=== PATIENT | male | born 1965 | race Caucasian/White ===

== ENCOUNTER 2023-02-22 06:34 | Outpatient (OUT) | payer OTHER, SELFPAY ==
[2023-02-22 07:00] LABS: Basophils Percent Auto 0.7 % (0.2-2.0); Eosinophils Absolute Auto 0.1 10^3/uL (0.0-0.7); Eosinophils Percent Auto 2.2 % (0.9-7.0); Hematocrit 40.5 % (42.0-54.0); Hemoglobin 13.9 g/dL (14.0-18.0); Immature Granulocytes Abs Auto 0.01 10^3/uL (0.00-0.03); Immature Granulocytes Pct Auto 0.2 % (0.0-0.5); Lymphocytes Absolute Auto 2.1 10^3/uL (1.2-3.8); Lymphocytes Percent Auto 49.2 % (20.5-60.0); Mean Corpuscular HGB Conc 34.3 g/dL (29.9-35.2); Mean Corpuscular Hemoglobin 31.4 pg (25.9-34.0); Mean Corpuscular Volume 91.6 fL (80.0-94.0); Mean Platelet Volume 9.4 fL (9.5-13.5); Monocytes Absolute Auto 0.3 10^3/uL (0.3-0.8); Monocytes Percent Auto 8.2 % (1.7-12.0); Neutrophils Absolute Auto 1.7 10^3/uL (1.4-6.5); Neutrophils Percent Auto 39.5 % (43.0-75.0); Platelet Count 191 10^3/uL (150-450); Red Blood Count 4.42 10^6/uL (4.70-6.10); Red Cell Distribution Width 12.2 % (11.0-15.0); White Blood Count 4.2 10^3/uL (4.0-11.0)
[2023-02-22 08:33] LABS: Alanine Aminotransferase 22 U/L (16-63); Albumin Globulin Ratio 1.1; Albumin Level 3.9 g/dL (3.4-5.0); Alkaline Phosphatase 43 U/L (46-116); Anion Gap 11.7; Aspartate Amino Transferase 21 U/L (15-37); BUN Creatinine Ratio 17.1; Bilirubin Total 0.6 mg/dL (0.2-1.0); Calcium 8.6 mg/dL (8.5-10.1); Carbon Dioxide 30.2 mmol/L (21.0-32.0); Chloride 105 mmol/L (98-107); Chol HDL Ratio 1.4; Cholesterol 101 mg/dL (<=200); Estimated GFR (African America >60 (>=60); Estimated GFR (Non-African Ame >60 (>=60); Free T3 3.29 pg/mL (2.18-3.98); Globulin 3.4 g/dL; Glucose 88 mg/dL (74-106); HDL Cholesterol 72 mg/dL (40-60); Potassium 3.9 mmol/L (3.5-5.1); Sodium 143 mmol/L (136-145); Thyroid Stimulating Hormone 1.642 uIU/mL (0.358-3.740); Total Protein 7.3 g/dL (6.4-8.2); Triglycerides <15 mg/dL (<=150)
[2023-02-22 08:36] LABS: Prostate Specific Antigen Scrn 0.39 ng/mL (<=4.00)
[2023-02-22 08:45] LABS: Estimated Average Glucose 97 mg/dL
[2023-02-23 11:09] LABS: Insulin 6.2 uIU/mL (2.6-24.9)
== END 2023-02-22 06:35 | disposition home or self-care (01) ==
LOC: LAB 06:34
PROVIDERS: PCP Family Medicine; Visit Provider Family Medicine
DX: Z00.00 Encounter for general adult medical examination without abnormal findings (principal)
CPT/HCPCS: 36415; 80053; 80061; 83036; 83525; 84436; 84443; 84481; 85025; G0103

== ENCOUNTER 2023-07-26 15:01 | Outpatient (OUT) | payer OTHER, SELFPAY | END 2023-07-26 15:02 | disposition home or self-care (01) | LOC: SLEEP 15:01 | PROVIDERS: PCP Family Medicine; Visit Provider Family Medicine | DX: G47.33 Obstructive sleep apnea (adult) (pediatric) (principal) | CPT/HCPCS: 95806 ==

== ENCOUNTER 2023-11-24 06:19 | Outpatient (OUT) | payer OTHER, SELFPAY ==
--- OUTSIDE RECORDS SUMMARY | 2023-11-24 06:21 | XMS_ITS | CCD ---
Author Organization [facility] Care Team Providers Care Perfume And Toilet Water Maker Name Role Phone Keshia Holt Primary Care Provider [phone] KESHIA HOLT Referring Unavailable KESHIA HOLT Primary Care Unavailable KESHIA HOLT Referring Unavailable KESHIA HOLT Primary Care Unavailable KESHIA HOLT Primary Care Unavailable KESHIA HOLT Referring Unavailable NILL, DR YOUNGBLOOD Admitting Unavailable NILL, DR YOUNGBLOOD Attending Unavailable BROOKEY, DR SCHMITT Primary Care Unavailable NILL, DR YOUNGBLOOD Consulting Unavailable SUSAN, BOB Consulting Unavailable YANET, DR SCHMITT Admitting Unavailable HOY, DR SCHMITT Attending Unavailable HOY, DR SCHMITT Primary Care Unavailable HOY, DR SCHMITT Consulting Unavailable CLEANING, DR RIBEIRO Admitting Unavailable LIANET, DR RIBEIRO Attending Unavailable YANET, DR SCHMITT Primary Care Unavailable LIANET, DR RIBEIRO Consulting Unavailable Keshia Holt Primary Care Physician Neri CLEANING R Attending Unavailable Medications Current Medications Medication Drug Class(es) Dates Sig (Normalized) Sig (Original) hydrocortisone acetate 10 mg/ml / pramoxine hydrochloride 10 mg/ml rectal cream (1 source) Corticosteroid Start: 11-15-2020 apply 1 dose rectal route three times daily Analpram-HC 1%-1% rectal cream quincy, Rectal, TID, Refill(s) 0 Start Date: 11/15/20 Status: Ordered lansoprazole 30 mg delayed release oral capsule (1 source) Proton Pump Inhibitor Start: 11-15-2020 take 1 capsule by mouth once daily Prevacid 30 mg Cap-DR 30 mg = 1 cap(s), Oral, Daily, Refills(s) 0 Start Date: 11/15/20 Status: Ordered 24 hr oxybutynin chloride 15 mg extended release oral tablet (1 source) Cholinergic Muscarinic Antagonist Start: 07-20-2022 End: 07-15-2023 take 1 tablet by mouth once daily oxybutynin 15 mg ER Tab 15 mg = 1 tab(s), Oral, Daily, X 90 day(s), # 90 tab(s), Refills(s) 3, Pharmacy: [facility] [id number], 170, cm, 07/20/22 15:45:00 EST, Height/Length Dosing, 84, kg, 07/20/22 15:45:00 EST, Weight Dosing Start Date: 07/20/22 Stop Date: 07/15/23 Status: Ordered Saw palmetto extract (1 source) Start: 07-01-2020 take 1 mg by mouth once daily saw palmetto mg, Oral, Daily, Refill(s) 0 Start Date: 07/01/20 Status: Ordered tadalafil 20 mg oral tablet (1 source) Phosphodiesterase 5 Inhibitor Start: 07-20-2022 Cialis 20 mg Tab See Instructions, Take half tab by mouth 1-2 hours prior to sexual activity., # 30 tab(s), Refills(s) 3, Pharmacy: [facility] [id number], 170, cm, 07/20/22 15:45:00 EST, Height/Length Dosing, 84, kg, 07/20/22 15:45:00 EST, Weight Dosing Start Date: 07/20/22 Status: Ordered Problems Active Problems Problem Classification Problem Date Documented Da te Episodic/Chronic Esophageal disorders (1 source) Gastro-esophageal reflux disease without esophagitis; Translations: [GERD WITHOUT ESOPHAGITIS] Onset: 01-06-2021 Chronic Genitourinary symptoms and ill-defined conditions (3 sources) Increased frequency of urination; Translations: [Nocturia] 07-14-2021 Episodic Hyperplasia of prostate (6 sources) Benign prostatic hyperplasia with lower urinary tract symptoms; Translations: [Benign prostatic hyperplasia without lower urinary tract symptoms] Onset: 01-06-2021 Chronic Other diseases of kidney and ureters (1 source) Urinary tract obstruction; Translations: [Other obstructive and reflux uropathy] Onset: 07-20-2022 Episodic Other gastrointestinal disorders (1 source) Heartburn 11-15-2020 Episodic Other male genital disorders (1 source) Impotence 07-01-2020 Chronic Other nutritional; endocrine; and metabolic disorders (1 source) Body mass index 25-29 - overweight 11-27-2020 Episodic Other screening for suspected conditions (not mental disorders or infectious disease) (5 sources) Encounter for screening for malignant neoplasm of prostate; Translations: [Encounter for screening for malignant neoplasm of colon] Onset: 01-01-2021 Episodic Unclassified (2 sources) Patient encounter status 07-01-2020 Past or Other Problems Problem Classification Problem Date Documented Da te Episodic/Chronic Other aftercare (1 source) 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 You have an appointment with Dr. Neri Cleaning on 10/04/23 which will need to be rescheduled since he will be out of the office that day. Please contact the office at the number listed below to get this appointment rescheduled at your earliest convenience. Thank you for your prompt attention to this matter. Sincerely, [facility] [address], [place] [address] [facility] Provider Letteron 07-05-2023 Provider Letter July 02, 2023 LEEROY ROMO [address] [id number] : 1965 Dear Mr. Llamasut, We have been trying to reach you with no success-your voicemail was full when we called on 07/02/23. You have an appointment with Dr. Neri Cleaning on July 26, 2023 at 3:15pm which will need to be rescheduled since he will be out of the office that day. Please contact the office at the number listed below to get this appointment rescheduled at your earliest convenience. Thank you for your prompt attention to this matter. Please call to reschedule at [phone] option 3. Sincerely, [facility] Appt rescheduled for 10/04/23 Normal [facility] INSULINon 12-31-2021 Insulin 5.4 uIU/mL Normal 2.6-24.9 [facility] Comment on above: Performed By: #### I NSULIN #### [facility] [address] [place] [address] Dr. Teodoro Owens CBC AUTO DIFFon 12-30-2021 BASO # 0.0 103/ul Normal 0.0-0.1 [facility] Comment on above: Performed By: #### C BC #### [facility] [address] [place] [address] Dr. Teodoro Owens Basophils/100 WBC (Bld) 0.5 % Normal 0.2-2.0 [facility] Comment on above: Performed By: #### C BC #### [facility] [address] [place] [address] Dr. Teodoro Owens EO # 0.1 103/ul Normal 0.0-0.7 [facility] Comment on above: Performed By: #### C BC #### [facility] [address] [place] [address] Dr. Teodoro Owens Eosinophils/100 WBC (Bld) 1.5 % Normal 0.9-7.0 [facility] Comment on above: Performed By: #### C BC #### [facility] [address] [place] [address] Dr. Teodoro Owens Erythrocyte distribution width (RBC) [Ratio] 12.7 % Normal 11.0-15.0 [facility] Comment on above: Performed By: #### C BC #### [facility] [address] [place] [address] Dr. Teodoro Owens Hematocrit (Bld) [Volume fraction] 40.7 % Critically low 42.0-54.0 [facility] Comment on above: Performed By: #### C BC #### [facility] [address] [place] [address] Dr. Teodoro Owens Hemoglobin (Bld) [Mass/Vol] 13.8 g/dL Critically low 14.0-18.0 [facility] Comment on above: Performed By: #### C BC #### [facility] [address] [place] [address] Dr. Teodoro Owens IG # 0.01 10e3/ul Normal 0.00-0.03 [facility] Comment on above: Performed By: #### C BC #### [facility] [address] [place] [address] Dr. Teodoro Owens IG % 0.3 % Normal 0.0-0.5 [facility] Comment on above: Performed By: #### C BC #### [facility] [address] [place] [address] Dr. Teodoro Owens LYMPH # 1.9 103/ul Normal 1.2-3.8 [facility] Comment on above: Performed By: #### C BC #### [facility] [address] [place] [address] Dr. Teodoro Owens Lymphocytes/100 WBC (Bld) 48.3 % Normal 20.5-60.0 [facility] Comment on above: Performed By: #### C BC #### [facility] [address] [place] [address] Dr. Teodoro Owens MANUAL DIFF REQ NO Normal [facility] Comment on above: Performed By: #### C BC #### [facility] [address] [place] [address] Dr. Teodoro Owens MCH (RBC) [Entitic mass] 31.0 pg Normal 25.9-34.0 [facility] Comment on above: Performed By: #### C BC #### [facility] [address] [place] [address] Dr. Teodoro Owens MCHC (RBC) [Mass/Vol] 33.9 g/dL Normal 29.9-35.2 [facility] Comment on above: Performed By: #### C BC #### [facility] [address] [place] [address] Dr. Teodoro Owens MCV (RBC) [Entitic vol] 91.5 fL Normal 80.0-94.0 [facility] Comment on above: Performed By: #### C BC #### [facility] [address] [address] [address] Teodoro Owens MONO # 0.4 103/ul Normal 0.3-0.8 [facility] Comment on above: Performed By: #### C BC #### [facility] [address] [address] [address] Teodoro Owens Monocytes/100 WBC (Bld) 9.0 % Normal 1.7-12.0 [facility] Comment on above: Performed By: #### C BC #### [facility] [address] [address] [address] Teodoro Owens NEUT # 1.6 103/ul Normal 1.4-6.5 [facility] Comment on above: Performed By: #### C BC #### [facility] [address] [place] [address] Dr. Teodoro Owens Neutrophils/100 WBC (Bld) 40.4 % Critically low 43.0-75.0 [facility] Comment on above: Performed By: #### C BC #### [facility] [address] [address] [address] Teodoro Owens Platelet mean volume (Bld) [Entitic vol] 9.1 fL Critically low 9.5-13.5 [facility] Comment on above: Performed By: #### C BC #### [facility] [address] [place] [address] Dr. Teodoro Owens PLT 176 103/ul Normal 150-450 [facility] Comment on above: Performed By: #### C BC #### [facility] [address] [place] [address] Dr. Teodoro Owens RBC 4.45 106/ul Critically low 4.70-6.10 [facility] Comment on above: Performed By: #### C BC #### [facility] [address] [address] [address] Teodoro Owens WBC 4.0 103/ul Normal 4.0-11.0 [facility] Comment on above: Performed By: #### C BC #### [facility] [address] [address] [address] Teodoro Owens GLYCOHEMOGLOBIN A1Con 2021 ADA RECOMMENDATION SEE BELOW Normal [facility] Comment on above: Result Comment: ADA RECOMMENDED LIMIT 4.0 - 6.0 ADA THERAPEUTIC TARGET < 7.0 ACTION SUGGESTED > 7.0 Performed By: #### A 1C #### [facility] [address] [address] [address] Teodoro Owens Glucose [Mass/Vol] 91 mg/dL Normal [facility] Comment on above: Performed By: #### A 1C #### [facility] [address] [address] [address] Teodoro Owens HbA1c (Bld) [Mass fraction] 4.8 % Normal 4.5-6.2 [facility] Comment on above: Performed By: #### A 1C #### [facility] [address] [place] [address] Dr. Teodoro Owens LIPID PROFILEon 12-30-2021 CHOL-HDL RATIO NORM SEE BELOW Normal [facility] Comment on above: Result Comment: 3.3 - 4.4 LOW RISK 4.4 - 7.1 AVERAGE RISK 7.1 - 11.0 MODERATE RISK >11.0 HIGH RISK Performed By: #### U ZACH, CMP, LIPID #### [facility] [address] [place] [address] Dr. Teodoro Owens Cholesterol [Mass/Vol] 103 mg/dL Normal <=200 Th [facility] Comment on above: Performed By: #### U ZACH, CMP, LIPID #### [facility] [address] [address] [address] Teodoro Owens Cholesterol in HDL [Mass/Vol] 74 mg/dL Critically high 40-60 [facility] Comment on above: Performed By: #### U ZACH, CMP, LIPID #### [facility] [address] [address] [address] Teodoro Owens Cholesterol in LDL [Mass/Vol] 26.0 mg/dL Normal [facility] Comment on above: Performed By: #### U ZACH, CMP, LIPID #### [facility] [address] [address] [address] Teodoro Owens Cholesterol.total/Choles terol in HDL [Mass ratio] 1.4 {ratio} Normal [facility] Comment on above: Performed By: #### U ZACH, CMP, LIPID #### [facility] [address] [address] [address] Teodoro Owens HDL NORMAL > or = 60 mg/dl - LOW CARDIOVASCULAR RISK <40 mg/dl - HIGH CARDIOVASCULAR RISK Normal [facility] Comment on above: Performed By: #### U ZACH, CMP, LIPID #### [facility] [address] [address] [address] Teodoro Owens LDL CALC NORMAL SEE BELOW Normal [facility] Comment on above: Result Comment: <100 mg/dl OPTIMAL 100 - 129 mg/dl NEAR OR ABOVE OPTIMAL 130 - 159 mg/dl BORDERLINE HIGH 160 - 189 mg/dl HIGH >190 mg/dl VERY HIGH Performed By: #### U ZACH, CMP, LIPID #### [facility] [address] [address] [address] Teodoro Owens Triglyceride [Mass/Vol] 15 mg/dL Normal <=150 T [facility] Comment on above: Performed By: #### U ZACH, CMP, LIPID #### [facility] [address] [address] [address] Teodoro Owens VLDL CALC 3.0 mg/dL Normal [facility] Comment on above: Performed By: #### U ZACH, CMP, LIPID #### [facility] [address] [address] [address] Teodoro Owens PROF 14(COMP METB)on 022 Albumin [Mass/Vol] 3.8 g/dL Normal 3.4-5.0 [facility] Comment on above: Performed By: #### U ZACH, CMP, LIPID #### [facility] [address] [address] [address] Teodroo Owens Albumin/Globulin [Mass ratio] 1.2 {ratio} Normal [facility] Comment on above: Performed By: #### U ZACH, CMP, LIPID #### [facility] [address] [address] [address] Teodoro Owens ALP [Catalytic activity/Vol] 42 U/L Critically low 46-116 [facility] Comment on above: Performed By: #### U ZACH, CMP, LIPID #### [facility] [address] [address] [address] Teodoro Owens ALT [Catalytic activity/Vol] 21 U/L Normal 16-63 [facility] Comment on above: Performed By: #### U ZACH, CMP, LIPID #### [facility] [address] [address] [address] Teodoro Owens Anion gap [Moles/Vol] 9.9 mmol/L Normal [facility] Comment on above: Performed By: #### U ZACH, CMP, LIPID #### [facility] [address] [place] [address] Dr. Teodoro Owens AST [Catalytic activity/Vol] 20 U/L Normal 15-37 [facility] Comment on above: Performed By: #### U ZACH, CMP, LIPID #### [facility] [address] [address] [address] Teodoro Owens Bilirubin [Mass/Vol] 0.8 mg/dL Normal 0.2-1.0 [facility] Comment on above: Performed By: #### U ZACH, CMP, LIPID #### [facility] [address] [address] [address] Teodoro Owens Calcium [Mass/Vol] 8.6 mg/dL Normal 8.5-10.1 [facility] Comment on above: Performed By: #### U ZACH, CMP, LIPID #### [facility] [address] [address] [address] Teodoro Owens Chloride [Moles/Vol] 106 mmol/L Normal 98-107 [facility] Comment on above: Performed By: #### U ZACH, CMP, LIPID #### [facility] [address] [address] [address] Teodoro Owens CO2 [Moles/Vol] 30.2 mmol/L Normal 21.0-32.0 [facility] Comment on above: Performed By: #### U ZACH, CMP, LIPID #### [facility] [address] [address] [address] Teodoro Owens Creatinine [Mass/Vol] 1.01 mg/dL Normal 0.70-1.30 [facility] Comment on above: Performed By: #### U ZACH, CMP, LIPID #### [facility] [address] [address] [address] Teodoro Owens EGFR-AF NORTH [place]OREAN >60 Normal >=60 [facility] Comment on above: Performed By: #### U ZACH, CMP, LIPID #### [facility] [address] [address] [address] Teodoro Owens EGFR-NON AF [place]ORE[place] >60 Normal >=60 [facility] Comment on above: Performed By: #### U ZACH, CMP, LIPID #### [facility] [address] [address] [address] Teodoro Owens Globulin (S) [Mass/Vol] 3.2 g/dL Normal [facility] Comment on above: Performed By: #### U ZACH, CMP, LIPID #### [facility] [address] [address] [address] Teodoro Owens Glucose [Mass/Vol] 88 mg/dL Normal 74-106 [facility] Comment on above: Performed By: #### U ZACH, CMP, LIPID #### [facility] [address] [address] [address] Teodoro Owens Potassium [Moles/Vol] 4.1 mmol/L Normal 3.5-5.1 [facility] Comment on above: Performed By: #### U ZACH, CMP, LIPID #### [facility] [address] [address] [address] Teodoro Owens Protein [Mass/Vol] 7.0 g/dL Normal 6.4-8.2 [facility] Comment on above: Performed By: #### U ZACH, CMP, LIPID #### [facility] [address] [address] [address] Teodoro Owens Sodium [Moles/Vol] 142 mmol/L Normal 136-145 [facility] Comment on above: Performed By: #### U ZACH, CMP, LIPID #### [facility] [address] [place], [place] [address] Dr. Teodoro Owens Urea nitrogen [Mass/Vol] 14.0 mg/dL Normal 7.0-18.0 [facility] Comment on above: Performed By: #### U ZACH, CMP, LIPID #### [facility] [address] [address] [address] Teodoro Owens Urea nitrogen/Creatinine [Mass ratio] 13.9 mg/mg Normal [facility] Comment on above: Performed By: #### U ZACH, CMP, LIPID #### [facility] [address] [address] [address] Teodoro Owens URIC ACID SERUMon 12-30-2021 Urate [Mass/Vol] 5.5 mg/dL Normal 3.5-7.2 [facility] Comment on above: Performed By: #### U ZACH, CMP, LIPID #### [facility] [address] [address] [address] Teodoro Owens Hemoglobin A1Con 11-03-2020 Glucose [Mass/Vol] 100 mg/dL Normal [facility] Comment on above: Result Comment: The ADA and AACC recommend providing the estimated average glucose result to permit better patient understanding of their HBA1c result. Performed By: #### G LYHGB, INSU, LIPR, PSAS #### [address] [phone] Mortgage Specialist: Max Villanueva MD #### CP, CDP #### [facility] [address] [place] [address] [place] [address] Mortgage Specialist: Preet Ayala MD HbA1c (Bld) [Mass fraction] 5.1 % Normal 4.0-6.0 [facility] Comment on above: Performed By: #### G LYHGB, INSU, LIPR, PSAS #### [address] [phone] Mortgage Specialist: Max Villanueva MD #### CP, CDP #### [facility] [address] [place] [address] Mortgage Specialist: Preet Ayala MD CBC Auto DifferentialOrdered By: Keshia Holt on 11-02-2020 Absolute Eos # 0.06 [facility] Work Phone: Absolute Immature Granulocyte <0.03 [facility] Work Phone: Absolute Lymph # 2.06 [employer] Work Phone: Absolute Trigg # 0.47 [facility] Work Phone: Basophils (Bld) [#/Vol] 10*3/uL M [email or web address] Work Phone: Basophils/100 WBC (Bld) 0 % 0 - 2 % M [email or web address] Work Phone: Differential Type NOT REPORTED [employer] Work Phone: Eosinophils/100 WBC (Bld) 1 % 1 - 4 % [facility] Work Phone: Hematocrit (Bld) [Volume fraction] 42.2 % 40.7 - 50.3 % [employer] Work Phone: Hemoglobin.gastrointesti nal spec 1 Ql (Stl) 14.5 g/dL 13.0 - 17.0 g/dL [employer] Phone: Immature granulocytes/100 WBC (Bld) 0 % 0 [employer] Work Phone: Lymphocytes/100 WBC (Bld) 40 % 24 - 43 % [employer] Phone: MCH (RBC) [Entitic mass] 31.0 pg 25. 2 - 33.5 pg [employer] Work Phone: MCHC (RBC) [Mass/Vol] 34.4 g/dL 28.4 - 34.8 g/dL [employer] Phone: MCV (RBC) [Entitic vol] 90.4 fL 82.6 - 102.9 fL [employer] Work Phone: Monocytes/100 WBC (Bld) 9 % 3 - 12 % [facility] Work Phone: NRBC Automated 0.0 0.0 per 100 WBC [employer] Phone: Platelet distribution width (Bld) [Ratio] 12.5 % 11.8 - 14.4 % [employer] Phone: Platelet Estimate NOT REPORTED [employer] Work Phone: Platelet mean volume (Bld) [Entitic vol] 9.1 fL 8.1 - 13.5 fL [employer] Phone: Platelets (Bld) [#/Vol] 173 10*3/uL [employer] Phone: RBC (Bld) [#/Vol] 4.67 10*6/uL 4.21 - 5.7 7 m/uL [employer] Work Phone: RBC (Bld) [#/Vol] NOT REPORTED [employer] Phone: Segmented neutrophils/100 WBC (Bld) 50 % 36 - 65 % [employer] Work Phone: Segs Absolute 2.54 [employer] Work Phone: WBC (Bld) [#/Vol] 5.2 10*3/uL [employer] Work Phone: WBC (Bld) [#/Vol] NOT REPORTED [employer] Work Phone: [employer] Work Phone: CBC with Diffon 11-02-2020 Abs. Basophil <0.03 Normal 0.00-0.20 [facility] Comment on above: Performed By: #### G LYHGB, INSU, LIPR, PSAS #### [address] [place] [address] Mortgage Specialist: Max Villanueva MD #### CP, CDP #### [address] [place] [place] [phone] Mortgage Specialist: Preet Ayala MD Abs.Imm.Granulocyte <0.03 Normal 0.00-0.30 [facility] Comment on above: Performed By: #### G LYHGB, INSU, LIPR, PSAS #### [address] [phone] Mortgage Specialist: Max Villanueva MD #### CP, CDP #### [address] [place] [phone] ( Mortgage Specialist: Preet Ayala MD Abs.Neutrophil (Seg) 2.54 k/uL Normal 1.50-8.10 [facility] Comment on above: Performed By: #### G LYHGB, INSU, LIPR, PSAS #### [place] [address] Mortgage Specialist: Max Villanueva MD #### CP, CDP #### [address] [place] [address] Mortgage Specialist: Preet Ayala MD Basophils/100 WBC (Bld) 0 % Normal 0-2 M [facility] [place] Comment on above: Performed By: #### G LYHGB, INSU, LIPR, PSAS #### [place] [address] Mortgage Specialist: Max Villanueva MD #### CP, CDP #### [address] [place] [place] [phone] Mortgage Specialist: Preet Ayala MD Eosinophils (Bld) [#/Vol] 0.06 10*3/uL Normal 0.00-0.44 [facility] Comment on above: Performed By: #### G LYHGB, INSU, LIPR, PSAS #### [address] [phone] Mortgage Specialist: Max Villanueva MD #### CP, CDP #### [address] [place] [phone] Mortgage Specialist: Preet Ayala MD Eosinophils/100 WBC (Bld) 1 % Normal 1-4 [facility] Comment on above: Performed By: #### G LYHGB, INSU, LIPR, PSAS #### [address] [phone] Mortgage Specialist: Max Villanueva MD #### CP, CDP #### [address] [address] [place] [phone] Mortgage Specialist: Preet Ayala MD Erythrocyte distribution width (RBC) [Ratio] 12.5 % Normal 11.8-14.4 [facility] Comment on above: Performed By: #### G LYHGB, INSU, LIPR, PSAS #### [address] [address] Mortgage Specialist: Max Villanueva MD #### CP, CDP #### [address] [place] [phone] Mortgage Specialist: Preet Ayala MD Hematocrit (Bld) [Volume fraction] 42.2 % Normal 40.7-50.3 [facility] Comment on above: Performed By: #### G LYHGB, INSU, LIPR, PSAS #### [address] [address] Mortgage Specialist: Max Villanueva MD #### CP, CDP #### [address] [place] [phone] Mortgage Specialist: Preet Ayala MD Hemoglobin (Bld) [Mass/Vol] 14.5 g/dL Normal 13.0-17.0 [facility] Comment on above: Performed By: #### G LYHGB, INSU, LIPR, PSAS #### [address] [address] Mortgage Specialist: Max Villanueva MD #### CP, CDP #### [address] [place], [place] [phone] Mortgage Specialist: Preet Ayala MD Immature granulocytes/100 WBC (Bld) 0 % Normal 0 [facility] Comment on above: Performed By: #### G LYHGB, INSU, LIPR, PSAS #### [address] [phone] Mortgage Specialist: Max Villanueva MD #### CP, CDP #### [address] [place] [phone] Mortgage Specialist: Preet Ayala MD Lymphocytes (Bld) [#/Vol] 2.06 10*3/uL Normal 1.10-3.70 [facility] Comment on above: Performed By: #### G LYHGB, INSU, LIPR, PSAS #### [address] [phone] Mortgage Specialist: Max Villanueva MD #### CP, CDP #### [address] [place] [phone] Mortgage Specialist: Preet Ayala MD Lymphocytes/100 WBC (Bld) 40 % Normal 24-43 [facility] Comment on above: Performed By: #### G LYHGB, INSU, LIPR, PSAS #### [address] [address] Mortgage Specialist: Max Villanueva MD #### CP, CDP #### [address] [place] [phone] Mortgage Specialist: Preet Ayala MD MCH (RBC) [Entitic mass] 31.0 pg Normal 25.2-33.5 [facility] Comment on above: Performed By: #### G LYHGB, INSU, LIPR, PSAS #### [address] [phone] Mortgage Specialist: Max Villanueva MD #### CP, CDP #### [address] [place], [place] [phone] Mortgage Specialist: Preet Ayala MD MCHC (RBC) [Mass/Vol] 34.4 g/dL Normal 28.4-34.8 [facility] Comment on above: Performed By: #### G LYHGB, INSU, LIPR, PSAS #### [address] [address] Mortgage Specialist: Max Villanueva MD #### CP, CDP #### [address] [place] [phone] ( Mortgage Specialist: Preet Ayala MD MCV (RBC) [Entitic vol] 90.4 fL Normal 82.6-102.9 M [facility] [place] Comment on above: Performed By: #### G LYHGB, INSU, LIPR, PSAS #### [address] [address] Mortgage Specialist: Max Villanueva MD #### CP, CDP #### [address] [place] [phone] Mortgage Specialist: Preet Ayala MD Monocytes (Bld) [#/Vol] 0.47 10*3/uL Normal 0.10-1.20 [facility] Comment on above: Performed By: #### G LYHGB, INSU, LIPR, PSAS #### [address] [phone] Mortgage Specialist: Max Villanueva MD #### CP, CDP #### [address] [place] [address] Mortgage Specialist: Preet Ayala MD Monocytes/100 WBC (Bld) 9 % Normal 3-12 M [facility] [place] Comment on above: Performed By: #### G LYHGB, INSU, LIPR, PSAS #### [address] [place], [place] [phone] Mortgage Specialist: Max Villanueva MD #### CP, CDP #### [facility] [address] [place] [address] [place] [address] Mortgage Specialist: Preet Ayala MD Neutrophil (Seg) 50 % Normal 36-65 [facility] Comment on above: Performed By: #### G LYHGB, INSU, LIPR, PSAS #### [address] [place], [place] [phone] Mortgage Specialist: Max Villanueva MD #### CP, CDP #### [facility] [address] [place] [address] [place] [phone] Mortgage Specialist: Preet Ayala MD NRBC Automated 0.0 per 100 WBC Normal 0.0 [facility] Comment on above: Performed By: #### G LYHGB, INSU, LIPR, PSAS #### [address] [phone] Mortgage Specialist: Max Villanueva MD #### CP, CDP #### [facility] [address] [place] [address] Dr. [place] [phone] Mortgage Specialist: Preet Ayala MD Platelet mean volume (Bld) [Entitic vol] 9.1 fL Normal 8.1-13.5 [facility] Comment on above: Performed By: #### G LYHGB, INSU, LIPR, PSAS #### [address] [phone] Mortgage Specialist: Max Villanueva MD #### CP, CDP #### [address] [place] [address] Mortgage Specialist: Preet Ayala MD Platelets (Bld) [#/Vol] 173 10*3/uL Normal 138-453 [facility] Comment on above: Performed By: #### G LYHGB, INSU, LIPR, PSAS #### [address] [address] Mortgage Specialist: Max Villanueva MD #### CP, CDP #### [address] [place] [phone] Mortgage Specialist: Preet Ayala MD RBC (Bld) [#/Vol] 4.67 10*6/uL Normal 4.21-5.77 [facility] Comment on above: Performed By: #### G LYHGB, INSU, LIPR, PSAS #### [address] [phone] Mortgage Specialist: Max Villanueva MD #### CP, CDP #### [address] [place] [phone] Mortgage Specialist: Preet Ayala MD WBC (Bld) [#/Vol] 5.2 10*3/uL Normal 3.5-11.3 [facility] Comment on above: Performed By: #### G LYHGB, INSU, LIPR, PSAS #### [address] [phone] Mortgage Specialist: Max Villanueva MD #### CP, CDP #### [address] [place] [address] Mortgage Specialist: Preet Ayala MD Auto Diff Performed NOT REPORTED Normal [facility] Comment on above: Performed By: #### G LYHGB, INSU, LIPR, PSAS #### [address] [phone] Mortgage Specialist: Max Villanueva MD #### CP, CDP #### [address] [place], [place] [phone] Mortgage Specialist: Preet Ayala MD Platelet Estimate NOT REPORTED Normal [facility] Comment on above: Performed By: #### G LYHGB, INSU, LIPR, PSAS #### [address] [phone] Mortgage Specialist: Max Villanueva MD #### CP, CDP #### [facility] [address] [place] [address] Dr. [place], [place] [phone] Mortgage Specialist: Preet Ayala MD RBC morphology finding Nom (Bld) NOT REPORTED Normal [facility] Comment on above: Performed By: #### G LYHGB, INSU, LIPR, PSAS #### [address] [phone] Mortgage Specialist: Max Villanueva MD #### CP, CDP #### [address] [place], [place] [phone] Mortgage Specialist: Preet Ayala MD WBC Morphology NOT REPORTED Normal [facility] Comment on above: Performed By: #### G LYHGB, INSU, LIPR, PSAS #### [address] [phone] Mortgage Specialist: Max Villanueva MD #### CP, CDP #### [address] [place], [place] [phone] Mortgage Specialist: Preet Ayala MD Comp Metabolic Profon 2020 (cont.) Normal [facility] Comment on above: Result Comment: Aver age GFR for 50-59 years old: 93 mL/min/1.73sq m Chronic Kidney Disease: <60 mL/min/1.73sq m Kidney failure: <15 mL/min/1.73sq m eGFR calculated using average adult body mass. Additional eGFR calculator available at: http://www.[employer].Oneflare/multiple_crcl_2011.htm Performed By: #### G LYHGB, INSU, LIPR, PSAS #### [id number] [place] [address] Mortgage Specialist: Max Villanueva MD #### CP, CDP #### [address] [place], [place] [phone] Mortgage Specialist: Preet Ayala MD Albumin [Mass/Vol] 4.0 g/dL Normal 3.5-5.2 [facility] Comment on above: Performed By: #### G LYHGB, INSU, LIPR, PSAS #### [address] [phone] Mortgage Specialist: Max Villanueva MD #### CP, CDP #### [address] [place] [phone] Mortgage Specialist: Preet Ayala MD Albumin/Glob Ratio 1.3 Normal 1.0-2.5 [facility] Comment on above: Performed By: #### G LYHGB, INSU, LIPR, PSAS #### [address] [phone] Mortgage Specialist: Max Villanueva MD #### CP, CDP #### [address] [place], [place] [phone] Mortgage Specialist: Preet Ayala MD Alkaline Phos 47 U/L Normal 40-129 [facility] Comment on above: Performed By: #### G LYHGB, INSU, LIPR, PSAS #### [address] [phone] Mortgage Specialist: Max Villanueva MD #### CP, CDP #### [address] [place], [place] [phone] Mortgage Specialist: Preet Ayala MD ALT [Catalytic activity/Vol] 18 U/L Normal 5-41 [facility] Comment on above: Performed By: #### G LYHGB, INSU, LIPR, PSAS #### [address] [place] [address] Mortgage Specialist: Max Villanueva MD #### CP, CDP #### [facility] [address] [place] [address] [place], [place] [phone] Mortgage Specialist: Preet Ayala MD Anion gap [Moles/Vol] 7 mmol/L Low 9-17 [facility] Comment on above: Performed By: #### G LYHGB, INSU, LIPR, PSAS #### [address] [phone] Mortgage Specialist: Max Villanueva MD #### CP, CDP #### [facility] [address] [place] [address] [place], [place] [phone] Mortgage Specialist: Preet Ayala MD AST [Catalytic activity/Vol] 21 U/L Normal <40 [facility] Comment on above: Performed By: #### G LYHGB, INSU, LIPR, PSAS #### [address] [phone] Mortgage Specialist: Max Villanueva MD #### CP, CDP #### [address] [place] [address] Mortgage Specialist: Preet Ayala MD Bilirubin [Mass/Vol] 0.80 mg/dL Normal 0.3-1.2 [facility] Comment on above: Performed By: #### G LYHGB, INSU, LIPR, PSAS #### [address] [phone] Mortgage Specialist: Max Villanueva MD #### CP, CDP #### [address] [place] [address] Mortgage Specialist: Preet Ayala MD BUN/CRE Ratio 16 Normal 9-20 [facility] Comment on above: Performed By: #### G LYHGB, INSU, LIPR, PSAS #### [address] [address] Mortgage Specialist: Max Villanueva MD #### CP, CDP #### [address] [place], [place] [phone] Mortgage Specialist: Preet Ayala MD Calcium [Mass/Vol] 9.1 mg/dL Normal 8.6-10.4 [facility] Comment on above: Performed By: #### G LYHGB, INSU, LIPR, PSAS #### [address] [phone] Mortgage Specialist: Max Villanueva MD #### CP, CDP #### [address] [place], [place] [phone] Mortgage Specialist: Preet Ayala MD Chloride [Moles/Vol] 106 mmol/L Normal 98-107 [facility] Comment on above: Performed By: #### G LYHGB, INSU, LIPR, PSAS #### [address] [phone] Mortgage Specialist: Max Villanueva MD #### CP, CDP #### [address] [place], [place] [phone] Mortgage Specialist: Preet Ayala MD CO2 [Moles/Vol] 25 mmol/L Normal 20-31 [facility] Comment on above: Performed By: #### G LYHGB, INSU, LIPR, PSAS #### [address] [phone] Mortgage Specialist: Max Villanueva MD #### CP, CDP #### [address] [place], [place] [phone] Mortgage Specialist: Preet Ayala MD Creatinine [Mass/Vol] 0.97 mg/dL Normal 0.70-1.20 [facility] Comment on above: Performed By: #### G LYHGB, INSU, LIPR, PSAS #### [address] [place] [address] Mortgage Specialist: Max Villanueva MD #### CP, CDP #### [facility] [address] [place], [place] [phone] Mortgage Specialist: Preet Ayala MD GFR, Amer >60 Normal >60 [facility] Comment on above: Performed By: #### G LYHGB, INSU, LIPR, PSAS #### [address] [phone] Mortgage Specialist: Max Villanueva MD #### CP, CDP #### [address] [place], [place] [phone] Mortgage Specialist: Preet Ayala MD GFR,non Amer >60 Normal >60 [facility] Comment on above: Performed By: #### G LYHGB, INSU, LIPR, PSAS #### [address] [address] Mortgage Specialist: Max Villanueva MD #### CP, CDP #### [address] [place], [place] [phone] Mortgage Specialist: Preet Ayala MD Glucose [Mass/Vol] 95 mg/dL Normal 70-99 [facility] Comment on above: Performed By: #### G LYHGB, INSU, LIPR, PSAS #### [address] [phone] Mortgage Specialist: Max Villanueva MD #### CP, CDP #### [address] [place], [place] [phone] Mortgage Specialist: Preet Ayala MD Potassium [Moles/Vol] 4.0 mmol/L Normal 3.7-5.3 [facility] Comment on above: Performed By: #### G LYHGB, INSU, LIPR, PSAS #### [address] [place] [address] Mortgage Specialist: Max Villanueva MD #### CP, CDP #### [address] [place], [place] [phone] Mortgage Specialist: Preet Ayala MD Protein [Mass/Vol] 7.1 g/dL Normal 6.4-8.3 [facility] Comment on above: Performed By: #### G LYHGB, INSU, LIPR, PSAS #### [address] [phone] Mortgage Specialist: Max Villanueva MD #### CP, CDP #### [address] [place], [place] [phone] Mortgage Specialist: Preet Ayaal MD Sodium [Moles/Vol] 138 mmol/L Normal 135-144 [facility] Comment on above: Performed By: #### G LYHGB, INSU, LIPR, PSAS #### [address] [phone] Mortgage Specialist: Max Villanueva MD #### CP, CDP #### [address] [place] [address] Mortgage Specialist: Preet Ayala MD Staging: Normal [facility] Comment on above: Result Comment: Stag e 1: Some kidney damage normal GFR Stage 2: Mild kidney damage GFR 60-89 Stage 3: Moderate kidney damage GFR 30-59 Stage 4: Severe kidney damage GFR 15-29 Stage 5: Severe kidney damage GFR <15 ESRD - chronic treatment by dialysis or transplant Performed By: #### G LYHGB, INSU, LIPR, PSAS #### [address] [phone] Mortgage Specialist: Max Villanueva MD #### CP, CDP #### [address] [place] [address] Mortgage Specialist: Preet Ayala MD Urea nitrogen [Mass/Vol] 16 mg/dL Normal 6-20 [facility] Comment on above: Performed By: #### G LYHGB, INSU, LIPR, PSAS #### [facility] [address] [place], [place] [phone] Mortgage Specialist: Max Villanueva MD #### CP, CDP #### [facility] [address] [place] [address] Mortgage Specialist: Preet Ayala MD Comprehensive Metabolic Pane lOrdered By: Keshia Holt on 11-02-2020 Albumin [Mass/Vol] 4 g/dL 3.5 - 5.2 g/dL [facility] Phone: Albumin/Globulin [Mass ratio] 1.3 {ratio} [facility] Phone: ALP (Bld) [Catalytic activity/Vol] 47 U/L 40 - 129 U/L [facility] Phone: ALT [Catalytic activity/Vol] 18 U/L 5 - 41 U/L [facility] Phone: Anion gap [Moles/Vol] 7 mmol/L Low 9 - 17 mmol/L [facility] Phone: AST [Catalytic activity/Vol] 21 U/L <40 [facility] Phone: Bilirubin [Mass/Vol] 0.80 mg/dL 0.3 - 1 .2 mg/dL [facility] Phone: Calcium [Mass/Vol] 9.1 mg/dL 8.6 - 10. 4 mg/dL [facility] Phone: Chloride [Moles/Vol] 106 mmol/L 98 - 10 7 mmol/L [facility] Phone: CO2 [Moles/Vol] 25 mmol/L 20 - 31 mmol/L [facility] Work Phone: Creatinine [Mass/Vol] 0.97 mg/dL 0.70 - 1.20 mg/dL [facility] [employer] Phone: Free PSA/Total PSA [Mass fraction] 7.1 g/dL 6.4 - 8.3 g/dL [facility] [employer] Work Phone: GFR >60 >60 mL/min [facility] [employer] Work Phone: GFR Non- >60 >60 mL/min [facility] [employer] Work Phone: Glucose [Mass/Vol] 95 mg/dL 70 - 99 mg/dL [facility] [employer] Work Phone: Interpretation and review of laboratory results Abnormal [facility] [employer] Phone: Potassium [Moles/Vol] 4.0 mmol/L 3.7 - 5.3 mmol/L [facility] [employer] Phone: Sodium [Moles/Vol] 138 mmol/L 135 - 144 mmol/L [facility] [employer] Phone: Urea nitrogen (BldV) [Mass/Vol] 16 mg/dL 6 - 20 mg/dL [facility] [employer] Phone: Urea nitrogen/Creatinine (Bld) [Mass ratio] 16 [facility] [employer] Phone: [facility] [employer] Phone: Insulinon 11-02-2020 Insulin 7.1 mU/L Normal [facility] Comment on above: Performed By: #### G LYHGB, INSU, LIPR, PSAS #### [facility] [address] [place] [address] Mortgage Specialist: Max Villanueva MD #### CP, CDP #### [facility] [address] [place] [address] Mortgage Specialist: Preet Ayala MD Reference Range Normal [facility] Comment on above: Result Comment: Fast in.6-24.9 30 min: 20-112 60 min: 29-88 90 min: 26-84 120 min: 22-79 Performed By: #### G LYHGB, INSU, LIPR, PSAS #### [facility] [employer] [address] [place], [place] [phone] Mortgage Specialist: Max Villanueva MD #### CP, CDP #### [facility] [address] [place] [address] [place] [address] Mortgage Specialist: Preet Ayala MD Collection Info. NOT REPORTED [facility] Comment on above: Performed By: #### G LYHGB, INSU, LIPR, PSAS #### [facility] [employer] [facility] [place], [place] [phone] Mortgage Specialist: Max Villanueva MD #### CP, CDP #### [address] [place] [address] Mortgage Specialist: Preet Ayala MD Insulin, totalOrdered By: Do jamison Holt on 11-02-2020 Insulin 7.1 mU/L [employer] Phone: Insulin Comment NOT REPORTED [facility] Work Phone: Insulin Reference Range: [employer] Phone: Comment on above: Fastin.6-24.9 30 min: 20-112 60 min: 29-88 90 min: 26-84 120 min: 22-79 [employer] Phone: Laboratory - Chemistry and C hemistry - challengeOrdered By: Keshia Holt on 11-02-2020 GFR/1.73 sq M.predicted MDRD (S/P/Bld) [Vol rate/Area] [employer] Phone: Comment on above: Average GFR for 50-5 9 years old: 93 mL/min/1.73sq m Chronic Kidney Disease: <60 mL/min/1.73sq m Kidney failure: <15 mL/min/1.73sq m eGFR calculated using average adult body mass. Additional eGFR calculator available at: http://www.[employer]/multiple_crcl_2012.htm Stage 1: Some kidney damage normal GFR Stage 2: Mild kidney damage GFR 60-89 Stage 3: Moderate kidney damage GFR 30-59 Stage 4: Severe kidney damage GFR 15-29 Stage 5: Severe kidney damage GFR <15 ESRD - chronic treatment by dialysis or transplant Lipid PanelOrdered By: Chan Holt on 11-02-2020 Cholesterol [Mass/Vol] 93 mg/dL <200 [employer] Phone: Comment on above: Cholesterol Guidelines: <200 Desirable 200-240 Borderline >240 Undesirable Cholesterol in HDL [Mass/Vol] 69 mg/dL >40 [employer] Phone: Comment on above: HDL Guidelines: <40 Undesirable 40-59 Borderline >59 Desirable Cholesterol in LDL [Mass/Vol] 20 mg/dL 0 - 130 mg/dL [employer] Phone: Comment on above: LDL Guidelines: <100 Desirable 100-129 Near to/above Desirable 130-159 Borderline >159 Undesirable Direct (measured) LDL and calculated LDL are not interchangeable tests. Cholesterol in VLDL [Mass/Vol] NOT REPORTED 1 - 30 mg/dL [employer] Phone: Cholesterol.total/Choles terol in HDL [Mass ratio] 1.3 {ratio} <5 [facility] Phone: Triglyceride [Mass/Vol] 21 mg/dL <150 [facility] south[facility] Corporation Phone: Comment on above: Triglyceride Guidelines: <150 Desirable 150-199 Borderline 200-499 High >499 Very high Based on AHA Guidelines for fasting triglyceride, February 2012. [employer] Phone: Lipid Profileon 11-02-2020 Cholesterol [Mass/Vol] 93 mg/dL Normal <200 [facility] Comment on above: Result Comment: Cholesterol Guidelines: <200 Desirable 200-240 Borderline >240 Undesirable Performed By: #### G LYHGB, INSU, LIPR, PSAS #### [address] [phone] Mortgage Specialist: Max Villanueva MD #### CP, CDP #### [facility] [address] [place] [address] [place] [address] Mortgage Specialist: Preet Ayala MD Cholesterol in HDL [Mass/Vol] 69 mg/dL Normal >40 [facility] Comment on above: Result Comment: HDL Guidelines: <40 Undesirable 40-59 Borderline >59 Desirable Performed By: #### G LYHGB, INSU, LIPR, PSAS #### [address] [address] Mortgage Specialist: Max Villanueva MD #### CP, CDP #### [facility] [address] [place] [address] Dr. [place], [place] [phone] Mortgage Specialist: Preet Ayala MD Cholesterol in LDL [Mass/Vol] 20 mg/dL Normal 0-130 [facility] Comment on above: Result Comment: LDL Guidelines: <100 Desirable 100-129 Near to/above Desirable 130-159 Borderline >159 Undesirable Direct (measured) LDL and calculated LDL are not interchangeable tests. Performed By: #### G LYHGB, INSU, LIPR, PSAS #### [address] [phone] Mortgage Specialist: Max Villanueva MD #### CP, CDP #### [facility] [address] [place] [address] [place] [address] Mortgage Specialist: Preet Ayala MD Cholesterol.total/Choles terol in HDL [Mass ratio] 1.3 {ratio} Normal <5 [facility] Comment on above: Performed By: #### G LYHGB, INSU, LIPR, PSAS #### [address] [address] Mortgage Specialist: Max Villanueva MD #### CP, CDP #### [facility] [address] [place] [address] [place] [address] Mortgage Specialist: Preet Ayala MD Triglyceride [Mass/Vol] 21 mg/dL Normal <150 [facility] [place] Comment on above: Result Comment: Triglyceride Guidelines: <150 Desirable 150-199 Borderline 200-499 High >499 Very high Based on AHA Guidelines for fasting triglyceride, February 2012. Performed By: #### G LYHGB, INSU, LIPR, PSAS #### [facility] [address] [place], [place] [phone] Mortgage Specialist: Max Villanueva MD #### CP, CDP #### [facility] [address] [place] [address] Mortgage Specialist: Preet Ayala MD Cholesterol,VLDL NOT REPORTED Normal 06-22 [facility] Comment on above: Performed By: #### G LYHGB, INSU, LIPR, PSAS #### [facility] [address] [place], [place] [phone] Mortgage Specialist: Max Villanueva MD #### CP, CDP #### [facility] [address] [place] [address] [place] [address] Mortgage Specialist: Preet Ayala MD PSA screeningOrdered By: John Holt on 11-02-2020 [facility] Work Phone: PSA, Screeningon 11-02-2020 Prostatic Spec. Ag 0.33 ug/L Normal <4.1 [facility] Comment on above: Result Comment: The [employer] ECL[employer] assay is used. Results obtained with different assay methods cannot be used interchangeably. Performed By: #### G LYHGB, INSU, LIPR, PSAS #### [facility] [address] [place], [place] [phone] Mortgage Specialist: Max Villanueva MD #### CP, CDP #### [facility] [address] [place] [address] Mortgage Specialist: Preet Ayala MD CBC Auto Differentialon - Basophils (Bld) [#/Vol] 0.03 10*3/uL [place] Basophils/100 WBC (Bld) 1 % 0 - 2 % M [place], [place] Differential Type NOT REPORTED [place] Eosinophils (Bld) [#/Vol] 0.09 10*3/uL [place] Eosinophils/100 WBC (Bld) 2 % 1 - 4 % [place] Erythrocyte distribution width (RBC) [Ratio] 12.4 % 11.8 - 14.4 % [place], [place] Hematocrit (Bld) [Volume fraction] 41.8 % 40.7 - 50.3 % [place] Hemoglobin (Bld) [Mass/Vol] 14.0 g/dL 13 - 17 g/dL [place] Immature granulocytes (Bld) [#/Vol] 10*3/uL [place] Immature granulocytes (Bld) [#/Vol] 0 % 0 [place] Interpretation and review of laboratory results Abnormal [place] Lymphocytes (Bld) [#/Vol] 1.93 10*3/uL [place] Lymphocytes/100 WBC (Bld) 45 % High 24 - 43 % [place] MCH (RBC) [Entitic mass] 31.0 pg 25. 2 - 33.5 pg [place] MCHC (RBC) [Mass/Vol] 33.5 g/dL 28.4 - 34.8 g/dL [place], [place] MCV (RBC) [Entitic vol] 92.5 fL 82.6 - 102.9 fL [place], [place] Monocytes (Bld) [#/Vol] 0.42 10*3/uL [place] Monocytes/100 WBC (Bld) 10 % 3 - 12 % M [place], [place] Platelet mean volume (Bld) [Entitic vol] 9.6 fL 8.1 - 13.5 fL [place], [place] Platelets (Bld) [#/Vol] 176 10*3/uL [place] Platelets (Bld) [#/Vol] NOT REPORTED [place] RBC (Bld) [#/Vol] 4.52 10*6/uL 4.21 - 5.7 7 m/uL [place] RBC morphology finding Nom (Bld) NOT REPORTED [place] Segmented neutrophils/100 WBC (Bld) 42 % 36 - 65 % [place] Segs Absolute 1.79 [place], [place] WBC (Bld) [#/Vol] 0.0 10*3/uL 0.0 per 10 0 WBC [place] WBC (Bld) [#/Vol] 4.3 10*3/uL [place] WBC Morphology NOT REPORTED [place], [place] CBC with Diffon 11-13-2019 Abs. Basophil 0.03 k/uL Normal 0.00-0.20 [facility] Comment on above: Performed By: #### L IPR, CP, GLYHGB, CDP #### [address] [place] [phone] Mortgage Specialist: Lalit Ro MD #### PSAS #### [address] [phone] Mortgage Specialist: Max Villanueva MD Abs.Imm.Granulocyte <0.03 Normal 0.00-0.30 [facility] Comment on above: Performed By: #### L IPR, CP, GLYHGB, CDP #### [address] [place] [phone] Mortgage Specialist: Lalit Ro MD #### PSAS #### [address] [phone] Mortgage Specialist: Max Villanueva MD Abs.Neutrophil (Seg) 1.79 k/uL Normal 1.50-8.10 [facility] Comment on above: Performed By: #### L IPR, CP, GLYHGB, CDP #### [facility] [address] [place] [address] [place] [phone] Mortgage Specialist: Lalit Ro MD #### PSAS #### [address] [phone] Mortgage Specialist: Max Villanueva MD Basophils/100 WBC (Bld) 1 % Normal 0-2 M [facility] [place] Comment on above: Performed By: #### L IPR, CP, GLYHGB, CDP #### [address] [place] [phone] Mortgage Specialist: Lalit Ro MD #### PSAS #### [address] [phone] Mortgage Specialist: Max Villanueva MD Eosinophils (Bld) [#/Vol] 0.09 10*3/uL Normal 0.00-0.44 [facility] Comment on above: Performed By: #### L IPR, CP, GLYHGB, CDP #### [address] [place] [address] Mortgage Specialist: Lalit Ro MD #### PSAS #### [place] [phone] Mortgage Specialist: Max Villanueva MD Eosinophils/100 WBC (Bld) 2 % Normal 1-4 [facility] Comment on above: Performed By: #### L IPR, CP, GLYHGB, CDP #### [address] [place] [phone] Mortgage Specialist: Lalit Ro MD #### PSAS #### [address] [phone] Mortgage Specialist: Max Villanueva MD Erythrocyte distribution width (RBC) [Ratio] 12.4 % Normal 11.8-14.4 [facility] Comment on above: Performed By: #### L IPR, CP, GLYHGB, CDP #### [address] [place] [phone] Mortgage Specialist: Lalit Ro MD #### PSAS #### [address] [phone] Mortgage Specialist: Max Villanueva MD Hematocrit (Bld) [Volume fraction] 41.8 % Normal 40.7-50.3 [facility] Comment on above: Performed By: #### L IPR, CP, GLYHGB, CDP #### [address] [place] [phone] Mortgage Specialist: Lalit Ro MD #### PSAS #### [address] [phone] Mortgage Specialist: Max Villanueva MD Hemoglobin (Bld) [Mass/Vol] 14.0 g/dL Normal 13.0-17.0 [facility] Comment on above: Performed By: #### L IPR, CP, GLYHGB, CDP #### [address] [place] [phone] ( Mortgage Specialist: Lalit Ro MD #### PSAS #### [place] [address] Mortgage Specialist: Max Villanueva MD Immature granulocytes/100 WBC (Bld) 0 % Normal 0 [facility] Comment on above: Performed By: #### L IPR, CP, GLYHGB, CDP #### [address] [place] [phone] Mortgage Specialist: Lalit Ro MD #### PSAS #### [address] [phone] Mortgage Specialist: Max Villanueva MD Lymphocytes (Bld) [#/Vol] 1.93 10*3/uL Normal 1.10-3.70 [facility] Comment on above: Performed By: #### L IPR, CP, GLYHGB, CDP #### [address] [place] [address] Mortgage Specialist: Lalit Ro MD #### PSAS #### [address] [phone] Mortgage Specialist: Max Villanueva MD Lymphocytes/100 WBC (Bld) 45 % High 24-43 [facility] Comment on above: Performed By: #### L IPR, CP, GLYHGB, CDP #### [address] [place] [phone] ( Mortgage Specialist: Lalit Ro MD #### PSAS #### [address] [phone] Mortgage Specialist: Max Villanueva MD MCH (RBC) [Entitic mass] 31.0 pg Normal 25.2-33.5 [facility] Comment on above: Performed By: #### L IPR, CP, GLYHGB, CDP #### [address] [place] [address] Mortgage Specialist: Lalit Ro MD #### PSAS #### [place] [address] Mortgage Specialist: Max Villanueva MD MCHC (RBC) [Mass/Vol] 33.5 g/dL Normal 28.4-34.8 [facility] Comment on above: Performed By: #### L IPR, CP, GLYHGB, CDP #### [address] [place] [phone] ( Mortgage Specialist: Lalit Ro MD #### PSAS #### [address] [phone] Mortgage Specialist: Max Villanueva MD MCV (RBC) [Entitic vol] 92.5 fL Normal 82.6-102.9 M [facility] [place] Comment on above: Performed By: #### L IPR, CP, GLYHGB, CDP #### [address] [place] [phone] Mortgage Specialist: Lalit Ro MD #### PSAS #### [address] [phone] Mortgage Specialist: Max Villanueva MD Monocytes (Bld) [#/Vol] 0.42 10*3/uL Normal 0.10-1.20 [facility] Comment on above: Performed By: #### L IPR, CP, GLYHGB, CDP #### [address] [place] [phone] Mortgage Specialist: Lalit Ro MD #### PSAS #### [address] [phone] Mortgage Specialist: Max Villanueva MD Monocytes/100 WBC (Bld) 10 % Normal 3-12 M [facility] [place] Comment on above: Performed By: #### L IPR, CP, GLYHGB, CDP #### [address] [place] [address] Mortgage Specialist: Lalit Ro MD #### PSAS #### [address] [phone] Mortgage Specialist: Max Villanueva MD Neutrophil (Seg) 42 % Normal 36-65 [facility] Comment on above: Performed By: #### L IPR, CP, GLYHGB, CDP #### [address] [place] [phone] Mortgage Specialist: Lalit Ro MD #### PSAS #### [address] [phone] Mortgage Specialist: Max Villanueva MD NRBC Automated 0.0 per 100 WBC Normal 0.0 [facility] Comment on above: Performed By: #### L IPR, CP, GLYHGB, CDP #### [address] [place], [place] [phone] Mortgage Specialist: Lalit Ro MD #### PSAS #### [place] [address] [place] [address] Mortgage Specialist: Max Villanueva MD Platelet mean volume (Bld) [Entitic vol] 9.6 fL Normal 8.1-13.5 [facility] Comment on above: Performed By: #### L IPR, CP, GLYHGB, CDP #### [address] [place], [place] [phone] Mortgage Specialist: Lalit Ro MD #### PSAS #### [address] [phone] Mortgage Specialist: Max Villanueva MD Platelets (Bld) [#/Vol] 176 10*3/uL Normal 138-453 [facility] Comment on above: Performed By: #### L IPR, CP, GLYHGB, CDP #### [address] [place] [address] Mortgage Specialist: Lalit Ro MD #### PSAS #### [address] [phone] Mortgage Specialist: Max Villanueva MD RBC (Bld) [#/Vol] 4.52 10*6/uL Normal 4.21-5.77 [facility] Comment on above: Performed By: #### L IPR, CP, GLYHGB, CDP #### [address] [place] [phone] Mortgage Specialist: Lalit Ro MD #### PSAS #### [address] [phone] Mortgage Specialist: Max Villanueva MD WBC (Bld) [#/Vol] 4.3 10*3/uL Normal 3.5-11.3 [facility] Comment on above: Performed By: #### L IPR, CP, GLYHGB, CDP #### [address] [place] [phone] Mortgage Specialist: Lalit Ro MD #### PSAS #### [address] [phone] Mortgage Specialist: Max Villanueva MD Auto Diff Performed NOT REPORTED Normal [facility] Comment on above: Performed By: #### L IPR, CP, GLYHGB, CDP #### [facility] [address] [place] [address] [place] [address] Mortgage Specialist: Lalit Ro MD #### PSAS #### [address] [phone] Mortgage Specialist: Max Villanueva MD Platelet Estimate NOT REPORTED Normal [facility] Comment on above: Performed By: #### L IPR, CP, GLYHGB, CDP #### [address] [place], [place] [phone] Mortgage Specialist: Lalit Ro MD #### PSAS #### [address] [phone] Mortgage Specialist: Max Villanueva MD RBC morphology finding Nom (Bld) NOT REPORTED Normal [facility] Comment on above: Performed By: #### L IPR, CP, GLYHGB, CDP #### [address] [place] [address] Mortgage Specialist: Lalit Ro MD #### PSAS #### [address] [phone] Mortgage Specialist: Max Villanueva MD WBC Morphology NOT REPORTED Normal [facility] Comment on above: Performed By: #### L IPR, CP, GLYHGB, CDP #### [facility] [address] [place] [address] [place] [phone] Mortgage Specialist: Lalit Ro MD #### PSAS #### [address] [phone] Mortgage Specialist: Max Villanueva MD Comp Metabolic Profon 2019 (cont.) Normal [facility] Comment on above: Result Comment: Aver age GFR for 50-59 years old: 93 mL/min/1.73sq m Chronic Kidney Disease: <60 mL/min/1.73sq m Kidney failure: <15 mL/min/1.73sq m eGFR calculated using average adult body mass. Additional eGFR calculator available at: http://www.[employer] [facility]/multiple_crcl_2012.htm Performed By: #### L IPR, CP, GLYHGB, CDP #### [facility] [address] [place], [place] [phone] Mortgage Specialist: Lalit Ro MD #### PSAS #### [address] [phone] Mortgage Specialist: Max Villanueva MD Albumin [Mass/Vol] 4.1 g/dL Normal 3.5-5.2 [facility] Comment on above: Performed By: #### L IPR, CP, GLYHGB, CDP #### [facility] [address] [place], [place] [phone] Mortgage Specialist: Lalit Ro MD #### PSAS #### [address] [phone] Mortgage Specialist: Max Villanueva MD Albumin/Glob Ratio 1.5 Normal 1.0-2.5 [facility] Comment on above: Performed By: #### L IPR, CP, GLYHGB, CDP #### [facility] [address] [place], [place] [phone] Mortgage Specialist: Lalit Ro MD #### PSAS #### [address] [phone] Mortgage Specialist: Max Villanueva MD Alkaline Phos 44 U/L Normal 40-129 [facility] Comment on above: Performed By: #### L IPR, CP, GLYHGB, CDP #### [facility] [address] [place], [place] [phone] Mortgage Specialist: Lalit Ro MD #### PSAS #### [address] [phone] Mortgage Specialist: Max Villanueva MD ALT [Catalytic activity/Vol] 20 U/L Normal 5-41 [facility] Comment on above: Performed By: #### L IPR, CP, GLYHGB, CDP #### [facility] [address] [place], [place] [phone] Mortgage Specialist: Lalit Ro MD #### PSAS #### [address] [phone] Mortgage Specialist: Max Villanueva MD Anion gap [Moles/Vol] 11 mmol/L Normal 9-17 [facility] Comment on above: Performed By: #### L IPR, CP, GLYHGB, CDP #### [facility] [address] [place], [place] [phone] Mortgage Specialist: Lalit Ro MD #### PSAS #### [address] [phone] Mortgage Specialist: Max Villanueva MD AST [Catalytic activity/Vol] 25 U/L Normal <40 [facility] Comment on above: Performed By: #### L IPR, CP, GLYHGB, CDP #### [facility] [address] [place], [place] [phone] Mortgage Specialist: Lalit Ro MD #### PSAS #### [address] [phone] Mortgage Specialist: Max Villanueva MD Bilirubin [Mass/Vol] 0.75 mg/dL Normal 0.3-1.2 [facility] Comment on above: Performed By: #### L IPR, CP, GLYHGB, CDP #### [address] [place], [place] [phone] Mortgage Specialist: Lalit Ro MD #### PSAS #### [address] [phone] Mortgage Specialist: Max Villanueva MD BUN/CRE Ratio 14 Normal 9-20 [facility] Comment on above: Performed By: #### L IPR, CP, GLYHGB, CDP #### [facility] [address] [place] [address] Dr. [place], [place] [phone] Mortgage Specialist: Lalit Ro MD #### PSAS #### [address] [phone] Mortgage Specialist: Max Villanueva MD Calcium [Mass/Vol] 8.8 mg/dL Normal 8.6-10.4 [facility] Comment on above: Performed By: #### L IPR, CP, GLYHGB, CDP #### [address] [place] [phone] Mortgage Specialist: Lalit Ro MD #### PSAS #### [address] [phone] Mortgage Specialist: Max Villanueva MD Chloride [Moles/Vol] 104 mmol/L Normal 98-107 [facility] Comment on above: Performed By: #### L IPR, CP, GLYHGB, CDP #### [address] [place], [place] [phone] Mortgage Specialist: Lalit Ro MD #### PSAS #### [address] [phone] Mortgage Specialist: Max Villanueva MD CO2 [Moles/Vol] 27 mmol/L Normal 20-31 [facility] Comment on above: Performed By: #### L IPR, CP, GLYHGB, CDP #### [address] [place], [place] [phone] Mortgage Specialist: Lalit Ro MD #### PSAS #### [place] [phone] [place], [place] [phone] Mortgage Specialist: Max Villanueva MD Creatinine [Mass/Vol] 0.98 mg/dL Normal 0.70-1.20 [facility] Comment on above: Performed By: #### L IPR, CP, GLYHGB, CDP #### [address] [place], [place] [phone] Mortgage Specialist: Lalit Ro MD #### PSAS #### [address] [phone] Mortgage Specialist: Max Villanueva MD GFR, Amer >60 Normal >60 [facility] Comment on above: Performed By: #### L IPR, CP, GLYHGB, CDP #### [address] [place], [place] [phone] Mortgage Specialist: Lalit Ro MD #### PSAS #### [address] [phone] Mortgage Specialist: Max Villanueva MD GFR,non Amer >60 Normal >60 [facility] Comment on above: Performed By: #### L IPR, CP, GLYHGB, CDP #### [address] [place], [place] [phone] Mortgage Specialist: Lalit Ro MD #### PSAS #### [address] [phone] Mortgage Specialist: Max Villanueva MD Glucose [Mass/Vol] 86 mg/dL Normal 70-99 [facility] Comment on above: Performed By: #### L IPR, CP, GLYHGB, CDP #### [address] [place], [place] [phone] Mortgage Specialist: Lalit Ro MD #### PSAS #### [place] [address] [place], [place] [phone] Mortgage Specialist: Max Villanueva MD Potassium [Moles/Vol] 3.8 mmol/L Normal 3.7-5.3 [facility] Comment on above: Performed By: #### L IPR, CP, GLYHGB, CDP #### [address] [place] [phone] Mortgage Specialist: Lalit Ro MD #### PSAS #### [address] [phone] Mortgage Specialist: Max Villanueva MD Protein [Mass/Vol] 6.8 g/dL Normal 6.4-8.3 [facility] Comment on above: Performed By: #### L IPR, CP, GLYHGB, CDP #### [address] [place] [phone] Mortgage Specialist: Lalit Ro MD #### PSAS #### [address] [phone] Mortgage Specialist: Max Villanueva MD Sodium [Moles/Vol] 142 mmol/L Normal 135-144 [facility] Comment on above: Performed By: #### L IPR, CP, GLYHGB, CDP #### [address] [place] [phone] Mortgage Specialist: Lalit Ro MD #### PSAS #### [address] [phone] Mortgage Specialist: Max Villanueva MD Staging: Normal [facility] Comment on above: Result Comment: Stag e 1: Some kidney damage normal GFR Stage 2: Mild kidney damage GFR 60-89 Stage 3: Moderate kidney damage GFR 30-59 Stage 4: Severe kidney damage GFR 15-29 Stage 5: Severe kidney damage GFR <15 ESRD - chronic treatment by dialysis or transplant Performed By: #### L IPR, CP, GLYHGB, CDP #### [facility] [address] [place] [address] Mortgage Specialist: Lalit Ro MD #### PSAS #### [facility] [address] [place] [address] Mortgage Specialist: Max Villanueva MD Urea nitrogen [Mass/Vol] 14 mg/dL Normal 6-20 [facility] Comment on above: Performed By: #### L IPR, CP, GLYHGB, CDP #### [facility] [address] [place] [address] Mortgage Specialist: Lalit Ro MD #### PSAS #### [facility] [address] [place] [address] Mortgage Specialist: Max Villanueva MD Comprehensive Metabolic Pane [facility] 11-13-2019 Albumin [Mass/Vol] 4.1 g/dL 3.5 - 5.2 g/dL [place] Albumin/Globulin [Mass ratio] 1.5 {ratio} [place] ALP [Catalytic activity/Vol] 44 U/L 40 - 129 U/L [place] ALT [Catalytic activity/Vol] 20 U/L 5 - 41 U/L [place] Anion gap [Moles/Vol] 11 mmol/L 9 - 17 mmol/L [place] AST [Catalytic activity/Vol] 25 U/L <40 [place] Bilirubin Ql (U) 0.75 mg/dL 0.3 - 1.2 mg/dL [place] Bun/Cre Ratio 14 [place] Calcium [Mass/Vol] 8.8 mg/dL 8.6 - 10. 4 mg/dL [place] Chloride [Moles/Vol] 104 mmol/L 98 - 10 7 mmol/L [place] CO2 [Moles/Vol] 27 mmol/L 20 - 31 mmol/L [place] Creatinine [Mass/Vol] 0.98 mg/dL 0.7 - 1.2 mg/dL [place] GFR >60 >60 mL/min [place], [place] GFR Non- >60 >60 mL/min [place] Glucose [Mass/Vol] 86 mg/dL 70 - 99 mg/dL [place] Potassium [Moles/Vol] 3.8 mmol/L 3.7 - 5.3 mmol/L [place] Protein [Mass/Vol] 6.8 g/dL 6.4 - 8.3 g/dL [place] Sodium [Moles/Vol] 142 mmol/L 135 - 144 mmol/L [place] Urea nitrogen [Mass/Vol] 14 mg/dL 6 - 20 mg/d L [place] Hemoglobin A1Con 11-13-2019 Glucose [Mass/Vol] 94 mg/dL Normal [place] Comment on above: The ADA and AACC rec ommend providing the estimated average glucose result to permit better patient understanding of their HBA1c result. Result Comment: The ADA and AACC recommend providing the estimated average glucose result to permit better patient understanding of their HBA1c result. Performed By: #### L IPR, CP, GLYHGB, CDP #### [facility] [address] [place] [address] Mortgage Specialist: Lalit Ro MD #### PSAS #### [address] [phone] Mortgage Specialist: Max Villanueva MD HbA1c (Bld) [Mass fraction] 4.9 % Normal 4.8-5.9 [place] Comment on above: Performed By: #### L IPR, CP, GLYHGB, CDP #### [facility] [address] [place] [address] Mortgage Specialist: Lalit Ro MD #### PSAS #### [facility] [place] [address] Mortgage Specialist: Max Villanueva MD Lipid Panelon 11-13-2019 Cholesterol [Mass/Vol] 96 mg/dL <200 [place] Comment on above: Cholesterol Guidelines: <200 Desirable 200-240 Borderline >240 Undesirable Cholesterol in HDL [Mass/Vol] 70 mg/dL >40 [place] Comment on above: HDL Guidelines: <40 Undesirable 40-59 Borderline >59 Desirable Cholesterol in LDL [Mass/Vol] 19 mg/dL 0 - 130 mg/dL [place] Comment on above: LDL Guidelines: <100 Desirable 100-129 Near to/above Desirable 130-159 Borderline >159 Undesirable Direct (measured) LDL and calculated LDL are not interchangeable tests. Cholesterol in VLDL [Mass/Vol] NOT REPORTED 1 - 30 mg/dL [place] Cholesterol.total/Choles terol in HDL [Mass ratio] 1.4 {ratio} <5 [place] Triglyceride [Mass/Vol] 34 mg/dL <150 [place] Comment on above: Triglyceride Guidelines: <150 Desirable 150-199 Borderline 200-499 High >499 Very high Based on AHA Guidelines for fasting triglyceride, February 2012. Lipid Profileon 11-13-2019 Cholesterol [Mass/Vol] 96 mg/dL Normal <200 [facility] Comment on above: Result Comment: Cholesterol Guidelines: <200 Desirable 200-240 Borderline >240 Undesirable Performed By: #### L IPR, CP, GLYHGB, CDP #### [facility] [address] [place] [address] Mortgage Specialist: Lalit Ro MD #### PSAS #### [address] [phone] Mortgage Specialist: Max Villanueva MD Cholesterol in HDL [Mass/Vol] 70 mg/dL Normal >40 [facility] Comment on above: Result Comment: HDL Guidelines: <40 Undesirable 40-59 Borderline >59 Desirable Performed By: #### L IPR, CP, GLYHGB, CDP #### [facility] [address] [place] [address] Mortgage Specialist: Lalit Ro MD #### PSAS #### [address] [phone] Mortgage Specialist: Max Villanueva MD Cholesterol in LDL [Mass/Vol] 19 mg/dL Normal 0-130 [facility] Comment on above: Result Comment: LDL Guidelines: <100 Desirable 100-129 Near to/above Desirable 130-159 Borderline >159 Undesirable Direct (measured) LDL and calculated LDL are not interchangeable tests. Performed By: #### L IPR, CP, GLYHGB, CDP #### [facility] [address] [place] [address] Mortgage Specialist: Lalit Ro MD #### PSAS #### [address] [phone] Mortgage Specialist: Max Villanueva MD Cholesterol.total/Choles terol in HDL [Mass ratio] 1.4 {ratio} Normal <5 [facility] Comment on above: Performed By: #### L IPR, CP, GLYHGB, CDP #### [address] [place] [phone] Mortgage Specialist: Lalit Ro MD #### PSAS #### [address] [phone] Mortgage Specialist: Max Villanueva MD Triglyceride [Mass/Vol] 34 mg/dL Normal <150 M [facility] [place] Comment on above: Result Comment: Triglyceride Guidelines: <150 Desirable 150-199 Borderline 200-499 High >499 Very high Based on AHA Guidelines for fasting triglyceride, February 2012. Performed By: #### L IPR, CP, GLYHGB, CDP #### [facility] [address] [place], [place] [phone] Mortgage Specialist: Lalit Ro MD #### PSAS #### [address] [phone] Mortgage Specialist: Max Villanueva MD Cholesterol,VLDL NOT REPORTED Normal 1-30 [facility] Comment on above: Performed By: #### L IPR, CP, GLYHGB, CDP #### [address] [place] [address] Mortgage Specialist: Lalit Ro MD #### PSAS #### [place] [phone] [place] [address] Mortgage Specialist: Max Villanueva MD Metabolic Panelon 11-13-2019 GFR/1.73 sq M predicted among non-blacks MDRD (S/P/Bld) [Vol rate/Area] [facility] [place] [place] Comment on above: Average GFR for 50-5 9 years old: 93 mL/min/1.73sq m Chronic Kidney Disease: <60 mL/min/1.73sq m Kidney failure: <15 mL/min/1.73sq m eGFR calculated using average adult body mass. Additional eGFR calculator available at: http://www.[employer] [facility]/multiple_crcl_2011.htm Stage 1: Some kidney damage normal GFR Stage 2: Mild kidney damage GFR 60-89 Stage 3: Moderate kidney damage GFR 30-59 Stage 4: Severe kidney damage GFR 15-29 Stage 5: Severe kidney damage GFR <15 ESRD - chronic treatment by dialysis or transplant PSA, Screeningon 11-13-2019 Prostatic Spec. Ag 0.48 ug/L Normal <4.1 [facility] Comment on above: Result Comment: The [employer] ECL[employer] assay is used. Results obtained with different assay methods cannot be used interchangeably. Performed By: #### G LYHGB, INSU, LIPR, PSAS #### [id number] [place] [address] Mortgage Specialist: Max Villanueva MD #### CP, CDP #### [facility] [address] [place] [address] [place] [address] Mortgage Specialist: Preet Ayala MD Provider Letteron 12-01-2018 Provider Letter Keshia Holt, [address] [facility] [place] [address] Re: Leeroy Llamasut Date of Visit: 12/01/2018 Dear Keshia Holt, Thank you for referring Leeroy to my office. Attached you will find my plan and impression from their visit. Result Name Current Result Urology Office/Clinic Note 12/01/2018 Please review and contact my office with any questions or concerns. Sincerely, Aramis Molina, NICHOLAS [address] [place] [phone] [id number] Ara Bullock Providers: The following document(s) were included in the letter: December 01, 2018 09:41:42 EDT - (12/01/2018) Urology Office Visit Note Normal [facility] Urology Office/Clinic Noteon 12-01-2018 Urology Office/Clinic Note Chief Complaint Nocturia, Urinary Frequincy, Urgency, BPH History of Present Illness New patient referral Referral from Keshia Holt Concerns for lower urinary tract symptoms Patient has a history of BPH, urinary urgency, urinary frequency, nocturia Patient previously seen urologist Dr. Cleaning in the [place] area, patient underwent laser surgery of the prostate 2011 Patient unsure if he has any previous prostate biopsies No family history of prostate cancer No family history of other urological cancers Patient thinks PSA was done several weeks ago at primary care's office, requesting records Patient states last rectal exam was about 7 years ago Over the past 1 year patient started to have lower urinary tract symptoms of nocturia, frequency, urgency No dysuria, no hematuria, no hesitancy, no incontinence, patient feels he empties his bladder well Occasional postvoid dribble Chronic fair urinary stream Patient was recently started on Flomax 0.4 mg about 2 weeks ago No reported side effects Patient feels this medication has improved his lower urinary tract symptoms Patient feels nocturia has improved down to once per night was 2-3 times a night Urinary frequency was about every 30 minutes in the morning now every 2 hours Improved urinary urgency At this time patient is happy with his voiding pattern on Flomax Urine dip today was negative for infection, negative for blood Postvoid residual today was 1 mL Reviewed prostate cancer screening recommendations Recommend rectal exam today Need to verify that patient did have PSA checked within the last 1 year Discussed prostate growth over time Discussed other possible causes for patient's symptoms such as overactive bladder syndrome Discussed diagnostic testing if patient does not have symptom relief with medications such as cystoscopy and CMG At this time patient is happy with his voiding pattern Discussed that patient's symptoms may continue to improve even more in the next coming months Patient given handout on bladder irritants Review of Systems Cardiovascular Chest pain: No High blood pressure: No Other Cardiovascular: No Varicose Veins: No Constitutional Chills: No Fever: No Headache: No Other Constitution: No Endocrine Heat intolerance: No Other Endocrine: No Tired/sluggish: No ENMT Eyes Gastrointestinal Abdominal Pain: No Constipation: No Diarrhea: No Digestion/heartburn : No Nausea/vomiting: No Other GI: No Genitourinary Bloody urine: No Burning to urinate: No Dribbling: Yes Other Genitourine: Yes Slowing stream: No Urinary Frequency_Specialty Intake & Hx: No Urinary frequent at night: No Urinary Hesitancy: No Urinary retention: Yes Hematology/Lymphati c Integumentary/Skin Boils: No Other Integumentary/Skin: No Persistent itching: No Skin rash: No Musculoskeletal Joint pain: No Neck pain: No Other Musculo: No Neurological Dizzy spells: No Numbness: No Tingling: No Tremors: No Psychiatric Respiratory Frequent cough: No Shortness of Breath: No Wheezing: No Physical Exam Vitals & Measurements BP: 130/68 HT: 170.18 cm WT: 79.55 kg DOSE WT: 79.55 kg BMI: 27.47 Additional Vitals Body Mass Index Measured: 27.47 kg/m2 BP Position/Location: Sitting, Left arm General: awake, alert, NAD Heart: no cyanosis, pink skin Lungs: no audible wheezes, non labored Neuro: no slurred speech, appropriate Extremities: no weakness, no edema Abdomen: nondistended, no guarding, no hernia, no organomegaly Bladder: no pain Flank: no pain Circumcised:yes Phimosis: no Paraphimosis: no Balanitis: no Meatus: normal position, no lesions, no discharge Penis: no lesions, no peyronie plaques, no warts Scrotum: non tender, no edema, no lesions, no warts, no varicocele Testes: non tender, no nodules, no swelling Epididymides: non tender, no spermatocele, no masses, no enlargement Vas deferans: non tender Prostate: Size: 40 grams Left lobe: Smaller than the right lobe, normal consistency, nontender, no nodules Right lobe: Right lobe more pronounced than the left, normal consistency, nontender, no nodules Perineum: no lesions, no sores, nontender Anus: no lesions, normal sphincter tone, no hemorrhoids, no masses Assessment/Plan 1. History of BPH 40 g prostate on exam today, requesting PSA records from Dr. Holt, requesting previous prostate surgery records from Dr. Cleaning, continue Flomax 0.4 mg daily, this was recently started about 2 weeks ago, patient's symptoms are improving, follow-up in about 3 months to monitor for efficacy and discuss any other lower urinary tract symptoms 2. Nocturia See #1 3. Urinary frequency See #1 4. Urinary urgency, Urgency of urination See #1 Problem List/Past Medical History Ongoing ED (erectile dysfunction) History of BPH Nocturia Smoker Urinary frequency Urinary urgency Historical No qualifying data Procedure/Surgical History Hernia Repair (12/23/1991) Wrist (right) repair (12/22/1997) Laser of the prostate (09/21/2010) Medications TADALAFIL 20 MG TABLET tamsulosin 0.4 mg oral capsule Allergies No Known Allergies Social History Alcohol Current, Beer, 1-2 times per month Tobacco Former smoker, quit more than 30 days ago Use:. Family History Family history is unknown See HPI Lab Results Requesting PSA records Electronically signed by Armais Molina CNP 12/01/18 09:44 EDT Records reviewed from Gemma Rios CNP from [facility] PSA August 2010 was 0.67 PSA December 2011 was 0.39 PSA November 2012 0.53 PSA February 2018 was 0.31 PSA October 2018 was 0.38 Correction patient did not have laser prostate surgery patient had cystoscopy with transurethral incision of the prostate by Dr. Neri Cleaning 10/02/2010 Electronically signed by Aramis Molina CNP 03/07/19 08:02 EDT Normal [facility] Encounters Encounter Date Encounter Type Care Provider Facility Start: 11-29-2023 ambulatory Neri CLEANING [facility] ty:YANET [place] Start: 07-02-2023 ambulatory Neri CLEANING Facility : [place] Start: 07-20-2022 End: 07-20-2022 Lab Drop off Neri CLEANING [facility] Start: 12-31-2021 Encounter for genera l adult medical examination without abnormal findings DR KESHIA HOLT [facility] Start: 12-30-2021 End: 12-31-[address] KESHIA HOTL Facility:[facility] Start: 12-30-2021 End: 12-31-2021 Encounter for general adult medical examination without abnormal findings DR KESHIA HOLT Facility:[facility] Start: 06-30-2021 End: 07-01-[address] NERI CLEANING Facility:[facility] Start: 01-01-2021 End: 01-01-[address] RYLIE ALCAZAR Facility:[facility] Start: 11-02-2020 End: 11-03-2020 ambulatory KESHIA Wang [facility] Start: 11-02-2020 End: 11-02-2020 Subsequent hospital visit by physician Keshia Holt MD Work Phone: [facility] Start: 10-24-2020 End: 10-25-2020 ambulatory KESHIA Piña YANET Lilli [facility] Start: 10-24-2020 End: 10-24-2020 Subsequent hospital visit by physician Keshia Holt MD Work Phone: [facility] Start: 11-13-2019 End: 11-14-2019 ambulatory KESHIA Wang YANET Lilli [facility] Start: 11-13-2019 End: 11-13-2019 [facility] Procedures Date Procedure Procedure Detail Performing Clinician Start: 12-30-[address] EAMON ALCAZAR Comment on above: Performed By: #### P SASC #### [facility] [address] [place] [address] Dr. Teodoro Owens Start: 06-30-[address] EAMON ALCAZAR Comment on above: Performed By: #### P SAD #### [facility] [address] [place] [address] Dr. Teodoro Owens Start: 11-02-2020 PSA screening Keshia beasley MD Work Phone: Comment on above: The [employer] as say is used. Results obtained with different assay methods cannot be used interchangeably. Start: 11-02-2020 Comprehensive metabo lic panel Keshia Holt MD Work Phone: Start: 11-02-2020 Lipid panel Keshia Wang Yanet THEODORE Work Phone: Start: 07-16-2020 Cystoscopy Neri RAMESH MASSEY Start: 11-13-2019 [object Object] Keshia Alcantaraomid Comment on above: The [employer]CL[employer] as say is used. Results obtained with different assay methods cannot be used interchangeably. Start: 11-13-2019 Blood count complete auto&auto difrntl wbc KESHIA HOLT Start: 11-13-2019 Lipid panel KESHIA Bunch Start: 11-13-2019 Blood count complete auto&auto difrntl wbc Keshia Holt Work Phone: Start: 11-13-2019 Comprehensive metabo lic panel Keshia Holt Work Phone: Start: 11-13-2019 Hemoglobin glycosylated a1c Keshia Holt Work Phone: Start: 11-13-2019 Lipid panel Keshia Holt Work Phone: Start: 11-13-2019 PSA screening Keshia Holt Work Phone: Start: 10-02-2010 Prostatotomy by transurethral approach Neri CLEANING Colonoscopy Nerikhari CLEANING History of hernia repair Flor khari CLEANING Structure of right w rist (body structure) Nerikhari CLEANING Comment on above: bone repair Plan of Treatment Date Care Activity Detail Author Start: 01-22-2021 Influenza vaccination Flu vacc ine (Season Ended) [employer] Work Phone: Start: 1977 COVID-19 Vaccine (1) COVID-19 Vaccin e (1) [employer] Work Phone: End: 11-02-2020 Hemoglobin A1c/Hemoglobin.total in Blood Hemoglobin A1C Lab Routine Once for 1 Occurrences starting 11/02/2020 until 11/02/2020 [employer] Work Phone: Comment on above: Once for 1 Occurrenc es starting 11/02/2020 until 11/02/2020 Hemoglobin A1c/Hemoglobin.total in Blood Hemoglobin A1C Lab Routine 11/02/2020 7:15 AM EDT [employer] Work Phone: Immunizations Immunization Date Immunization Notes Care Provider Fa sally 09-17-2020 SARS-CoV-2 (COVID-19 ) mRNA-1273 vaccine Neri CLEANING [facility] 08-31-2020 SARS-CoV-2 (COVID-19 ) mRNA-1273 vaccine Neri [employer] [facility] [place] 08-27-2020 SARS-CoV-2 (COVID-19 ) mRNA-1273 vaccine [employer] [facility] 08-03-2020 SARS-CoV-2 (COVID-19 ) mRNA-1273 vaccine Neri [employer] [facility] 04-15-2020 influenza virus vaccine, unspecified formulation Neri CLEANING [facility] Payers Date Payer Category Payer Unknown [id number] 2020 Unknown [id number] 2019 Unknown [employer] xxxxxxxxx 2019-Present [phone] [place] [address] xxxxxxxxx [id number] 1966 Unknown [id number] 3 1966 Unknown [id number] 3 1966 Unknown [id number] 3 1966 Unknown [id number] 3 1966 Unknown [id number] 3 1966 Unknown [id number] 3 1966 Unknown [id number] 7 1959 Unknown [id number] Social History Date Type Detail [facility] [place], [place] Start: 1965 Sex Assigned At Not on file M [place], [place] Start: 11-27-2020 Tobacco smoking status Ex-smoker (fi nding) [facility] Sex Assigned At Female [facility] Clinical Note 01-01-2021 Note Date & Type Note Facility 01-01-2021 Note OPERATIVE NOTE OPERATION DATE: 01-01-21 ANESTHETIC:Monitored anesthesia care. PREOPERATIVE DIAGNOSIS:Colorectal screening. POSTOPERATIVE DIAGNOSIS:Normal colonoscopy to the cecum. PROCEDURE NAME:Colonoscopy to the cecum. ESTIMATED BLOOD LOSS: Zero. INDICATIONS AND CONSENT: The patient is a 55 year-old male who presents for colorectal screening, Indications, risks, benefits and alternatives of proceeding with colonoscopy were explained extensively to the patient including the risk of bleeding, colon perforation, or anesthetic complications. All of his questions were answered and informed consent was obtained. PROCEDURE: The patient was brought to the OR and placed in the left lateral decubitus position. Monitored anesthesia care was provided. Rectal exam was performed which showed no masses or blood. The scope was inserted into the anal canal, under direct visualization is was advanced to the cecum where cecal markings were clearly identified. There was noted to be a good prep. Upon withdrawal of the scope, mucosal surfaces were carefully examined. There were no mass lesions or polyps, no inflammatory changes or ulcerations. No significant diverticulosis. The scope was retroflexed in the anal canal, there was noted to be two small hypertrophic anal papilla. The scope was then withdrawn. The patient tolerated the procedure well and was sent to the Recovery Room in good condition. Followup colonoscopy should be in 10 years for screening. cc:Dr. Holt. [facility] Signed and Approved by: DR RYLIE ALCAZAR . 01/03/2021 15:43:00 [facility] Evaluation + Plan note Note Date & Type Note Facility Evaluation + Plan note Future Appointments Appointment Date:07/19/2023 03:00:00 PM Scheduled Provider:Neri CLEANING MD Location:[facility] Appointment Type:URO Office Visit Diagnostic Tests PendingPSA Total 07/20/22 [facility] Hospital course Narrative Note Date & Type Note Facility Hospital course Narrative No data available for this section [facility] Hospital Discharge instructions Note Date & Type Note Facility Hospital Discharge instructions No data available for this section [facility] Progress note Note Date & Type Note Facility Progress note No data available for this section [facility] Summary Purpose Family History No Family History Records FoundNo Family History Records FoundNo Family History Records FoundNo Family History Records Found Advance Directives No Advanced Directives Records FoundDocuments on File Type Date 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 and 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 Will Power of Ambulatory Technologist Documents on File Type Date 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 ACP-Advance Directive ACP-Power of Ambulatory Technologist Additional Source Comments (unrecognized sect ion and content) No Status Records FoundNo Status Records FoundNo Status Records FoundNo Status Records Found INFORMATION SOURCE (unrecogn ized section and content) DATE CREATED AUTHOR 03/07/2019 [facility] DATE CREATED AUTHOR AUTHOR'S ORGANIZ ATION 11/03/2020 [facility] DATE CREATED AUTHOR AUTHOR'S ORGANIZ ATION 12/31/2021 [facility] DATE CREATED AUTHOR AUTHOR'S ORGANIZ ATION 08/17/2023 [facility] Patient Care team informatio n (unrecognized section and content) Personnel Name: Keshia Holt MD Address: Address: [address] [place] [address] FOR RECORDS PERTAINING TO PATIENTS WHO ARE OR HAVE BEEN ENROLLED IN A CHEMICAL DEPENDENCY/SUBSTANCEABUSE PROGRAM, SOME INFORMATION MAY BE OMITTED. This clinical summary was aggregated from multiple sources. Caution should be exercised in using it in the provision of clinical care. This summary normalizes information from multiple sources, and as a consequence, information in this document may materially change the coding, format and clinical context of patient data. In addition, data may be omitted in some cases. CLINICAL DECISIONS SHOULD BE BASED ON THE PRIMARY CLINICAL RECORDS. [employer] provides no warranty or guarantee of the accuracy or completeness of information in this document.
[2023-11-24 08:50] LABS: Prostate Specific Antigen Dx 0.28 ng/mL (<=4.00)
== END 2023-11-24 06:20 | disposition home or self-care (01) ==
LOC: LAB 06:19
PROVIDERS: PCP Family Medicine; Visit Provider Urology
DX: N40.1 Benign prostatic hyperplasia with lower urinary tract symptoms (principal)
CPT/HCPCS: 36415; 84153

== ENCOUNTER 2024-08-29 06:31 | Outpatient (OUT) | payer OTHER, SELFPAY ==
--- OUTSIDE RECORDS SUMMARY | 2024-08-29 06:34 | XMS_ITS | CCD ---
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 Name Role Phone Keshia Holt Primary Care Provider KESHIA HOLT Referring Unavailable KESHIA HOLT Primary Care Unavailable KESHIA HOLT Referring Unavailable KESHIA HOLT Primary Care Unavailable KESHIA HOLT Primary Care Unavailable KESHIA HOLT Referring Unavailable NILL, DR YOUNGBLOOD Admitting Unavailable NILL, DR YOUNGBLOOD Attending Unavailable IAN, DR SCHMITT Primary Care Unavailable NILL, DR YOUNGBLOOD Consulting Unavailable BOB DAVIS Consulting Unavailable IAN, DR SCHMITT Admitting Unavailable HOAlivia, DR SCHMITT Attending Unavailable HOY, DR SCHMITT Primary Care Unavailable HOY, DR SCHMITT Consulting Unavailable CLEANING, DR RIBEIRO Admitting Unavailable LIANET, DR RIBEIRO Attending Unavailable IAN, DR SCHMITT Primary Care Unavailable LIANET, DR RIBEIRO Consulting Unavailable Keshia Holt Primary Care Physician [phone] Neri CLEANING Attending Unavailable Neri CLEANING Attending Unavailable Medications Current Medications Medication Drug Class(es) Dates Sig (Normalized) Sig (Original) hydrocortisone acetate 10 mg/ml / pramoxine hydrochloride 10 mg/ml rectal cream (2 sources) Corticosteroid Start: 11-15-2020 apply 1 dose rectal route three times daily Analpram-HC 1%-1% rectal cream quincy, Rectal, TID, Refill(s) 0 Start Date: 11/15/20 Status: Ordered lansoprazole 30 mg delayed release oral capsule (2 sources) Proton Pump Inhibitor Start: 11-15-2020 take 1 capsule by mouth once daily Prevacid 30 mg Cap-DR 30 mg = 1 cap(s), Oral, Daily, Refills(s) 0 Start Date: 11/15/20 Status: Ordered 24 hr oxybutynin chloride 15 mg extended release oral tablet (2 sources) Cholinergic Muscarinic Antagonist Start: 11-08-2023 take 1 tablet by mouth once daily oxybutynin 15 mg ER Tab 15 mg = 1 tab(s), Oral, Daily, # 90 cap(s), Refills(s) 3, Pharmacy: [facility] [id number], 170, cm, 07/20/22 15:45:00 EST, Height/Length Dosing, 84, kg, 07/20/22 15:45:00 EST, Weight Dosing Start Date: 11/08/23 Status: Ordered Start: 07-20-2022 End: 07-15-2023 take 1 tablet by mouth once daily oxybutynin 15 mg ER Tab 15 mg = 1 tab(s), Oral, Daily, X 90 day(s), # 90 tab(s), Refills(s) 3, Pharmacy: [facility] [id number], 170, cm, 07/20/22 15:45:00 EST, Height/Length Dosing, 84, kg, 07/20/22 15:45:00 EST, Weight Dosing Start Date: 07/20/22 Stop Date: 07/15/23 Status: Ordered Saw palmetto extract (2 sources) Start: 07-01-2020 take 1 mg by mouth once daily saw palmetto mg, Oral, Daily, Refill(s) 0 Start Date: 07/01/20 Status: Ordered tadalafil 20 mg oral tablet (2 sources) Phosphodiesterase 5 Inhibitor Start: 11-29-2023 Cialis 20 mg Tab See Instructions, Take half tab by mouth 1-2 hours prior to sexual activity., # 30 tab(s), Refills(s) 3, Pharmacy: [facility] [id number], 170, cm, 11/29/23 11:34:00 EDT, Height/Length Dosing, 80.1, kg, 11/29/23 11:34:00 EDT, Weight Dosing Start Date: 11/29/23 Status: Ordered Start: 07-20-2022 Cialis 20 mg T ab See Instructions, Take half tab by mouth 1-2 hours prior to sexual activity., # 30 tab(s), Refills(s) 3, Pharmacy: [facility] [id number], 170, cm, 07/20/22 15:45:00 EST, Height/Length Dosing, 84, kg, 07/20/22 15:45:00 EST, Weight Dosing Start Date: 07/20/22 Status: Ordered Problems Active Problems Problem Classification Problem Date Documented Da te Episodic/Chronic Esophageal disorders (1 source) Gastro-esophageal reflux disease without esophagitis; Translations: [GERD WITHOUT ESOPHAGITIS] Onset: 01-06-2021 Chronic Genitourinary symptoms and ill-defined conditions (7 sources) Increased frequency of urination; Translations: [Nocturia] Onset: 11-29-2023 07-14-2021 Episodic Hyperplasia of prostate (8 sources) Benign prostatic hyperplasia with lower urinary tract symptoms; Translations: [Benign prostatic hyperplasia without lower urinary tract symptoms] Onset: 01-06-2021 Chronic Other diseases of kidney and ureters (1 source) Urinary tract obstruction; Translations: [Other obstructive and reflux uropathy] Onset: 07-20-2022 Episodic Other gastrointestinal disorders (2 sources) Heartburn 11-15-2020 Episodic Other male genital disorders (3 sources) Impotence; Translations: [Male erectile dysfunction, unspecified] Onset: 11-29-2023 07-01-2020 Chronic Other nutritional; endocrine; and metabolic disorders (2 sources) Body mass index 25-29 - overweight 11-27-2020 Episodic Other screening for suspected conditions (not mental disorders or infectious disease) (5 sources) Encounter for screening for malignant neoplasm of prostate; Translations: [Encounter for screening for malignant neoplasm of colon] Onset: 01-01-2021 Episodic Unclassified (4 sources) Patient encounter status 07-01-2020 Past or Other Problems Problem Classification Problem Date Documented Da te Episodic/Chronic Other aftercare (1 source) 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; Translations: [OTH DANCE ENTERTAINER CURRENT DRUG THERAPY] Onset: 01-06-2021 Episodic Screening and history of mental health and substance abuse codes (1 source) Personal history of nicotine dependence; Translations: [PERSONAL HISTORY OF NICOTINE DEPEND] Onset: 01-06-2021 Episodic Results Test Name Value Interpretation Reference Range Facility Ambulatory Visit Summaryon 0 11-29-2023 Ambulatory Visit Summary Ambulatory Visi t Summary LEEROY ROMO :1965 Visit Date:11/29/2023 Ambulatory Visit Instructions Your Diagnosis BPH with obstruction/lower urinary tract symptoms Nocturia Erectile dysfunction Your Care Team Attending Physician - Neri CLEANING MD Primary Care Physician - Keshia Holt MD This Is Your Medications List oxybutynin (oxybutynin 15 mg ER Tab) tadalafil (Cialis 20 mg Tab) Contact prescribing physician if questions or concerns hydrocortisone-pram oxine topical (Analpram-HC 1%-1% rectal cream) lansoprazole (Prevacid 30 mg Radha) saw [place] Procedures Performed Cystoscopy (07/16/2020), TUIP - Transurethral incision of prostate (10/02/2010), Colonoscopy, History of hernia repair, Right wrist. Discharge Vitals Temperature (Temporal Artery) 37 ?C Heart Rate (Peripheral) 79 Respiratory Rate 16 Blood Pressure 131/84 Height 170 cm Height 67 in Weight 80.1 kg Weight 176.22 lb BMI 27.72 What to do next Scheduled Follow-Up Appointments Wednesday 8:00 AM EDT With: LIANET THEODORE, Neri Callejas Where: [facility] Urology Office/Clinic Noteon 11-29-2023 Urology Office/Clinic Note Urology Office/Clinic Note Chief Complaint BPH with obstruction/LUTS HPI Staff 1 year with PSA Dx: BPH with obstruction, nocturia and ED PSA: 07/01/20 - 0.48 06/30/21 - 0.4 11/24/23 - 0.28 Cialis 20mg PRN and Oxybutynin 15mg ER qd Dysuria: no Incomplete bladder emptying: no Hematuria: no Frequency: no Urgency: no Nocturia: 1-2x Stream: good steady no straining Leaking: no Post void dripping: no Wearing pads/ Depends: no Urge incontinence: no Stress incontinence: no Incontinence without Sensory Awareness: no Abdominal pain: no Flank pain: no Sexual complaints: no History of Present Illness Tests reviewed: reviewed UA, PSA I have reviewed the previous health record information and history for this patient from Dr. Cleaning. I have reviewed and verified the staff HPI to be accurate for this encounter. Review of Systems PHQ Score Initial Depression Screen Score: 0 SCORE ROS - Provider Constitutional: denies weight loss, denies hot flashes. Eyes: denies eye problems. Gastrointestinal: denies nausea, denies vomiting. Cardiovascular: denies chest pain or angina. Integumentary: no dryness Musculoskeletal: denies musculoskeletal symptoms. ENMT: denies otolaryngeal symptoms. Respiratory: no shortness of breath. Heme/Lymph: denies easy bleeding tendency, denies easy bruising tendency. Psychiatric: no confusion, no anxiety. Genitourinary: See HPI. Physical Exam Vitals & Measurements T: 37 ?C(Temporal Artery) HR: 79(Peripheral) RR: 16 BP: 131/84 HT: 67 in HT: 170 cm WT: 80.1 kg WT: 176.22 lb BMI: 27.72 General Appearance: alert, no distress, well nourished, well developed male. Assessment/Plan 1. BPH with obstruction/lower urinary tract symptoms (N40.1: Benign prostatic hyperplasia with lower urinary tract symptoms) PSA: 07/01/20 - 0.48 06/30/21 - 0.4 07/20/22 - 0.2 11/24/23 - 0.28 UA today negative for blood and infection. Taking Oxybutynin 15 mg ER qd. Good stream. Feels he empties completely. No leakage. Denies infections since last encounter. States he has run out of refills a few times and noticed a difference when not taking the medication. PSA remains low and stable. No fam hx of prostate ca. No MUNIRA is indicated today. Will continue to monitor level. -Cont Oxybutynin wo changes. Pt to call for refills. -F/u in 1 year w/ PSA 2. Nocturia (R35.1: Nocturia) Ongoing, 1-2x/night. Not bothersome. 3. Erectile dysfunction (N52.9: Male erectile dysfunction, unspecified) Cialis 20 mg PRN (half tab). Has mild acid reflux at times otherwise no SEs. -Cont Cialis wo changes. Refills sent to [facility] in [place]. Follow-up With When Contact Information LIANET THEODORE, Neri Callejas, URL [facility] [address], [place] [address]- [phone] Additional Instructions: 1 yr w/ PSA Patient Education Benign Prostatic Hyperplasia I, Dang Baptiste, personally scribed for Dr. Cleaning on 11/29/2023 12:22:32. . Documentation recorded by the scribe, Dang Baptiste, accurately reflects the services(s) I performed and decisions made by me. Authenticated by Dr. Cleaning on 11/29/2023 12:24:08. Problem List/Past Medical History Ongoing Adult BMI 27.0-27.9 kg/sq m BPH with obstruction/lower urinary tract symptoms Erectile dysfunction Frequency of urination Heartburn Nocturia Screening for malignant neoplasm of colon Screening PSA (prostate specific antigen) Urgency of urination Historical No qualifying data Procedure/Surgical History Cystoscopy (07/16/2020), TUIP - Transurethral incision of prostate (10/02/2010), Colonoscopy, History of hernia repair, Right wrist. Medications Analpram-HC 1%-1% rectal cream, Rectal, TID Cialis 20 mg Tab, See Instructions, 3 refills oxybutynin 15 mg ER Tab, 15 mg= 1 tab(s), Oral, Daily, 3 refills Prevacid 30 mg Cap-DR, 30 mg= 1 cap(s), Oral, Daily saw palmetto, Oral, Daily Allergies No Known Allergies Social History Alcohol - Low Risk, 07/01/2020 Tobacco - Denies Tobacco Use, 07/01/2020 Former smoker, quit more than 30 days ago Tobacco Use:. Cigarettes, Household tobacco concerns: No. Yes, 11/29/2023 Former smoker, quit more than 30 days ago Tobacco Use:., 07/16/2020 Family History Diabetes mellitus type 1: Father. Hypertension: Grandparent. Immunizations Vaccine Date Status SARS-CoV-2 (COVID-19) mRNA-1273 vaccine 09/17/2020 Recorded SARS-CoV-2 (COVID-19) mRNA-1273 vaccine 08/31/2020 Recorded SARS-CoV-2 (COVID-19) mRNA-1273 vaccine 08/27/2020 Recorded SARS-CoV-2 (COVID-19) mRNA-1273 vaccine 08/03/2020 Recorded influenza virus vaccine, inactivated 04/15/2020 Recorded Lab Results Ambulatory Point of Care Results Bilirubin Urine Dipstick: Negative (11/29/23 11:27:00) Blood Urine Dipstick: Negative (11/29/23 11:27:00) Glucose Urine Dipstick: Negative (11/29/23 11:27:00) Ketones Urine Dipstick: Negative (11/29/23 11:27:00) Leukocytes U (more content not included)... Normal [facility] Comment on above: Result Comment: Elec tronically Signed By: Neri CLEANING MD\.br\Date and Time Signed: 11/29/23 12:24 EDT\.br\Electronically Co-Signed By: Dang Baptiste\.br\Date and Time Co-Signed: 11/29/23 12:22 EDT Provider Letteron 08-09-2023 Provider Letter August 09, 2023 LEEROY ROMO [address] [place] [address] [address] : 1965 Dear Saleem , We have [...] attention to this matter. Sincerely, [facility] [address] [place] [address], [place] [address] Normal [facility] Provider Letteron 07-05-2023 Provider Letter July 02, 2023 LEEROY MERINOUT [address] [address] : 1965 Dear Zane Abiel, We have been trying to reach you [...] this matter. Please call to reschedule at [phone] option 3. Sincerely, [facility] Appt rescheduled for 10/04/23 [facility] INSULINon 12-31-2021 Insulin 5.4 uIU/mL Normal 2.6-24.9 [facility] Comment on above: Performed By: #### I NSULIN #### [facility] [address] [place] [address] Dr. Teodoro Owens CBC AUTO DIFFon 12-30-2021 BASO # 0.0 103/ul Normal 0.0-0.1 [facility] Comment on above: Performed By: #### C BC #### [facility] [address] [place] [address] Dr. Teodoro Owens Basophils/100 WBC (Bld) 0.5 % Normal 0.2-2.0 [facility] Comment on above: Performed By: #### C BC #### [facility] [address] [place] [address] Dr. Teodoro Owens EO # 0.1 103/ul Normal 0.0-0.7 [facility] Comment on above: Performed By: #### C BC #### [facility] [address] [place] [address] Dr. Teodoro Owens Eosinophils/100 WBC (Bld) 1.5 % Normal 0.9-7.0 [facility] Comment on above: Performed By: #### C BC #### [facility] [address] [place] [address] Dr. Teodoro Owens Erythrocyte distribution width (RBC) [Ratio] 12.7 % Normal 11.0-15.0 [facility] Comment on above: Performed By: #### C BC #### [facility] [address] [place] [address] Dr. Teodoro Owens Hematocrit (Bld) [Volume fraction] 40.7 % Critically low 42.0-54.0 [facility] Comment on above: Performed By: #### C BC #### [facility] [address] [place] [address] Dr. Teodoro Owens Hemoglobin (Bld) [Mass/Vol] 13.8 g/dL Critically low 14.0-18.0 [facility] Comment on above: Performed By: #### C BC #### [facility] [address] [place] [address] Dr. Teodoro Owens IG # 0.01 10e3/ul Normal 0.00-0.03 [facility] Comment on above: Performed By: #### C BC #### [facility] [address] [place] [address] Dr. Teodoro Owens IG % 0.3 % Normal 0.0-0.5 [facility] Comment on above: Performed By: #### C BC #### [facility] [address] [place] [address] Dr. Teodoro Owens LYMPH # 1.9 103/ul Normal 1.2-3.8 [facility] Comment on above: Performed By: #### C BC #### [facility] [address] [place] [address] Dr. Teodoro Owens Lymphocytes/100 WBC (Bld) 48.3 % Normal 20.5-60.0 [facility] Comment on above: Performed By: #### C BC #### [facility] [address] [place] [address] Dr. Teodoro Owens MANUAL DIFF REQ NO Normal [place] Comment on above: Performed By: #### C BC #### [facility] [address] [place] [address] Dr. Teodoro Owens MCH (RBC) [Entitic mass] 31.0 pg Normal 25.9-34.0 [facility] Comment on above: Performed By: #### C BC #### [facility] [address] [place] [address] Dr. Teodoro Owens MCHC (RBC) [Mass/Vol] 33.9 g/dL Normal 29.9-35.2 [facility] Comment on above: Performed By: #### C BC #### [facility] [address] [place] [address] Dr. Teodoro Owens MCV (RBC) [Entitic vol] 91.5 fL Normal 80.0-94.0 [facility] Comment on above: Performed By: #### C BC #### [facility] [address] [place] [address] Dr. Teodoro Owens MONO # 0.4 103/ul Normal 0.3-0.8 [facility] Comment on above: Performed By: #### C BC #### [facility] [address] [place] [address] Dr. Teodoro Owens Monocytes/100 WBC (Bld) 9.0 % Normal 1.7-12.0 [facility] Comment on above: Performed By: #### C BC #### [facility] [address] [place] [address] Dr. Teodoro Owens NEUT # 1.6 103/ul Normal 1.4-6.5 [facility] Comment on above: Performed By: #### C BC #### [facility] [address] [place] [address] Dr. Teodoro Owens Neutrophils/100 WBC (Bld) 40.4 % Critically low 43.0-75.0 [facility] Comment on above: Performed By: #### C BC #### [facility] [address] [place] [address] Dr. Teodoro Owens Platelet mean volume (Bld) [Entitic vol] 9.1 fL Critically low 9.5-13.5 [facility] Comment on above: Performed By: #### C BC #### [facility] [address] [place] [address] Dr. Teodoro Owens PLT 176 103/ul Normal 150-450 [facility] Comment on above: Performed By: #### C BC #### [facility] [address] [place] [address] Dr. Teodoro Owens RBC 4.45 106/ul Critically low 4.70-6.10 [place] Comment on above: Performed By: #### C BC #### [facility] [address] [place] [address] Dr. Teodoro Owens WBC 4.0 103/ul Normal 4.0-11.0 [facility] Comment on above: Performed By: #### C BC #### [facility] [address] [place] [address] Dr. Teodoro Owens GLYCOHEMOGLOBIN A1Con 2021 ADA RECOMMENDATION SEE BELOW Normal [facility] Comment on above: Result Comment: ADA RECOMMENDED LIMIT 4.0 - 6.0 ADA THERAPEUTIC TARGET < 7.0 ACTION SUGGESTED > 7.0 Performed By: #### A 1C #### [facility] [address] [address] [address] Teodoro Owens Glucose [Mass/Vol] 91 mg/dL Normal [facility] Comment on above: Performed By: #### A 1C #### [facility] [address] [address] [address] Teodoro Owens HbA1c (Bld) [Mass fraction] 4.8 % Normal 4.5-6.2 [facility] Comment on above: Performed By: #### A 1C #### [facility] [address] [place] [address] Dr. Teodoro Owens LIPID PROFILEon 12-30-2021 CHOL-HDL RATIO NORM SEE BELOW Normal [facility] Comment on above: Result Comment: 3.3 - 4.4 LOW RISK 4.4 - 7.1 AVERAGE RISK 7.1 - 11.0 MODERATE RISK >11.0 HIGH RISK Performed By: #### U ZACH, CMP, LIPID #### [facility] [address] [address] [address] Teodoro Owens Cholesterol [Mass/Vol] 103 mg/dL Normal <=200 Th [facility] Comment on above: Performed By: #### U ZACH, CMP, LIPID #### [facility] [address] [address] [address] Teodoro Owens Cholesterol in HDL [Mass/Vol] 74 mg/dL Critically high 40-60 [facility] Comment on above: Performed By: #### U ZACH, CMP, LIPID #### [facility] [address] [address] [address] Teodoro Owens Cholesterol in LDL [Mass/Vol] 26.0 mg/dL Normal [facility] Comment on above: Performed By: #### U ZACH, CMP, LIPID #### [facility] [address] [address] [address] Teodoro Owens Cholesterol.total/Choles terol in HDL [Mass ratio] 1.4 {ratio} Normal [facility] Comment on above: Performed By: #### U ZACH, CMP, LIPID #### [facility] [address] [address] [address] Teodoro Owens HDL NORMAL > or = 60 mg/dl - LOW CARDIOVASCULAR RISK <40 mg/dl - HIGH CARDIOVASCULAR RISK Normal [facility] Comment on above: Performed By: #### U ZACH, CMP, LIPID #### [facility] [address] [address] [address] Teodoro Owens LDL CALC NORMAL SEE BELOW Normal [place] Comment on above: Result Comment: <100 mg/dl OPTIMAL 100 - 129 mg/dl NEAR OR ABOVE OPTIMAL 130 - 159 mg/dl BORDERLINE HIGH 160 - 189 mg/dl HIGH >190 mg/dl VERY HIGH Performed By: #### U ZACH, CMP, LIPID #### [facility] [address] [address] [address] Teodoro Owens Triglyceride [Mass/Vol] 15 mg/dL Normal <=150 T [facility] Comment on above: Performed By: #### U ZACH, CMP, LIPID #### [facility] [address] [address] [address] Teodoro Owens VLDL CALC 3.0 mg/dL Normal [facility] Comment on above: Performed By: #### U ZACH, CMP, LIPID #### [facility] [address] [address] [address] Teodoro Owens PROF 14(COMP METB)on 022 Albumin [Mass/Vol] 3.8 g/dL Normal 3.4-5.0 [facility] Comment on above: Performed By: #### U ZACH, CMP, LIPID #### [facility] [address] [address] [address] Teodoro Owens Albumin/Globulin [Mass ratio] 1.2 {ratio} Normal [facility] Comment on above: Performed By: #### U ZACH, CMP, LIPID #### [facility] [address] [address] [address] Teodoro Owens ALP [Catalytic activity/Vol] 42 U/L Critically low 46-116 [facility] Comment on above: Performed By: #### U ZACH, CMP, LIPID #### [facility] [address] [address] [address] Teodoro Owens ALT [Catalytic activity/Vol] 21 U/L Normal 16-63 [facility] Comment on above: Performed By: #### U ZACH, CMP, LIPID #### [facility] [address] [address] [address] Teodoro Owens Anion gap [Moles/Vol] 9.9 mmol/L Normal [facility] Comment on above: Performed By: #### U ZACH, CMP, LIPID #### [facility] [address] [address] [address] Teodoro Owens AST [Catalytic activity/Vol] 20 U/L Normal 15-37 [facility] Comment on above: Performed By: #### U ZACH, CMP, LIPID #### [facility] [address] [address] [address] Teodoro Owens Bilirubin [Mass/Vol] 0.8 mg/dL Normal 0.2-1.0 [facility] Comment on above: Performed By: #### U ZACH, CMP, LIPID #### [facility] [address] [address] [address] Teodoro Owens Calcium [Mass/Vol] 8.6 mg/dL Normal 8.5-10.1 [facility] Comment on above: Performed By: #### U ZACH, CMP, LIPID #### [facility] [address] [address] [address] Teodoro Owens Chloride [Moles/Vol] 106 mmol/L Normal 98-107 [facility] Comment on above: Performed By: #### U ZACH, CMP, LIPID #### [facility] [address] [address] [address] Teodoro Owens CO2 [Moles/Vol] 30.2 mmol/L Normal 21.0-32.0 [facility] Comment on above: Performed By: #### U ZACH, CMP, LIPID #### [facility] [address] [address] [address] Teodoro Owens Creatinine [Mass/Vol] 1.01 mg/dL Normal 0.70-1.30 [facility] Comment on above: Performed By: #### U ZACH, CMP, LIPID #### [facility] [address] [address] [address] Teodoro Owens EGFR-AF SCOTTISH >60 Normal >=60 [facility] Comment on above: Performed By: #### U ZACH, CMP, LIPID #### [facility] [address] [address] [address] Teodoro Owens EGFR-NON AF SCOTTISH >60 Normal >=60 [facility] Comment on above: Performed By: #### U ZACH, CMP, LIPID #### [facility] [address] [address] [address] Teodoro Owens Globulin (S) [Mass/Vol] 3.2 g/dL Normal [facility] Comment on above: Performed By: #### U ZACH, CMP, LIPID #### [facility] [address] [address] [address] Teodoro Owens Glucose [Mass/Vol] 88 mg/dL Normal 74-106 [facility] Comment on above: Performed By: #### U ZACH, CMP, LIPID #### [facility] [address] [address] [address] Teodoro Owens Potassium [Moles/Vol] 4.1 mmol/L Normal 3.5-5.1 [facility] [facility] Comment on above: Performed By: #### U ZACH, CMP, LIPID #### [facility] [address] [address] [address] Teodoro Ownes Protein [Mass/Vol] 7.0 g/dL Normal 6.4-8.2 [facility] Comment on above: Performed By: #### U ZACH, CMP, LIPID #### [facility] [address] [address] [address] Teodoro Owens Sodium [Moles/Vol] 142 mmol/L Normal 136-145 [facility] Comment on above: Performed By: #### U ZACH, CMP, LIPID #### [facility] [address] [address] [address] Teodoro Owens Urea nitrogen [Mass/Vol] 14.0 mg/dL Normal 7.0-18.0 [facility] Comment on above: Performed By: #### U ZACH, CMP, LIPID #### [facility] [address] [place], [place] [address] Dr. Teodoro Owens Urea nitrogen/Creatinine [Mass ratio] 13.9 mg/mg Normal [facility] Comment on above: Performed By: #### U ZACH, CMP, LIPID #### [facility] [address] [place], [place] [address] Dr. Teodoro Owens URIC ACID SERUMon 12-30-2021 Urate [Mass/Vol] 5.5 mg/dL Normal 3.5-7.2 [facility] Comment on above: Performed By: #### U ZACH, CMP, LIPID #### [facility] [address] [address] [address] Teodoro Owens Hemoglobin A1Con 11-03-2020 Glucose [Mass/Vol] 100 mg/dL Normal [facility] Comment on above: Result Comment: The ADA and AACC recommend providing the estimated average glucose result to permit better patient understanding of their HBA1c result. Performed By: #### G LYHGB, INSU, LIPR, PSAS #### [address] [place], [place] 9[address] Laser Cutter: Max Villanueva MD #### CP, CDP #### [facility] [address] [place] [address] [place] [phone] Laser Cutter: Preet Ayala MD HbA1c (Bld) [Mass fraction] 5.1 % Normal 4.0-6.0 [facility] Comment on above: Performed By: #### G LYHGB, INSU, LIPR, PSAS #### [facility] [address] [place], [place] [phone] Laser Cutter: Max Villanueva MD #### CP, CDP #### [facility] [address] [place] [address] Laser Cutter: Preet Ayala MD CBC Auto DifferentialOrdered By: Keshia Holt on 11-02-2020 Absolute Eos # 0.06 [facility] Work Phone: Absolute Immature Granulocyte <0.03 [employer] Work Phone: Absolute Lymph # 2.06 [employer] Work Phone: Absolute [place] # 0.47 [employer] Work Phone: Basophils (Bld) [#/Vol] 10*3/uL M [employer] Work Phone: Basophils/100 WBC (Bld) 0 % 0 - 2 % [employer] Work Phone: Differential Type NOT REPORTED [employer] Phone: Eosinophils/100 WBC (Bld) 1 % 1 - 4 % [employer] Phone: Hematocrit (Bld) [Volume fraction] 42.2 % 40.7 - 50.3 % [employer] Phone: Hemoglobin.gastrointesti nal spec 1 Ql (Stl) 14.5 g/dL 13.0 - 17.0 g/dL [employer] Phone: Immature granulocytes/100 WBC (Bld) 0 % 0 [employer] Work Phone: Lymphocytes/100 WBC (Bld) 40 % 24 - 43 % [employer] Phone: MCH (RBC) [Entitic mass] 31.0 pg 25. 2 - 33.5 pg [employer] Work Phone: MCHC (RBC) [Mass/Vol] 34.4 g/dL 28.4 - 34.8 g/dL [employer] Phone: MCV (RBC) [Entitic vol] 90.4 fL 82.6 - 102.9 fL [employer] Phone: Monocytes/100 WBC (Bld) 9 % 3 - 12 % [employer] Work Phone: NRBC Automated 0.0 0.0 per 100 WBC [employer] Phone: Platelet distribution width (Bld) [Ratio] 12.5 % 11.8 - 14.4 % [employer] Phone: Platelet Estimate NOT REPORTED [employer] Phone: Platelet mean volume (Bld) [Entitic vol] 9.1 fL 8.1 - 13.5 fL [employer] Phone: Platelets (Bld) [#/Vol] 173 10*3/uL [employer] Phone: RBC (Bld) [#/Vol] 4.67 10*6/uL 4.21 - 5.7 7 m/uL [employer] Phone: RBC (Bld) [#/Vol] NOT REPORTED [employer] Phone: Segmented neutrophils/100 WBC (Bld) 50 % 36 - 65 % [employer] Work Phone: Segs Absolute 2.54 [employer] Work Phone: WBC (Bld) [#/Vol] 5.2 10*3/uL [employer] Phone: WBC (Bld) [#/Vol] NOT REPORTED [employer] Phone: [employer] Work Phone: CBC with Diffon 11-02-2020 Abs. Basophil <0.03 Normal 0.00-0.20 [facility] Comment on above: Performed By: #### G LYHGB, INSU, LIPR, PSAS #### [facility] [address] [place] [address] Laser Cutter: Max Villanueva MD #### CP, CDP #### [facility] [address] [place] [address] Laser Cutter: Preet Ayala MD Abs.Imm.Granulocyte <0.03 Normal 0.00-0.30 [facility] Comment on above: Performed By: #### G LYHGB, INSU, LIPR, PSAS #### [place] [address] Laser Cutter: Max Villanueva MD #### CP, CDP #### [address] [place] [phone] Laser Cutter: Preet Ayala MD Abs.Neutrophil (Seg) 2.54 k/uL Normal 1.50-8.10 [facility] Comment on above: Performed By: #### G LYHGB, INSU, LIPR, PSAS #### [place] [address] Laser Cutter: Max Villanueva MD #### CP, CDP #### [address] [place] [address] Laser Cutter: Preet Ayala MD Basophils/100 WBC (Bld) 0 % Normal 0-2 [facility] Comment on above: Performed By: #### G LYHGB, INSU, LIPR, PSAS #### [place] [address] Laser Cutter: Max Villanueva MD #### CP, CDP #### [address] [place] [address] Laser Cutter: Preet Ayala MD Eosinophils (Bld) [#/Vol] 0.06 10*3/uL Normal 0.00-0.44 [facility] Comment on above: Performed By: #### G LYHGB, INSU, LIPR, PSAS #### [place] [address] Laser Cutter: Max Villanueva MD #### CP, CDP #### [address] [place] [phone] Laser Cutter: Preet Ayala MD Eosinophils/100 WBC (Bld) 1 % Normal 1-4 [facility] Comment on above: Performed By: #### G LYHGB, INSU, LIPR, PSAS #### [address] [address] Laser Cutter: Max Villanueva MD #### CP, CDP #### [address] [place], [place] [address] Laser Cutter: Preet Ayala MD Erythrocyte distribution width (RBC) [Ratio] 12.5 % Normal 11.8-14.4 [facility] Comment on above: Performed By: #### G LYHGB, INSU, LIPR, PSAS #### [address] [address] Laser Cutter: Max Villanueva MD #### CP, CDP #### [address] [place] [phone] Laser Cutter: Preet Ayala MD Hematocrit (Bld) [Volume fraction] 42.2 % Normal 40.7-50.3 [facility] Comment on above: Performed By: #### G LYHGB, INSU, LIPR, PSAS #### [address] [address] Laser Cutter: Max Villanueva MD #### CP, CDP #### [address] [place] [phone] Laser Cutter: Preet Ayala MD Hemoglobin (Bld) [Mass/Vol] 14.5 g/dL Normal 13.0-17.0 [facility] Comment on above: Performed By: #### G LYHGB, INSU, LIPR, PSAS #### [address] [address] Laser Cutter: Max Villanueva MD #### CP, CDP #### [address] [place], [place] [phone] Laser Cutter: Preet Ayala MD Immature granulocytes/100 WBC (Bld) 0 % Normal 0 [facility] Comment on above: Performed By: #### G LYHGB, INSU, LIPR, PSAS #### [address] [address] Laser Cutter: Max Villanueva MD #### CP, CDP #### [address] [place] [phone] Laser Cutter: Preet Ayala MD Lymphocytes (Bld) [#/Vol] 2.06 10*3/uL Normal 1.10-3.70 [facility] Comment on above: Performed By: #### G LYHGB, INSU, LIPR, PSAS #### [place] [address] Laser Cutter: Max Villanueva MD #### CP, CDP #### [address] [place] [phone] Laser Cutter: Preet Ayala MD Lymphocytes/100 WBC (Bld) 40 % Normal 24-43 [facility] Comment on above: Performed By: #### G LYHGB, INSU, LIPR, PSAS #### [address] [address] Laser Cutter: Max Villanueva MD #### CP, CDP #### [address] [place] [phone] Laser Cutter: Preet Ayala MD MCH (RBC) [Entitic mass] 31.0 pg Normal 25.2-33.5 [facility] Comment on above: Performed By: #### G LYHGB, INSU, LIPR, PSAS #### [address] [phone] Laser Cutter: Max Villanueva MD #### CP, CDP #### [address] [place] [phone] Laser Cutter: Preet Ayala MD MCHC (RBC) [Mass/Vol] 34.4 g/dL Normal 28.4-34.8 [facility] Comment on above: Performed By: #### G LYHGB, INSU, LIPR, PSAS #### [address] [address] Laser Cutter: Max Villanueva MD #### CP, CDP #### [address] [place] [address] Laser Cutter: Preet Ayala MD MCV (RBC) [Entitic vol] 90.4 fL Normal 82.6-102.9 M [facility] Comment on above: Performed By: #### G LYHGB, INSU, LIPR, PSAS #### [address] [address] Laser Cutter: Max Villanueva MD #### CP, CDP #### [address] [place] [phone] ( Laser Cutter: Preet Ayala MD Monocytes (Bld) [#/Vol] 0.47 10*3/uL Normal 0.10-1.20 [facility] Comment on above: Performed By: #### G LYHGB, INSU, LIPR, PSAS #### [address] [address] Laser Cutter: Max Villanueva MD #### CP, CDP #### [address] [place] [phone] Laser Cutter: Preet Ayala MD Monocytes/100 WBC (Bld) 9 % Normal 3-12 M [facility] Comment on above: Performed By: #### G LYHGB, INSU, LIPR, PSAS #### [address] [place] [address] Laser Cutter: Max Villanueva MD #### CP, CDP #### [facility] [address] [place] [address] Laser Cutter: Preet Ayala MD Neutrophil (Seg) 50 % Normal 36-65 [facility] Comment on above: Performed By: #### G LYHGB, INSU, LIPR, PSAS #### [address] [address] Laser Cutter: Max Villanueva MD #### CP, CDP #### [address] [place] [address] Laser Cutter: Preet Ayala MD NRBC Automated 0.0 per 100 WBC Normal 0.0 [facility] Comment on above: Performed By: #### G LYHGB, INSU, LIPR, PSAS #### [address] [address] Laser Cutter: Max Villanueva MD #### CP, CDP #### [facility] [address] [place] [address] [place] [address] Laser Cutter: Preet Ayala MD Platelet mean volume (Bld) [Entitic vol] 9.1 fL Normal 8.1-13.5 [facility] Comment on above: Performed By: #### G LYHGB, INSU, LIPR, PSAS #### [address] [address] Laser Cutter: Max Villanueva MD #### CP, CDP #### [address] [place] [address] Laser Cutter: Preet Ayala MD Platelets (Bld) [#/Vol] 173 10*3/uL Normal 138-453 [facility] Comment on above: Performed By: #### G LYHGB, INSU, LIPR, PSAS #### [address] [place] [address] Laser Cutter: Max Villanueva MD #### CP, CDP #### [address] [place] [address] Laser Cutter: Preet Ayala MD RBC (Bld) [#/Vol] 4.67 10*6/uL Normal 4.21-5.77 [facility] Comment on above: Performed By: #### G LYHGB, INSU, LIPR, PSAS #### [address] [address] Laser Cutter: Max Villanueva MD #### CP, CDP #### [address] [place] [phone] Laser Cutter: Preet Ayala MD WBC (Bld) [#/Vol] 5.2 10*3/uL Normal 3.5-11.3 [facility] Comment on above: Performed By: #### G LYHGB, INSU, LIPR, PSAS #### [address] [address] Laser Cutter: Max Villanueva MD #### CP, CDP #### [address] [place] [phone] Laser Cutter: Preet Ayala MD Auto Diff Performed NOT REPORTED Normal [facility] Comment on above: Performed By: #### G LYHGB, INSU, LIPR, PSAS #### [address] [address] Laser Cutter: Max Villanueva MD #### CP, CDP #### [address] [place] [phone] Laser Cutter: Preet Ayala MD Platelet Estimate NOT REPORTED Normal [facility] Comment on above: Performed By: #### G LYHGB, INSU, LIPR, PSAS #### [address] [place] [address] Laser Cutter: Max Villanueva MD #### CP, CDP #### [facility] [address] [place] [address] Dr. [place], [place] [phone] Laser Cutter: Preet Ayala MD RBC morphology finding Nom (Bld) NOT REPORTED Normal [facility] Comment on above: Performed By: #### G LYHGB, INSU, LIPR, PSAS #### [address] [address] Laser Cutter: Max Villanueva MD #### CP, CDP #### [address] [place], [place] [phone] Laser Cutter: Preet Ayala MD WBC Morphology NOT REPORTED Normal [facility] Comment on above: Performed By: #### G LYHGB, INSU, LIPR, PSAS #### [address] [address] Laser Cutter: Max Villanueva MD #### CP, CDP #### [address] [place], [place] [phone] Laser Cutter: Preet Ayala MD Comp Metabolic Profon 2020 (cont.) Normal [facility] Comment on above: Result Comment: Aver age GFR for 50-59 years old: 93 mL/min/1.73sq m Chronic Kidney Disease: <60 mL/min/1.73sq m Kidney failure: <15 mL/min/1.73sq m eGFR calculated using average adult body mass. Additional eGFR calculator available at: http://www.[employer].com/multiple_crcl_2012.htm Performed By: #### G LYHGB, INSU, LIPR, PSAS #### [address] [place] [address] Laser Cutter: Max Villanueva MD #### CP, CDP #### [facility] [address] [place], [place] 8495[address] Laser Cutter: Preet Ayala MD Albumin [Mass/Vol] 4.0 g/dL Normal 3.5-5.2 [facility] Comment on above: Performed By: #### G LYHGB, INSU, LIPR, PSAS #### [address] [address] Laser Cutter: Max Vilalnueva MD #### CP, CDP #### [facility] [address] [place], [place] 4702283 Laser Cutter: Preet Ayala MD Albumin/Glob Ratio 1.3 Normal 1.0-2.5 [facility] Comment on above: Performed By: #### G LYHGB, INSU, LIPR, PSAS #### [address] [address] Laser Cutter: Max Villanueva MD #### CP, CDP #### [facility] [address] [place] [address] [place], [place] [phone] Laser Cutter: Preet Ayala MD Alkaline Phos 47 U/L Normal 40-129 [facility] Comment on above: Performed By: #### G LYHGB, INSU, LIPR, PSAS #### [address] [address] Laser Cutter: Max Villanueva MD #### CP, CDP #### [facility] [address] [place] [address] [place], [place] [phone] Laser Cutter: Preet Ayala MD ALT [Catalytic activity/Vol] 18 U/L Normal 5-41 [facility] Comment on above: Performed By: #### G LYHGB, INSU, LIPR, PSAS #### [address] [address] Laser Cutter: Max Villanueva MD #### CP, CDP #### [facility] [address] [place], [place] 4442083 Laser Cutter: Preet Ayala MD Anion gap [Moles/Vol] 7 mmol/L Low 9-17 [facility] Comment on above: Performed By: #### G LYHGB, INSU, LIPR, PSAS #### [address] [phone] Laser Cutter: Max Villanueva MD #### CP, CDP #### [address] [place], [place] 2256783 Laser Cutter: Preet Ayala MD AST [Catalytic activity/Vol] 21 U/L Normal <40 [facility] Comment on above: Performed By: #### G LYHGB, INSU, LIPR, PSAS #### [address] [address] Laser Cutter: Max Villanueva MD #### CP, CDP #### [facility] [address] [place] [address] [place], [place] [phone] Laser Cutter: Preet Ayala MD Bilirubin [Mass/Vol] 0.80 mg/dL Normal 0.3-1.2 [facility] Comment on above: Performed By: #### G LYHGB, INSU, LIPR, PSAS #### [address] [address] Laser Cutter: Max Villanueva MD #### CP, CDP #### [facility] [address] [place] [address] [place], [place] [phone] Laser Cutter: Preet Ayala MD BUN/CRE Ratio 16 Normal 9-20 [facility] Comment on above: Performed By: #### G LYHGB, INSU, LIPR, PSAS #### [address] [address] Laser Cutter: Max Villanueva MD #### CP, CDP #### [facility] [address] [place], [place] [phone] Laser Cutter: Preet Ayala MD Calcium [Mass/Vol] 9.1 mg/dL Normal 8.6-10.4 [facility] Comment on above: Performed By: #### G LYHGB, INSU, LIPR, PSAS #### [address] [phone] Laser Cutter: Max Villanueva MD #### CP, CDP #### [facility] [address] [place] [address] [place], [place] [phone] Laser Cutter: Preet Ayala MD Chloride [Moles/Vol] 106 mmol/L Normal 98-107 [facility] Comment on above: Performed By: #### G LYHGB, INSU, LIPR, PSAS #### [address] [phone] Laser Cutter: Max Villanueva MD #### CP, CDP #### [facility] [address] [place] [address] [place] [address] Laser Cutter: Preet Ayala MD CO2 [Moles/Vol] 25 mmol/L Normal 20-31 [facility] Comment on above: Performed By: #### G LYHGB, INSU, LIPR, PSAS #### [address] [phone] Laser Cutter: Max Villanueva MD #### CP, CDP #### [facility] [address] [place] [address] [place], [place] [phone] Laser Cutter: Preet Ayala MD Creatinine [Mass/Vol] 0.97 mg/dL Normal 0.70-1.20 [facility] Comment on above: Performed By: #### G LYHGB, INSU, LIPR, PSAS #### [address] [id number] Laser Cutter: Max Villanueva MD #### CP, CDP #### [facility] [address] [place], [place] 7247083 Laser Cutter: Preet Ayala MD GFR, Amer >60 Normal >60 [facility] Comment on above: Performed By: #### G LYHGB, INSU, LIPR, PSAS #### [address] [place], [place] [phone] Laser Cutter: Max Villanueva MD #### CP, CDP #### [facility] [address] [place] [address] [place], [place] [phone] Laser Cutter: Preet Ayala MD GFR,non Amer >60 Normal >60 [facility] Comment on above: Performed By: #### G LYHGB, INSU, LIPR, PSAS #### [address] [phone] Laser Cutter: Max Villanueva MD #### CP, CDP #### [facility] [address] [place] [address] [place], [place] [phone] Laser Cutter: Preet Ayala MD Glucose [Mass/Vol] 95 mg/dL Normal 70-99 [facility] Comment on above: Performed By: #### G LYHGB, INSU, LIPR, PSAS #### [address] [id number] Laser Cutter: Max Villanueva MD #### CP, CDP #### [facility] [address] [place] [address] [place], [place] [phone] Laser Cutter: Preet Ayala MD Potassium [Moles/Vol] 4.0 mmol/L Normal 3.7-5.3 [facility] Comment on above: Performed By: #### G LYHGB, INSU, LIPR, PSAS #### [address] [phone] Laser Cutter: Max Villanueva MD #### CP, CDP #### [address] [place], [place] 1872283 Laser Cutter: Preet Ayala MD Protein [Mass/Vol] 7.1 g/dL Normal 6.4-8.3 [facility] Comment on above: Performed By: #### G LYHGB, INSU, LIPR, PSAS #### [address] [phone] Laser Cutter: Max Villanueva MD #### CP, CDP #### [address] [place] [address] Laser Cutter: Preet Ayala MD Sodium [Moles/Vol] 138 mmol/L Normal 135-144 [facility] Comment on above: Performed By: #### G LYHGB, INSU, LIPR, PSAS #### [address] [phone] Laser Cutter: Max Villanueva MD #### CP, CDP #### [address] [place] [address] Laser Cutter: Preet Ayala MD Staging: Normal [facility] Comment on above: Result Comment: Stag e 1: Some kidney damage normal GFR Stage 2: Mild kidney damage GFR 60-89 Stage 3: Moderate kidney damage GFR 30-59 Stage 4: Severe kidney damage GFR 15-29 Stage 5: Severe kidney damage GFR <15 ESRD - chronic treatment by dialysis or transplant Performed By: #### G LYHGB, INSU, LIPR, PSAS #### [address] [id number] Laser Cutter: Max Villanueva MD #### CP, CDP #### [address] [place] [address] Laser Cutter: Preet Ayala MD Urea nitrogen [Mass/Vol] 16 mg/dL Normal 6-20 [facility] Comment on above: Performed By: #### G LYHGB, INSU, LIPR, PSAS #### [employer] [address] [place] [address] Laser Cutter: Max Villanueva MD #### CP, CDP #### [facility] [address] [place], [place] [phone] Laser Cutter: Preet Ayala MD Comprehensive Metabolic Pane lOrdered By: Keshia Holt on 11-02-2020 Albumin [Mass/Vol] 4 g/dL 3.5 - 5.2 g/dL [employer] Phone: Albumin/Globulin [Mass ratio] 1.3 {ratio} [employer] Phone: ALP (Bld) [Catalytic activity/Vol] 47 U/L 40 - 129 U/L [employer] Phone: ALT [Catalytic activity/Vol] 18 U/L 5 - 41 U/L [employer] Phone: Anion gap [Moles/Vol] 7 mmol/L Low 9 - 17 mmol/L [employer] Phone: AST [Catalytic activity/Vol] 21 U/L <40 [employer] Phone: Bilirubin [Mass/Vol] 0.80 mg/dL 0.3 - 1 .2 mg/dL [employer] Phone: Calcium [Mass/Vol] 9.1 mg/dL 8.6 - 10. 4 mg/dL [employer] Phone: Chloride [Moles/Vol] 106 mmol/L 98 - 10 7 mmol/L [employer] Phone: CO2 [Moles/Vol] 25 mmol/L 20 - 31 mmol/L [employer] Phone: Creatinine [Mass/Vol] 0.97 mg/dL 0.70 - 1.20 mg/dL [employer] Phone: Free PSA/Total PSA [Mass fraction] 7.1 g/dL 6.4 - 8.3 g/dL [facility] [employer] Phone: GFR >60 >60 mL/min [facility] [employer] Phone: GFR Non- >60 >60 mL/min [facility] [employer] Phone: Glucose [Mass/Vol] 95 mg/dL 70 - 99 mg/dL [facility] [employer] Phone: Interpretation and review of laboratory results Abnormal [facility] [employer] Phone: Potassium [Moles/Vol] 4.0 mmol/L 3.7 - 5.3 mmol/L [facility] [employer] Phone: Sodium [Moles/Vol] 138 mmol/L 135 - 144 mmol/L [facility] [employer] Phone: Urea nitrogen (BldV) [Mass/Vol] 16 mg/dL 6 - 20 mg/dL [facility] [employer] Phone: Urea nitrogen/Creatinine (Bld) [Mass ratio] 16 [facility] [employer] Phone: [facility] [employer] Phone: Insulinon 11-02-2020 Insulin 7.1 mU/L Normal [facility] Comment on above: Performed By: #### G LYHGB, INSU, LIPR, PSAS #### [facility] [place] [address] Laser Cutter: Max Villanueva MD #### CP, CDP #### [facility] [address] [place] [address] Laser Cutter: Preet Ayala MD Reference Range Normal [facility] Comment on above: Result Comment: Fast in.6-24.9 30 min: 20-112 60 min: 29-88 90 min: 26-84 120 min: 22-79 Performed By: #### G LYHGB, INSU, LIPR, PSAS #### [employer] [address] [place], [place] [phone] Laser Cutter: Max Villanueva MD #### CP, CDP #### [facility] [address] [place] [address] [place] [address] Laser Cutter: Preet Ayala MD Collection Info. NOT REPORTED Normal [facility] Comment on above: Performed By: #### G LYHGB, INSU, LIPR, PSAS #### [facility] [employer] [address] [place], [place] [phone] Laser Cutter: Max Villanueva MD #### CP, CDP #### [facility] [address] [place] [address] [place] [address] Laser Cutter: Preet Ayala MD Insulin, totalOrdered By: Do jamison Holt on 11-02-2020 Insulin 7.1 mU/L [employer] Phone: Insulin Comment NOT REPORTED [facility] Work Phone: Insulin Reference Range: [employer] Phone: Comment on above: Fastin.6-24.9 30 min: 20-112 60 min: 29-88 90 min: 26-84 120 min: 22-79 [facility] Phone: Laboratory - Chemistry and C hemistry - challengeOrdered By: Keshia Holt on 11-02-2020 GFR/1.73 sq M.predicted MDRD (S/P/Bld) [Vol rate/Area] [facility] Phone: Comment on above: Average GFR for 50-5 9 years old: 93 mL/min/1.73sq m Chronic Kidney Disease: <60 mL/min/1.73sq m Kidney failure: <15 mL/min/1.73sq m eGFR calculated using average adult body mass. Additional eGFR calculator available at: http://www.[employer]Sourcing.Copiun/multiple_crcl_2012.htm Stage 1: Some kidney damage normal GFR Stage 2: Mild kidney damage GFR 60-89 Stage 3: Moderate kidney damage GFR 30-59 Stage 4: Severe kidney damage GFR 15-29 Stage 5: Severe kidney damage GFR <15 ESRD - chronic treatment by dialysis or transplant Lipid PanelOrdered By: Chan Holt on 11-02-2020 Cholesterol [Mass/Vol] 93 mg/dL <200 [employer] Phone: Comment on above: Cholesterol Guidelines: <200 Desirable 200-240 Borderline >240 Undesirable Cholesterol in HDL [Mass/Vol] 69 mg/dL >40 [employer] Phone: Comment on above: HDL Guidelines: <40 Undesirable 40-59 Borderline >59 Desirable Cholesterol in LDL [Mass/Vol] 20 mg/dL 0 - 130 mg/dL [employer] Phone: Comment on above: LDL Guidelines: <100 Desirable 100-129 Near to/above Desirable 130-159 Borderline >159 Undesirable Direct (measured) LDL and calculated LDL are not interchangeable tests. Cholesterol in VLDL [Mass/Vol] NOT REPORTED 1 - 30 mg/dL [employer] Phone: Cholesterol.total/Choles terol in HDL [Mass ratio] 1.3 {ratio} <5 [employer] Phone: Triglyceride [Mass/Vol] 21 mg/dL <150 [email or web address] Phone: Comment on above: Triglyceride Guidelines: <150 Desirable 150-199 Borderline 200-499 High >499 Very high Based on AHA Guidelines for fasting triglyceride, February 2012. [employer] Phone: Lipid Profileon 11-02-2020 Cholesterol [Mass/Vol] 93 mg/dL Normal <200 [facility] Comment on above: Result Comment: Cholesterol Guidelines: <200 Desirable 200-240 Borderline >240 Undesirable Performed By: #### G LYHGB, INSU, LIPR, PSAS #### [facility] [employer] [address] [place] [address] Laser Cutter: Max Villanueva MD #### CP, CDP #### [facility] [address] [place] [address] Laser Cutter: Preet Ayala MD Cholesterol in HDL [Mass/Vol] 69 mg/dL Normal >40 [facility] Comment on above: Result Comment: HDL Guidelines: <40 Undesirable 40-59 Borderline >59 Desirable Performed By: #### G LYHGB, INSU, LIPR, PSAS #### [address] [id number] Laser Cutter: Max Villanueva MD #### CP, CDP #### [address] [place], [place] [id number] Laser Cutter: Prete Ayala MD Cholesterol in LDL [Mass/Vol] 20 mg/dL Normal 0-130 [facility] Comment on above: Result Comment: LDL Guidelines: <100 Desirable 100-129 Near to/above Desirable 130-159 Borderline >159 Undesirable Direct (measured) LDL and calculated LDL are not interchangeable tests. Performed By: #### G LYHGB, INSU, LIPR, PSAS #### [address] [id number] Laser Cutter: Max Villanueva MD #### CP, CDP #### [address] [place] [phone] Laser Cutter: Preet Ayala MD Cholesterol.total/Choles terol in HDL [Mass ratio] 1.3 {ratio} Normal <5 [facility] Comment on above: Performed By: #### G LYHGB, INSU, LIPR, PSAS #### [address] [phone] Laser Cutter: Max Villanueva MD #### CP, CDP #### [address] [place] [address] Laser Cutter: Preet Ayala MD Triglyceride [Mass/Vol] 21 mg/dL Normal <150 [facility] Comment on above: Result Comment: Triglyceride Guidelines: <150 Desirable 150-199 Borderline 200-499 High >499 Very high Based on AHA Guidelines for fasting triglyceride, February 2012. Performed By: #### G LYHGB, INSU, LIPR, PSAS #### [address] [place] [address] Laser Cutter: Max Villanueva MD #### CP, CDP #### [facility] [address] [place] [address] Laser Cutter: Preet Ayala MD Cholesterol,VLDL NOT REPORTED Normal 06-22 [facility] Comment on above: Performed By: #### G LYHGB, INSU, LIPR, PSAS #### [address] [place] [address] Laser Cutter: Max Villanueva MD #### CP, CDP #### [address] [place] [address] Laser Cutter: Preet Ayala MD PSA screeningOrdered By: John Holt on 11-02-2020 [facility] Work Phone: PSA, Screeningon 11-02-2020 Prostatic Spec. Ag 0.33 ug/L Normal <4.1 [facility] Comment on above: Result Comment: The [employer] ECLIA assay is used. Results obtained with different assay methods cannot be used interchangeably. Performed By: #### G LYHGB, INSU, LIPR, PSAS #### [address] [place] [address] Laser Cutter: Max Villanueva MD #### CP, CDP #### [facility] [address] [place] [address] Laser Cutter: Preet Ayala MD CBC Auto Differentialon 10-23 Basophils (Bld) [#/Vol] 0.03 10*3/uL [place] Basophils/100 WBC (Bld) 1 % 0 - 2 % [place] Differential Type NOT REPORTED [place] Eosinophils (Bld) [#/Vol] 0.09 10*3/uL [place] Eosinophils/100 WBC (Bld) 2 % 1 - 4 % [place] Erythrocyte distribution width (RBC) [Ratio] 12.4 % 11.8 - 14.4 % [place] Hematocrit (Bld) [Volume fraction] 41.8 % 40.7 - 50.3 % [place] Hemoglobin (Bld) [Mass/Vol] 14.0 g/dL 13 - 17 g/dL [place] Immature granulocytes (Bld) [#/Vol] 10*3/uL [place] Immature granulocytes (Bld) [#/Vol] 0 % 0 [place] Interpretation and review of laboratory results Abnormal [place] Lymphocytes (Bld) [#/Vol] 1.93 10*3/uL [place] Lymphocytes/100 WBC (Bld) 45 % High 24 - 43 % [place] MCH (RBC) [Entitic mass] 31.0 pg 25. 2 - 33.5 pg [place] MCHC (RBC) [Mass/Vol] 33.5 g/dL 28.4 - 34.8 g/dL [place] MCV (RBC) [Entitic vol] 92.5 fL 82.6 - 102.9 fL [place] Monocytes (Bld) [#/Vol] 0.42 10*3/uL [place] Monocytes/100 WBC (Bld) 10 % 3 - 12 % [place] Platelet mean volume (Bld) [Entitic vol] 9.6 fL 8.1 - 13.5 fL [place] Platelets (Bld) [#/Vol] 176 10*3/uL [place] Platelets (Bld) [#/Vol] NOT REPORTED [place] RBC (Bld) [#/Vol] 4.52 10*6/uL 4.21 - 5.7 7 m/uL [place] RBC morphology finding Nom (Bld) NOT REPORTED [place] Segmented neutrophils/100 WBC (Bld) 42 % 36 - 65 % [place] Segs Absolute 1.79 [place] WBC (Bld) [#/Vol] 0.0 10*3/uL 0.0 per 10 0 WBC [place] WBC (Bld) [#/Vol] 4.3 10*3/uL [place] WBC Morphology NOT REPORTED [place], [place] CBC with Diffon 11-13-2019 Abs. Basophil 0.03 k/uL Normal 0.00-0.20 [facility] Comment on above: Performed By: #### L IPR, CP, GLYHGB, CDP #### [facility] [address] [place] [address] [place] [address] Laser Cutter: Lalit Ro MD #### PSAS #### [place] [id number] Laser Cutter: Max Villanueva MD Abs.Imm.Granulocyte <0.03 Normal 0.00-0.30 [facility] Comment on above: Performed By: #### L IPR, CP, GLYHGB, CDP #### [address] [place] [id number] Laser Cutter: Lalit Ro MD #### PSAS #### [place] [id number] Laser Cutter: Max Villanueva MD Abs.Neutrophil (Seg) 1.79 k/uL Normal 1.50-8.10 [facility] Comment on above: Performed By: #### L IPR, CP, GLYHGB, CDP #### [facility] [address] [place] [address] [place] [id number] Laser Cutter: Lalit Ro MD #### PSAS #### [address] [id number] Laser Cutter: Max Villanueva MD Basophils/100 WBC (Bld) 1 % Normal 0-2 M [facility] Comment on above: Performed By: #### L IPR, CP, GLYHGB, CDP #### [facility] [address] [place] [id number] Laser Cutter: Lalit Ro MD #### PSAS #### [address] [id number] Laser Cutter: Max Villanueva MD Eosinophils (Bld) [#/Vol] 0.09 10*3/uL Normal 0.00-0.44 [facility] Comment on above: Performed By: #### L IPR, CP, GLYHGB, CDP #### [facility] [address] [place] [address] Dr[place] [phone] Laser Cutter: Lalit Ro MD #### PSAS #### [address] [id number] Laser Cutter: Max Villanueva MD Eosinophils/100 WBC (Bld) 2 % Normal 1-4 [facility] Comment on above: Performed By: #### L IPR, CP, GLYHGB, CDP #### [address] [place] [phone] Laser Cutter: Lalit Ro MD #### PSAS #### [address] [id number] Laser Cutter: Max Villanueva MD Erythrocyte distribution width (RBC) [Ratio] 12.4 % Normal 11.8-14.4 [facility] Comment on above: Performed By: #### L IPR, CP, GLYHGB, CDP #### [facility] [address] [place] [phone] Laser Cutter: Lalit Ro MD #### PSAS #### [address] [phone] Laser Cutter: Max Villanueva MD Hematocrit (Bld) [Volume fraction] 41.8 % Normal 40.7-50.3 [facility] Comment on above: Performed By: #### L IPR, CP, GLYHGB, CDP #### [facility] [address] [place] [id number] Laser Cutter: Lalit Ro MD #### PSAS #### [address] [phone] Laser Cutter: Max Villanueva MD Hemoglobin (Bld) [Mass/Vol] 14.0 g/dL Normal 13.0-17.0 [facility] Comment on above: Performed By: #### L IPR, CP, GLYHGB, CDP #### [facility] [address] [place] [phone] Laser Cutter: Lalit Ro MD #### PSAS #### [address] [id number] Laser Cutter: Max Villanueva MD Immature granulocytes/100 WBC (Bld) 0 % Normal 0 [facility] Comment on above: Performed By: #### L IPR, CP, GLYHGB, CDP #### [facility] [address] [place] [phone] Laser Cutter: Lalit Ro MD #### PSAS #### [address] [id number] Laser Cutter: Max Villanueva MD Lymphocytes (Bld) [#/Vol] 1.93 10*3/uL Normal 1.10-3.70 [facility] Comment on above: Performed By: #### L IPR, CP, GLYHGB, CDP #### [facility] [address] [place] [address] Laser Cutter: Lalit Ro MD #### PSAS #### [address] [id number] Laser Cutter: Max Villanueva MD Lymphocytes/100 WBC (Bld) 45 % High 24-43 [facility] Comment on above: Performed By: #### L IPR, CP, GLYHGB, CDP #### [address] [place] [phone] Laser Cutter: Lalit Ro MD #### PSAS #### [address] [id number] Laser Cutter: Max Villanueva MD MCH (RBC) [Entitic mass] 31.0 pg Normal 25.2-33.5 [facility] Comment on above: Performed By: #### L IPR, CP, GLYHGB, CDP #### [address] [place] [phone] Laser Cutter: Lalit Ro MD #### PSAS #### [address] [id number] Laser Cutter: Max Villanueva MD MCHC (RBC) [Mass/Vol] 33.5 g/dL Normal 28.4-34.8 [facility] Comment on above: Performed By: #### L IPR, CP, GLYHGB, CDP #### [address] [place] [phone] Laser Cutter: Lalit Ro MD #### PSAS #### [address] [id number] Laser Cutter: Max Villanueva MD MCV (RBC) [Entitic vol] 92.5 fL Normal 82.6-102.9 M [facility] Comment on above: Performed By: #### L IPR, CP, GLYHGB, CDP #### [address] [place] [address] Laser Cutter: Lalit Ro MD #### PSAS #### [address] [id number] Laser Cutter: Max Villanueva MD Monocytes (Bld) [#/Vol] 0.42 10*3/uL Normal 0.10-1.20 [facility] Comment on above: Performed By: #### L IPR, CP, GLYHGB, CDP #### [facility] [address] [place] [address] Dr. [place] [phone] Laser Cutter: Lalit Ro MD #### PSAS #### [address] [id number] Laser Cutter: Max Villanueva MD Monocytes/100 WBC (Bld) 10 % Normal 3-12 [facility] Comment on above: Performed By: #### L IPR, CP, GLYHGB, CDP #### [address] [place] [phone] Laser Cutter: Lalit Ro MD #### PSAS #### [address] [phone] Laser Cutter: Max Villanueva MD Neutrophil (Seg) 42 % Normal 36-65 [facility] Comment on above: Performed By: #### L IPR, CP, GLYHGB, CDP #### [address] [place] [phone] Laser Cutter: Lalit Ro MD #### PSAS #### [address] [address] Laser Cutter: Max Villanueva MD NRBC Automated 0.0 per 100 WBC Normal 0.0 [facility] Comment on above: Performed By: #### L IPR, CP, GLYHGB, CDP #### [address] [place] [phone] Laser Cutter: Lalit Ro MD #### PSAS #### [address] [address] Laser Cutter: Max Villanueva MD Platelet mean volume (Bld) [Entitic vol] 9.6 fL Normal 8.1-13.5 [facility] Comment on above: Performed By: #### L IPR, CP, GLYHGB, CDP #### [address] [place] [phone] ( Laser Cutter: Lalit Ro MD #### PSAS #### [address] [address] Laser Cutter: Max Villanueva MD Platelets (Bld) [#/Vol] 176 10*3/uL Normal 138-453 [facility] Comment on above: Performed By: #### L IPR, CP, GLYHGB, CDP #### [address] [place] [phone] ( Laser Cutter: Lalit Ro MD #### PSAS #### [place] [address] Laser Cutter: Max Villanueva MD RBC (Bld) [#/Vol] 4.52 10*6/uL Normal 4.21-5.77 [facility] Comment on above: Performed By: #### L IPR, CP, GLYHGB, CDP #### [address] [place] [phone] Laser Cutter: Lalit Ro MD #### PSAS #### [place] [address] Laser Cutter: Max Villanueva MD WBC (Bld) [#/Vol] 4.3 10*3/uL Normal 3.5-11.3 [facility] Comment on above: Performed By: #### L IPR, CP, GLYHGB, CDP #### [address] [place] [phone] Laser Cutter: Lalit Ro MD #### PSAS #### [address] [phone] Laser Cutter: Max Villanueva MD Auto Diff Performed NOT REPORTED Normal [facility] Comment on above: Performed By: #### L IPR, CP, GLYHGB, CDP #### [facility] [address] [place], [place] [phone] Laser Cutter: Lalit Ro MD #### PSAS #### [address] [address] Laser Cutter: Max Villanueva MD Platelet Estimate NOT REPORTED Normal [facility] Comment on above: Performed By: #### L IPR, CP, GLYHGB, CDP #### [facility] [address] [place], [place] [phone] Laser Cutter: Lalit Ro MD #### PSAS #### [address] [address] Laser Cutter: Max Villanueva MD RBC morphology finding Nom (Bld) NOT REPORTED Normal [facility] Comment on above: Performed By: #### L IPR, CP, GLYHGB, CDP #### [facility] [address] [place] [address] Dr. [place], [place] [phone] Laser Cutter: Llait Ro MD #### PSAS #### [address] [address] Laser Cutter: Max Villanueva MD WBC Morphology NOT REPORTED Normal [facility] Comment on above: Performed By: #### L IPR, CP, GLYHGB, CDP #### [facility] [address] [place] [address] Dr. [place], [place] [phone] Laser Cutter: Lalit Ro MD #### PSAS #### [address] [address] Laser Cutter: Max Villanueva MD Comp Metabolic Profon 2019 (cont.) Normal [facility] Comment on above: Result Comment: Aver age GFR for 50-59 years old: 93 mL/min/1.73sq m Chronic Kidney Disease: <60 mL/min/1.73sq m Kidney failure: <15 mL/min/1.73sq m eGFR calculated using average adult body mass. Additional eGFR calculator available at: http://[email or web address].Copiun/multiple_crcl_2011.htm Performed By: #### L IPR, CP, GLYHGB, CDP #### [address] [place] [phone] Laser Cutter: Lalit Ro MD #### PSAS #### [address] [phone] Laser Cutter: Max Villanueva MD Albumin [Mass/Vol] 4.1 g/dL Normal 3.5-5.2 [facility] Comment on above: Performed By: #### L IPR, CP, GLYHGB, CDP #### [address] [place] [phone] Laser Cutter: Lalit Ro MD #### PSAS #### [address] [id number] Laser Cutter: Max Villanueva MD Albumin/Glob Ratio 1.5 Normal 1.0-2.5 [facility] Comment on above: Performed By: #### L IPR, CP, GLYHGB, CDP #### [address] [place] [phone] Laser Cutter: Lalit Ro MD #### PSAS #### [address] [phone] Laser Cutter: Max Villanueva MD Alkaline Phos 44 U/L Normal 40-129 [facility] Comment on above: Performed By: #### L IPR, CP, GLYHGB, CDP #### [address] [place], [place] [phone] Laser Cutter: Lalit Ro MD #### PSAS #### [address] [place] [address] Laser Cutter: Max Villanueva MD ALT [Catalytic activity/Vol] 20 U/L Normal 5-41 [facility] Comment on above: Performed By: #### L IPR, CP, GLYHGB, CDP #### [facility] [address] [place], [place] [phone] Laser Cutter: Lalit Ro MD #### PSAS #### [address] [address] Laser Cutter: Max Villanueva MD Anion gap [Moles/Vol] 11 mmol/L Normal 9-17 [facility] Comment on above: Performed By: #### L IPR, CP, GLYHGB, CDP #### [facility] [address] [place], [place] [phone] Laser Cutter: Lalit Ro MD #### PSAS #### [address] [address] Laser Cutter: Max Villanueva MD AST [Catalytic activity/Vol] 25 U/L Normal <40 [facility] Comment on above: Performed By: #### L IPR, CP, GLYHGB, CDP #### [facility] [address] [place], [place] [phone] Laser Cutter: Lalit Ro MD #### PSAS #### [address] [address] Laser Cutter: Max Villanueva MD Bilirubin [Mass/Vol] 0.75 mg/dL Normal 0.3-1.2 [facility] Comment on above: Performed By: #### L IPR, CP, GLYHGB, CDP #### [facility] [address] [place] [address] [place], [place] [phone] Laser Cutter: Lalit Ro MD #### PSAS #### [address] [address] Laser Cutter: Max Villanueva MD BUN/CRE Ratio 14 Normal 9-20 [facility] Comment on above: Performed By: #### L IPR, CP, GLYHGB, CDP #### [facility] [address] [place], [place] [phone] Laser Cutter: Lalit Ro MD #### PSAS #### [address] [address] Laser Cutter: Max Villanueva MD Calcium [Mass/Vol] 8.8 mg/dL Normal 8.6-10.4 [facility] Comment on above: Performed By: #### L IPR, CP, GLYHGB, CDP #### [address] [place], [place] [phone] Laser Cutter: Lalit Ro MD #### PSAS #### [address] [address] Laser Cutter: Max Villanueva MD Chloride [Moles/Vol] 104 mmol/L Normal 98-107 [facility] Comment on above: Performed By: #### L IPR, CP, GLYHGB, CDP #### [address] [place], [place] 0258383 Laser Cutter: Lalit Ro MD #### PSAS #### [address] [address] Laser Cutter: Max Villanueva MD CO2 [Moles/Vol] 27 mmol/L Normal 20-31 [facility] Comment on above: Performed By: #### L IPR, CP, GLYHGB, CDP #### [facility] [address] [place] [address] [place], [place] [phone] Laser Cutter: Lalit Ro MD #### PSAS #### [address] [address] Laser Cutter: Max Villanueva MD Creatinine [Mass/Vol] 0.98 mg/dL Normal 0.70-1.20 [facility] Comment on above: Performed By: #### L IPR, CP, GLYHGB, CDP #### [facility] [address] [place] [address] Laser Cutter: Lalit Ro MD #### PSAS #### [address] [phone] Laser Cutter: Max Villanueva MD GFR, Amer >60 Normal >60 [facility] Comment on above: Performed By: #### L IPR, CP, GLYHGB, CDP #### [address] [place] [phone] Laser Cutter: Lalit Ro MD #### PSAS #### [address] [phone] Laser Cutter: Max Villanueva MD GFR,non Amer >60 Normal >60 [facility] Comment on above: Performed By: #### L IPR, CP, GLYHGB, CDP #### [address] [place] [phone] Laser Cutter: Lalit Ro MD #### PSAS #### [address] [id number] Laser Cutter: Max Villanueva MD Glucose [Mass/Vol] 86 mg/dL Normal 70-99 [facility] Comment on above: Performed By: #### L IPR, CP, GLYHGB, CDP #### [address] [place] [phone] Laser Cutter: Lalit Ro MD #### PSAS #### [address] [address] Laser Cutter: Max Villanueva MD Potassium [Moles/Vol] 3.8 mmol/L Normal 3.7-5.3 [facility] Comment on above: Performed By: #### L IPR, CP, GLYHGB, CDP #### [address] [place] [address] Laser Cutter: Lalit Ro MD #### PSAS #### [address] [phone] Laser Cutter: Max Villanueva MD Protein [Mass/Vol] 6.8 g/dL Normal 6.4-8.3 [facility] Comment on above: Performed By: #### L IPR, CP, GLYHGB, CDP #### [address] [place] [address] Laser Cutter: Lalit Ro MD #### PSAS #### [address] [phone] Laser Cutter: Max Villanueva MD Sodium [Moles/Vol] 142 mmol/L Normal 135-144 [facility] Comment on above: Performed By: #### L IPR, CP, GLYHGB, CDP #### [address] [place] [address] Laser Cutter: Lalit Ro MD #### PSAS #### [address] [phone] Laser Cutter: Max Villanueva MD Staging: Normal [facility] Comment on above: Result Comment: Stag e 1: Some kidney damage normal GFR Stage 2: Mild kidney damage GFR 60-89 Stage 3: Moderate kidney damage GFR 30-59 Stage 4: Severe kidney damage GFR 15-29 Stage 5: Severe kidney damage GFR <15 ESRD - chronic treatment by dialysis or transplant Performed By: #### L IPR, CP, GLYHGB, CDP #### [address] [place], [place] [phone] Laser Cutter: Lalit Ro MD #### PSAS #### [address] [place] [phone] Laser Cutter: Max Villanueva MD Urea nitrogen [Mass/Vol] 14 mg/dL Normal 6-20 [facility] Comment on above: Performed By: #### L IPR, CP, GLYHGB, CDP #### [facility] [address] [place] [address] Laser Cutter: Lalit Ro MD #### PSAS #### [facility] [address] [place] [address] Laser Cutter: Max Villanueva MD Comprehensive Metabolic Pane tosha 11-13-2019 Albumin [Mass/Vol] 4.1 g/dL 3.5 - 5.2 g/dL [place] Albumin/Globulin [Mass ratio] 1.5 {ratio} [place] ALP [Catalytic activity/Vol] 44 U/L 40 - 129 U/L [place] ALT [Catalytic activity/Vol] 20 U/L 5 - 41 U/L [place] Anion gap [Moles/Vol] 11 mmol/L 9 - 17 mmol/L [place] AST [Catalytic activity/Vol] 25 U/L <40 [place] Bilirubin Ql (U) 0.75 mg/dL 0.3 - 1.2 mg/dL [place] Bun/Cre Ratio 14 [place] Calcium [Mass/Vol] 8.8 mg/dL 8.6 - 10. 4 mg/dL [place] Chloride [Moles/Vol] 104 mmol/L 98 - 10 7 mmol/L [place] CO2 [Moles/Vol] 27 mmol/L 20 - 31 mmol/L [place] Creatinine [Mass/Vol] 0.98 mg/dL 0.7 - 1.2 mg/dL [place] GFR >60 >60 mL/min [place] GFR Non- >60 >60 mL/min [place] Glucose [Mass/Vol] 86 mg/dL 70 - 99 mg/dL [place] Potassium [Moles/Vol] 3.8 mmol/L 3.7 - 5.3 mmol/L [place] Protein [Mass/Vol] 6.8 g/dL 6.4 - 8.3 g/dL [place] Sodium [Moles/Vol] 142 mmol/L 135 - 144 mmol/L [place] Urea nitrogen [Mass/Vol] 14 mg/dL 6 - 20 mg/d L [place] Hemoglobin A1Con 11-13-2019 Glucose [Mass/Vol] 94 mg/dL Normal [place] Comment on above: The ADA and AACC rec ommend providing the estimated average glucose result to permit better patient understanding of their HBA1c result. Result Comment: The ADA and AACC recommend providing the estimated average glucose result to permit better patient understanding of their HBA1c result. Performed By: #### L IPR, CP, GLYHGB, CDP #### [address] [place] [address] Laser Cutter: Lalit Ro MD #### PSAS #### [address] [address] Laser Cutter: Max Villanueva MD HbA1c (Bld) [Mass fraction] 4.9 % Normal 4.8-5.9 [place] Comment on above: Performed By: #### L IPR, CP, GLYHGB, CDP #### [address] [place] [address] Laser Cutter: Lalit Ro MD #### PSAS #### [address] [address] Laser Cutter: Max Villanueva MD Lipid Panelon 11-13-2019 Cholesterol [Mass/Vol] 96 mg/dL <200 [place] Comment on above: Cholesterol Guidelines: <200 Desirable 200-240 Borderline >240 Undesirable Cholesterol in HDL [Mass/Vol] 70 mg/dL >40 [place] Comment on above: HDL Guidelines: <40 Undesirable 40-59 Borderline >59 Desirable Cholesterol in LDL [Mass/Vol] 19 mg/dL 0 - 130 mg/dL [place] Comment on above: LDL Guidelines: <100 Desirable 100-129 Near to/above Desirable 130-159 Borderline >159 Undesirable Direct (measured) LDL and calculated LDL are not interchangeable tests. Cholesterol in VLDL [Mass/Vol] NOT REPORTED 1 - 30 mg/dL [place] Cholesterol.total/Choles terol in HDL [Mass ratio] 1.4 {ratio} <5 [place] Triglyceride [Mass/Vol] 34 mg/dL <150 [place] Comment on above: Triglyceride Guidelines: <150 Desirable 150-199 Borderline 200-499 High >499 Very high Based on AHA Guidelines for fasting triglyceride, February 2012. Lipid Profileon 11-13-2019 Cholesterol [Mass/Vol] 96 mg/dL Normal <200 [facility] Comment on above: Result Comment: Cholesterol Guidelines: <200 Desirable 200-240 Borderline >240 Undesirable Performed By: #### L IPR, CP, GLYHGB, CDP #### [facility] [address] [place] [address] [place] [address] Laser Cutter: Lalit Ro MD #### PSAS #### [address] [address] Laser Cutter: Max Villanueva MD Cholesterol in HDL [Mass/Vol] 70 mg/dL Normal >40 [facility] Comment on above: Result Comment: HDL Guidelines: <40 Undesirable 40-59 Borderline >59 Desirable Performed By: #### L IPR, CP, GLYHGB, CDP #### [facility] [address] [place] [address] Laser Cutter: Lalit Ro MD #### PSAS #### [address] [address] Laser Cutter: Max Villanueva MD Cholesterol in LDL [Mass/Vol] 19 mg/dL Normal 0-130 [facility] Comment on above: Result Comment: LDL Guidelines: <100 Desirable 100-129 Near to/above Desirable 130-159 Borderline >159 Undesirable Direct (measured) LDL and calculated LDL are not interchangeable tests. Performed By: #### L IPR, CP, GLYHGB, CDP #### [facility] [address] [place] [address] Laser Cutter: Lalit Ro MD #### PSAS #### [address] [address] Laser Cutter: Max Villanueva MD Cholesterol.total/Choles terol in HDL [Mass ratio] 1.4 {ratio} Normal <5 [facility] Comment on above: Performed By: #### L IPR, CP, GLYHGB, CDP #### [address] [place], [place] [id number] Laser Cutter: Lalit Ro MD #### PSAS #### [address] [address] Laser Cutter: Max Villanueva MD Triglyceride [Mass/Vol] 34 mg/dL Normal <150 [facility] Comment on above: Result Comment: Triglyceride Guidelines: <150 Desirable 150-199 Borderline 200-499 High >499 Very high Based on AHA Guidelines for fasting triglyceride, February 2012. Performed By: #### L IPR, CP, GLYHGB, CDP #### [address] [place] [address] Laser Cutter: Lalit Ro MD #### PSAS #### [address] [address] Laser Cutter: Max Villanueva MD Cholesterol,VLDL NOT REPORTED Normal 30 [facility] Comment on above: Performed By: #### L IPR, CP, GLYHGB, CDP #### [facility] [address] [place] [address] Dr. [place], [place] [id number] Laser Cutter: Lalit Ro MD #### PSAS #### [address] [address] Laser Cutter: Max Villanueva MD Metabolic Panelon 11-13-2019 GFR/1.73 sq M predicted among non-blacks MDRD (S/P/Bld) [Vol rate/Area] [place], [place] Comment on above: Average GFR for 50-5 9 years old: 93 mL/min/1.73sq m Chronic Kidney Disease: <60 mL/min/1.73sq m Kidney failure: <15 mL/min/1.73sq m eGFR calculated using average adult body mass. Additional eGFR calculator available at: http://www.[employer]/multiple_crcl_2012.htm Stage 1: Some kidney damage normal GFR Stage 2: Mild kidney damage GFR 60-89 Stage 3: Moderate kidney damage GFR 30-59 Stage 4: Severe kidney damage GFR 15-29 Stage 5: Severe kidney damage GFR <15 ESRD - chronic treatment by dialysis or transplant PSA, Screeningon 11-13-2019 Prostatic Spec. Ag 0.48 ug/L Normal <4.1 [facility] Comment on above: Result Comment: The [employer] E[employer] assay is used. Results obtained with different assay methods cannot be used interchangeably. Performed By: #### G LYHGB, INSU, LIPR, PSAS #### [facility] [employer] [address] [place] [address] Laser Cutter: Max Villanueva MD #### CP, CDP #### [facility] [address] [place] [address] Laser Cutter: Preet Ayala MD Provider Letteron 12-01-2018 Provider Letter Keshia Holt, [address] [place] [address] Re: Leeroy Abiel Date of Visit: 12/01/2018 Dear Keshia Holt, Thank you for referring Leeroy to my office. Attached you will find my plan and impression from their visit. Result Name Current Result Urology Office/Clinic Note 12/01/2018 Please review and contact my office with any questions or concerns. Sincerely, Aramis Molina, ELECTRONIC SYSTEMS TECHNICIAN [address] [place] [phone] C C Providers: The following document(s) were included in the letter: December 01, 2018 09:41:42 EDT - (12/01/2018) Urology Office Visit Note Normal [facility] Urology Office/Clinic Noteon 12-01-2018 Urology Office/Clinic Note Chief Complaint Nocturia, Urinary Frequincy, Urgency, BPH History of Present Illness New patient referral Referral from Keshia Holt Concerns for lower urinary tract symptoms Patient has a history of BPH, urinary urgency, urinary frequency, nocturia Patient previously seen urologist Dr. Cleaning in the [place] area, patient underwent laser surgery of the [...] Results Requesting PSA records Electronically signed by Aramis Molina CNP 12/01/18 09:44 EDT Records reviewed from Gemma Rios CNP from [facility] PSA August 2010 was 0.67 PSA December 2011 was 0.39 PSA November 2012 0.53 PSA February 2018 was 0.31 PSA October 2018 was 0.38 Correction patient did not have laser prostate surgery patient had cystoscopy with transurethral incision of the prostate by Dr. Neri Cleaning 10/02/2010 Electronically signed by Aramis Molina CNP 03/07/19 08:02 EDT Normal [facility] Vital Signs Date Time Vital Sign Value Performing Clinician Sherie baumann 11-29-2023 11:21-0400 Blood Pressure Location Neri CLEANING [facility] 11-29-2023 11:21-0400 Body temperature 98.6 [degF] Neri CLEANING [facility] 11-29-2023 11:21-0400 Diastolic blood pressure 84 mm[Hg] Neri CLEANING [facility] 11-29-2023 11:21-0400 Heart rate 79 /min Neri CLEANING [facility] 11-29-2023 11:21-0400 Respiratory rate 16 /min Neri CLEANING [facility] 11-29-2023 11:21-0400 Systolic blood pressure 131 mm[Hg] Neri CLEANING [facility] Encounters Encounter Date Encounter Type Care Provider Facility Start: 12-01-2024 ambulatory Neri CLEANING Facili ty:[facility] Start: 11-29-2023 End: 11-29-2023 ambulatory Neri CLEANING Facility:[facility] Start: 11-29-2023 End: 11-29-2023 Patient encounter procedure Neri CLEANING [facility] Start: 07-02-2023 ambulatory Neri CLEANING Facility :[facility] Start: 07-20-2022 End: 07-20-2022 Lab Drop off Neri CLEANING [facility] Start: 12-31-2021 Encounter for genera l adult medical examination without abnormal findings DR KESHIA HOLT [facility] Start: 12-30-2021 End: 12-31-[address] KESHIA HOLT Facility:[facility] Start: 12-30-2021 End: 12-31-2021 Encounter for general adult medical examination without abnormal findings DR KESHIA HOLT Facility:[facility] Start: 06-30-2021 End: 07-01-[address] NERI CLEANING Facility:[facility] Start: 01-01-2021 End: 01-01-[address] RYLIE ALCAZAR Facility: Start: 11-02-2020 End: 11-03-2020 ambulatory [facility] Start: 11-02-2020 End: 11-02-2020 Subsequent hospital visit by physician Keshia Holt MD Work Phone: [facility] Start: 10-24-2020 End: 10-25-2020 [facility] Start: 10-24-2020 End: 10-24-2020 Subsequent hospital visit by physician Keshia Holt MD Work Phone: [facility] Start: 11-13-2019 End: 11-14-2019 ambulatory [facility] Start: 11-13-2019 End: 11-13-2019 Subsequent [facility] Procedures Date Procedure Procedure Detail Performing Clinician Start: 12-30-[address] EAMON ALCAZAR Comment on above: Performed By: #### P SAS #### [facility] [address] [place] [address] Dr. Teodoro Owens Start: 06-30-[address] EAMON ALCAZAR Comment on above: Performed By: #### P SAD #### [facility] [address] [place] [address] Dr. Teodoro Owens Start: 11-02-2020 PSA screening Keshia beasley MD Work Phone: Comment on above: The [employer] ECLIA as say is used. Results obtained with different assay methods cannot be used interchangeably. Start: 11-02-2020 Comprehensive metabo lic panel Keshia Holt MD Work Phone: Start: 11-02-2020 Lipid panel Keshia Holt MD Work Phone: Start: 07-16-2020 Cystoscopy Neri MASSEY Start: 11-13-2019 [object Object] Keshia Holt Comment on above: The [employer] ECLIA as [...] Prostatotomy by transurethral approach Neri CLEANING Colonoscopy Neri CLEANING History of hernia repair Flor CLEANING Structure of right w rist (body structure) Neri CLEANING Comment on above: bone repair Plan of Treatment Date Care Activity Detail Author Start: 01-22-2021 Influenza vaccination Flu vacc ine (Season Ended) [employer] Phone: Start: 1977 COVID-19 Vaccine (1) COVID-19 Vaccin e (1) [employer] Phone: End: 11-02-2020 Hemoglobin A1c/Hemoglobin.total in Blood Hemoglobin A1C Lab Routine Once for 1 Occurrences starting 11/02/2020 until 11/02/2020 [employer] Phone: Comment on above: Once for 1 Occurrenc es starting 11/02/2020 until 11/02/2020 Hemoglobin A1c/Hemoglobin.total in Blood Hemoglobin A1C Lab Routine 11/02/2020 7:15 AM EDT [employer] Phone: Immunizations Immunization Date Immunization Notes Care Provider Fa cility 09-17-2020 SARS-CoV-2 (COVID-19 ) mRNA-2913 vaccine Neri Akamedia [facility] 08-31-2020 SARS-CoV-2 (COVID-19 ) mRNA-1273 vaccine Neri CLEANING [facility] 08-27-2020 SARS-CoV-2 (COVID-19 ) mRNA-1273 vaccine Neri CLEANING [facility] 08-03-2020 SARS-CoV-2 (COVID-19 ) mRNA-1273 vaccine Neri CLEANING [facility] 04-15-2020 influenza virus vaccine, unspecified formulation Neri CLEANING [facility] Payers Date Payer Category Payer Unknown [id number] 2020 Unknown [id number] 2019 Unknown [employer] xxxxxxxxx 2019-Present [phone] [address] [place] [address] xxxxxxxxx [id number] 1966 Unknown [id number] 3 1966 Unknown [id number] 3 1966 Unknown [id number] 3 1966 Unknown [id number] 3 1966 Unknown [id number] 3 1966 Unknown [id number] 3 1966 Unknown [id number] 7 1966 Unknown [id number] 7 1959 Unknown [id number] Social History Date Type Detail Facility [facility] Start: 1965 Sex Assigned At Not on file M [place], [place] Start: 11-27-2020 End: 11-29-2023 Tobacco smoking status Ex-smoker (finding) [facility] Sex Assigned At Female [facility] Functional Status Date Assessment Result Facility 11-29-2023 Functional Status N/A [facility] Discharge instructions 11-29-2023 Note Date & Type Note Facility 11-29-2023 Hospital Discharge instructions Patient Education 11/29/2023 12:21:18 Benign Prostatic Hyperplasia Benign Prostatic Hyperplasia Benign prostatic hyperplasia (BPH) is an enlarged prostate gland that is caused by the normal aging process. The prostate may get bigger as a man gets older. The condition is not caused by cancer. The prostate is a walnut-sized gland that is involved in the production of semen. It is located in front of the rectum and below the bladder. The bladder stores urine. The urethra carries stored urine out of the body. An enlarged prostate can press on the urethra. This can make it harder to pass urine. The buildup of urine in the bladder can cause infection. Back pressure and infection may progress to bladder damage and kidney (renal) failure. What are the causes? This condition is part of the normal aging process. However, not all men develop problems from this condition. If the prostate enlarges away from the urethra, urine flow will not be blocked. If it enlarges toward the urethra and compresses it, there will be problems passing urine. What increases the risk? This condition is more likely to develop in men older than 50 years. What are the signs or symptoms? Symptoms of this condition include: Getting up often during the night to urinate. Needing to urinate frequently during the day. Difficulty starting urine flow. Decrease in size and strength of your urine stream. Leaking (dribbling) after urinating. Inability to pass urine. This needs immediate treatment. Inability to completely empty your bladder. Pain when you pass urine. This is more common if there is also an infection. Urinary tract infection (UTI). How is this diagnosed? This condition is diagnosed based on your medical history, a physical exam, and your symptoms. Tests will also be done, such as: A post-void bladder scan. This measures any amount of urine that may remain in your bladder after you finish urinating. A digital rectal exam. In a rectal exam, your health care provider checks your prostate by putting a lubricated, gloved finger into your rectum to feel the back of your prostate gland. This exam detects the size of your gland and any abnormal lumps or growths. An exam of your urine (urinalysis). A prostate specific antigen (PSA) screening. This is a blood test used to screen for prostate cancer. An ultrasound. This test uses sound waves to electronically produce a picture of your prostate gland. Your health care provider may refer you to a specialist in kidney and prostate diseases (urologist). How is this treated? Once symptoms begin, your health care provider will monitor your condition (active surveillance or watchful waiting). Treatment for this condition will depend on the severity of your condition. Treatment may include: Observation and yearly exams. This may be the only treatment needed if your condition and symptoms are mild. Medicines to relieve your symptoms, including: ?Medicines to shrink the prostate. ?Medicines to relax the muscle of the prostate. Surgery in severe cases. Surgery may include: ?Prostatectomy. In this procedure, the prostate tissue is removed completely through an open incision or with a laparoscope or robotics. ?Transurethral resection of the prostate (TURP). In this procedure, a tool is inserted through the opening at the tip of the penis (urethra). It is used to cut away tissue of the inner core of the prostate. The pieces are removed through the same opening of the penis. This removes the blockage. ?Transurethral incision (TUIP). In this procedure, small cuts are made in the prostate. This lessens the prostate's pressure on the urethra. ?Transurethral microwave thermotherapy (TUMT). This procedure uses microwaves to create heat. The heat destroys and removes a small amount of prostate tissue. ?Transurethral needle ablation (TUNA). This procedure uses radio frequencies to destroy and remove a small amount of prostate tissue. ?Interstitial laser coagulation (ILC). This procedure uses a laser to destroy and remove a small amount of prostate tissue. ?Transurethral electrovaporization (TUVP). This procedure uses electrodes to destroy and remove a small amount of prostate tissue. ?Prostatic urethral lift. This procedure inserts an implant to push the lobes of the prostate away from the urethra. Follow these instructions at home: Take inrl-kwm-erwmxhs and prescription medicines only as told by your health care provider. Monitor your symptoms for any changes. Contact your health care provider with any changes. Avoid drinking large amounts of liquid before going to bed or out in public. Avoid or reduce how much caffeine or alcohol you drink. Give yourself time when you urinate. Keep all follow-up visits. This is important. Contact a health care provider if: You have unexplained back pain. Your symptoms do not get better with treatment. You develop side effects from the medicine you are taking. Your urine becomes very dark or has a bad smell. Your lower abdomen becomes distended and you have trouble passing urine. Get help right away if: You have a fever or chills. You suddenly cannot urinate. You feel light-headed or very dizzy, or you faint. There are large amounts of blood or clots in your urine. Your urinary problems become hard to manage. You develop moderate to severe low back or flank pain. The flank is the side of your body between the ribs and the hip. These symptoms may be an emergency. Get help right away. Call 911. Do not wait to see if the symptoms will go away. Do not drive yourself to the hospital. Summary Benign prostatic hyperplasia (BPH) is an enlarged prostate that is caused by the normal aging process. It is not caused by cancer. An enlarged prostate can press on the urethra. This can make it hard to pass urine. This condition is more likely to develop in men older than 50 years. Get help right away if you suddenly cannot urinate. This information is not intended to replace advice given to you by your health care provider. Make sure you discuss any questions you have with your health care provider. Document Revised: 11/26/2021 Document Reviewed: 11/26/2021 [employer] Patient Education 2022 [employer]. Follow Up Care 07/20/2022 16:13:55 With:LIANET THEODORE, Neri Callejas, URL Address: [facility] [address], [place] [phone] When: Unknown [facility] Clinical Note 11-29-2023 Note Date & Type Note Facility 11-29-2023 Note Patient Education Urology Benign Prostatic Hyperplasia Benign prostatic hyperplasia (BPH) is an enlarged prostate gland that is caused by the normal aging process. The prostate may get bigger as a man gets older. The condition is not caused by cancer. The prostate is a walnut-sized gland that is involved in the production of semen. It is located in front of the rectum and below the bladder. The bladder stores urine. The urethra carries stored urine out of the body. An enlarged prostate can press on the urethra. This can make it harder to pass urine. The buildup of urine in the bladder can cause infection. Back pressure and infection may progress to bladder damage and kidney (renal) failure. What are the causes? This condition is part of the normal aging process. However, not all men develop problems from this condition. If the prostate enlarges away from the urethra, urine flow will not be blocked. If it enlarges toward the urethra and compresses it, there will be problems passing urine. What increases the risk? This condition is more likely to develop in men older than 50 years. What are the signs or symptoms? Symptoms of this condition include: ? Getting up often during the night to urinate. ? Needing to urinate frequently during the day. ? Difficulty starting urine flow. ? Decrease in size and strength of your urine stream. ? Leaking (dribbling) after urinating. ? Inability to pass urine. This needs immediate treatment. ? Inability to completely empty your bladder. ? Pain when you pass urine. This is more common if there is also an infection. ? Urinary tract infection (UTI). How is this diagnosed? This condition is diagnosed based on your medical history, a physical exam, and your symptoms. Tests will also be done, such as: ? A post-void bladder scan. This measures any amount of urine that may remain in your bladder after you finish urinating. ? A digital rectal exam. In a rectal exam, your health care provider checks your prostate by putting a lubricated, gloved finger into your rectum to feel the back of your prostate gland. This exam detects the size of your gland and any abnormal lumps or growths. ? An exam of your urine (urinalysis). ? A prostate specific antigen (PSA) screening. This is a blood test used to screen for prostate cancer. ? An ultrasound. This test uses sound waves to electronically produce a picture of your prostate gland. Your health care provider may refer you to a specialist in kidney and prostate diseases (urologist). How is this treated? Once symptoms begin, your health care provider will monitor your condition (active surveillance or watchful waiting). Treatment for this condition will depend on the severity of your condition. Treatment may include: ? Observation and yearly exams. This may be the only treatment needed if your condition and symptoms are mild. ? Medicines to relieve your symptoms, including: ? Medicines to shrink the prostate. ? Medicines to relax the muscle of the prostate. ? Surgery in severe cases. Surgery may include: ? Prostatectomy. In this procedure, the prostate tissue is removed completely through an open incision or with a laparoscope or robotics. ? Transurethral resection of the prostate (TURP). In this procedure, a tool is inserted through the opening at the tip of the penis (urethra). It is used to cut away tissue of the inner core of the prostate. The pieces are removed through the same opening of the penis. This removes the blockage. ? Transurethral incision (TUIP). In this procedure, small cuts are made in the prostate. This lessens the prostate's pressure on the urethra. ? Transurethral microwave thermotherapy (TUMT). This procedure uses microwaves to create heat. The heat destroys and removes a small amount of prostate tissue. ? Transurethral needle ablation (TUNA). This procedure uses radio frequencies to destroy and remove a small amount of prostate tissue. ? Interstitial laser coagulation (ILC). This procedure uses a laser to destroy and remove a small amount of prostate tissue. ? Transurethral electrovaporization (TUVP). This procedure uses electrodes to destroy and remove a small amount of prostate tissue. ? Prostatic urethral lift. This procedure inserts an implant to push the lobes of the prostate away from the urethra. Follow these instructions at home: ? Take bufe-spz-dzsykrr and prescription medicines only as told by your health care provider. ? Monitor your symptoms for any changes. Contact your health care provider with any changes. ? Avoid drinking large amounts of liquid before going to bed or out in public. ? Avoid or reduce how much caffeine or alcohol you drink. ? Give yourself time when you urinate. ? Keep all follow-up visits. This is important. Contact a health care provider if: ? You have unexplained back pain. ? Your symptoms do not get better with treatment. ? You develop side effec (more content not included)... [facility] Clinical Note 01-01-2021 Note Date & Type [...] in 10 years for screening. cc:Dr. Holt. [facility] Signed and Approved by: DR RYLIE ALCAZAR . 01/03/2021 15:43:00 [facility] Evaluation + Plan note Note Date & Type Note Facility Evaluation + Plan note Future Appointments Appointment Date:07/19/2023 03:00:00 PM Scheduled Provider:Neri CLEANING MD Location:[facility] Appointment Type:URO Office Visit Diagnostic Tests PendingPSA Total 07/20/22 [facility] Evaluation + Plan note Note Date & Type Note Facility Evaluation + Plan note Future Appointments Appointment Date:12/01/2024 08:00:00 AM Scheduled Provider:Neri CLEANING MD Location:[facility] Appointment Type:URO Office Visit Diagnostic Tests PendingPSA Total 11/29/23 [facility] Hospital course Narrative Note Date & Type Note Facility Hospital course Narrative No data available for this section [facility] Hospital Discharge instructions Note Date & Type Note Facility Hospital Discharge instructions No data available for this section [facility] Progress note Note Date & Type Note Facility Progress note No data available for this section [facility] Summary Purpose Family History No Family History Records FoundNo Family History Records FoundNo Family History Records Found No data available for this section No Family History Records Found Advance Directives No Advanced Directives Records FoundDocuments on File Type Date 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 [facility] DATE CREATED AUTHOR AUTHOR'S ORGANIZ ATION 12/31/2021 [facility] DATE CREATED AUTHOR AUTHOR'S ORGANIZ ATION 11/30/2023 [facility] Patient Care team informatio n (unrecognized section and content) Personnel Name: Keshia Holt MD Address: Address: [address] [place] [address] Personnel Name: Keshia Holt MD Address: Address: [address] [place] [address] FOR RECORDS PERTAINING TO PATIENTS WHO ARE [...] BE BASED ON THE PRIMARY CLINICAL RECORDS. [facility]. provides no warranty or guarantee of the accuracy or completeness of information in this document.
[2024-08-29 07:13] LABS: Basophils Percent Auto 0.7 % (0.2-2.0); Eosinophils Absolute Auto 0.1 10^3/uL (0.0-0.7); Eosinophils Percent Auto 1.8 % (0.9-7.0); Hematocrit 40.5 % (42.0-54.0); Immature Granulocytes Abs Auto 0.01 10^3/uL (0.00-0.03); Immature Granulocytes Pct Auto 0.2 % (0.0-0.5); Lymphocytes Percent Auto 44.2 % (20.5-60.0); Mean Corpuscular HGB Conc 34.6 g/dL (29.9-35.2); Mean Corpuscular Hemoglobin 31.5 pg (25.9-34.0); Mean Platelet Volume 9.3 fL (9.5-13.5); Monocytes Absolute Auto 0.4 10^3/uL (0.3-0.8); Monocytes Percent Auto 8.3 % (1.7-12.0); Neutrophils Percent Auto 44.8 % (43.0-75.0); Platelet Count 178 10^3/uL (150-450); Red Blood Count 4.45 10^6/uL (4.70-6.10); Red Cell Distribution Width 12.3 % (11.0-15.0); White Blood Count 4.5 10^3/uL (4.0-11.0)
[2024-08-29 07:39] LABS: Estimated Average Glucose 94 mg/dL; Glycohemoglobin A1C 4.9 % (4.5-6.2)
[2024-08-29 07:51] LABS: Alanine Aminotransferase 18 U/L (16-63); Albumin Globulin Ratio 1.2; Albumin Level 3.8 g/dL (3.4-5.0); Alkaline Phosphatase 48 U/L (46-116); Anion Gap 9.6; Aspartate Amino Transferase 24 U/L (15-37); BUN Creatinine Ratio 10.7; Bilirubin Total 0.8 mg/dL (0.2-1.0); Calcium 8.5 mg/dL (8.5-10.1); Carbon Dioxide 29.1 mmol/L (21.0-32.0); Chloride 106 mmol/L (98-107); Chol HDL Ratio 1.3; Cholesterol 97 mg/dL (<=200); Estimated GFR (African America >60 (>=60 mL/min/1.73m^2); Estimated GFR (Non-African Ame >60 (>=60 mL/min/1.73m^2); Free T3 3.42 pg/mL (2.18-3.98); Globulin 3.3 g/dL; Glucose 87 mg/dL (74-106); HDL Cholesterol 72 mg/dL (40-60); Potassium 3.7 mmol/L (3.5-5.1); Sodium 141 mmol/L (136-145); Thyroid Stimulating Hormone 2.275 uIU/mL (0.358-3.740); Total Protein 7.1 g/dL (6.4-8.2); Triglycerides 26 mg/dL (<=150); VLDL CHOLESTEROL 5.2 mg/dL
[2024-08-29 07:58] LABS: Prostate Specific Antigen Scrn 0.29 ng/mL (<=4.00)
== END 2024-08-29 06:32 | disposition home or self-care (01) ==
LOC: LAB 06:32
PROVIDERS: PCP Family Medicine; Visit Provider Family Medicine
DX: Z00.00 Encounter for general adult medical examination without abnormal findings (principal)
CPT/HCPCS: 36415; 80053; 80061; 83036; 84436; 84443; 84481; 85025; G0103

== ENCOUNTER 2024-08-30 15:31 | Outpatient (REF) | payer OTHER, SELFPAY ==
[2024-08-30 15:53] LABS: Internal Control Within Normal Limits; Occult Blood Positive
--- OUTSIDE RECORDS SUMMARY | 2024-08-30 15:54 | XMS_ITS | CCD ---
Author Organization [facility] Care Team Providers Care Criminal Analyst Name Role Phone Keshia Holt Primary Care [...] Keshia Holt Primary Care Physician Neri CLEANING Attending Unavailable Neri CLEANING Attending [...] Daily, # 90 cap(s), Refills(s) 3, Pharmacy: [facility] [id number], 170, cm, 07/20/22 15:45:00 EST, Height/Length Dosing, 84, kg, 07/20/22 15:45:00 EST, Weight Dosing Start Date: 11/08/23 Status: Ordered Start: 07-20-2022 End: 07-15-2023 take 1 tablet by mouth once daily oxybutynin 15 mg ER Tab 15 mg = 1 tab(s), Oral, Daily, X 90 day(s), # 90 tab(s), Refills(s) 3, Pharmacy: [facility] [id number], 170, cm, 07/20/22 15:45:00 EST, Height/Length Dosing, [...] activity., # 30 tab(s), Refills(s) 3, Pharmacy: [facility] [id number], 170, cm, 11/29/23 11:34:00 EDT, Height/Length Dosing, 80.1, kg, 11/29/23 11:34:00 EDT, Weight Dosing Start Date: 11/29/23 Status: Ordered Start: 07-20-2022 Cialis 20 mg T ab See Instructions, Take half tab by mouth 1-2 hours prior to sexual activity., # 30 tab(s), Refills(s) 3, Pharmacy: [facility] [id number], 170, cm, 07/20/22 15:45:00 EST, Height/Length Dosing, [...] te Episodic/Chronic Other aftercare (1 source) 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 Refills sent to [facility] in [place]. Follow-up With When Contact Information LIANET THEODORE, Neri Callejas, URL [facility] [address], [place] [address]- [phone] Additional Instructions: 1 yr w/ PSA Patient [...] Leukocytes U (more content not included)... Normal [facility] Comment on above: Result Comment: Elec tronically Signed By: Neri CLEANING MD\.br\Date and Time Signed: 11/29/23 12:24 EDT\.br\Electronically Co-Signed By: Dang Baptiste\.br\Date and Time Co-Signed: 11/29/23 12:22 EDT Provider Letteron 08-09-2023 Provider Letter August 09, 2023 LEEROY ROMO [address] [place] [address] [id number] : 1965 Dear Saleem , We have [...] attention to this matter. Sincerely, [facility] [address] [place] [address], [place] [address] Normal [facility] Provider Letteron 07-05-2023 Provider Letter July 02, 2023 LEEROY MERINOUT [address] [address] : 1965 Dear Zane Abiel, We have [...] this matter. Please call to reschedule at [phone] option 3. Sincerely, [facility] Appt rescheduled for 10/04/23 [facility] INSULINon 12-31-2021 Insulin 5.4 uIU/mL Normal 2.6-24.9 [facility] Comment on above: Performed By: #### I NSULIN #### [facility] [address] [place] [address] Dr. Teodoro Owens CBC AUTO DIFFon 12-30-2021 BASO # 0.0 103/ul Normal 0.0-0.1 [facility] Comment on above: Performed By: #### C BC #### [facility] [address] [place] [address] Dr. Teodoro Owens Basophils/100 WBC (Bld) 0.5 % Normal 0.2-2.0 [facility] Comment on above: Performed By: #### C BC #### [facility] [address] [place] [address] Dr. Teodoro Owens EO # 0.1 103/ul Normal 0.0-0.7 [facility] Comment on above: Performed By: #### C BC #### [facility] [address] [place] [address] Dr. Teodoro Owens Eosinophils/100 WBC (Bld) 1.5 % Normal 0.9-7.0 [facility] Comment on above: Performed By: #### C BC #### [facility] [address] [place] [address] Dr. Teodoro Owens Erythrocyte distribution width (RBC) [Ratio] 12.7 % Normal 11.0-15.0 [facility] Comment on above: Performed By: #### C BC #### [facility] [address] [place] [address] Dr. Teodoro Owens Hematocrit (Bld) [Volume fraction] 40.7 % Critically low 42.0-54.0 [facility] Comment on above: Performed By: #### C BC #### [facility] [address] [place] [address] Dr. Teodoro Owens Hemoglobin (Bld) [Mass/Vol] 13.8 g/dL Critically low 14.0-18.0 [facility] Comment on above: Performed By: #### C BC #### [facility] [address] [place] [address] Dr. Teodoro Owens IG # 0.01 10e3/ul Normal 0.00-0.03 [facility] Comment on above: Performed By: #### C BC #### [facility] [address] [place] [address] Dr. Teodoro Owens IG % 0.3 % Normal 0.0-0.5 [facility] Comment on above: Performed By: #### C BC #### [facility] [address] [place] [address] Dr. Teodoro Owens LYMPH # 1.9 103/ul Normal 1.2-3.8 [facility] Comment on above: Performed By: #### C BC #### [facility] [address] [place] [address] Dr. Teodoro Owens Lymphocytes/100 WBC (Bld) 48.3 % Normal 20.5-60.0 [facility] Comment on above: Performed By: #### C BC #### [facility] [address] [place] [address] Dr. Teodoro Owens MANUAL DIFF REQ NO Normal [facility] Comment on above: Performed By: #### C BC #### [facility] [address] [place] [address] Dr. Teodoro Owens MCH (RBC) [Entitic mass] 31.0 pg Normal 25.9-34.0 [facility] Comment on above: Performed By: #### C BC #### [facility] [address] [place] [address] Dr. Teodoro Owens MCHC (RBC) [Mass/Vol] 33.9 g/dL Normal 29.9-35.2 [facility] Comment on above: Performed By: #### C BC #### [facility] [address] [place] [address] Dr. Teodoro Owens MCV (RBC) [Entitic vol] 91.5 fL Normal 80.0-94.0 [facility] Comment on above: Performed By: #### C BC #### [facility] [address] [place] [address] Dr. Teodoro Owens MONO # 0.4 103/ul Normal 0.3-0.8 [facility] Comment on above: Performed By: #### C BC #### [facility] [address] [place] [address] Dr. Teodoro Owens Monocytes/100 WBC (Bld) 9.0 % Normal 1.7-12.0 [facility] Comment on above: Performed By: #### C BC #### [facility] [address] [place] [address] Dr. Teodroo Owens NEUT # 1.6 103/ul Normal 1.4-6.5 [facility] Comment on above: Performed By: #### C BC #### [facility] [address] [place] [address] Dr. Teodoro Owens Neutrophils/100 WBC (Bld) 40.4 % Critically low 43.0-75.0 [facility] Comment on above: Performed By: #### C BC #### [facility] [address] [place] [address] Dr. Teodoro Owens Platelet mean volume (Bld) [Entitic vol] 9.1 fL Critically low 9.5-13.5 [facility] Comment on above: Performed By: #### C BC #### [facility] [address] [place] [address] Dr. Teodoro Owens PLT 176 103/ul Normal 150-450 [facility] Comment on above: Performed By: #### C BC #### [facility] [address] [place] [address] Dr. Teodoro Owens RBC 4.45 106/ul Critically low 4.70-6.10 [facility] Comment on above: Performed By: #### C BC #### [facility] [address] [place] [address] Dr. Teodoro Owens WBC 4.0 103/ul Normal 4.0-11.0 [facility] Comment on above: Performed By: #### C BC #### [facility] [address] [place] [address] Dr. Teodoro Owens GLYCOHEMOGLOBIN A1Con 2021 ADA RECOMMENDATION SEE BELOW Normal [facility] Comment on above: Result Comment: ADA RECOMMENDED LIMIT 4.0 - 6.0 ADA THERAPEUTIC TARGET < 7.0 ACTION SUGGESTED > 7.0 Performed By: #### A 1C #### [facility] [address] [address] [address] Teodoro Owens Glucose [Mass/Vol] 91 mg/dL Normal [facility] Comment on above: Performed By: #### A 1C #### [facility] [address] [address] [address] Teodoro Owens HbA1c (Bld) [Mass fraction] 4.8 % Normal 4.5-6.2 [facility] Comment on above: Performed By: #### A 1C #### [facility] [address] [place] [address] Dr. Teodoro Owens LIPID PROFILEon 12-30-2021 CHOL-HDL RATIO NORM SEE BELOW Normal [facility] Comment on above: Result Comment: 3.3 - 4.4 LOW RISK 4.4 - 7.1 AVERAGE RISK 7.1 - 11.0 MODERATE RISK >11.0 HIGH RISK Performed By: #### U ZACH, CMP, LIPID #### [facility] [address] [address] [address] Teodoro Owens Cholesterol [Mass/Vol] 103 mg/dL Normal <=200 Th [facility] Comment on above: Performed By: #### U ZACH, CMP, LIPID #### [facility] [address] [address] [address] Teodoro Owens Cholesterol in HDL [Mass/Vol] 74 mg/dL Critically high 40-60 [facility] Comment on above: Performed By: #### U ZACH, CMP, LIPID #### [facility] [address] [address] [address] Teodoro Owens Cholesterol in LDL [Mass/Vol] 26.0 mg/dL Normal [facility] Comment on above: Performed By: #### U ZACH, CMP, LIPID #### [facility] [address] [address] [address] Teodoro Owens Cholesterol.total/Choles terol in HDL [Mass ratio] 1.4 {ratio} Normal [facility] Comment on above: Performed By: #### U ZACH, CMP, LIPID #### [facility] [address] [address] [address] Teodoro Owens HDL NORMAL > or = 60 mg/dl - LOW CARDIOVASCULAR RISK <40 mg/dl - HIGH CARDIOVASCULAR RISK Normal [facility] Comment on above: Performed By: #### U ZACH, CMP, LIPID #### [facility] [address] [address] [address] Teodoro Owens LDL CALC NORMAL SEE BELOW Normal [facility] Comment on above: Result Comment: <100 mg/dl OPTIMAL 100 - 129 mg/dl NEAR OR ABOVE OPTIMAL 130 - 159 mg/dl BORDERLINE HIGH 160 - 189 mg/dl HIGH >190 mg/dl VERY HIGH Performed By: #### U ZACH, CMP, LIPID #### [facility] [address] [address] [address] Teodoro Owens Triglyceride [Mass/Vol] 15 mg/dL Normal <=150 T [facility] Comment on above: Performed By: #### U ZACH, CMP, LIPID #### [facility] [address] [address] [address] Teodoro Owens VLDL CALC 3.0 mg/dL Normal [facility] Comment on above: Performed By: #### U ZACH, CMP, LIPID #### [facility] [address] [address] [address] Teodoro Owens PROF 14(COMP METB)on 022 Albumin [Mass/Vol] 3.8 g/dL Normal 3.4-5.0 [facility] Comment on above: Performed By: #### U ZCAH, CMP, LIPID #### [facility] [address] [address] [address] Teodoro Owens Albumin/Globulin [Mass ratio] 1.2 {ratio} Normal [facility] Comment on above: Performed By: #### U ZACH, CMP, LIPID #### [facility] [address] [address] [address] Teodoro Owens ALP [Catalytic activity/Vol] 42 U/L Critically low 46-116 [facility] Comment on above: Performed By: #### U ZACH, CMP, LIPID #### [facility] [address] [address] [address] Teodoro Owens ALT [Catalytic activity/Vol] 21 U/L Normal 16-63 [facility] Comment on above: Performed By: #### U ZACH, CMP, LIPID #### [facility] [address] [address] [address] Teodoro Owens Anion gap [Moles/Vol] 9.9 mmol/L Normal [facility] Comment on above: Performed By: #### U ZACH, CMP, LIPID #### [facility] [address] [address] [address] Teodoro Owens AST [Catalytic activity/Vol] 20 U/L Normal 15-37 [facility] Comment on above: Performed By: #### U ZACH, CMP, LIPID #### [facility] [address] [address] [address] Teodoro Owens Bilirubin [Mass/Vol] 0.8 mg/dL Normal 0.2-1.0 [facility] Comment on above: Performed By: #### U ZACH, CMP, LIPID #### [facility] [address] [address] [address] Teodoro Owens Calcium [Mass/Vol] 8.6 mg/dL Normal 8.5-10.1 [facility] Comment on above: Performed By: #### U ZACH, CMP, LIPID #### [facility] [address] [address] [address] Teodoro Owens Chloride [Moles/Vol] 106 mmol/L Normal 98-107 [facility] Comment on above: Performed By: #### U ZACH, CMP, LIPID #### [facility] [address] [address] [address] Teodoro Owens CO2 [Moles/Vol] 30.2 mmol/L Normal 21.0-32.0 [facility] Comment on above: Performed By: #### U ZACH, CMP, LIPID #### [facility] [address] [address] [address] Teodoro Owens Creatinine [Mass/Vol] 1.01 mg/dL Normal 0.70-1.30 [facility] Comment on above: Performed By: #### U ZACH, CMP, LIPID #### [facility] [address] [address] [address] Teodoro Owens EGFR-AF NAMIBIAN >60 Normal >=60 [facility] Comment on above: Performed By: #### U ZACH, CMP, LIPID #### [facility] [address] [address] [address] Teodoro Owens EGFR-NON AF NAMIBIAN >60 Normal >=60 [facility] Comment on above: Performed By: #### U ZACH, CMP, LIPID #### [facility] [address] [address] [address] Teodoro Owens Globulin (S) [Mass/Vol] 3.2 g/dL Normal T [facility] Comment on above: Performed By: #### U ZACH, CMP, LIPID #### [facility] [address] [address] [address] Teodoro Owens Glucose [Mass/Vol] 88 mg/dL Normal 74-106 [facility] Comment on above: Performed By: #### U ZACH, CMP, LIPID #### [facility] [address] [address] [address] Teodoro Owens Potassium [Moles/Vol] 4.1 mmol/L Normal 3.5-5.1 [facility] Comment on above: Performed By: #### U ZACH, CMP, LIPID #### [facility] [address] [address] [address] Teodoro Owens Protein [Mass/Vol] 7.0 g/dL Normal 6.4-8.2 [facility] Comment on above: Performed By: #### U ZACH, CMP, LIPID #### [facility] [address] [address] [address] Teodoro Owens Sodium [Moles/Vol] 142 mmol/L Normal 136-145 [facility] Comment on above: Performed By: #### U ZACH, CMP, LIPID #### [facility] [address] [address] [address] Teodoro Owens Urea nitrogen [Mass/Vol] 14.0 mg/dL Normal 7.0-18.0 [facility] Comment on above: Performed By: #### U ZACH, CMP, LIPID #### [facility] [address] [place], [place] [address] Dr. Teodoro Owens Urea nitrogen/Creatinine [Mass ratio] 13.9 mg/mg Normal [facility] Comment on above: Performed By: #### U ZACH, CMP, LIPID #### [facility] [address] [place], [place] [address] Dr. Teodoro Owens URIC ACID SERUMon 12-30-2021 Urate [Mass/Vol] 5.5 mg/dL Normal 3.5-7.2 [facility] Comment on above: Performed By: #### U ZACH, CMP, LIPID #### [facility] [address] [address] [address] Teodoro Owens Hemoglobin A1Con 11-03-2020 Glucose [Mass/Vol] 100 mg/dL Normal [facility] Comment on above: Result Comment: The ADA and AACC recommend providing the estimated average glucose result to permit better patient understanding of their HBA1c result. Performed By: #### G LYHGB, INSU, LIPR, PSAS #### [id number] [place], [place] [id number] Outreach Coordinator: Max Villanueva MD #### CP, CDP #### [facility] [address] [place] [address] [place] [place] [id number] Outreach Coordinator: Preet Ayala MD HbA1c (Bld) [Mass fraction] 5.1 % Normal 4.0-6.0 [facility] Comment on above: Performed By: #### G LYHGB, INSU, LIPR, PSAS #### [facility] [address] [place], [place] [id number] Outreach Coordinator: Max Villanueva MD #### CP, CDP #### [facility] [address] [place] [address] Outreach Coordinator: Preet Ayala MD CBC Auto DifferentialOrdered By: Keshia Holt on 11-02-2020 Absolute Eos # 0.06 [facility] Work Phone: Absolute Immature Granulocyte <0.03 [employer] Work Phone: Absolute Lymph # 2.06 [employer] [facility] Work Phone: Absolute Reagan # 0.47 [employer] [facility] Work Phone: Basophils (Bld) [#/Vol] 10*3/uL [employer] Work Phone: Basophils/100 WBC (Bld) 0 % 0 - 2 % [employer] Work Phone: Differential Type NOT REPORTED [employer] Phone: Eosinophils/100 WBC (Bld) 1 % 1 - 4 % [employer] Phone: Hematocrit (Bld) [Volume fraction] 42.2 % 40.7 - 50.3 % [employer] Phone: Hemoglobin.gastrointesti nal spec 1 Ql (Stl) 14.5 g/dL 13.0 - 17.0 g/dL [employer] Phone: Immature granulocytes/100 WBC (Bld) 0 % 0 [employer] Work Phone: Lymphocytes/100 WBC (Bld) 40 % 24 - 43 % [employer] Phone: MCH (RBC) [Entitic mass] 31.0 pg 25. 2 - 33.5 pg [employer] Work Phone: MCHC (RBC) [Mass/Vol] 34.4 g/dL 28.4 - 34.8 g/dL [employer] Phone: MCV (RBC) [Entitic vol] 90.4 fL 82.6 - 102.9 fL [employer] Phone: Monocytes/100 WBC (Bld) 9 % 3 - 12 % [employer] Work Phone: NRBC Automated 0.0 0.0 per 100 WBC [employer] Phone: Platelet distribution width (Bld) [Ratio] 12.5 % 11.8 - 14.4 % [employer] Phone: Platelet Estimate NOT REPORTED [employer] Phone: Platelet mean volume (Bld) [Entitic vol] 9.1 fL 8.1 - 13.5 fL [employer] Phone: Platelets (Bld) [#/Vol] 173 10*3/uL [employer] Phone: RBC (Bld) [#/Vol] 4.67 10*6/uL 4.21 - 5.7 7 m/uL [employer] Phone: RBC (Bld) [#/Vol] NOT REPORTED [employer] Phone: Segmented neutrophils/100 WBC (Bld) 50 % 36 - 65 % [employer] Work Phone: Segs Absolute 2.54 [employer] Work Phone: WBC (Bld) [#/Vol] 5.2 10*3/uL [employer] Phone: WBC (Bld) [#/Vol] NOT REPORTED [employer] Phone: [employer] Work Phone: CBC with Diffon 11-02-2020 Abs. Basophil <0.03 Normal 0.00-0.20 [facility] Comment on above: Performed By: #### G LYHGB, INSU, LIPR, PSAS #### [facility] [address] [place] [address] Outreach Coordinator: Max Villanueva MD #### CP, CDP #### [facility] [address] [place] [address] Outreach Coordinator: Preet Ayala MD Abs.Imm.Granulocyte <0.03 Normal 0.00-0.30 [facility] Comment on above: Performed By: #### G LYHGB, INSU, LIPR, PSAS #### [place] [address] Outreach Coordinator: Max Villanueva MD #### CP, CDP #### [address] [place] [id number] Outreach Coordinator: Preet Ayala MD Abs.Neutrophil (Seg) 2.54 k/uL Normal 1.50-8.10 [facility] Comment on above: Performed By: #### G LYHGB, INSU, LIPR, PSAS #### [place] [address] Outreach Coordinator: Max Villanueva MD #### CP, CDP #### [address] [place] [address] Outreach Coordinator: Preet Ayala MD Basophils/100 WBC (Bld) 0 % Normal 0-2 [facility] Comment on above: Performed By: #### G LYHGB, INSU, LIPR, PSAS #### [place] [address] Outreach Coordinator: Max Villanueva MD #### CP, CDP #### [address] [place] [address] Outreach Coordinator: Preet Ayala MD Eosinophils (Bld) [#/Vol] 0.06 10*3/uL Normal 0.00-0.44 [facility] Comment on above: Performed By: #### G LYHGB, INSU, LIPR, PSAS #### [place] [address] Outreach Coordinator: Max Villanueva MD #### CP, CDP #### [address] [place] [id number] Outreach Coordinator: Preet Ayala MD Eosinophils/100 WBC (Bld) 1 % Normal 1-4 [facility] Comment on above: Performed By: #### G LYHGB, INSU, LIPR, PSAS #### [address] [address] Outreach Coordinator: Max Villanueva MD #### CP, CDP #### [address] [place], [place] [id number] Outreach Coordinator: Preet Ayala MD Erythrocyte distribution width (RBC) [Ratio] 12.5 % Normal 11.8-14.4 [facility] Comment on above: Performed By: #### G LYHGB, INSU, LIPR, PSAS #### [address] [address] Outreach Coordinator: Max Villanueva MD #### CP, CDP #### [address] [place] [id number] Outreach Coordinator: Preet Ayala MD Hematocrit (Bld) [Volume fraction] 42.2 % Normal 40.7-50.3 [facility] Comment on above: Performed By: #### G LYHGB, INSU, LIPR, PSAS #### [address] [address] Outreach Coordinator: Max Villanueva MD #### CP, CDP #### [address] [place] [id number] Outreach Coordinator: Preet Ayala MD Hemoglobin (Bld) [Mass/Vol] 14.5 g/dL Normal 13.0-17.0 [facility] Comment on above: Performed By: #### G LYHGB, INSU, LIPR, PSAS #### [address] [address] Outreach Coordinator: Max Villanueva MD #### CP, CDP #### [address] [place], [place] [phone] Outreach Coordinator: Preet Ayala MD Immature granulocytes/100 WBC (Bld) 0 % Normal 0 [facility] Comment on above: Performed By: #### G LYHGB, INSU, LIPR, PSAS #### [address] [address] Outreach Coordinator: Max Villanueva MD #### CP, CDP #### [address] [place] [phone] Outreach Coordinator: Preet Ayala MD Lymphocytes (Bld) [#/Vol] 2.06 10*3/uL Normal 1.10-3.70 [facility] Comment on above: Performed By: #### G LYHGB, INSU, LIPR, PSAS #### [place] [address] Outreach Coordinator: Max Villanueva MD #### CP, CDP #### [address] [place] [phone] Outreach Coordinator: Preet Ayala MD Lymphocytes/100 WBC (Bld) 40 % Normal 24-43 [facility] Comment on above: Performed By: #### G LYHGB, INSU, LIPR, PSAS #### [address] [address] Outreach Coordinator: Max Villanueva MD #### CP, CDP #### [address] [place] [phone] Outreach Coordinator: Preet Ayala MD MCH (RBC) [Entitic mass] 31.0 pg Normal 25.2-33.5 [facility] Comment on above: Performed By: #### G LYHGB, INSU, LIPR, PSAS #### [address] [id number] Outreach Coordinator: Max Villanueva MD #### CP, CDP #### [address] [place] [phone] Outreach Coordinator: Preet Ayala MD MCHC (RBC) [Mass/Vol] 34.4 g/dL Normal 28.4-34.8 [facility] Comment on above: Performed By: #### G LYHGB, INSU, LIPR, PSAS #### [address] [address] Outreach Coordinator: Max Villanueva MD #### CP, CDP #### [address] [place] [address] Outreach Coordinator: Preet Ayala MD MCV (RBC) [Entitic vol] 90.4 fL Normal 82.6-102.9 [facility] Comment on above: Performed By: #### G LYHGB, INSU, LIPR, PSAS #### [address] [address] Outreach Coordinator: Max Villanueva MD #### CP, CDP #### [address] [place] [phone] ( Outreach Coordinator: Preet Ayala MD Monocytes (Bld) [#/Vol] 0.47 10*3/uL Normal 0.10-1.20 [facility] Comment on above: Performed By: #### G LYHGB, INSU, LIPR, PSAS #### [address] [address] Outreach Coordinator: Max Villanueva MD #### CP, CDP #### [address] [place] [phone] Outreach Coordinator: Preet Ayala MD Monocytes/100 WBC (Bld) 9 % Normal 3-12 [facility] Comment on above: Performed By: #### G LYHGB, INSU, LIPR, PSAS #### [address] [place] [address] Outreach Coordinator: Max Villanueva MD #### CP, CDP #### [facility] [address] [address] Outreach Coordinator: Preet Ayala MD Neutrophil (Seg) 50 % Normal 36-65 [facility] Comment on above: Performed By: #### G LYHGB, INSU, LIPR, PSAS #### [address] [address] Outreach Coordinator: Max Villanueva MD #### CP, CDP #### [address] [place] [address] Outreach Coordinator: Preet Ayala MD NRBC Automated 0.0 per 100 WBC Normal 0.0 [facility] Comment on above: Performed By: #### G LYHGB, INSU, LIPR, PSAS #### [address] [address] Outreach Coordinator: Max Villanueva MD #### CP, CDP #### [facility] [address] [place] [address] [place] [address] Outreach Coordinator: Preet Ayala MD Platelet mean volume (Bld) [Entitic vol] 9.1 fL Normal 8.1-13.5 [facility] Comment on above: Performed By: #### G LYHGB, INSU, LIPR, PSAS #### [address] [address] Outreach Coordinator: Max Villanueva MD #### CP, CDP #### [address] [place] [address] Outreach Coordinator: Preet Ayala MD Platelets (Bld) [#/Vol] 173 10*3/uL Normal 138-453 [facility] Comment on above: Performed By: #### G LYHGB, INSU, LIPR, PSAS #### [address] [place] [address] Outreach Coordinator: Max Villanueva MD #### CP, CDP #### [address] [place] [address] Outreach Coordinator: Preet Ayala MD RBC (Bld) [#/Vol] 4.67 10*6/uL Normal 4.21-5.77 [facility] Comment on above: Performed By: #### G LYHGB, INSU, LIPR, PSAS #### [address] [address] Outreach Coordinator: Max Villanueva MD #### CP, CDP #### [address] [place] [id number] Outreach Coordinator: Preet Ayala MD WBC (Bld) [#/Vol] 5.2 10*3/uL Normal 3.5-11.3 [facility] Comment on above: Performed By: #### G LYHGB, INSU, LIPR, PSAS #### [address] [address] Outreach Coordinator: Max Villanueva MD #### CP, CDP #### [address] [place] [id number] Outreach Coordinator: Preet Ayala MD Auto Diff Performed NOT REPORTED Normal [facility] Comment on above: Performed By: #### G LYHGB, INSU, LIPR, PSAS #### [address] [address] Outreach Coordinator: Max Villanueva MD #### CP, CDP #### [address] [place] [phone] Outreach Coordinator: Preet Ayala MD Platelet Estimate NOT REPORTED Normal [facility] Comment on above: Performed By: #### G LYHGB, INSU, LIPR, PSAS #### [address] [place] [address] Outreach Coordinator: Max Villanueva MD #### CP, CDP #### [facility] [address] [place] [address] Dr. [place], [place] [id number] Outreach Coordinator: Preet Ayala MD RBC morphology finding Nom (Bld) NOT REPORTED Normal [facility] Comment on above: Performed By: #### G LYHGB, INSU, LIPR, PSAS #### [address] [address] Outreach Coordinator: Max Vilalnueva MD #### CP, CDP #### [address] [place], [place] [phone] Outreach Coordinator: Preet Ayala MD WBC Morphology NOT REPORTED Normal [facility] Comment on above: Performed By: #### G LYHGB, INSU, LIPR, PSAS #### [address] [address] Outreach Coordinator: Max Villanueva MD #### CP, CDP #### [address] [place], [place] [phone] Outreach Coordinator: Preet Ayala MD Comp Metabolic Profon 2020 (cont.) Normal [facility] Comment on above: Result Comment: Aver age GFR for 50-59 years old: 93 mL/min/1.73sq m Chronic Kidney Disease: <60 mL/min/1.73sq m Kidney failure: <15 mL/min/1.73sq m eGFR calculated using average adult body mass. Additional eGFR calculator available at: http://www.Associated Content.com/multiple_crcl_2012.htm Performed By: #### G LYHGB, INSU, LIPR, PSAS #### [address] [place] [address] Outreach Coordinator: Max Villanueva MD #### CP, CDP #### [facility] [place] [facility] [address] [place], [place] [phone] Outreach Coordinator: Preet Ayala MD Albumin [Mass/Vol] 4.0 g/dL Normal 3.5-5.2 [facility] Comment on above: Performed By: #### G LYHGB, INSU, LIPR, PSAS #### [address] [address] Outreach Coordinator: Max Villanueva MD #### CP, CDP #### [facility] [place] [facility] [address] [place], [place] [id number] Outreach Coordinator: Preet Ayala MD Albumin/Glob Ratio 1.3 Normal 1.0-2.5 [facility] Comment on above: Performed By: #### G LYHGB, INSU, LIPR, PSAS #### [address] [address] Outreach Coordinator: Max Villanueva MD #### CP, CDP #### [facility] [place] [facility] [address] [place] [address] [place], [place] [phone] Outreach Coordinator: Preet Ayala MD Alkaline Phos 47 U/L Normal 40-129 [facility] Comment on above: Performed By: #### G LYHGB, INSU, LIPR, PSAS #### [address] [address] Outreach Coordinator: Max Villanueva MD #### CP, CDP #### [facility] [place] [facility] [address] [place] [address] [place], [place] [phone] Outreach Coordinator: Preet Ayala MD ALT [Catalytic activity/Vol] 18 U/L Normal 5-41 [facility] Comment on above: Performed By: #### G LYHGB, INSU, LIPR, PSAS #### [address] [address] Outreach Coordinator: Max Villanueva MD #### CP, CDP #### [facility] [address] [place], [place] [phone] Outreach Coordinator: Preet Ayala MD Anion gap [Moles/Vol] 7 mmol/L Low 9-17 [facility] Comment on above: Performed By: #### G LYHGB, INSU, LIPR, PSAS #### [address] [id number] Outreach Coordinator: Max Villanueva MD #### CP, CDP #### [address] [place], [place] [phone] Outreach Coordinator: Preet Ayala MD AST [Catalytic activity/Vol] 21 U/L Normal <40 [facility] Comment on above: Performed By: #### G LYHGB, INSU, LIPR, PSAS #### [address] [address] Outreach Coordinator: Max Villanueva MD #### CP, CDP #### [facility] [address] [place] [address] [place], [place] [phone] Outreach Coordinator: Preet Ayala MD Bilirubin [Mass/Vol] 0.80 mg/dL Normal 0.3-1.2 [facility] Comment on above: Performed By: #### G LYHGB, INSU, LIPR, PSAS #### [address] [address] Outreach Coordinator: Max Villanueva MD #### CP, CDP #### [facility] [address] [place] [address] [place], [place] [phone] Outreach Coordinator: Preet Ayala MD BUN/CRE Ratio 16 Normal 9-20 [facility] Comment on above: Performed By: #### G LYHGB, INSU, LIPR, PSAS #### [address] [address] Outreach Coordinator: Max Villanueva MD #### CP, CDP #### [facility] [address] [place], [place] [phone] Outreach Coordinator: Preet Ayala MD Calcium [Mass/Vol] 9.1 mg/dL Normal 8.6-10.4 [facility] Comment on above: Performed By: #### G LYHGB, INSU, LIPR, PSAS #### [address] [phone] Outreach Coordinator: Max Villanueva MD #### CP, CDP #### [facility] [address] [place] [address] [place], [place] [phone] Outreach Coordinator: Preet Ayala MD Chloride [Moles/Vol] 106 mmol/L Normal 98-107 [facility] Comment on above: Performed By: #### G LYHGB, INSU, LIPR, PSAS #### [address] [phone] Outreach Coordinator: Max Villanueva MD #### CP, CDP #### [facility] [address] [place] [address] [place] [address] Outreach Coordinator: Preet Ayala MD CO2 [Moles/Vol] 25 mmol/L Normal 20-31 [facility] Comment on above: Performed By: #### G LYHGB, INSU, LIPR, PSAS #### [address] [phone] Outreach Coordinator: Max Villanueva MD #### CP, CDP #### [facility] [address] [place] [address] [place], [place] 9856383 Outreach Coordinator: Preet Ayala MD Creatinine [Mass/Vol] 0.97 mg/dL Normal 0.70-1.20 [facility] Comment on above: Performed By: #### G LYHGB, INSU, LIPR, PSAS #### [address] [phone] Outreach Coordinator: Max Villanueva MD #### CP, CDP #### [facility] [address] [place], [place] 7975983 Outreach Coordinator: Preet Ayala MD GFR, Amer >60 Normal >60 [facility] Comment on above: Performed By: #### G LYHGB, INSU, LIPR, PSAS #### [address] [place], [place] [phone] Outreach Coordinator: Max Villanueva MD #### CP, CDP #### [facility] [address] [place] [address] [place], [place] [phone] Outreach Coordinator: Preet Ayala MD GFR,non Amer >60 Normal >60 [facility] Comment on above: Performed By: #### G LYHGB, INSU, LIPR, PSAS #### [address] [phone] Outreach Coordinator: Max Villanueva MD #### CP, CDP #### [facility] [address] [place] [address] [place], [place] 2788383 Outreach Coordinator: Preet Ayala MD Glucose [Mass/Vol] 95 mg/dL Normal 70-99 [facility] Comment on above: Performed By: #### G LYHGB, INSU, LIPR, PSAS #### [address] [phone] Outreach Coordinator: Max Villanueva MD #### CP, CDP #### [facility] [address] [place] [address] [place], [place] [phone] Outreach Coordinator: Preet Ayala MD Potassium [Moles/Vol] 4.0 mmol/L Normal 3.7-5.3 [facility] Comment on above: Performed By: #### G LYHGB, INSU, LIPR, PSAS #### [address] [phone] Outreach Coordinator: Max Villanueva MD #### CP, CDP #### [address] [place], [place] [phone] Outreach Coordinator: Preet Ayala MD Protein [Mass/Vol] 7.1 g/dL Normal 6.4-8.3 [facility] Comment on above: Performed By: #### G LYHGB, INSU, LIPR, PSAS #### [address] [phone] Outreach Coordinator: Max Villanueva MD #### CP, CDP #### [address] [place] [address] Outreach Coordinator: Preet Ayala MD Sodium [Moles/Vol] 138 mmol/L Normal 135-144 [facility] Comment on above: Performed By: #### G LYHGB, INSU, LIPR, PSAS #### [address] [phone] Outreach Coordinator: Max Villanueva MD #### CP, CDP #### [address] [place] [address] Outreach Coordinator: Preet Ayala MD Staging: Normal [facility] Comment on above: Result Comment: Stag e 1: Some kidney damage normal GFR Stage 2: Mild kidney damage GFR 60-89 Stage 3: Moderate kidney damage GFR 30-59 Stage 4: Severe kidney damage GFR 15-29 Stage 5: Severe kidney damage GFR <15 ESRD - chronic treatment by dialysis or transplant Performed By: #### G LYHGB, INSU, LIPR, PSAS #### [address] [id number] Outreach Coordinator: Max Villanueva MD #### CP, CDP #### [address] [place] [address] Outreach Coordinator: Preet Ayala MD Urea nitrogen [Mass/Vol] 16 mg/dL Normal 6-20 [facility] Comment on above: Performed By: #### G LYHGB, INSU, LIPR, PSAS #### [employer] [address] [place] [address] Outreach Coordinator: Max Villanueva MD #### CP, CDP #### [facility] [address] [place], [place] 1477583 Outreach Coordinator: Preet Ayala MD Comprehensive Metabolic Pane lOrdered By: Keshia Holt on 11-02-2020 Albumin [Mass/Vol] 4 g/dL 3.5 - 5.2 g/dL [employer] Phone: Albumin/Globulin [Mass ratio] 1.3 {ratio} [employer] Phone: ALP (Bld) [Catalytic activity/Vol] 47 U/L 40 - 129 U/L [employer] Phone: ALT [Catalytic activity/Vol] 18 U/L 5 - 41 U/L [employer] Phone: Anion gap [Moles/Vol] 7 mmol/L Low 9 - 17 mmol/L [employer] Phone: AST [Catalytic activity/Vol] 21 U/L <40 [employer] Phone: Bilirubin [Mass/Vol] 0.80 mg/dL 0.3 - 1 .2 mg/dL [employer] Phone: Calcium [Mass/Vol] 9.1 mg/dL 8.6 - 10. 4 mg/dL [employer] Phone: Chloride [Moles/Vol] 106 mmol/L 98 - 10 7 mmol/L [employer] Phone: CO2 [Moles/Vol] 25 mmol/L 20 - 31 mmol/L [employer] Phone: Creatinine [Mass/Vol] 0.97 mg/dL 0.70 - 1.20 mg/dL [employer] Phone: Free PSA/Total PSA [Mass fraction] 7.1 g/dL 6.4 - 8.3 g/dL [facility] [employer] Phone: GFR >60 >60 mL/min [facility] [employer] Phone: GFR Non- >60 >60 mL/min [facility] [employer] Phone: Glucose [Mass/Vol] 95 mg/dL 70 - 99 mg/dL [facility] [employer] Phone: Interpretation and review of laboratory results Abnormal [facility] [employer] Phone: Potassium [Moles/Vol] 4.0 mmol/L 3.7 - 5.3 mmol/L [facility] [employer] Phone: Sodium [Moles/Vol] 138 mmol/L 135 - 144 mmol/L [facility] [employer] Phone: Urea nitrogen (BldV) [Mass/Vol] 16 mg/dL 6 - 20 mg/dL [facility] [employer] Phone: Urea nitrogen/Creatinine (Bld) [Mass ratio] 16 [facility] [employer] Phone: [facility] [employer] Phone: Insulinon 11-02-2020 Insulin 7.1 mU/L Normal [facility] Comment on above: Performed By: #### G LYHGB, INSU, LIPR, PSAS #### [facility] [place] [address] Outreach Coordinator: Max Villanueva MD #### CP, CDP #### [facility] [address] [address] Outreach Coordinator: Preet Ayala MD Reference Range Normal [facility] Comment on above: Result Comment: Fast in.6-24.9 30 min: 20-112 60 min: 29-88 90 min: 26-84 120 min: 22-79 Performed By: #### G LYHGB, INSU, LIPR, PSAS #### [employer] [address] [place], [place] [id number] Outreach Coordinator: Max Villanueva MD #### CP, CDP #### [facility] [address] [place] [address] [place] [address] Outreach Coordinator: Preet Ayala MD Collection Info. NOT REPORTED Normal [facility] Comment on above: Performed By: #### G LYHGB, INSU, LIPR, PSAS #### [facility] [employer] [address] [place], [place] [phone] Outreach Coordinator: Max Villanueva MD #### CP, CDP #### [facility] [address] [place] [address] [place] [address] Outreach Coordinator: Preet Ayala MD Insulin, totalOrdered By: Do jamison Holt on 11-02-2020 Insulin 7.1 mU/L [employer] Phone: Insulin Comment NOT REPORTED [facility] Work Phone: Insulin Reference Range: [employer] Phone: Comment on above: Fastin.6-24.9 30 min: 20-112 60 min: 29-88 90 min: 26-84 120 min: 22-79 [facility]: Laboratory - Chemistry and C hemistry - challengeOrdered By: Keshia Holt on 11-02-2020 GFR/1.73 sq M.predicted MDRD (S/P/Bld) [Vol rate/Area] [facility]: Comment on above: Average GFR for 50-5 9 years old: 93 mL/min/1.73sq m Chronic Kidney Disease: <60 mL/min/1.73sq m Kidney failure: <15 mL/min/1.73sq m eGFR calculated using average adult body mass. Additional eGFR calculator available at: http://www.Associated Content.[employer]/multiple_crcl_2012.htm Stage 1: Some kidney damage normal GFR Stage 2: Mild kidney damage GFR 60-89 Stage 3: Moderate kidney damage GFR 30-59 Stage 4: Severe kidney damage GFR 15-29 Stage 5: Severe kidney damage GFR <15 ESRD - chronic treatment by dialysis or transplant Lipid PanelOrdered By: Chan Holt on 11-02-2020 Cholesterol [Mass/Vol] 93 mg/dL <200 [employer] Phone: Comment on above: Cholesterol Guidelines: <200 Desirable 200-240 Borderline >240 Undesirable Cholesterol in HDL [Mass/Vol] 69 mg/dL >40 [employer] Phone: Comment on above: HDL Guidelines: <40 Undesirable 40-59 Borderline >59 Desirable Cholesterol in LDL [Mass/Vol] 20 mg/dL 0 - 130 mg/dL [employer] Phone: Comment on above: LDL Guidelines: <100 Desirable 100-129 Near to/above Desirable 130-159 Borderline >159 Undesirable Direct (measured) LDL and calculated LDL are not interchangeable tests. Cholesterol in VLDL [Mass/Vol] NOT REPORTED 1 - 30 mg/dL [employer] Phone: Cholesterol.total/Choles terol in HDL [Mass ratio] 1.3 {ratio} <5 [employer] Phone: Triglyceride [Mass/Vol] 21 mg/dL <150 [employer] Phone: Comment on above: Triglyceride Guidelines: <150 Desirable 150-199 Borderline 200-499 High >499 Very high Based on AHA Guidelines for fasting triglyceride, February 2012. [employer] Phone: Lipid Profileon 11-02-2020 Cholesterol [Mass/Vol] 93 mg/dL Normal <200 [facility] Comment on above: Result Comment: Cholesterol Guidelines: <200 Desirable 200-240 Borderline >240 Undesirable Performed By: #### G LYHGB, INSU, LIPR, PSAS #### [facility] [employer] [address] [place] [address] Outreach Coordinator: Max Villanueva MD #### CP, CDP #### [facility] [address] [place] [address] Outreach Coordinator: Preet Ayala MD Cholesterol in HDL [Mass/Vol] 69 mg/dL Normal >40 [facility] Comment on above: Result Comment: HDL Guidelines: <40 Undesirable 40-59 Borderline >59 Desirable Performed By: #### G LYHGB, INSU, LIPR, PSAS #### [address] [id number] Outreach Coordinator: Max Villanueva MD #### CP, CDP #### [address] [place], [place] [phone] Outreach Coordinator: Preet Ayala MD Cholesterol in LDL [Mass/Vol] 20 mg/dL Normal 0-130 [facility] Comment on above: Result Comment: LDL Guidelines: <100 Desirable 100-129 Near to/above Desirable 130-159 Borderline >159 Undesirable Direct (measured) LDL and calculated LDL are not interchangeable tests. Performed By: #### G LYHGB, INSU, LIPR, PSAS #### [address] [id number] Outreach Coordinator: Max Villanueva MD #### CP, CDP #### [address] [place] [phone] Outreach Coordinator: Preet Ayala MD Cholesterol.total/Choles terol in HDL [Mass ratio] 1.3 {ratio} Normal <5 [facility] Comment on above: Performed By: #### G LYHGB, INSU, LIPR, PSAS #### [address] [id number] Outreach Coordinator: Max Villanueva MD #### CP, CDP #### [address] [place] [address] Outreach Coordinator: Preet Ayala MD Triglyceride [Mass/Vol] 21 mg/dL Normal <150 M [facility] Comment on above: Result Comment: Triglyceride Guidelines: <150 Desirable 150-199 Borderline 200-499 High >499 Very high Based on AHA Guidelines for fasting triglyceride, February 2012. Performed By: #### G LYHGB, INSU, LIPR, PSAS #### [address] [place] [address] Outreach Coordinator: Max Villanueva MD #### CP, CDP #### [facility] [address] [place] [address] Outreach Coordinator: Preet Ayala MD Cholesterol,VLDL NOT REPORTED Normal 06-22 [facility] Comment on above: Performed By: #### G LYHGB, INSU, LIPR, PSAS #### [address] [place] [address] Outreach Coordinator: Max Villanueva MD #### CP, CDP #### [address] [place] [address] Outreach Coordinator: Preet Ayala MD PSA screeningOrdered By: John Holt on 11-02-2020 [facility] Work Phone: PSA, Screeningon 11-02-2020 Prostatic Spec. Ag 0.33 ug/L Normal <4.1 [facility] Comment on above: Result Comment: [employer] ECLIA assay is used. Results obtained with different assay methods cannot be used interchangeably. Performed By: #### G LYHGB, INSU, LIPR, PSAS #### [address] [place] [address] Outreach Coordinator: Max Villanueva MD #### CP, CDP #### [facility] [address] [place] [address] Outreach Coordinator: Preet Ayala MD CBC Auto Differentialon 10-23 Basophils (Bld) [#/Vol] 0.03 10*3/uL [place], [place] Basophils/100 WBC (Bld) 1 % 0 - 2 % M [place], [place] Differential Type NOT REPORTED [place] Eosinophils (Bld) [#/Vol] 0.09 10*3/uL [place] Eosinophils/100 WBC (Bld) 2 % 1 - 4 % [place] Erythrocyte distribution width (RBC) [Ratio] 12.4 % 11.8 - 14.4 % [place], [place] Hematocrit (Bld) [Volume fraction] 41.8 % 40.7 - 50.3 % [place] Hemoglobin (Bld) [Mass/Vol] 14.0 g/dL 13 - 17 g/dL [place] Immature granulocytes (Bld) [#/Vol] 10*3/uL [place] Immature granulocytes (Bld) [#/Vol] 0 % 0 [place] Interpretation and review of laboratory results Abnormal [place] Lymphocytes (Bld) [#/Vol] 1.93 10*3/uL [place] Lymphocytes/100 WBC (Bld) 45 % High 24 - 43 % [place] MCH (RBC) [Entitic mass] 31.0 pg 25. 2 - 33.5 pg [place] MCHC (RBC) [Mass/Vol] 33.5 g/dL 28.4 - 34.8 g/dL [place] MCV (RBC) [Entitic vol] 92.5 fL 82.6 - 102.9 fL [place] Monocytes (Bld) [#/Vol] 0.42 10*3/uL [place] Monocytes/100 WBC (Bld) 10 % 3 - 12 % M [place] Platelet mean volume (Bld) [Entitic vol] 9.6 fL 8.1 - 13.5 fL [place] Platelets (Bld) [#/Vol] 176 10*3/uL [place] Platelets (Bld) [#/Vol] NOT REPORTED [place] RBC (Bld) [#/Vol] 4.52 10*6/uL 4.21 - 5.7 7 m/uL [place] RBC morphology finding Nom (Bld) NOT REPORTED [place] Segmented neutrophils/100 WBC (Bld) 42 % 36 - 65 % [place] Segs Absolute 1.79 [place] WBC (Bld) [#/Vol] 0.0 10*3/uL 0.0 per 10 0 WBC [place] WBC (Bld) [#/Vol] 4.3 10*3/uL [place] WBC Morphology NOT REPORTED [place], [place] CBC with Diffon 11-13-2019 Abs. Basophil 0.03 k/uL Normal 0.00-0.20 [facility] Comment on above: Performed By: #### L IPR, CP, GLYHGB, CDP #### [facility] [address] [place] [address] [place] [address] Outreach Coordinator: Lalit Ro MD #### PSAS #### [place] [id number] Outreach Coordinator: Max Villanueva MD Abs.Imm.Granulocyte <0.03 Normal 0.00-0.30 [facility] Comment on above: Performed By: #### L IPR, CP, GLYHGB, CDP #### [address] [place] [phone] Outreach Coordinator: Lalit Ro MD #### PSAS #### [place] [id number] Outreach Coordinator: Max Villanueva MD Abs.Neutrophil (Seg) 1.79 k/uL Normal 1.50-8.10 [facility] Comment on above: Performed By: #### L IPR, CP, GLYHGB, CDP #### [facility] [address] [place] [address] [place] [phone] Outreach Coordinator: Lalit Ro MD #### PSAS #### [address] [phone] Outreach Coordinator: Max Villanueva MD Basophils/100 WBC (Bld) 1 % Normal 0-2 M [facility] Comment on above: Performed By: #### L IPR, CP, GLYHGB, CDP #### [facility] [address] [place] [phone] Outreach Coordinator: Lalit Ro MD #### PSAS #### [address] [id number] Outreach Coordinator: Max Villanueva MD Eosinophils (Bld) [#/Vol] 0.09 10*3/uL Normal 0.00-0.44 [facility] Comment on above: Performed By: #### L IPR, CP, GLYHGB, CDP #### [facility] [address] [place] [address] Dr. [place] [phone] Outreach Coordinator: Lalit Ro MD #### PSAS #### [address] [id number] Outreach Coordinator: Max Villanueva MD Eosinophils/100 WBC (Bld) 2 % Normal 1-4 [facility] Comment on above: Performed By: #### L IPR, CP, GLYHGB, CDP #### [address] [place] [id number] Outreach Coordinator: Lalit Ro MD #### PSAS #### [address] [id number] Outreach Coordinator: Max Villanueva MD Erythrocyte distribution width (RBC) [Ratio] 12.4 % Normal 11.8-14.4 [facility] Comment on above: Performed By: #### L IPR, CP, GLYHGB, CDP #### [facility] [address] [place] [phone] Outreach Coordinator: Lalit Ro MD #### PSAS #### [address] [id number] Outreach Coordinator: Max Villanueva MD Hematocrit (Bld) [Volume fraction] 41.8 % Normal 40.7-50.3 [facility] Comment on above: Performed By: #### L IPR, CP, GLYHGB, CDP #### [facility] [address] [place] [id number] Outreach Coordinator: Lalit Ro MD #### PSAS #### [address] [id number] Outreach Coordinator: Max Villanueva MD Hemoglobin (Bld) [Mass/Vol] 14.0 g/dL Normal 13.0-17.0 [facility] Comment on above: Performed By: #### L IPR, CP, GLYHGB, CDP #### [facility] [address] [place] [phone] Outreach Coordinator: Lalit Ro MD #### PSAS #### [address] [id number] Outreach Coordinator: Max Villanueva MD Immature granulocytes/100 WBC (Bld) 0 % Normal 0 [facility] Comment on above: Performed By: #### L IPR, CP, GLYHGB, CDP #### [facility] [address] [place] [phone] Outreach Coordinator: Lalit Ro MD #### PSAS #### [address] [id number] Outreach Coordinator: Max Villanueva MD Lymphocytes (Bld) [#/Vol] 1.93 10*3/uL Normal 1.10-3.70 [facility] Comment on above: Performed By: #### L IPR, CP, GLYHGB, CDP #### [facility] [address] [address] Outreach Coordinator: Lalit Ro MD #### PSAS #### [address] [address] Outreach Coordinator: Max Villanueva MD Lymphocytes/100 WBC (Bld) 45 % High 24-43 [facility] Comment on above: Performed By: #### L IPR, CP, GLYHGB, CDP #### [address] [place] [phone] Outreach Coordinator: Lalit Ro MD #### PSAS #### [address] [id number] Outreach Coordinator: Max Villanueva MD MCH (RBC) [Entitic mass] 31.0 pg Normal 25.2-33.5 [facility] Comment on above: Performed By: #### L IPR, CP, GLYHGB, CDP #### [address] [place] [id number] Outreach Coordinator: Lalit Ro MD #### PSAS #### [address] [id number] Outreach Coordinator: Max Villanueva MD MCHC (RBC) [Mass/Vol] 33.5 g/dL Normal 28.4-34.8 [facility] Comment on above: Performed By: #### L IPR, CP, GLYHGB, CDP #### [address] [place] [id number] Outreach Coordinator: Lalit Ro MD #### PSAS #### [address] [id number] Outreach Coordinator: Max Villanueva MD MCV (RBC) [Entitic vol] 92.5 fL Normal 82.6-102.9 M [facility] Comment on above: Performed By: #### L IPR, CP, GLYHGB, CDP #### [address] [place] [address] Outreach Coordinator: Lalit Ro MD #### PSAS #### [address] [id number] Outreach Coordinator: Max Villanueva MD Monocytes (Bld) [#/Vol] 0.42 10*3/uL Normal 0.10-1.20 [facility] Comment on above: Performed By: #### L IPR, CP, GLYHGB, CDP #### [facility] [address] [place] [address] Dr. [place] [id number] Outreach Coordinator: Lalit Ro MD #### PSAS #### [address] [id number] Outreach Coordinator: Max Villanueva MD Monocytes/100 WBC (Bld) 10 % Normal 3-12 [facility] Comment on above: Performed By: #### L IPR, CP, GLYHGB, CDP #### [address] [place] [id number] Outreach Coordinator: Lalit Ro MD #### PSAS #### [address] [id number] Outreach Coordinator: Max Villanueva MD Neutrophil (Seg) 42 % Normal 36-65 [facility] Comment on above: Performed By: #### L IPR, CP, GLYHGB, CDP #### [address] [place] [id number] Outreach Coordinator: Lalit Ro MD #### PSAS #### [address] [address] Outreach Coordinator: Max Villanueva MD NRBC Automated 0.0 per 100 WBC Normal 0.0 [facility] Comment on above: Performed By: #### L IPR, CP, GLYHGB, CDP #### [address] [place] [id number] Outreach Coordinator: Lalit Ro MD #### PSAS #### [address] [address] Outreach Coordinator: Max Villanueva MD Platelet mean volume (Bld) [Entitic vol] 9.6 fL Normal 8.1-13.5 [facility] Comment on above: Performed By: #### L IPR, CP, GLYHGB, CDP #### [address] [place] [id number] ( Outreach Coordinator: Lalit Ro MD #### PSAS #### [address] [address] Outreach Coordinator: Max Villanueva MD Platelets (Bld) [#/Vol] 176 10*3/uL Normal 138-453 [facility] Comment on above: Performed By: #### L IPR, CP, GLYHGB, CDP #### [address] [place] [id number] ( Outreach Coordinator: Lalit Ro MD #### PSAS #### [place] [address] Outreach Coordinator: Max Villanueva MD RBC (Bld) [#/Vol] 4.52 10*6/uL Normal 4.21-5.77 [facility] Comment on above: Performed By: #### L IPR, CP, GLYHGB, CDP #### [address] [place] [id number] Outreach Coordinator: Lalit Ro MD #### PSAS #### [place] [address] Outreach Coordinator: Max Villanueva MD WBC (Bld) [#/Vol] 4.3 10*3/uL Normal 3.5-11.3 [facility] Comment on above: Performed By: #### L IPR, CP, GLYHGB, CDP #### [address] [place] [id number] Outreach Coordinator: Lalit Ro MD #### PSAS #### [address] [id number] Outreach Coordinator: Max Villanueva MD Auto Diff Performed NOT REPORTED Normal [facility] Comment on above: Performed By: #### L IPR, CP, GLYHGB, CDP #### [facility] [address] [place], [place] [id number] Outreach Coordinator: Lalit Ro MD #### PSAS #### [address] [address] Outreach Coordinator: Max Villanueva MD Platelet Estimate NOT REPORTED Normal [facility] Comment on above: Performed By: #### L IPR, CP, GLYHGB, CDP #### [facility] [address] [place], [place] [id number] Outreach Coordinator: Lalit Ro MD #### PSAS #### [address] [address] Outreach Coordinator: Max Villanueva MD RBC morphology finding Nom (Bld) NOT REPORTED Normal [facility] Comment on above: Performed By: #### L IPR, CP, GLYHGB, CDP #### [facility] [address] [place] [address] Dr. [place], [place] [id number] Outreach Coordinator: Lalit Ro MD #### PSAS #### [address] [address] Outreach Coordinator: Max Villanueva MD WBC Morphology NOT REPORTED Normal [facility] Comment on above: Performed By: #### L IPR, CP, GLYHGB, CDP #### [facility] [address] [place] [address] Dr. [place], [place] [phone] Outreach Coordinator: Lalit Ro MD #### PSAS #### [address] [address] Outreach Coordinator: Max Villanueva MD Comp Metabolic Profon 2019 (cont.) Normal [facility] Comment on above: Result Comment: Aver age GFR for 50-59 years old: 93 mL/min/1.73sq m Chronic Kidney Disease: <60 mL/min/1.73sq m Kidney failure: <15 mL/min/1.73sq m eGFR calculated using average adult body mass. Additional eGFR calculator available at: http://www.[employer]/multiple_crcl_2011.htm Performed By: #### L IPR, CP, GLYHGB, CDP #### [address] [place] [id number] Outreach Coordinator: Lalit Ro MD #### PSAS #### [address] [id number] Outreach Coordinator: Max Villanueva MD Albumin [Mass/Vol] 4.1 g/dL Normal 3.5-5.2 [facility] Comment on above: Performed By: #### L IPR, CP, GLYHGB, CDP #### [address] [place] [id number] Outreach Coordinator: Lalit Ro MD #### PSAS #### [address] [id number] Outreach Coordinator: Max Villanueva MD Albumin/Glob Ratio 1.5 Normal 1.0-2.5 [facility] Comment on above: Performed By: #### L IPR, CP, GLYHGB, CDP #### [address] [place] [id number] Outreach Coordinator: Lalit Ro MD #### PSAS #### [address] [id number] Outreach Coordinator: Max Villanueva MD Alkaline Phos 44 U/L Normal 40-129 [facility] Comment on above: Performed By: #### L IPR, CP, GLYHGB, CDP #### [address] [place], [place] [phone] Outreach Coordinator: Lalit Ro MD #### PSAS #### [address] [place] [address] Outreach Coordinator: Max Villanueva MD ALT [Catalytic activity/Vol] 20 U/L Normal 5-41 [facility] Comment on above: Performed By: #### L IPR, CP, GLYHGB, CDP #### [facility] [address] [place], [place] [id number] Outreach Coordinator: Lalit Ro MD #### PSAS #### [address] [address] Outreach Coordinator: Max Villanueva MD Anion gap [Moles/Vol] 11 mmol/L Normal 9-17 [facility] Comment on above: Performed By: #### L IPR, CP, GLYHGB, CDP #### [facility] [address] [place], [place] 5002583 Outreach Coordinator: Lalit Ro MD #### PSAS #### [address] [address] Outreach Coordinator: Max Villanueva MD AST [Catalytic activity/Vol] 25 U/L Normal <40 [facility] Comment on above: Performed By: #### L IPR, CP, GLYHGB, CDP #### [facility] [address] [place], [place] [id number] Outreach Coordinator: Lalit Ro MD #### PSAS #### [address] [address] Outreach Coordinator: Max Villanueva MD Bilirubin [Mass/Vol] 0.75 mg/dL Normal 0.3-1.2 [facility] Comment on above: Performed By: #### L IPR, CP, GLYHGB, CDP #### [facility] [address] [place] [address] [place], [place] 5080983 Outreach Coordinator: Lailt Ro MD #### PSAS #### [address] [address] Outreach Coordinator: Max Villanueva MD BUN/CRE Ratio 14 Normal 9-20 [facility] Comment on above: Performed By: #### L IPR, CP, GLYHGB, CDP #### [facility] [address] [place], [place] 0809983 Outreach Coordinator: Lalit Ro MD #### PSAS #### [address] [address] Outreach Coordinator: Max Villanueva MD Calcium [Mass/Vol] 8.8 mg/dL Normal 8.6-10.4 [facility] Comment on above: Performed By: #### L IPR, CP, GLYHGB, CDP #### [address] [place], [place] 2092483 Outreach Coordinator: Lalit Ro MD #### PSAS #### [address] [address] Outreach Coordinator: Max Villanueva MD Chloride [Moles/Vol] 104 mmol/L Normal 98-107 [facility] Comment on above: Performed By: #### L IPR, CP, GLYHGB, CDP #### [address] [place], [place] 4964983 Outreach Coordinator: Lalit Ro MD #### PSAS #### [address] [address] Outreach Coordinator: Max Villanueva MD CO2 [Moles/Vol] 27 mmol/L Normal 20-31 [facility] Comment on above: Performed By: #### L IPR, CP, GLYHGB, CDP #### [facility] [address] [place] [address] [place], [place] 1822083 Outreach Coordinator: Lalit Ro MD #### PSAS #### [address] [address] Outreach Coordinator: Max Villanueva MD Creatinine [Mass/Vol] 0.98 mg/dL Normal 0.70-1.20 [facility] Comment on above: Performed By: #### L IPR, CP, GLYHGB, CDP #### [facility] [address] [place] [address] Outreach Coordinator: Lalit Ro MD #### PSAS #### [address] 1960508 Outreach Coordinator: Max Villanueva MD GFR, Amer >60 Normal >60 [facility] Comment on above: Performed By: #### L IPR, CP, GLYHGB, CDP #### [address] [place] [phone] Outreach Coordinator: Lalit Ro MD #### PSAS #### [address] [id number] Outreach Coordinator: Max Villanueva MD GFR,non Amer >60 Normal >60 [facility] Comment on above: Performed By: #### L IPR, CP, GLYHGB, CDP #### [address] [place] [phone] Outreach Coordinator: Lalit Ro MD #### PSAS #### [address] [phone] Outreach Coordinator: Max Villanueva MD Glucose [Mass/Vol] 86 mg/dL Normal 70-99 [facility] Comment on above: Performed By: #### L IPR, CP, GLYHGB, CDP #### [address] [place] [phone] Outreach Coordinator: Lalit Ro MD #### PSAS #### [address] [address] Outreach Coordinator: Max Villanueva MD Potassium [Moles/Vol] 3.8 mmol/L Normal 3.7-5.3 [facility] Comment on above: Performed By: #### L IPR, CP, GLYHGB, CDP #### [address] [place] [address] Outreach Coordinator: Lalit Ro MD #### PSAS #### [address] [id number] Outreach Coordinator: Max Villanueva MD Protein [Mass/Vol] 6.8 g/dL Normal 6.4-8.3 [facility] Comment on above: Performed By: #### L IPR, CP, GLYHGB, CDP #### [address] [place] [address] Outreach Coordinator: Lalit Ro MD #### PSAS #### [address] [id number] Outreach Coordinator: Max Villanueva MD Sodium [Moles/Vol] 142 mmol/L Normal 135-144 [facility] Comment on above: Performed By: #### L IPR, CP, GLYHGB, CDP #### [address] [place] [address] Outreach Coordinator: Lalit Ro MD #### PSAS #### [address] [id number] Outreach Coordinator: Max Villanueva MD Staging: Normal [facility] Comment on above: Result Comment: Stag e 1: Some kidney damage normal GFR Stage 2: Mild kidney damage GFR 60-89 Stage 3: Moderate kidney damage GFR 30-59 Stage 4: Severe kidney damage GFR 15-29 Stage 5: Severe kidney damage GFR <15 ESRD - chronic treatment by dialysis or transplant Performed By: #### L IPR, CP, GLYHGB, CDP #### [address] [place], [place] 7555483 Outreach Coordinator: Lalit Ro MD #### PSAS #### [address] [place] [id number] Outreach Coordinator: Max Villanueva MD Urea nitrogen [Mass/Vol] 14 mg/dL Normal 6-20 [facility] Comment on above: Performed By: #### L IPR, CP, GLYHGB, CDP #### [facility] [address] [place] [address] Outreach Coordinator: Lalit Ro MD #### PSAS #### [facility] [address] [place] [address] Outreach Coordinator: Max Villanueva MD Comprehensive Metabolic Pane tosha 11-13-2019 Albumin [Mass/Vol] 4.1 g/dL 3.5 - 5.2 g/dL [place], [place] Albumin/Globulin [Mass ratio] 1.5 {ratio} [place] ALP [Catalytic activity/Vol] 44 U/L 40 - 129 U/L [place] ALT [Catalytic activity/Vol] 20 U/L 5 - 41 U/L [place] Anion gap [Moles/Vol] 11 mmol/L 9 - 17 mmol/L [place] AST [Catalytic activity/Vol] 25 U/L <40 [place] Bilirubin Ql (U) 0.75 mg/dL 0.3 - 1.2 mg/dL [place] Bun/Cre Ratio 14 [place] Calcium [Mass/Vol] 8.8 mg/dL 8.6 - 10. 4 mg/dL [place] Chloride [Moles/Vol] 104 mmol/L 98 - 10 7 mmol/L [place] CO2 [Moles/Vol] 27 mmol/L 20 - 31 mmol/L [place] Creatinine [Mass/Vol] 0.98 mg/dL 0.7 - 1.2 mg/dL [place] GFR >60 >60 mL/min [place] GFR Non- >60 >60 mL/min [place] Glucose [Mass/Vol] 86 mg/dL 70 - 99 mg/dL [place], [place] Potassium [Moles/Vol] 3.8 mmol/L 3.7 - 5.3 mmol/L [place] Protein [Mass/Vol] 6.8 g/dL 6.4 - 8.3 g/dL [place] Sodium [Moles/Vol] 142 mmol/L 135 - 144 mmol/L [place] Urea nitrogen [Mass/Vol] 14 mg/dL 6 - 20 mg/d L [place] Hemoglobin A1Con 11-13-2019 Glucose [Mass/Vol] 94 mg/dL Normal [place] Comment on above: The ADA and AACC rec ommend providing the estimated average glucose result to permit better patient understanding of their HBA1c result. Result Comment: The ADA and AACC recommend providing the estimated average glucose result to permit better patient understanding of their HBA1c result. Performed By: #### L IPR, CP, GLYHGB, CDP #### [address] [place] [address] Outreach Coordinator: Lalit Ro MD #### PSAS #### [address] [address] Outreach Coordinator: Max Villanueva MD HbA1c (Bld) [Mass fraction] 4.9 % Normal 4.8-5.9 [place] Comment on above: Performed By: #### L IPR, CP, GLYHGB, CDP #### [address] [place] [address] Outreach Coordinator: Lalit Ro MD #### PSAS #### [address] [address] Outreach Coordinator: Max Villanueva MD Lipid Panelon 11-13-2019 Cholesterol [Mass/Vol] 96 mg/dL <200 [place], [place] Comment on above: Cholesterol Guidelines: <200 Desirable 200-240 Borderline >240 Undesirable Cholesterol in HDL [Mass/Vol] 70 mg/dL >40 [place] Comment on above: HDL Guidelines: <40 Undesirable 40-59 Borderline >59 Desirable Cholesterol in LDL [Mass/Vol] 19 mg/dL 0 - 130 mg/dL [place] Comment on above: LDL Guidelines: <100 Desirable 100-129 Near to/above Desirable 130-159 Borderline >159 Undesirable Direct (measured) LDL and calculated LDL are not interchangeable tests. Cholesterol in VLDL [Mass/Vol] NOT REPORTED 1 - 30 mg/dL [place] Cholesterol.total/Choles terol in HDL [Mass ratio] 1.4 {ratio} <5 [place] Triglyceride [Mass/Vol] 34 mg/dL <150 M [place], [place] Comment on above: Triglyceride Guidelines: <150 Desirable 150-199 Borderline 200-499 High >499 Very high Based on AHA Guidelines for fasting triglyceride, February 2012. Lipid Profileon 11-13-2019 Cholesterol [Mass/Vol] 96 mg/dL Normal <200 [facility] Comment on above: Result Comment: Cholesterol Guidelines: <200 Desirable 200-240 Borderline >240 Undesirable Performed By: #### L IPR, CP, GLYHGB, CDP #### [facility] [address] [place] [address] [place] [address] Outreach Coordinator: Lalit Ro MD #### PSAS #### [address] [address] Outreach Coordinator: Max Villanueva MD Cholesterol in HDL [Mass/Vol] 70 mg/dL Normal >40 [facility] Comment on above: Result Comment: HDL Guidelines: <40 Undesirable 40-59 Borderline >59 Desirable Performed By: #### L IPR, CP, GLYHGB, CDP #### [facility] [address] [place] [address] Outreach Coordinator: Lalit Ro MD #### PSAS #### [address] [address] Outreach Coordinator: Max Villanueva MD Cholesterol in LDL [Mass/Vol] 19 mg/dL Normal 0-130 [facility] Comment on above: Result Comment: LDL Guidelines: <100 Desirable 100-129 Near to/above Desirable 130-159 Borderline >159 Undesirable Direct (measured) LDL and calculated LDL are not interchangeable tests. Performed By: #### L IPR, CP, GLYHGB, CDP #### [facility] [address] [place] [address] Outreach Coordinator: Lalit Ro MD #### PSAS #### [address] [address] Outreach Coordinator: Max Villanueva MD Cholesterol.total/Choles terol in HDL [Mass ratio] 1.4 {ratio} Normal <5 [facility] Comment on above: Performed By: #### L IPR, CP, GLYHGB, CDP #### [address] [place], [place] 4641283 Outreach Coordinator: Lalit Ro MD #### PSAS #### [address] [address] Outreach Coordinator: Max Villanueva MD Triglyceride [Mass/Vol] 34 mg/dL Normal <150 [facility] Comment on above: Result Comment: Triglyceride Guidelines: <150 Desirable 150-199 Borderline 200-499 High >499 Very high Based on AHA Guidelines for fasting triglyceride, February 2012. Performed By: #### L IPR, CP, GLYHGB, CDP #### [address] [place] [address] Outreach Coordinator: Lalit Ro MD #### PSAS #### [address] [address] Outreach Coordinator: Max Villanueva MD Cholesterol,VLDL NOT REPORTED Normal 30 [facility] Comment on above: Performed By: #### L IPR, CP, GLYHGB, CDP #### [facility] [address] [place] [address] [place]. [place], [place] 5342783 Outreach Coordinator: Lalit Ro MD #### PSAS #### [address] [address] Outreach Coordinator: Max Villanueva MD Metabolic Panelon 11-13-2019 GFR/1.73 sq M predicted among non-blacks MDRD (S/P/Bld) [Vol rate/Area] [place], [place] Comment on above: Average GFR for 50-5 9 years old: 93 mL/min/1.73sq m Chronic Kidney Disease: <60 mL/min/1.73sq m Kidney failure: <15 mL/min/1.73sq m eGFR calculated using average adult body mass. Additional eGFR calculator available at: http://www.[employer]/multiple_crcl_2012.htm Stage 1: Some kidney damage normal GFR Stage 2: Mild kidney damage GFR 60-89 Stage 3: Moderate kidney damage GFR 30-59 Stage 4: Severe kidney damage GFR 15-29 Stage 5: Severe kidney damage GFR <15 ESRD - chronic treatment by dialysis or transplant PSA, Screeningon 11-13-2019 Prostatic Spec. Ag 0.48 ug/L Normal <4.1 [facility] Comment on above: Result Comment: The [employer] ECLIA assay is used. Results obtained with different assay methods cannot be used interchangeably. Performed By: #### G LYHGB, INSU, LIPR, PSAS #### [facility] [employer] [address] [place] [address] Outreach Coordinator: Max Villanueva MD #### CP, CDP #### [facility] [address] [place] [address] Outreach Coordinator: Preet Ayala MD Provider Letteron 12-01-2018 Provider Letter Keshia Holt, [address] [place] [address] Re: Leeroy Abiel Date of Visit: 12/01/2018 Dear Keshia Holt, Thank you for referring Leeroy to my office. Attached you will find my plan and impression from their visit. Result Name Current Result Urology Office/Clinic Note 12/01/2018 Please review and contact my office with any questions or concerns. Sincerely, Aramis Molina, CONFERENCE PRODUCER [address] [place] [address] [phone] C C Providers: The following document(s) were included in the letter: December 01, 2018 09:41:42 EDT - (12/01/2018) Urology Office Visit Note Normal [facility] Urology Office/Clinic Noteon 12-01-2018 Urology Office/Clinic Note Chief Complaint Nocturia, Urinary Frequincy, Urgency, BPH History of Present Illness New patient referral Referral from Keshia Holt Concerns for lower urinary tract symptoms Patient has a history of BPH, urinary urgency, urinary frequency, nocturia Patient previously seen urologist Dr. Cleaning in the [place] area, patient underwent laser surgery of the [...] Records reviewed from Gemma Rios CNP from [facility] PSA August 2010 was 0.67 PSA December 2011 was 0.39 PSA November 2012 0.53 PSA February 2018 was 0.31 PSA October 2018 was 0.38 Correction patient did not have laser prostate surgery patient had cystoscopy with transurethral incision of the prostate by Dr. Neri Cleaning 10/02/2010 Electronically signed by Aramis Molina CNP 03/07/19 08:02 EDT Normal [facility] Vital Signs Date Time Vital Sign Value Performing Clinician Sherie baumann 11-29-2023 11:21-0400 Blood Pressure Location Neri CLEANING [facility] 11-29-2023 11:21-0400 Body temperature 98.6 [degF] Neri CLEANING [facility] 11-29-2023 11:21-0400 Diastolic blood pressure 84 mm[Hg] Neri CLEANING [facility] 11-29-2023 11:21-0400 Heart rate 79 /min Neri CLEANING [facility] 11-29-2023 11:21-0400 Respiratory rate 16 /min Neri CLEANING [facility] 11-29-2023 11:21-0400 Systolic blood pressure 131 mm[Hg] Neri CLEANING [facility] Encounters Encounter Date Encounter Type Care Provider Facility Start: 12-01-2024 ambulatory Neri CLEANING Facili ty:[facility] Start: 11-29-2023 End: 11-29-2023 ambulatory Neri CLEANING Facility:[facility] Start: 11-29-2023 End: 11-29-2023 Patient encounter procedure Neri CLEANING [facility] Start: 07-02-2023 ambulatory Neri CLEANING Facility :[facility] Start: 07-20-2022 End: 07-20-2022 Lab Drop off Neri CLEANING [facility] Start: 12-31-2021 Encounter for genera l adult medical examination without abnormal findings DR KESHIA HOLT [facility] Start: 12-30-2021 End: 12-31-[address] KESHIA HOLT Facility:[facility] Start: 12-30-2021 End: 12-31-2021 Encounter for general adult medical examination without abnormal findings DR KESHIA HOLT Facility:[facility] Start: 06-30-2021 End: 07-01-[address] NERI CLEANING Facility:[facility] Start: 01-01-2021 End: 01-01-[address] RYLIE ALCAZAR Facility: Start: 11-02-2020 End: 11-03-2020 ambulatory [facility] Start: 11-02-2020 End: 11-02-2020 Subsequent hospital visit by physician Keshia Holt MD Work Phone: [facility] Start: 10-24-2020 End: 10-25-2020 [facility] Start: 10-24-2020 End: 10-24-2020 Subsequent hospital visit by physician Keshia Holt MD Work Phone: [facility] Start: 11-13-2019 End: 11-14-2019 ambulatory [facility] Start: 11-13-2019 End: 11-13-2019 [facility] Procedures Date Procedure Procedure Detail Performing Clinician Start: 12-30-[address] EAMON ALCAZAR Comment on above: Performed By: #### P SAS #### [facility] [address] [place] [address] Dr. Teodoro Owens Start: 06-30-[address] EAMON ALCAZAR Comment on above: Performed By: #### P SAD #### [facility] [address] [place] [address] Dr. Teodoro Owens Start: 11-02-2020 PSA screening [...] Influenza vaccination Flu vacc ine (Season Ended) [employer] Phone: Start: 1977 COVID-19 Vaccine (1) COVID-19 Vaccin e (1) [employer] Phone: End: 11-02-2020 Hemoglobin A1c/Hemoglobin.total in Blood Hemoglobin A1C Lab Routine Once for 1 Occurrences starting 11/02/2020 until 11/02/2020 [employer] Phone: Comment on above: Once for 1 Occurrenc es starting 11/02/2020 until 11/02/2020 Hemoglobin A1c/Hemoglobin.total in Blood Hemoglobin A1C Lab Routine 11/02/2020 7:15 AM EDT [employer] Phone: Immunizations Immunization Date Immunization Notes Care Provider Fa cility 09-17-2020 SARS-CoV-2 (COVID-19 ) mRNA-2493 vaccine Neri [employer] [facility] 08-31-2020 SARS-CoV-2 (COVID-19 ) mRNA-1273 vaccine Neri CLEANING [facility] [place] 08-27-2020 SARS-CoV-2 (COVID-19 ) mRNA-1273 vaccine Neri CLEANING [facility] 08-03-2020 SARS-CoV-2 (COVID-19 ) mRNA-1273 vaccine Neri CLEANING [facility] [place] 04-15-2020 influenza virus vaccine, unspecified formulation Neri CLEANING [facility] Payers Date Payer Category Payer Unknown [id number] 2020 Unknown [id number] 2019 Unknown [employer] xxxxxxxxx 2019-Present [phone] [address] [place] [address] xxxxxxxxx [id number] 1966 Unknown [id number] 3 1966 Unknown [id number] 3 1966 Unknown [id number] 3 1966 Unknown [id number] 3 1966 Unknown [id number] 3 1966 Unknown [id number] 3 1966 Unknown [id number] 7 1966 Unknown [id number] [id number] 7 1959 Unknown [id number] Social History Date Type Detail Facility Tobacco smoking stat [facility] [facility] Start: 1965 Sex Assigned At Not on file M [place], [place] Start: 11-27-2020 End: 11-29-2023 Tobacco smoking status Ex-smoker (finding) [facility] Sex Assigned At Female [facility] Functional Status Date Assessment Result Facility 11-29-2023 Functional Status N/A [facility] Discharge instructions 11-29-2023 Note Date & [...] urethra. Follow these instructions at home: Take xyjb-hgd-pnyxxpu and prescription medicines only as told by [...] provider. Document Revised: 11/26/2021 Document Reviewed: 11/26/2021 [employer] Patient Education 2022 [employer]. Follow Up Care 07/20/2022 16:13:55 With:LIANET THEODORE, Neri Callejas, URL Address: [facility] [address], [place] [address] [phone] When: Unknown [facility] Clinical Note 11-29-2023 Note Date [...] Follow these instructions at home: ? Take fwfw-gej-btussbz and prescription medicines only as told by [...] develop side effec (more content not included)... [facility] Clinical Note 01-01-2021 Note Date & [...] in 10 years for screening. cc:Dr. Holt. [facility] Signed and Approved by: DR RYLIE ALCAZAR . 01/03/2021 15:43:00 [facility] Evaluation + Plan note Note Date & Type Note Facility Evaluation + Plan note Future Appointments Appointment Date:07/19/2023 03:00:00 PM Scheduled Provider:Neri CLEANING MD Location:[facility] Appointment Type:URO Office Visit Diagnostic Tests PendingPSA Total 07/20/22 [facility] Evaluation + Plan note Note Date & Type Note Facility Evaluation + Plan note Future Appointments Appointment Date:12/01/2024 08:00:00 AM Scheduled Provider:Neri CLEANING MD Location:[facility] Appointment Type:URO Office Visit Diagnostic Tests PendingPSA Total 11/29/23 [facility] course Narrative Note Date & Type Note Facility Hospital course Narrative No data available for this section [facility] Hospital Discharge instructions Note Date & Type Note Facility Hospital Discharge instructions No data available for this section [facility] Progress note Note Date & Type Note Facility Progress note No data available for this section [facility] Summary Purpose Family History No Family History Records FoundNo Family History Records FoundNo Family History Records Found No data available for this section No Family History Records Found Advance Directives No Advanced Directives Records FoundDocuments on File Type Date Recorded Patient [employer] Expl anation Advance Directives and Living Will Power of Book Solicitor Documents on File Type Date Recorded Patient [employer] Expl anation ACP-Advance Directive ACP-Power of Book Solicitor Additional Source Comments (unrecognized sect ion and content) No Status Records FoundNo Status Records FoundNo Status Records FoundNo Status Records Found INFORMATION SOURCE (unrecogn ized section and content) DATE CREATED AUTHOR 03/07/2019 [facility] DATE CREATED AUTHOR AUTHOR'S ORGANIZ ATION 11/03/2020 [facility] pital DATE CREATED AUTHOR AUTHOR'S ORGANIZ ATION 12/31/2021 [facility] pital DATE CREATED AUTHOR AUTHOR'S ORGANIZ ATION 11/30/2023 [facility] Patient Care team informatio n (unrecognized section and content) Personnel Name: Keshia Holt MD Address: Address: [address] [place] [address] Personnel Name: Keshia Holt MD Address: Address: [address] [place] [address] FOR RECORDS PERTAINING TO PATIENTS WHO ARE [...] BE BASED ON THE PRIMARY CLINICAL RECORDS. [facility] [employer] [facility]. provides no warranty or guarantee of the accuracy or completeness of information in this document.
== END 2024-08-30 15:32 | disposition home or self-care (01) ==
LOC: LAB 15:31
PROVIDERS: PCP Family Medicine; Visit Provider Family Medicine
DX: Z00.00 Encounter for general adult medical examination without abnormal findings (principal)
CPT/HCPCS: G0328

== ENCOUNTER 2025-01-18 06:30 | Outpatient (OUT) | payer OTHER, SELFPAY ==
--- OUTSIDE RECORDS SUMMARY | 2024-08-31 11:45 | XMS_ITS ---
Author Organization The [facility] [place] Address [address] [place] [address] Care Team Providers Care Executive Producer Name Role Phone Castillo Holt Primary Care Provider Allergies No Known Allergies REASON FOR VISIT annual- just had labs done, BP has been higher than usual- 140-150/80-90, Have been using CPAP machine Medications Medication SIG (Take, Route, Frequency, Duration) Notes Start Date End Date Status oxyBUTYnin Chloride ER 15 MG Oral for 30 Days Active Social History Tobacco Use: Social History Observation Description Date Details (start date - stop date) Former Smoker NA - 02/20/2013 Tobacco Use/Smoking Question Answer Notes Patient is a former smoker When did you stop smoking? 02/20/2013 How long has it been since you last smoked? > 10 years Vital Signs Blood pressure systolic 166 mm Hg 09/01/19 25 Blood pressure diastolic 96 mm Hg 025 Height 67 in 08/31/2024 Weight 180.0 lbs 08/31/2024 BMI 28.19 kg/m2 08/31/2024 Encounters Encounter Location Date Provider Diagnosis [facility] [address] [place] [address] 08/31/2024 Castillo Holt Well adult Z00.0 0 Assessments Encounter Date Diagnosis (ICD Code) Assessment Notes Treatment Notes Treatment Clinical Notes Section Notes 08/31/2024 Well adult (ICD-10 - Z00.00) caling back about air[place] procedure [place] Plan Of Treatment Treatment Notes Assessment Notes Well adult caling back about ai [place]lift procedure in [place] Progress Notes * Cody ROMO EDOB:[birth year] (59 yo M)Acc No.[id number]:08/31/2024 Progress Note Patient: Cody JORGE Provider: Heri Holt ([facility])MD :1965 A ge:59 Y S ex:Male Date:08/31/2024 Address:[address] [place] [address] [address] , [facility] Check In:03:33 PM ESTCheck O ut:03:28 PM EST Subjective: * Chief Complaints: * A nnual- just had labs doneBP has been higher than usual- 140-150/80-90Have been using CPAP machine * HPI: G eneral: woring on salt -. * ROS: E ENT: hearing changes d enies. v isual changes d enies.?non-healing mouth sores d enies. s wollen glands or neck lumps d enies. h oarseness d enies. s ore throat d enies. d ifficulty swallowing d enies. n ose bleeds d enies. n bridget congestion d enies. e ar ache d enies. e ar discharge?denies. r inging in ears d enies. l ight sensitivity d enies. e ye pain d enies. b lurring d enies. e ye irritation d enies. d ouble vision d enies.?vision loss d enies. G eneral/Constitutional: Sweats: D enies. F atigue d enies. S leep problems d enies. A norexia d enies. M alaise d enies. W eight loss d enies.?Fatigue or Weakness d enies. F ever or Chills d enies. C ardiovascular: Shortness of Breath w/lying flat d enies. L ightheadedness/dizziness d enies. C hest tightness/ heavy pressure d enies. S welling of legs, ankles, or feet d enies. W aking up with shortness of breath d enies. C hest pain denies. P alpitations d enies. W eight gain d enies. R espiratory: Chronic or frequent cough d enies. C oughing up blood?denies. D ifficulty breathing d enies. P roductive cough d enies. S noring?denies. S hortness of breath that awakens from sleep (PND) d enies. C hest pain d enies. S putum production d enies. W heezing d enies. M usculoskeletal: Joint pain d enies. J oint Fluid d enies. B ack pain d enies. K nee pain d enies. N noel pain d enies. J oint Stiffness d enies. M uscle cramps d enies. W eakness of muscles d enies. A rthritis d enies. M uscle aches d enies. P ain in shoulder(s) d enies. S wollen joints d enies. * Active Problem List G47.33 SANIYA (obstructive sle ep apnea) Modified On:07/19/2023/U Status:confirmed N40.0 BPH (benign prostati c hyperplasia) Modified On:02/15/2023/U Status:confirmed R35.1 Nocturia Modified On:02/15/2023/U Status:confirmed N41.9 Prostatitis Modified On:02/15/2023/U Status:confirmed Z00.00 Well adult Modified On:02/19/2023/U Status:confirmed * Medical History: * Surgical History: H ernia Repair replacement Scaphoid bone rt wrist Colonoscopy 2020 * Hospitalization/Major Diagno stic Procedure: D enies Past Hospitalization * Family History: F ather: alive, Parkinsons, type II diabetes, diagnosed with Diabetes mellitus without mention of complication, type II or unspecified type, not stated as uncontrolled. M other: alive. B rother(s): alive. S ister(s): alive. S on(s): alive. 1 brother(s) , 2 sister(s) . 2 son(s) - healthy. . Sisters: 1 , 1 Living. * Social History: T obacco Use: T obacco Use/Smoking P atient is a f ormer smoker W hen did you stop smoking? 0 02/20/2013 H ow long has it been since you last smoked??> 10 years * Medications: T akingoxyBUTYnin Chloride ER 15 MG Tablet Extended Release 24 Hour Oral Taking oxyBUTYnin Chloride ER 15 MG Tablet Extended Release 24 Hour Oral DiscontinuedCephalexin 500 MG Capsule 2 capsule Orally q12 Medication List reviewed and reconciled with the patientDiscontinued Cephalexin 500 MG Capsule 2 capsule Orally q12 Medication List reviewed and reconciled with the patient * Allergies: N .K.D.A.no[Allergies Verified] Objective: * Vitals: W t:180.0lbs, Ht: 67 in, BP:166/96mm Hg, BMI:28.19Index, Ht-cm: 170.18 cm, Wt-k.65 kg. * Examination: P hysical Exam: GENERAL: w ell developed, well nourished, in no acute distress. HEAD: n ormocephalic/atraumatic. EYES: p upils equal, round and reactive to light, conjunctivae and sclerae normal. EARS: n o deformity or lesion of external ear, canals and TM appear normal bilaterally, TM's intact, not inflamed with normal light reflex, hearing grossly normal to conversational speech. NOSE: n o deformity, discharge, inflammation, or lesions.? MOUTH: m ucous membranes moist, normal oropharynx and posterior pharynx without lesions or exudates, tongue normal, dentition normal. NECK: n noel supple, no masses or palpable cervical nodes, trachea midline, thyroid without nodules, masses, tenderness, or enlargement. CHEST: n o chest wall deformity, no chest wall tenderness.? LUNGS: n ormal respiratory effort and clear to auscultation, no wheezes, rales, or rhonchi, good air exchange. CARDIO: r egular rate and rhythm, normal S1 and S2, nor murmur, rub, or gallop. PULSES: n ormal capillary refill. ABDOMEN: s oft, non-distended, non-tender, no masses. MUSCULOSKELETAL: n o deformity or scoliosis noted, normal range of motion, joints normal, no erythema, edema, effusion, or ecchymosis. EXTREMITY: n o clubbing, cyanosis, edema, or deformity with normal ROM in both upper and lower bilateral extremities. NEUROLOGIC: g rossly normal. SKIN: n o rashes, ulcerations, or suspicious lesions. LYMPH NODES: n o cervical adenopathy, nodes normal. MENTAL STATUS: a lert and oriented x3, normal mood and affect. P rostate: Prostate Symmetry S ymmetrical Lobes. Prostate Tenderness L eft lobe no tenderness, Right Lobe no tenderness. Prostate Consistency R ight lobe firm, Left lobe firm. Prostate Size 2 0 grams. Prostate Nodule N o prostate Nodule. Assessment: * Assessment: 1. W ell adult - Z00.00 (Primary) Plan: * Treatment: * Procedure Codes: * Preventive Medicine: Screenings/Counseling: B MN ACTION PLAN Above Normal BMI Follow-up D ietary management education, guidance, and counseling * * Sign off status: Completed Visit Status: C HK (Check Out) true * Provider: Heri Holt ([facility])MD Date: 0 08/31/2024 Generated for Printi ng/Faxing/eTransmitting on: 0 01/18/2025 06:33 AM EDT History and Physical Notes * HPI (History of Present Illness) Category Sub-Category Detail Notes Category Not es General woring on salt - Examination Category Sub-Category Detail Notes Category Not es Prostate Prostate Symmetry Symmetrical Lobes Prostate Tenderness Left lobe no tendern ess, Right Lobe no tenderness Prostate Consistency Right lobe firm, Le ft lobe firm Prostate Size 20 grams Prostate Nodule No prostate Nodule Physical Exam GENERAL: well developed, well nouris hed, in no acute distress HEAD: normocephalic/atraum atic EYES: pupils equal, round and reactive to light, conjunctivae and sclerae normal EARS: no deformity or lesi on of external ear, canals and TM appear normal bilaterally, TM's intact, not inflamed with normal light reflex, hearing grossly normal to conversational speech NOSE: no deformity, discha rge, inflammation, or lesions MOUTH: mucous membranes justin st, normal oropharynx and posterior pharynx without lesions or exudates, tongue normal, dentition normal NECK: neck supple, no mass es or palpable cervical nodes, trachea midline, thyroid without nodules, masses, tenderness, or enlargement CHEST: no chest wall deform ity, no chest wall tenderness LUNGS: normal respiratory e ffort and clear to auscultation, no wheezes, rales, or rhonchi, good air exchange CARDIO: regular rate and rhy thm, normal S1 and S2, nor murmur, rub, or gallop PULSES: normal capillary ref ill ABDOMEN: soft, non-distended, non-tender, no masses RECTAL: MUSCULOSKELETAL: no deformity or scol iosis noted, normal range of motion, joints normal, no erythema, edema, effusion, or ecchymosis EXTREMITY: no clubbing, cyanosi s, edema, or deformity with normal ROM in both upper and lower bilateral extremities NEUROLOGIC: grossly normal SKIN: no rashes, ulceratio ns, or suspicious lesions LYMPH NODES: no cervical adenopat hy, nodes normal MENTAL STATUS: alert and oriented x 3, normal mood and affect
--- OUTSIDE RECORDS SUMMARY | 2024-09-06 11:03 | XMS_ITS ---
Author Organization The [facility] in [place] Address [address] [place] [address] Care Team Providers Care Quality Controller Name Role Phone Castillo Holt Primary Care Provider Reason For Referral Diagnosis 1 SANIYA (obstructive sle ep apnea) (G47.33) Referral Organization [facility] Referring Provider First Name Castillo Referring Provider Last Name Yanet Referring Provider Speciality Family Med icine Referred Provider Dafne Ann Referred Provider Specialty Otolaryngolo gy Referral Priority Routine REASON FOR VISIT BP Check/ Dr Ann refferal Medications Medication SIG (Take, Route, Fr equency, Duration) Notes Start Date End Date Status Lisinopril 10 MG 1 tablet Orally Once a day for 30 days 09/06/2024 Active Encounters Encounter Location Date Provider Diagnosis [facility] [address] [place] [address] 09/06/2024 Castillo Yanet SANIYA (obstructive sle ep apnea) G47.33 Assessments Encounter Date Diagnosis (ICD Code) Assessment Notes Treatment Notes Treatment Clinical Notes Section Notes 09/06/2024 SANIYA (obstructive sleep apnea) (ICD-10 - G47.33) Plan Of Treatment Medication Medication Name Sig Start Date Stop Date Notes Lisinopril 10 MG 1 tablet Orally Once a day for 30 days Referrals Referral Date Details 09/06/2024 09/06/2024, Dafne stover Progress Notes * Cody ROMO EDOB:[birth year] (59 yo M)Acc No.[id number]:09/06/2024 Patient: S Cody VELAZQUEZ :1965 A ge:59 Y S ex:Male Address:[address] [place] [address] [address] [place] [address] * Refills Start Lisinopril Tablet, 10 MG, Orally, 30, 1 tablet, Once a day, 30 days, Refills=11 Subjective: * Chief Complaints: * B P Check/ Dr Ann refferal * Medical History: * Surgical History: * Hospitalization/Major Diagno stic Procedure: * Medications: Objective: * Vitals: * Physical Examination: Assessment: * Assessment: 1. O SA (obstructive sleep apnea) - G47.33 (Primary) Plan: * Treatment: 2. O thers Start Lisinopril Tablet, 10 MG, 1 tablet, Orally, Once a day, 30 days, 30, Refills 11. * Procedure Codes: * true * Date: Generated for Mikey alcala/Mary/eTransmitting on: 0 01/18/2025 06:33 AM EDT Consultation Request Notes Referral Date Referring Provider Referred Provider Not es 09/06/2024 Castillo Holt Afser
--- OUTSIDE RECORDS SUMMARY | 2024-09-06 11:30 | XMS_ITS ---
Author Organization The [facility] [place] Address [address] [place] [address] Care Team Providers Care Chief Supply Chain Officer Name Role Phone Castillo Holt Primary Care Provider [phone] REASON FOR VISIT BP CHECK Vital Signs Blood pressure systolic 170 mm Hg 09/07/19 25 Blood pressure diastolic 78 mm Hg 025 Height 67 in 09/06/2024 Encounters Encounter Location Date Provider Diagnosis [facility] [address] [place] [address] 09/06/2024 Castillo Quintonomid Borderline hypertens ion R03.0 Assessments Encounter Date Diagnosis (ICD Code) Assessment Notes Treatment Notes Treatment Clinical Notes Section Notes 09/06/2024 Borderline hypertension (ICD-10 - R03.0) Plan Of Treatment No Information Progress Notes * Cody ROMO EDOB:[birth year] (59 yo M)Acc No.[id number]:09/06/2024 BP Check Patient: Cody JORGE Provider: Heri Holt ([facility])MD :1965 A ge:59 Y S ex:Male Date:09/06/2024 Address:[address] [place], [place] [id number] Check In:02:51 PM ESTCheck O ut:02:56 PM EST Subjective: * Chief Complaints: * 1 . BP CHECK. * Active Problem List G47.33 SANIYA (obstructive sle ep apnea) Modified On:07/19/2023W/U Status:confirmed N40.0 BPH (benign prostati c hyperplasia) Modified On:02/15/2023/U Status:confirmed R35.1 Nocturia Modified On:02/15/2023U Status:confirmed N41.9 Prostatitis Modified On:02/15/2023 Status:confirmed Z00.00 Well adult Modified On:02/19/2023 Status:confirmed * Medical History: Objective: * Vitals: H t: 67 in, BP:170/78mm Hg, Ht-cm: 170.18 cm. Assessment: * Assessment: 1. B orderline hypertension - R03.0 (Primary) Plan: * Treatment: * * Sign off status: Completed Visit Status: Ara SALAS (Check Out) true * Provider: Heri Holt ([facility])MD Date: 0 09/06/2024 Generated for Mikey alcala/Mary/Esperanzaitting on: 01/18/2025 06:33 AM EDT
--- OUTSIDE RECORDS SUMMARY | 2025-01-18 06:33 | XMS_ITS | CCD ---
Author Organization [facility] Care Team Providers Care Highway Technician Name Role Phone Keshia Holt Primary Care Provider [phone] KESHIA HOLT Referring Unavailable KESIHA HOLT Primary Care Unavailable KESHIA HOLT Referring Unavailable KESHIA HOLT Primary Care Unavailable KESHIA HOLT Primary Care Unavailable KESHIA HOLT Referring Unavailable NILL, DR YOUNGBLOOD Admitting Unavailable NILL, DR YOUNGBLOOD Attending Unavailable HOY, DR SCHMITT Primary Care Unavailable NILL, DR YOUNGBLOOD Consulting Unavailable SUSANBOB MEJIA Consulting Unavailable HOY, DR SCHMITT Admitting Unavailable HOY, DR SCHMITT Attending Unavailable HOY, DR SCHMITT Primary Care Unavailable HOY, DR SCHMITT Consulting Unavailable CLEANING, DR RIBEIRO Admitting Unavailable CLEANING, DR RIBEIRO Attending Unavailable IAN, DR SCHMITT Primary Care Unavailable LIANET, DR RIBEIRO Consulting Unavailable Keshia Holt Primary Care Physician Neri CLEANING Attending Unavailable Neri CLEANING Attending Unavailable Unavailable Primary Care Provider UnavailSHRUTHI Rodriguez Attending Unavailable Medications Current Medications Medication Drug Class(es) Dates Sig (Normalized) Sig (Original) Grape Seed Extract (1 source) grape seed extract (GRAPE SEED ORAL) Take by mouth in the morning. Active hydrocortisone acetate 10 mg/ml / pramoxine hydrochloride [...] Refills(s) 0 Start Date: 11/15/20 Status: Ordered lisinopril 10 mg oral tablet (1 source) Angiotensin Converting Enzyme Inhibitor Start: 11-30-2024 take 1 tablet by mouth in the morning lisinopriL (PRINIVIL,ZESTRI L) 10 mg tablet Take 1 tablet (10 mg total) by mouth in the morning. 11/30/2024 Active 24 hr oxybutynin chloride 15 mg extended release oral tablet (3 sources) Cholinergic Muscarinic Antagonist Start: 11-29-2024 take 1 tablet by mouth every twenty-four hours in the morning oxybutynin XL (DITROPAN XL) 15 mg 24 hr tablet Take 1 tablet (15 mg total) by mouth in the morning. 11/29/2024 Active Start: 11-08-2023 take 1 tablet by clinton th once daily oxybutynin 15 mg ER Tab 15 mg = 1 tab(s), Oral, Daily, # 90 cap(s), Refills(s) 3, Pharmacy: [facility] [id number], 170, cm, 07/20/22 15:45:00 EST, Height/Length Dosing, 84, kg, 07/20/22 15:45:00 EST, Weight Dosing Start Date: 11/08/23 Status: Ordered Start: 07-20-2022 End: 07-15-2023 take 1 tablet by mouth once daily oxybutynin 15 mg ER Tab 15 mg = 1 tab(s), Oral, Daily, X 90 day(s), # 90 tab(s), Refills(s) 3, Pharmacy: [facility] [id number], 170, cm, 07/20/22 15:45:00 EST, Height/Length Dosing, [...] activity., # 30 tab(s), Refills(s) 3, Pharmacy: [facility] [id number], 170, cm, 11/29/23 11:34:00 EDT, Height/Length Dosing, 80.1, kg, 11/29/23 11:34:00 EDT, Weight Dosing Start Date: 11/29/23 Status: Ordered Start: 07-20-2022 Cialis 20 mg T ab See Instructions, Take half tab by mouth 1-2 hours prior to sexual activity., # 30 tab(s), Refills(s) 3, Pharmacy: [facility] [id number], 170, cm, 07/20/22 15:45:00 EST, Height/Length Dosing, 84, kg, 07/20/22 15:45:00 EST, Weight Dosing Start Date: 07/20/22 Status: Ordered UNABLE TO FIND (1 source) UNABLE TO FIND i n the morning and before bedtime. Blood Flow Max . Active Problems Active Problems Problem Classification Problem Date Documented Da te Episodic/Chronic Esophageal disorders (1 source) Gastro-esophageal reflux disease without esophagitis; Translations: [GERD WITHOUT ESOPHAGITIS] Onset: 01-06-2021 Chronic Essential hypertension (2 sources) Essential hypertension; Translations: [Essential (primary) hypertension] Onset: 12-05-2024 12-05-2024 Chronic Genitourinary symptoms and ill-defined conditions (10 sources) Increased frequency of urination; Translations: [Nocturia] Onset: 11-29-2023 07-14-2021 Episodic Hyperplasia of prostate (10 sources) Benign prostatic hyperplasia with lower urinary tract symptoms; Translations: [Benign prostatic hyperplasia without lower urinary tract symptoms] Onset: 01-06-2021 Chronic Inflammatory conditions of male genital organs (1 source) Prostatitis; Translations: [Inflammatory disease of prostate, unspecified] Onset: 12-05-2024 12-05-2024 Episodic Other diseases of kidney and ureters (1 source) Urinary tract obstruction; Translations: [Other obstructive and reflux uropathy] Onset: 07-20-2022 Episodic Other gastrointestinal disorders (3 sources) Heartburn; Translations: [Heartburn] Onset: 12-05-2024 11-15-2020 Episodic Other male genital disorders (4 sources) Impotence; Translations: [Male erectile dysfunction, unspecified] Onset: 11-29-2023 07-01-2020 Chronic Other nutritional; endocrine; and metabolic disorders (3 sources) Body mass index 25-29 - overweight; Translations: [Overweight] Onset: 12-05-2024 11-27-2020 Episodic Other screening for suspected conditions (not mental disorders or infectious disease) (5 sources) Encounter for screening for malignant neoplasm of prostate; Translations: [Encounter for screening for malignant neoplasm of colon] Onset: 01-01-2021 Episodic Residual codes; unclassified (1 source) Obstructive sleep apnea syndrome; Translations: [Obstructive sleep apnea (adult) (pediatric)] Onset: 12-05-2024 12-05-2024 Chronic Unclassified (4 sources) Patient encounter status 07-01-2020 Unclassified (1 source) New Patient Onset: 12-05-2024 Unclassified (1 source) Pre-op Exam Onset: 12-05-2024 Past or Other Problems Problem Classification Problem Date Documented Da te Episodic/Chronic Other aftercare (1 source) Other fci (current) drug therapy; Translations: [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] Onset: 01-06-2021 Episodic Screening and history of mental health and substance abuse codes (1 source) Personal history of nicotine dependence; Translations: [PERSONAL HISTORY OF NICOTINE DEPEND] Onset: 01-06-2021 Episodic Results Test Name Value Interpretation Reference Range Facility POCT EKn 12-05-2024 [facility] Ambulatory Visit Summaryon 0 11-29-2023 Ambulatory Visit Summary Ambulatory Visi t Summary LEEROY ROMO :1965 Visit Date:11/29/2023 Ambulatory Visit Instructions Your Diagnosis BPH with obstruction/lower urinary tract symptoms Nocturia Erectile dysfunction Your Care Team Attending Physician - LIANET THEODORE, Neri Callejas Primary Care Physician - Keshia Holt MD This Is Your Medications List oxybutynin (oxybutynin 15 mg ER Tab) tadalafil (Cialis 20 mg Tab) Contact prescribing physician if questions or concerns hydrocortisone-pram oxine topical (Analpram-HC 1%-1% rectal cream) lansoprazole (Prevacid 30 mg Flavio-) eulogio bryant Procedures Performed Cystoscopy (07/16/2020), TUIP - Transurethral [...] THEODORE, Neri Callejas Where: [facility] Urology Office/Clinic Noteon 11-29-2023 Urology Office/Clinic Note [...] wo changes. Refills sent to [facility] in [place]. Follow-up With When Contact Information LIANET THEODORE, Neri Callejas, URL [facility] [address] , [place] [address] [phone] Additional Instructions: 1 yr w/ PSA Patient Education Benign Prostatic Hyperplasia I, Dang Baptiste, personally scribed for Dr. Cleaning on 11/29/2023 12:22:32. . Documentation recorded by the cristobalibDang lomas, accurately reflects the services(s) I performed and [...] Leukocytes U (more content not included)... Normal [facility] Comment on above: Result Comment: Elec tronically Signed By: Neri CLEANING MD\.br\Date and Time Signed: 11/29/23 12:24 EDT\.br\Electronically Co-Signed By: Dang Baptiste.br\Date and Time Co-Signed: 11/29/23 12:22 EDT INSULINon 12-31-2021 Insulin 5.4 uIU/mL Normal 2.6-24.9 [facility] Comment on above: Performed By: #### I NSULIN #### [facility] [address] [place] [address] Dr. Teodoro Owens CBC AUTO DIFFon 12-30-2021 BASO # 0.0 103/ul Normal 0.0-0.1 [facility] Comment on above: Performed By: #### C BC #### [facility] [address] [place] [address] Dr. Teodoro Owens Basophils/100 WBC (Bld) 0.5 % Normal 0.2-2.0 [facility] Comment on above: Performed By: #### C BC #### [facility] [address] [place] [address] Dr. Teodoro Owens EO # 0.1 103/ul Normal 0.0-0.7 [facility] Comment on above: Performed By: #### C BC #### [facility] [address] [place] [address] Dr. Teodoro Owens Eosinophils/100 WBC (Bld) 1.5 % Normal 0.9-7.0 [facility] Comment on above: Performed By: #### C BC #### [facility] [address] [place] [address] Dr. Teodoro Owens Erythrocyte distribution width (RBC) [Ratio] 12.7 % Normal 11.0-15.0 [facility] Comment on above: Performed By: #### C BC #### [facility] [address] [place] [address] Dr. Teodoro Owens Hematocrit (Bld) [Volume fraction] 40.7 % Critically low 42.0-54.0 [facility] Comment on above: Performed By: #### C BC #### [facility] [address] [place] [address] Dr. Teodoro Owens Hemoglobin (Bld) [Mass/Vol] 13.8 g/dL Critically low 14.0-18.0 [facility] Comment on above: Performed By: #### C BC #### [facility] [address] [place] [address] Dr. Teodoro Owens IG # 0.01 10e3/ul Normal 0.00-0.03 [facility] Comment on above: Performed By: #### C BC #### [facility] [address] [place] [address] Dr. Teodoro Owens IG % 0.3 % Normal 0.0-0.5 [facility] Comment on above: Performed By: #### C BC #### [facility] [address] [place] [address] Dr. Teodoro Owens LYMPH # 1.9 103/ul Normal 1.2-3.8 [facility] Comment on above: Performed By: #### C BC #### [facility] [address] [place] [address] Dr. Teodoro Owens Lymphocytes/100 WBC (Bld) 48.3 % Normal 20.5-60.0 [facility] Comment on above: Performed By: #### C BC #### [facility] [address] [place] [address] Dr. Teodoro Owens MANUAL DIFF REQ NO Normal [facility] Comment on above: Performed By: #### C BC #### [facility] [address] [place] [address] Dr. Teodoro Owens MCH (RBC) [Entitic mass] 31.0 pg Normal 25.9-34.0 [facility] Comment on above: Performed By: #### C BC #### [facility] [address] [place] [address] Dr. Teodoro Owens MCHC (RBC) [Mass/Vol] 33.9 g/dL Normal 29.9-35.2 [facility] Comment on above: Performed By: #### C BC #### [facility] [address] [place] [address] Dr. Teodoro Owens MCV (RBC) [Entitic vol] 91.5 fL Normal 80.0-94.0 [facility] Comment on above: Performed By: #### C BC #### [facility] [address] [address] [address] Teodoro Owens MONO # 0.4 103/ul Normal 0.3-0.8 [facility] Comment on above: Performed By: #### C BC #### [facility] [address] [place] [address] Dr. Teodoro Owens Monocytes/100 WBC (Bld) 9.0 % Normal 1.7-12.0 [facility] Comment on above: Performed By: #### C BC #### [facility] [address] [place] [address] Dr. Teodoro Owens NEUT # 1.6 103/ul Normal 1.4-6.5 [facility] Comment on above: Performed By: #### C BC #### [facility] [address] [place] [address] Dr. Teodoro Owens Neutrophils/100 WBC (Bld) 40.4 % Critically low 43.0-75.0 [facility] Comment on above: Performed By: #### C BC #### [facility] [address] [place] [address] Dr. Teodoro Owens Platelet mean volume (Bld) [Entitic vol] 9.1 fL Critically low 9.5-13.5 [facility] Comment on above: Performed By: #### C BC #### [facility] [address] [place] [address] Dr. Teodoro Owens PLT 176 103/ul Normal 150-[address] [facility] Comment on above: Performed By: #### C BC #### [facility] [address] [place] [address] Dr. Teodoro Owens RBC 4.45 106/ul Critically low 4.70-6.10 [facility] Comment on above: Performed By: #### C BC #### [facility] [address] [place] [address] Dr. Teodoro Owens WBC 4.0 103/ul Normal 4.0-11.[address] [facility] Comment on above: Performed By: #### C BC #### [facility] [address] [place] [address] Dr. Teodoro Owens GLYCOHEMOGLOBIN A1Con 08-09- 2022 ADA RECOMMENDATION SEE BELOW Normal [facility] Comment on above: Result Comment: ADA RECOMMENDED LIMIT 4.0 - 6.0 ADA THERAPEUTIC TARGET < 7.0 ACTION SUGGESTED > 7.0 Performed By: #### A 1C #### [facility] [address] [address] [address] Teodoro Owens Glucose [Mass/Vol] 91 mg/dL Normal [facility] Comment on above: Performed By: #### A 1C #### [facility] [address] [address] [address] Teodoro Owens HbA1c (Bld) [Mass fraction] 4.8 % Normal 4.5-6.2 [facility] Comment on above: Performed By: #### A 1C #### [facility] [address] [place] [address] Dr. Teodoro Owens LIPID PROFILEon 12-30-2021 CHOL-HDL RATIO NORM SEE BELOW Normal [facility] Comment on above: Result Comment: 3.3 - 4.4 LOW RISK 4.4 - 7.1 AVERAGE RISK 7.1 - 11.0 MODERATE RISK >11.0 HIGH RISK Performed By: #### U ZACH, CMP, LIPID #### [facility] [address] [address] [address] Teodoro Owens Cholesterol [Mass/Vol] 103 mg/dL Normal <=200 Th [facility] Comment on above: Performed By: #### U ZACH, CMP, LIPID #### [facility] [address] [address] [address] Teodoro Owens Cholesterol in HDL [Mass/Vol] 74 mg/dL Critically high 40-60 [facility] Comment on above: Performed By: #### U ZACH, CMP, LIPID #### [facility] [address] [address] [address] Teodoro Owens Cholesterol in LDL [Mass/Vol] 26.0 mg/dL Normal [facility] Comment on above: Performed By: #### U ZACH, CMP, LIPID #### [facility] [address] [address] [address] Teodoro Owens Cholesterol.total/Choles terol in HDL [Mass ratio] 1.4 {ratio} Normal [facility] Comment on above: Performed By: #### U ZACH, CMP, LIPID #### [facility] [address] [address] [address] Teodoro Owens HDL NORMAL > or = 60 mg/dl - LOW CARDIOVASCULAR RISK <40 mg/dl - HIGH CARDIOVASCULAR RISK Normal [facility] Comment on above: Performed By: #### U ZACH, CMP, LIPID #### [facility] [address] [address] [address] Teodoro Owens LDL CALC NORMAL SEE BELOW Normal [facility] Comment on above: Result Comment: <100 mg/dl OPTIMAL 100 - 129 mg/dl NEAR OR ABOVE OPTIMAL 130 - 159 mg/dl BORDERLINE HIGH 160 - 189 mg/dl HIGH >190 mg/dl VERY HIGH Performed By: #### U ZACH, CMP, LIPID #### [facility] [address] [address] [address] Teodoro Oewns Triglyceride [Mass/Vol] 15 mg/dL Normal <=150 T [facility] Comment on above: Performed By: #### U ZACH, CMP, LIPID #### [facility] [address] [address] [address] Teodoro Owens VLDL CALC 3.0 mg/dL Normal [facility] Comment on above: Performed By: #### U ZACH, CMP, LIPID #### [facility] [address] [address] [address] Teodoro Owens PROF 14(COMP METB)on 022 Albumin [Mass/Vol] 3.8 g/dL Normal 3.4-5.0 [facility] Comment on above: Performed By: #### U ZACH, CMP, LIPID #### [facility] [address] [address] [address] Teodoro Owens Albumin/Globulin [Mass ratio] 1.2 {ratio} Normal [facility] Comment on above: Performed By: #### U ZACH, CMP, LIPID #### [facility] [address] [address] [address] Teodoro Owens ALP [Catalytic activity/Vol] 42 U/L Critically low 46-116 [facility] Comment on above: Performed By: #### U ZACH, CMP, LIPID #### [facility] [address] [address] [address] Teodoro Owens ALT [Catalytic activity/Vol] 21 U/L Normal 16-63 [facility] Comment on above: Performed By: #### U ZACH, CMP, LIPID #### [facility] [address] [address] [address] Teodoro Owens Anion gap [Moles/Vol] 9.9 mmol/L Normal [facility] Comment on above: Performed By: #### U ZACH, CMP, LIPID #### [facility] [address] [address] [address] Teodoro Owens AST [Catalytic activity/Vol] 20 U/L Normal 15-37 [facility] Comment on above: Performed By: #### U ZACH, CMP, LIPID #### [facility] [address] [place] [address] Dr. Teodoro Owens Bilirubin [Mass/Vol] 0.8 mg/dL Normal 0.2-1.0 [facility] Comment on above: Performed By: #### U ZACH, CMP, LIPID #### [facility] [address] [place] [address] Dr. Teodoro Owens Calcium [Mass/Vol] 8.6 mg/dL Normal 8.5-10.1 [facility] Comment on above: Performed By: #### U ZACH, CMP, LIPID #### [facility] [address] [address] [address] Teodoro Owens Chloride [Moles/Vol] 106 mmol/L Normal 98-[address] [facility] Comment on above: Performed By: #### U ZACH, CMP, LIPID #### [facility] [address] [place] [address] Dr. Teodoro Owens CO2 [Moles/Vol] 30.2 mmol/L Normal 21.0-32.0 [facility] Comment on above: Performed By: #### U ZACH, CMP, LIPID #### [facility] [address] [place] [address] Dr. Teodoro Owens Creatinine [Mass/Vol] 1.01 mg/dL Normal 0.70-1.30 [facility] Comment on above: Performed By: #### U ZACH, CMP, LIPID #### [facility] [address] [address] [address] Teodoro Owens EGFR-AF CITIZEN [place] >60 Normal >=60 [facility] Comment on above: Performed By: #### U ZACH, CMP, LIPID #### [facility] [address] [address] [address] Teodoro Owens EGFR-NON AF CITIZEN OF [place] >60 Normal >=60 [facility] Comment on above: Performed By: #### U ZACH, CMP, LIPID #### [facility] [address] [address] [address] Teodoro Owens Globulin (S) [Mass/Vol] 3.2 g/dL Normal [facility] Comment on above: Performed By: #### U ZACH, CMP, LIPID #### [facility] [address] [address] [address] Teodoro Owens Glucose [Mass/Vol] 88 mg/dL Normal 74-106 [facility] Comment on above: Performed By: #### U ZACH, CMP, LIPID #### [facility] [address] [address] [address] Teodoro Owens Potassium [Moles/Vol] 4.1 mmol/L Normal 3.5-5.1 [facility] Comment on above: Performed By: #### U ZACH, CMP, LIPID #### [facility] [address] [address] [address] Teodoro Owens Protein [Mass/Vol] 7.0 g/dL Normal 6.4-8.2 [facility] Comment on above: Performed By: #### U ZACH, CMP, LIPID #### [facility] [address] [address] [address] Teodoro Owens Sodium [Moles/Vol] 142 mmol/L Normal 136-145 [facility] Comment on above: Performed By: #### U ZACH, CMP, LIPID #### [facility] [address] [address] [address] Teodoro Owens Urea nitrogen [Mass/Vol] 14.0 mg/dL Normal 7.0-18.0 [facility] Comment on above: Performed By: #### U ZACH, CMP, LIPID #### [facility] [address] [address] [address] Teodoro Owens Urea nitrogen/Creatinine [Mass ratio] 13.9 mg/mg Normal [facility] Comment on above: Performed By: #### U ZACH, CMP, LIPID #### [facility] [address] [address] [address] Teodoro Owens URIC ACID SERUMon 12-30-2021 Urate [Mass/Vol] 5.5 mg/dL Normal 3.5-7.2 [facility] Comment on above: Performed By: #### U ZACH, CMP, LIPID #### [facility] [address] [address] [address] Teodoro Owens Hemoglobin A1Con 11-03-2020 Glucose [Mass/Vol] 100 mg/dL Normal [facility] Comment on above: Result Comment: The ADA and AACC recommend providing the estimated average glucose result to permit better patient understanding of their HBA1c result. Performed By: #### G LYHGB, INSU, LIPR, PSAS #### [place] [address] Aviation Safety Technician: Max Villanueva MD #### CP, CDP #### [facility] [address] [place] [address] [place] [id number] Aviation Safety Technician: Preet Ayala MD HbA1c (Bld) [Mass fraction] 5.1 % Normal 4.0-6.0 [facility] Comment on above: Performed By: #### G LYHGB, INSU, LIPR, PSAS #### [address] [id number] Aviation Safety Technician: Max Villanueva MD #### CP, CDP #### [facility] [address] [place] [address] [address] [id number] Aviation Safety Technician: Preet Ayala MD CBC Auto DifferentialOrdered By: Keshia Holt on 11-02-2020 [employer] Eos # 0.06 [employer] [facility] Work Phone: Absolute Immature Granulocyte <0.03 [employer] Work Phone: Absolute Lymph # 2.06 [employer] Work Phone: [employer] [place] # 0.47 [employer] Work Phone: Basophils (Bld) [#/Vol] 10*3/uL M [email or web address] Work Phone: Basophils/100 WBC (Bld) 0 % 0 - 2 % M [email or web address] Work Phone: Differential Type NOT REPORTED [employer] Work Phone: Eosinophils/100 WBC (Bld) 1 % 1 - 4 % [employer] Phone: Hematocrit (Bld) [Volume fraction] 42.2 % 40.7 - 50.3 % [employer] Work Phone: Hemoglobin.gastrointesti nal spec 1 Ql (Stl) 14.5 g/dL 13.0 - 17.0 g/dL [employer] Phone: Immature granulocytes/100 WBC (Bld) 0 % 0 [employer] Phone: Lymphocytes/100 WBC (Bld) 40 % 24 - 43 % [employer] Work Phone: MCH (RBC) [Entitic mass] 31.0 pg 25. 2 - 33.5 pg [employer] Work Phone: MCHC (RBC) [Mass/Vol] 34.4 g/dL 28.4 - 34.8 g/dL [employer] Phone: MCV (RBC) [Entitic vol] 90.4 fL 82.6 - 102.9 fL [employer] Phone: Monocytes/100 WBC (Bld) 9 % 3 - 12 % M [email or web address] Work Phone: NRBC Automated 0.0 0.0 per 100 WBC [employer] Phone: Platelet distribution width (Bld) [Ratio] 12.5 % 11.8 - 14.4 % [employer] Phone: Platelet Estimate NOT REPORTED [employer] Phone: Platelet mean volume (Bld) [Entitic vol] 9.1 fL 8.1 - 13.5 fL [employer] Phone: Platelets (Bld) [#/Vol] 173 10*3/uL [employer] Phone: RBC (Bld) [#/Vol] 4.67 10*6/uL 4.21 - 5.7 7 m/uL [employer] Phone: RBC (Bld) [#/Vol] NOT REPORTED [employer] Phone: Segmented neutrophils/100 WBC (Bld) 50 % 36 - 65 % [employer] Phone: Segs Absolute 2.54 [employer] Work Phone: WBC (Bld) [#/Vol] 5.2 10*3/uL [employer] Phone: WBC (Bld) [#/Vol] NOT REPORTED [employer] Phone: [employer] Work Phone: CBC with Diffon 11-02-2020 Abs. Basophil <0.03 Normal 0.00-0.20 [facility] Comment on above: Performed By: #### G LYHGB, INSU, LIPR, PSAS #### [facility] [employer] [address] [place] [address] Aviation Safety Technician: Max Villanueva MD #### CP, CDP #### [facility] [address] [place] [address] Aviation Safety Technician: Preet Ayala MD Abs.Imm.Granulocyte <0.03 Normal 0.00-0.30 [facility] Comment on above: Performed By: #### G LYHGB, INSU, LIPR, PSAS #### [address] [address] Aviation Safety Technician: Max Villanueva MD #### CP, CDP #### [address] [place] [place] [id number] Aviation Safety Technician: Preet Ayala MD Abs.Neutrophil (Seg) 2.54 k/uL Normal 1.50-8.10 [facility] Comment on above: Performed By: #### G LYHGB, INSU, LIPR, PSAS #### [place] [address] Aviation Safety Technician: Max Villanueva MD #### CP, CDP #### [address] [place] [phone] Aviation Safety Technician: Preet Ayala MD Basophils/100 WBC (Bld) 0 % Normal 0-2 [facility] Comment on above: Performed By: #### G LYHGB, INSU, LIPR, PSAS #### [place] [address] Aviation Safety Technician: Max Villanueva MD #### CP, CDP #### [address] [place] [phone] Aviation Safety Technician: Preet Ayala MD Eosinophils (Bld) [#/Vol] 0.06 10*3/uL Normal 0.00-0.44 [facility] Comment on above: Performed By: #### G LYHGB, INSU, LIPR, PSAS #### [place] [address] Aviation Safety Technician: Max Villanueva MD #### CP, CDP #### [address] [place], [place] [phone] Aviation Safety Technician: Preet Ayala MD Eosinophils/100 WBC (Bld) 1 % Normal 1-4 [facility] Comment on above: Performed By: #### G LYHGB, INSU, LIPR, PSAS #### [address] [address] Aviation Safety Technician: Max Villanueva MD #### CP, CDP #### [address] [place], [place] 038[address]83 Aviation Safety Technician: Preet Ayala MD Erythrocyte distribution width (RBC) [Ratio] 12.5 % Normal 11.8-14.4 [facility] Comment on above: Performed By: #### G LYHGB, INSU, LIPR, PSAS #### [address] [address] Aviation Safety Technician: Max Villanueva MD #### CP, CDP #### [address] [place], [place] 174[address]83 Aviation Safety Technician: Preet Ayala MD Hematocrit (Bld) [Volume fraction] 42.2 % Normal 40.7-50.3 [facility] Comment on above: Performed By: #### G LYHGB, INSU, LIPR, PSAS #### [address] [address] Aviation Safety Technician: Max Villanueva MD #### CP, CDP #### [address] [place], [place] 7908383 Aviation Safety Technician: Preet Ayala MD Hemoglobin (Bld) [Mass/Vol] 14.5 g/dL Normal 13.0-17.0 [facility] Comment on above: Performed By: #### G LYHGB, INSU, LIPR, PSAS #### [address] [address] Aviation Safety Technician: Mxa Villanueva MD #### CP, CDP #### [facility] [address] [place] [place] [address] Aviation Safety Technician: Preet Ayala MD Immature granulocytes/100 WBC (Bld) 0 % Normal 0 [facility] Comment on above: Performed By: #### G LYHGB, INSU, LIPR, PSAS #### [address] [address] Aviation Safety Technician: Max Villanueva MD #### CP, CDP #### [facility] [address] [place] [phone] Aviation Safety Technician: Preet Ayala MD Lymphocytes (Bld) [#/Vol] 2.06 10*3/uL Normal 1.10-3.70 [facility] Comment on above: Performed By: #### G LYHGB, INSU, LIPR, PSAS #### [address] [address] Aviation Safety Technician: Max Villanueva MD #### CP, CDP #### [address] [place] [phone] Aviation Safety Technician: Preet Ayala MD Lymphocytes/100 WBC (Bld) 40 % Normal 24-43 [facility] Comment on above: Performed By: #### G LYHGB, INSU, LIPR, PSAS #### [address] [address] Aviation Safety Technician: Max Villanueva MD #### CP, CDP #### [facility] [address] [place] [id number] Aviation Safety Technician: Preet Ayala MD MCH (RBC) [Entitic mass] 31.0 pg Normal 25.2-33.5 [facility] Comment on above: Performed By: #### G LYHGB, INSU, LIPR, PSAS #### [address] [address] Aviation Safety Technician: Max Villanueva MD #### CP, CDP #### [address] [place] [phone] Aviation Safety Technician: Preet Ayala MD MCHC (RBC) [Mass/Vol] 34.4 g/dL Normal 28.4-34.8 [facility] Comment on above: Performed By: #### G LYHGB, INSU, LIPR, PSAS #### [address] [address] Aviation Safety Technician: Max Villanueva MD #### CP, CDP #### [address] [place] [phone] Aviation Safety Technician: Preet Ayala MD MCV (RBC) [Entitic vol] 90.4 fL Normal 82.6-102.9 [facility] Comment on above: Performed By: #### G LYHGB, INSU, LIPR, PSAS #### [address] [address] Aviation Safety Technician: Max Villanueva MD #### CP, CDP #### [address] [place] [phone] Aviation Safety Technician: Preet Ayala MD Monocytes (Bld) [#/Vol] 0.47 10*3/uL Normal 0.10-1.20 [facility] Comment on above: Performed By: #### G LYHGB, INSU, LIPR, PSAS #### [address] [address] Aviation Safety Technician: Max Villanueva MD #### CP, CDP #### [address] [place] [phone] Aviation Safety Technician: Preet Ayala MD Monocytes/100 WBC (Bld) 9 % Normal 3-12 [facility] Comment on above: Performed By: #### G LYHGB, INSU, LIPR, PSAS #### [place] [address] [place] [address] Aviation Safety Technician: Max Villanueva MD #### CP, CDP #### [facility] [address] [place], [place] 2662883 Aviation Safety Technician: Preet Ayala MD Neutrophil (Seg) 50 % Normal 36-65 [facility] Comment on above: Performed By: #### G LYHGB, INSU, LIPR, PSAS #### [address] [address] Aviation Safety Technician: Max Villanueva MD #### CP, CDP #### [facility] [address] [place] [place] [address] Aviation Safety Technician: Preet Ayala MD NRBC Automated 0.0 per 100 WBC Normal 0.0 [facility] Comment on above: Performed By: #### G LYHGB, INSU, LIPR, PSAS #### [address] [address] Aviation Safety Technician: Max Villanueva MD #### CP, CDP #### [facility] [address] [place] [place] [address] Aviation Safety Technician: Preet Ayala MD Platelet mean volume (Bld) [Entitic vol] 9.1 fL Normal 8.1-13.5 [facility] Comment on above: Performed By: #### G LYHGB, INSU, LIPR, PSAS #### [address] [address] Aviation Safety Technician: Max Villanueva MD #### CP, CDP #### [facility] [address] [place] [place] [address] Aviation Safety Technician: Preet Ayala MD Platelets (Bld) [#/Vol] 173 10*3/uL Normal 138-453 [facility] Comment on above: Performed By: #### G LYHGB, INSU, LIPR, PSAS #### [address] [address] Aviation Safety Technician: Max Villanueva MD #### CP, CDP #### [address] [place] [address] Aviation Safety Technician: Preet Ayala MD RBC (Bld) [#/Vol] 4.67 10*6/uL Normal 4.21-5.77 [facility] Comment on above: Performed By: #### G LYHGB, INSU, LIPR, PSAS #### [address] [address] Aviation Safety Technician: Max Villanueva MD #### CP, CDP #### [address] [place] [phone] Aviation Safety Technician: Preet Ayala MD WBC (Bld) [#/Vol] 5.2 10*3/uL Normal 3.5-11.3 [facility] Comment on above: Performed By: #### G LYHGB, INSU, LIPR, PSAS #### [address] [address] Aviation Safety Technician: Max Villanueva MD #### CP, CDP #### [address] [place] [phone] Aviation Safety Technician: Preet Ayala MD Auto Diff Performed NOT REPORTED Normal [facility] Comment on above: Performed By: #### G LYHGB, INSU, LIPR, PSAS #### [address] [address] Aviation Safety Technician: Max Villanueva MD #### CP, CDP #### [address] [place] [phone] Aviation Safety Technician: Preet Ayala MD Platelet Estimate NOT REPORTED Normal [facility] Comment on above: Performed By: #### G LYHGB, INSU, LIPR, PSAS #### [address] [address] Aviation Safety Technician: Max Villanueva MD #### CP, CDP #### [facility] [address] [place] [address] [place], [place] [phone] Aviation Safety Technician: Preet Ayala MD RBC morphology finding Nom (Bld) NOT REPORTED Normal [facility] Comment on above: Performed By: #### G LYHGB, INSU, LIPR, PSAS #### [address] [address] Aviation Safety Technician: Max Villanueva MD #### CP, CDP #### [facility] [address] [place] [address] [place], [place] [phone] Aviation Safety Technician: Preet Ayala MD WBC Morphology NOT REPORTED Normal [facility] Comment on above: Performed By: #### G LYHGB, INSU, LIPR, PSAS #### [address] [address] Aviation Safety Technician: Max Villanueva MD #### CP, CDP #### [facility] [address] [place] [address] [place], [place] [phone] Aviation Safety Technician: Preet Ayala MD Comp Metabolic Profon 2020 (cont.) Normal [facility] Comment on above: Result Comment: Aver age GFR for 50-59 years old: 93 mL/min/1.73sq m Chronic Kidney Disease: <60 mL/min/1.73sq m Kidney failure: <15 mL/min/1.73sq m eGFR calculated using average adult body mass. Additional eGFR calculator available at: http://www.SageCloud.PoachIt/multiple_crcl_2012.htm Performed By: #### G LYHGB, INSU, LIPR, PSAS #### [address] [address] Aviation Safety Technician: Max Villanueva MD #### CP, CDP #### [facility] [address] [place] [phone] Aviation Safety Technician: Preet Ayala MD Albumin [Mass/Vol] 4.0 g/dL Normal 3.5-5.2 [facility] Comment on above: Performed By: #### G LYHGB, INSU, LIPR, PSAS #### [address] [address] Aviation Safety Technician: Max Villanueva MD #### CP, CDP #### [facility] [address] [place] [phone] Aviation Safety Technician: Preet Ayala MD Albumin/Glob Ratio 1.3 Normal 1.0-2.5 [facility] Comment on above: Performed By: #### G LYHGB, INSU, LIPR, PSAS #### [address] [address] Aviation Safety Technician: Max Villanueva MD #### CP, CDP #### [facility] [address] [place] [address] [place]. [place] [phone] Aviation Safety Technician: Preet Ayala MD Alkaline Phos 47 U/L Normal 40-129 [facility] Comment on above: Performed By: #### G LYHGB, INSU, LIPR, PSAS #### [address] [address] Aviation Safety Technician: Max Villanueva MD #### CP, CDP #### [facility] [address] [place] [phone] Aviation Safety Technician: Preet Ayala MD ALT [Catalytic activity/Vol] 18 U/L Normal 5-41 [facility] Comment on above: Performed By: #### G LYHGB, INSU, LIPR, PSAS #### [address] [address] Aviation Safety Technician: Max Villanueva MD #### CP, CDP #### [facility] [address] [place] [place] [address] Aviation Safety Technician: Preet Ayala MD Anion gap [Moles/Vol] 7 mmol/L Low 9-17 [facility] Comment on above: Performed By: #### G LYHGB, INSU, LIPR, PSAS #### [address] [phone] Aviation Safety Technician: Max Villanueva MD #### CP, CDP #### [facility] [address] [place] [place] [address] Aviation Safety Technician: Preet Ayala MD AST [Catalytic activity/Vol] 21 U/L Normal <40 [facility] Comment on above: Performed By: #### G LYHGB, INSU, LIPR, PSAS #### [address] [address] Aviation Safety Technician: Max Villanueva MD #### CP, CDP #### [facility] [address] [place] [address] Aviation Safety Technician: Preet Ayala MD Bilirubin [Mass/Vol] 0.80 mg/dL Normal 0.3-1.2 [facility] Comment on above: Performed By: #### G LYHGB, INSU, LIPR, PSAS #### [address] [address] Aviation Safety Technician: Max Villanueva MD #### CP, CDP #### [facility] [address] [place] [address] Aviation Safety Technician: Preet Ayala MD BUN/CRE Ratio 16 Normal 9-20 [facility] Comment on above: Performed By: #### G LYHGB, INSU, LIPR, PSAS #### [address] [address] Aviation Safety Technician: Max Villanueva MD #### CP, CDP #### [facility] [address] [place] [address] [place] [address] Aviation Safety Technician: Preet Ayala MD Calcium [Mass/Vol] 9.1 mg/dL Normal 8.6-10.4 [facility] Comment on above: Performed By: #### G LYHGB, INSU, LIPR, PSAS #### [address] [id number] Aviation Safety Technician: Max Villanueva MD #### CP, CDP #### [facility] [address] [place] [address] [place] [address] Aviation Safety Technician: Preet Ayala MD Chloride [Moles/Vol] 106 mmol/L Normal 98-107 [facility] Comment on above: Performed By: #### G LYHGB, INSU, LIPR, PSAS #### [address] [phone] Aviation Safety Technician: Max Villanueva MD #### CP, CDP #### [address] [place] [address] Aviation Safety Technician: Preet Ayala MD CO2 [Moles/Vol] 25 mmol/L Normal 20-31 [facility] Comment on above: Performed By: #### G LYHGB, INSU, LIPR, PSAS #### [address] [phone] Aviation Safety Technician: Max Villanueva MD #### CP, CDP #### [facility] [address] [place] [address] [place] [address] Aviation Safety Technician: Preet Ayala MD Creatinine [Mass/Vol] 0.97 mg/dL Normal 0.70-1.20 [facility] Comment on above: Performed By: #### G LYHGB, INSU, LIPR, PSAS #### [address] [address] Aviation Safety Technician: Max Villanueva MD #### CP, CDP #### [facility] [address] [place] [address] [place] [address] Aviation Safety Technician: Preet Ayala MD GFR, Amer >60 Normal >60 [facility] Comment on above: Performed By: #### G LYHGB, INSU, LIPR, PSAS #### [address] [address] Aviation Safety Technician: Max Villanueva MD #### CP, CDP #### [facility] [address] [place] [address] [place] [address] Aviation Safety Technician: Preet Ayala MD GFR,non Amer >60 Normal >60 [facility] Comment on above: Performed By: #### G LYHGB, INSU, LIPR, PSAS #### [address] [address] Aviation Safety Technician: Max Villanueva MD #### CP, CDP #### [facility] [address] [place] [address] Dr. [place] [phone] Aviation Safety Technician: Preet Ayala MD Glucose [Mass/Vol] 95 mg/dL Normal 70-99 [facility] Comment on above: Performed By: #### G LYHGB, INSU, LIPR, PSAS #### [address] [address] Aviation Safety Technician: Max Villanueva MD #### CP, CDP #### [facility] [address] [place] [address] [place] [address] Aviation Safety Technician: Preet Ayala MD Potassium [Moles/Vol] 4.0 mmol/L Normal 3.7-5.3 [facility] Comment on above: Performed By: #### G LYHGB, INSU, LIPR, PSAS #### [address] [address] Aviation Safety Technician: Max Villanueva MD #### CP, CDP #### [address] [place], [place] 7521783 Aviation Safety Technician: Preet Ayala MD Protein [Mass/Vol] 7.1 g/dL Normal 6.4-8.3 [facility] Comment on above: Performed By: #### G LYHGB, INSU, LIPR, PSAS #### [address] [address] Aviation Safety Technician: Max Villanueva MD #### CP, CDP #### [address] [place] [address] Aviation Safety Technician: Preet Ayala MD Sodium [Moles/Vol] 138 mmol/L Normal 135-144 [facility] Comment on above: Performed By: #### G LYHGB, INSU, LIPR, PSAS #### [address] [phone] Aviation Safety Technician: Max Villanueva MD #### CP, CDP #### [address] [place] [address] Aviation Safety Technician: Preet Ayala MD Staging: Normal [facility] Comment on above: Result Comment: Stag e 1: Some kidney damage normal GFR Stage 2: Mild kidney damage GFR 60-89 Stage 3: Moderate kidney damage GFR 30-59 Stage 4: Severe kidney damage GFR 15-29 Stage 5: Severe kidney damage GFR <15 ESRD - chronic treatment by dialysis or transplant Performed By: #### G LYHGB, INSU, LIPR, PSAS #### [address] [address] Aviation Safety Technician: Max Villanueva MD #### CP, CDP #### [address] [place] [address] Aviation Safety Technician: Preet Ayala MD Urea nitrogen [Mass/Vol] 16 mg/dL Normal 6-20 [facility] Comment on above: Performed By: #### G LYHGB, INSU, LIPR, PSAS #### [employer] [address] [place] [address] Aviation Safety Technician: Max Villanueva MD #### CP, CDP #### [facility] [address] [place] [address] Aviation Safety Technician: Preet Ayala MD Comprehensive Metabolic Pane lOrdered By: Keshia Holt on 11-02-2020 Albumin [Mass/Vol] 4 g/dL 3.5 - 5.2 g/dL [employer] Phone: Albumin/Globulin [Mass ratio] 1.3 {ratio} [employer] Phone: ALP (Bld) [Catalytic activity/Vol] 47 U/L 40 - 129 [facility]: ALT [Catalytic activity/Vol] 18 U/L 5 - 41 U/L [employer] Phone: Anion gap [Moles/Vol] 7 mmol/L Low 9 - 17 mmol/L [employer] Phone: AST [Catalytic activity/Vol] 21 U/L <40 [facility]: Bilirubin [Mass/Vol] 0.80 mg/dL 0.3 - 1 .2 mg/dL [employer] Phone: Calcium [Mass/Vol] 9.1 mg/dL 8.6 - 10. 4 mg/dL [employer] Phone: Chloride [Moles/Vol] 106 mmol/L 98 - 10 7 mmol/L [employer] Phone: CO2 [Moles/Vol] 25 mmol/L 20 - 31 mmol/L [facility]: Creatinine [Mass/Vol] 0.97 mg/dL 0.70 - 1.20 mg/dL [employer] Phone: Free PSA/Total PSA [Mass fraction] 7.1 g/dL 6.4 - 8.3 g/dL [facility] [employer] Phone: GFR >60 >60 mL/min [facility] [employer] Phone: GFR Non- >60 >60 mL/min [facility] [employer] Phone: Glucose [Mass/Vol] 95 mg/dL 70 - 99 mg/dL [facility] [employer] Phone: Interpretation and review of laboratory results Abnormal [facility] [employer] Phone: Potassium [Moles/Vol] 4.0 mmol/L 3.7 - 5.3 mmol/L [facility] [employer] Phone: Sodium [Moles/Vol] 138 mmol/L 135 - 144 mmol/L [facility] [employer] Phone: Urea nitrogen (BldV) [Mass/Vol] 16 mg/dL 6 - 20 mg/dL [facility] [employer] Phone: Urea nitrogen/Creatinine (Bld) [Mass ratio] 16 [facility] [employer] Phone: [facility] [employer] Phone: Insulinon 11-02-2020 Insulin 7.1 mU/L Normal [facility] Comment on above: Performed By: #### G LYHGB, INSU, LIPR, PSAS #### [facility] [employer] [address] [place] [address] Aviation Safety Technician: Max Villanueva MD #### CP, CDP #### [facility] [address] [place] [place] [address] Aviation Safety Technician: Preet Ayala MD Reference Range Normal [facility] Comment on above: Result Comment: Fast in.6-24.9 30 min: 20-112 60 min: 29-88 90 min: 26-84 120 min: 22-79 Performed By: #### G LYHGB, INSU, LIPR, PSAS #### [facility] [address] [place], [place] [id number] Aviation Safety Technician: Max Villanueva MD #### CP, CDP #### [facility] [address] [place] [address] [place], [place] [id number] Aviation Safety Technician: Preet Ayala MD Collection Info. NOT REPORTED Normal [facility] Comment on above: Performed By: #### G LYHGB, INSU, LIPR, PSAS #### [place] [address] [place], [place] [id number] Aviation Safety Technician: Max Villanueva MD #### CP, CDP #### [facility] [address] [place] [address] [place] [address] Aviation Safety Technician: Preet Ayala MD Insulin, totalOrdered By: Do jamison Holt on 11-02-2020 Insulin 7.1 mU/L [employer] Phone: Insulin Comment NOT REPORTED [facility] [employer] Phone: Insulin Reference Range: [employer] Phone: Comment on above: Fastin.6-24.9 30 min: 20-112 60 min: 29-88 90 min: 26-84 120 min: 22-79 [employer] Phone: Laboratory - Chemistry and C hemistry - challengeOrdered By: Keshia Holt on 11-02-2020 GFR/1.73 sq M.predicted MDRD (S/P/Bld) [Vol rate/Area] [employer] Phone: Comment on above: Average GFR for 50-5 9 years old: 93 mL/min/1.73sq m Chronic Kidney Disease: <60 mL/min/1.73sq m Kidney failure: <15 mL/min/1.73sq m eGFR calculated using average adult body mass. Additional eGFR calculator available at: http://www.SageCloud.PoachIt/multiple_crcl_2011.htm Stage 1: Some kidney damage normal GFR Stage 2: Mild kidney damage GFR 60-89 Stage 3: Moderate kidney damage GFR 30-59 Stage 4: Severe kidney damage GFR 15-29 Stage 5: Severe kidney damage GFR <15 ESRD - chronic treatment by dialysis or transplant Lipid PanelOrdered By: Chan Holt on 11-02-2020 Cholesterol [Mass/Vol] 93 mg/dL <200 [employer] Phone: Comment on above: Cholesterol Guidelines: <200 Desirable 200-240 Borderline >240 Undesirable Cholesterol in HDL [Mass/Vol] 69 mg/dL >40 [employer] Phone: Comment on above: HDL Guidelines: <40 Undesirable 40-59 Borderline >59 Desirable Cholesterol in LDL [Mass/Vol] 20 mg/dL 0 - 130 mg/dL [employer] Phone: Comment on above: LDL Guidelines: <100 Desirable 100-129 Near to/above Desirable 130-159 Borderline >159 Undesirable Direct (measured) LDL and calculated LDL are not interchangeable tests. Cholesterol in VLDL [Mass/Vol] NOT REPORTED 1 - 30 mg/dL [employer] Phone: Cholesterol.total/Choles terol in HDL [Mass ratio] 1.3 {ratio} <5 [employer] Phone: Triglyceride [Mass/Vol] 21 mg/dL <150 [employer] Phone: Comment on above: Triglyceride Guidelines: <150 Desirable 150-199 Borderline 200-499 High >499 Very high Based on AHA Guidelines for fasting triglyceride, February 2012. [employer] Phone: Lipid Profileon 11-02-2020 Cholesterol [Mass/Vol] 93 mg/dL Normal <200 [facility] Comment on above: Result Comment: Cholesterol Guidelines: <200 Desirable 200-240 Borderline >240 Undesirable Performed By: #### G LYHGB, INSU, LIPR, PSAS #### [employer] [facility] [place], [place] [id number] Aviation Safety Technician: Max Villanueva MD #### CP, CDP #### [facility] [address] [place] [address] [address] [place], [place] 4005983 Aviation Safety Technician: Preet Ayala MD Cholesterol in HDL [Mass/Vol] 69 mg/dL Normal >40 [facility] Comment on above: Result Comment: HDL Guidelines: <40 Undesirable 40-59 Borderline >59 Desirable Performed By: #### G LYHGB, INSU, LIPR, PSAS #### [facility] [address] [place], [place] [id number] Aviation Safety Technician: Max Villanueva MD #### CP, CDP #### [facility] [address] [place] [address] [place] [address] Aviation Safety Technician: Preet Ayala MD Cholesterol in LDL [Mass/Vol] 20 mg/dL Normal 0-130 [facility] Comment on above: Result Comment: LDL Guidelines: <100 Desirable 100-129 Near to/above Desirable 130-159 Borderline >159 Undesirable Direct (measured) LDL and calculated LDL are not interchangeable tests. Performed By: #### G LYHGB, INSU, LIPR, PSAS #### [facility] [address] [place] [address] Aviation Safety Technician: Max Villanueva MD #### CP, CDP #### [facility] [address] [place] [address] [place] [address] Aviation Safety Technician: Preet Ayala MD Cholesterol.total/Choles terol in HDL [Mass ratio] 1.3 {ratio} Normal <5 [facility] Comment on above: Performed By: #### G LYHGB, INSU, LIPR, PSAS #### [facility] [address] [place], [place] [id number] Aviation Safety Technician: Max Villanueva MD #### CP, CDP #### [facility] [address] [place] [address] [place]. [place], [place] [id number] Aviation Safety Technician: Preet Ayala MD Triglyceride [Mass/Vol] 21 mg/dL Normal <150 M [facility] Comment on above: Result Comment: Triglyceride Guidelines: <150 Desirable 150-199 Borderline 200-499 High >499 Very high Based on AHA Guidelines for fasting triglyceride, February 2012. Performed By: #### G LYHGB, INSU, LIPR, PSAS #### [facility] [address] [place] [address] Aviation Safety Technician: Max Villanueva MD #### CP, CDP #### [facility] [address] [place] [address] Aviation Safety Technician: Preet Ayala MD Cholesterol,VLDL NOT REPORTED Normal 06-22 [facility] Comment on above: Performed By: #### G LYHGB, INSU, LIPR, PSAS #### [place] [address] [place], [place] [id number] Aviation Safety Technician: Max Villanueva MD #### JONATHAN, CDP #### [address] [place] [address] Aviation Safety Technician: Preet Ayala MD PSA screeningOrdered By: John Holt on 11-02-2020 [facility] Work Phone: PSA, Screeningon 11-02-2020 Prostatic Spec. Ag 0.33 ug/L Normal <4.1 [facility] Comment on above: Result Comment: The [employer] ECLIA assay is used. Results obtained with different assay methods cannot be used interchangeably. Performed By: #### G LYHGB, INSU, LIPR, PSAS #### [facility] [address] [place], [place] [id number] Aviation Safety Technician: Max Villanueva MD #### CP, CDP #### [facility] [address] [place] [address] Aviation Safety Technician: Preet Ayala MD CBC Auto Differentialon 10-23 Basophils (Bld) [#/Vol] 0.03 10*3/uL [place] Basophils/100 WBC (Bld) 1 % 0 - 2 % M [place] Differential Type NOT REPORTED [place] Eosinophils (Bld) [#/Vol] 0.09 10*3/uL [place] Eosinophils/100 WBC (Bld) 2 % 1 - 4 % [place] Erythrocyte distribution width (RBC) [Ratio] 12.4 % 11.8 - 14.4 % [place] Hematocrit (Bld) [Volume fraction] 41.8 % 40.7 - 50.3 % [place] Hemoglobin (Bld) [Mass/Vol] 14.0 g/dL 13 - 17 g/dL [place] Immature granulocytes (Bld) [#/Vol] 10*3/uL [place] Immature granulocytes (Bld) [#/Vol] 0 % 0 [place] Interpretation and review of laboratory results Abnormal [place] Lymphocytes (Bld) [#/Vol] 1.93 10*3/uL [place] Lymphocytes/100 WBC (Bld) 45 % High 24 - 43 % [place] MCH (RBC) [Entitic mass] 31.0 pg 25. 2 - 33.5 pg [place] MCHC (RBC) [Mass/Vol] 33.5 g/dL 28.4 - 34.8 g/dL [place] MCV (RBC) [Entitic vol] 92.5 fL 82.6 - 102.9 fL [place] Monocytes (Bld) [#/Vol] 0.42 10*3/uL [place] Monocytes/100 WBC (Bld) 10 % 3 - 12 % [place] Platelet mean volume (Bld) [Entitic vol] 9.6 fL 8.1 - 13.5 fL [place] Platelets (Bld) [#/Vol] 176 10*3/uL [place] Platelets (Bld) [#/Vol] NOT REPORTED [place] RBC (Bld) [#/Vol] 4.52 10*6/uL 4.21 - 5.7 7 m/uL [place] RBC morphology finding Nom (Bld) NOT REPORTED [place] Segmented neutrophils/100 WBC (Bld) 42 % 36 - 65 % [place] Segs Absolute 1.79 [place] WBC (Bld) [#/Vol] 0.0 10*3/uL 0.0 per 10 0 WBC [place] WBC (Bld) [#/Vol] 4.3 10*3/uL [place] WBC Morphology NOT REPORTED [place], [place] CBC with Diffon 11-13-2019 Abs. Basophil 0.03 k/uL Normal 0.00-0.20 [facility] Comment on above: Performed By: #### L IPR, CP, GLYHGB, CDP #### [address] [place] [phone] Aviation Safety Technician: Lalit Ro MD #### PSAS #### [place] [phone] Aviation Safety Technician: Max Villanueva MD Abs.Imm.Granulocyte <0.03 Normal 0.00-0.30 [facility] Comment on above: Performed By: #### L IPR, CP, GLYHGB, CDP #### [address] [place] [phone] Aviation Safety Technician: Lalit Ro MD #### PSAS #### [place] [address] Aviation Safety Technician: Max Villanueva MD Abs.Neutrophil (Seg) 1.79 k/uL Normal 1.50-8.10 [facility] Comment on above: Performed By: #### L IPR, CP, GLYHGB, CDP #### [address] [place] [id number] Aviation Safety Technician: Lalit Ro MD #### PSAS #### [address] [phone] Aviation Safety Technician: Max Villanueva MD Basophils/100 WBC (Bld) 1 % Normal 0-2 M [facility] Comment on above: Performed By: #### L IPR, CP, GLYHGB, CDP #### [address] [place] [address] Aviation Safety Technician: Lalit Ro MD #### PSAS #### [place] [phone] Aviation Safety Technician: Max Villanueva MD Eosinophils (Bld) [#/Vol] 0.09 10*3/uL Normal 0.00-0.44 [facility] Comment on above: Performed By: #### L IPR, CP, GLYHGB, CDP #### [address] [place] [phone] Aviation Safety Technician: Lalit Ro MD #### PSAS #### [place] [address] Aviation Safety Technician: Max Villnaueva MD Eosinophils/100 WBC (Bld) 2 % Normal 1-4 [facility] Comment on above: Performed By: #### L IPR, CP, GLYHGB, CDP #### [address] [place] [phone] ( Aviation Safety Technician: Lalit Ro MD #### PSAS #### [place] [address] Aviation Safety Technician: Max Villanueva MD Erythrocyte distribution width (RBC) [Ratio] 12.4 % Normal 11.8-14.4 [facility] Comment on above: Performed By: #### L IPR, CP, GLYHGB, CDP #### [address] [place] [phone] Aviation Safety Technician: Lalit Ro MD #### PSAS #### [address] [phone] Aviation Safety Technician: Mxa Villanueva MD Hematocrit (Bld) [Volume fraction] 41.8 % Normal 40.7-50.3 [facility] Comment on above: Performed By: #### L IPR, CP, GLYHGB, CDP #### [address] [place] [phone] Aviation Safety Technician: Lalit Ro MD #### PSAS #### [address] [phone] Aviation Safety Technician: Max Villanueva MD Hemoglobin (Bld) [Mass/Vol] 14.0 g/dL Normal 13.0-17.0 [facility] Comment on above: Performed By: #### L IPR, CP, GLYHGB, CDP #### [address] [place] [phone] Aviation Safety Technician: Lalit Ro MD #### PSAS #### [place] [phone] Aviation Safety Technician: Max Villanueva MD Immature granulocytes/100 WBC (Bld) 0 % Normal 0 [facility] Comment on above: Performed By: #### L IPR, CP, GLYHGB, CDP #### [address] [place] [phone] Aviation Safety Technician: Lalit Ro MD #### PSAS #### [place] [address] Aviation Safety Technician: Max Villanueva MD Lymphocytes (Bld) [#/Vol] 1.93 10*3/uL Normal 1.10-3.70 [facility] Comment on above: Performed By: #### L IPR, CP, GLYHGB, CDP #### [address] [place] [phone] Aviation Safety Technician: Lalit Ro MD #### PSAS #### [address] [phone] Aviation Safety Technician: Max Villanueva MD Lymphocytes/100 WBC (Bld) 45 % High 24-43 [facility] Comment on above: Performed By: #### L IPR, CP, GLYHGB, CDP #### [facility] [address] [place] [phone] Aviation Safety Technician: Lalit Ro MD #### PSAS #### [address] [phone] Aviation Safety Technician: Max Villanueva MD MCH (RBC) [Entitic mass] 31.0 pg Normal 25.2-33.5 [facility] Comment on above: Performed By: #### L IPR, CP, GLYHGB, CDP #### [address] [place] [phone] Aviation Safety Technician: Lalit Ro MD #### PSAS #### [address] [address] Aviation Safety Technician: Max Villanueva MD MCHC (RBC) [Mass/Vol] 33.5 g/dL Normal 28.4-34.8 [facility] Comment on above: Performed By: #### L IPR, CP, GLYHGB, CDP #### [address] [place] [phone] Aviation Safety Technician: Lalit Ro MD #### PSAS #### [address] [phone] Aviation Safety Technician: Max Villanueva MD MCV (RBC) [Entitic vol] 92.5 fL Normal 82.6-102.9 M [facility] Comment on above: Performed By: #### L IPR, CP, GLYHGB, CDP #### [address] [place] [address] Aviation Safety Technician: Lalit Ro MD #### PSAS #### [address] [phone] Aviation Safety Technician: Max Villanueva MD Monocytes (Bld) [#/Vol] 0.42 10*3/uL Normal 0.10-1.20 [facility] Comment on above: Performed By: #### L IPR, CP, GLYHGB, CDP #### [facility] [address] [place] [address] Aviation Safety Technician: Lalit Ro MD #### PSAS #### [address] [address] Aviation Safety Technician: Max Villanueva MD Monocytes/100 WBC (Bld) 10 % Normal 3-12 M [facility] Comment on above: Performed By: #### L IPR, CP, GLYHGB, CDP #### [facility] [address] [place] [address] [place] [phone] Aviation Safety Technician: Lalit Ro MD #### PSAS #### [address] [address] Aviation Safety Technician: Max Villanueva MD Neutrophil (Seg) 42 % Normal 36-65 [facility] Comment on above: Performed By: #### L IPR, CP, GLYHGB, CDP #### [address] [place], [place] 9999183 Aviation Safety Technician: Lalit Ro MD #### PSAS #### [address] [address] Aviation Safety Technician: Max Villanueva MD NRBC Automated 0.0 per 100 WBC Normal 0.0 [facility] Comment on above: Performed By: #### L IPR, CP, GLYHGB, CDP #### [address] [place], [place] 2655383 Aviation Safety Technician: Lalit Ro MD #### PSAS #### [address] [address] Aviation Safety Technician: Max Villanueva MD Platelet mean volume (Bld) [Entitic vol] 9.6 fL Normal 8.1-13.5 [facility] Comment on above: Performed By: #### L IPR, CP, GLYHGB, CDP #### [address] [place] [phone] ( Aviation Safety Technician: Lalit Ro MD #### PSAS #### [place] [address] Aviation Safety Technician: Max Villanueva MD Platelets (Bld) [#/Vol] 176 10*3/uL Normal 138-453 [facility] Comment on above: Performed By: #### L IPR, CP, GLYHGB, CDP #### [address] [place] [address] Aviation Safety Technician: Lalit Ro MD #### PSAS #### [place] [address] Aviation Safety Technician: Max Villanueva MD RBC (Bld) [#/Vol] 4.52 10*6/uL Normal 4.21-5.77 [facility] Comment on above: Performed By: #### L IPR, CP, GLYHGB, CDP #### [address] [place] [phone] ( Aviation Safety Technician: Lalit Ro MD #### PSAS #### [place] [address] Aviation Safety Technician: Max Villanueva MD WBC (Bld) [#/Vol] 4.3 10*3/uL Normal 3.5-11.3 [facility] Comment on above: Performed By: #### L IPR, CP, GLYHGB, CDP #### [address] [place] [phone] ( Aviation Safety Technician: Lalit Ro MD #### PSAS #### [address] [address] Aviation Safety Technician: Max Villanueva MD Auto Diff Performed NOT REPORTED Normal [facility] Comment on above: Performed By: #### L IPR, CP, GLYHGB, CDP #### [facility] [address] [place] [address] Dr. [place], [place] [id number] Aviation Safety Technician: Lalit Ro MD #### PSAS #### [address] [address] Aviation Safety Technician: Max Villanueva MD Platelet Estimate NOT REPORTED Normal [facility] Comment on above: Performed By: #### L IPR, CP, GLYHGB, CDP #### [address] [place] [phone] Aviation Safety Technician: Lalti Ro MD #### PSAS #### [address] [address] Aviation Safety Technician: Max Villanueva MD RBC morphology finding Nom (Bld) NOT REPORTED Normal [facility] Comment on above: Performed By: #### L IPR, CP, GLYHGB, CDP #### [address] [place], [place] [phone] Aviation Safety Technician: Lalit Ro MD #### PSAS #### [address] [address] Aviation Safety Technician: Max Villanueva MD WBC Morphology NOT REPORTED Normal [facility] Comment on above: Performed By: #### L IPR, CP, GLYHGB, CDP #### [address] [place], [place] 9039683 Aviation Safety Technician: Lalit Ro MD #### PSAS #### [address] [address] Aviation Safety Technician: Max Villanueva MD Comp Metabolic Profon 2019 (cont.) Normal [facility] Comment on above: Result Comment: Aver age GFR for 50-59 years old: 93 mL/min/1.73sq m Chronic Kidney Disease: <60 mL/min/1.73sq m Kidney failure: <15 mL/min/1.73sq m eGFR calculated using average adult body mass. Additional eGFR calculator available at: http://www.[employer]/multiple_crcl_2012.htm Performed By: #### L IPR, CP, GLYHGB, CDP #### [address] [place] [phone] Aviation Safety Technician: Lalit Ro MD #### PSAS #### [address] [phone] Aviation Safety Technician: Max Villanueva MD Albumin [Mass/Vol] 4.1 g/dL Normal 3.5-5.2 [facility] Comment on above: Performed By: #### L IPR, CP, GLYHGB, CDP #### [address] [place] [phone] Aviation Safety Technician: Lalit Ro MD #### PSAS #### [address] [address] Aviation Safety Technician: Max Villanueva MD Albumin/Glob Ratio 1.5 Normal 1.0-2.5 [facility] Comment on above: Performed By: #### L IPR, CP, GLYHGB, CDP #### [address] [place] [phone] Aviation Safety Technician: Lalit Ro MD #### PSAS #### [address] [phone] Aviation Safety Technician: Max Villanueva MD Alkaline Phos 44 U/L Normal 40-129 [facility] Comment on above: Performed By: #### L IPR, CP, GLYHGB, CDP #### [address] [place] [phone] Aviation Safety Technician: Lalit Ro MD #### PSAS #### [address] [phone] Aviation Safety Technician: Max Villanueva MD ALT [Catalytic activity/Vol] 20 U/L Normal 5-41 [facility] Comment on above: Performed By: #### L IPR, CP, GLYHGB, CDP #### [facility] [address] [place], [place] [phone] Aviation Safety Technician: Lalit Ro MD #### PSAS #### [address] [phone] Aviation Safety Technician: Max Villanueva MD Anion gap [Moles/Vol] 11 mmol/L Normal 9-17 [facility] Comment on above: Performed By: #### L IPR, CP, GLYHGB, CDP #### [address] [place] [phone] ( Aviation Safety Technician: Lalit Ro MD #### PSAS #### [address] [phone] Aviation Safety Technician: Max Villanueva MD AST [Catalytic activity/Vol] 25 U/L Normal <40 [facility] Comment on above: Performed By: #### L IPR, CP, GLYHGB, CDP #### [address] [place], [place] 2659283 Aviation Safety Technician: Lalit Ro MD #### PSAS #### [address] [address] Aviation Safety Technician: Max Villanueva MD Bilirubin [Mass/Vol] 0.75 mg/dL Normal 0.3-1.2 [facility] Comment on above: Performed By: #### L IPR, CP, GLYHGB, CDP #### [address] [place], [place] 7746683 Aviation Safety Technician: Lalit Ro MD #### PSAS #### [address] [address] Aviation Safety Technician: Max Villanueva MD BUN/CRE Ratio 14 Normal 9-20 [facility] Comment on above: Performed By: #### L IPR, CP, GLYHGB, CDP #### [facility] [address] [place], [place] 5195083 Aviation Safety Technician: Lalit Ro MD #### PSAS #### [address] [address] Aviation Safety Technician: Max Villanueva MD Calcium [Mass/Vol] 8.8 mg/dL Normal 8.6-10.4 [facility] Comment on above: Performed By: #### L IPR, CP, GLYHGB, CDP #### [address] [place] [phone] Aviation Safety Technician: Lalit Ro MD #### PSAS #### [address] [address] Aviation Safety Technician: Max Villanueva MD Chloride [Moles/Vol] 104 mmol/L Normal 98-107 [facility] Comment on above: Performed By: #### L IPR, CP, GLYHGB, CDP #### [address] [place], [place] 8912083 Aviation Safety Technician: Lalit Ro MD #### PSAS #### [address] [address] Aviation Safety Technician: Max Villanueva MD CO2 [Moles/Vol] 27 mmol/L Normal 20-31 [facility] Comment on above: Performed By: #### L IPR, CP, GLYHGB, CDP #### [facility] [address] [place], [place] [phone] Aviation Safety Technician: Lalit Ro MD #### PSAS #### [address] [phone] Aviation Safety Technician: Max Villanueva MD Creatinine [Mass/Vol] 0.98 mg/dL Normal 0.70-1.20 [facility] Comment on above: Performed By: #### L IPR, CP, GLYHGB, CDP #### [facility] [address] [place], [place] 4866083 Aviation Safety Technician: Lalit Ro MD #### PSAS #### [address] [phone] Aviation Safety Technician: Max Villanueva MD GFR, Amer >60 Normal >60 [facility] Comment on above: Performed By: #### L IPR, CP, GLYHGB, CDP #### [facility] [address] [place] [address] [place], [place] [phone] Aviation Safety Technician: Lalit Ro MD #### PSAS #### [address] [address] Aviation Safety Technician: Max Villanueva MD GFR,non Amer >60 Normal >60 [facility] Comment on above: Performed By: #### L IPR, CP, GLYHGB, CDP #### [address] [place], [place] 7337383 Aviation Safety Technician: Lalit Ro MD #### PSAS #### [address] [address] Aviation Safety Technician: Max Villanueva MD Glucose [Mass/Vol] 86 mg/dL Normal 70-99 [facility] Comment on above: Performed By: #### L IPR, CP, GLYHGB, CDP #### [facility] [address] [place] [address] [place], [place] 6506983 Aviation Safety Technician: Lalit Ro MD #### PSAS #### [address] [address] Aviation Safety Technician: Max Villanueva MD Potassium [Moles/Vol] 3.8 mmol/L Normal 3.7-5.3 [facility] Comment on above: Performed By: #### L IPR, CP, GLYHGB, CDP #### [facility] [address] [place] [address] [place] [address] Aviation Safety Technician: Lalit Ro MD #### PSAS #### [address] [phone] Aviation Safety Technician: Max Villanueva MD Protein [Mass/Vol] 6.8 g/dL Normal 6.4-8.3 [facility] Comment on above: Performed By: #### L IPR, CP, GLYHGB, CDP #### [address] [place] [address] Aviation Safety Technician: Lalit Ro MD #### PSAS #### [address] [phone] Aviation Safety Technician: Max Villanueva MD Sodium [Moles/Vol] 142 mmol/L Normal 135-144 [facility] Comment on above: Performed By: #### L IPR, CP, GLYHGB, CDP #### [address] [place] [address] Aviation Safety Technician: Lalit Ro MD #### PSAS #### [address] [phone] Aviation Safety Technician: Max Villanueva MD Staging: Normal [facility] Comment on above: Result Comment: Stag e 1: Some kidney damage normal GFR Stage 2: Mild kidney damage GFR 60-89 Stage 3: Moderate kidney damage GFR 30-59 Stage 4: Severe kidney damage GFR 15-29 Stage 5: Severe kidney damage GFR <15 ESRD - chronic treatment by dialysis or transplant Performed By: #### L IPR, CP, GLYHGB, CDP #### [address] [place] [address] Aviation Safety Technician: Lalit Ro MD #### PSAS #### [facility] [address] [place], [place] [phone] Aviation Safety Technician: Max Villanueva MD Urea nitrogen [Mass/Vol] 14 mg/dL Normal 6-20 [facility] Comment on above: Performed By: #### L IPR, CP, GLYHGB, CDP #### [facility] [address] [place] [address] Aviation Safety Technician: Lalit Ro MD #### PSAS #### [facility] [address] [place] [address] Aviation Safety Technician: Max Villanueva MD Comprehensive Metabolic Pane [facility] 11-13-2019 Albumin [Mass/Vol] 4.1 g/dL 3.5 - 5.2 g/dL [place] Albumin/Globulin [Mass ratio] 1.5 {ratio} [place] ALP [Catalytic activity/Vol] 44 U/L 40 - 129 U/L [place] ALT [Catalytic activity/Vol] 20 U/L 5 - 41 U/L [place] Anion gap [Moles/Vol] 11 mmol/L 9 - 17 mmol/L [place] AST [Catalytic activity/Vol] 25 U/L <40 [place] Bilirubin Ql (U) 0.75 mg/dL 0.3 - 1.2 mg/dL [place] Bun/Cre Ratio 14 [place] Calcium [Mass/Vol] 8.8 mg/dL 8.6 - 10. 4 mg/dL [place] Chloride [Moles/Vol] 104 mmol/L 98 - 10 7 mmol/L [place] CO2 [Moles/Vol] 27 mmol/L 20 - 31 mmol/L [place] Creatinine [Mass/Vol] 0.98 mg/dL 0.7 - 1.2 mg/dL [place] GFR >60 >60 mL/min [place] GFR Non- >60 >60 mL/min [place] Glucose [Mass/Vol] 86 mg/dL 70 - 99 mg/dL [place] Potassium [Moles/Vol] 3.8 mmol/L 3.7 - 5.3 mmol/L [place] Protein [Mass/Vol] 6.8 g/dL 6.4 - 8.3 g/dL [place] Sodium [Moles/Vol] 142 mmol/L 135 - 144 mmol/L [place] Urea nitrogen [Mass/Vol] 14 mg/dL 6 - 20 mg/d L [place] Hemoglobin A1Con 11-13-2019 Glucose [Mass/Vol] 94 mg/dL Normal [place] Comment on above: The ADA and AACC rec ommend providing the estimated average glucose result to permit better patient understanding of their HBA1c result. Result Comment: The ADA and AACC recommend providing the estimated average glucose result to permit better patient understanding of their HBA1c result. Performed By: #### L IPR, CP, GLYHGB, CDP #### [facility] [address] [place] [address] [place] [address] Aviation Safety Technician: Lalit Ro MD #### PSAS #### [address] [address] Aviation Safety Technician: Max Villanueva MD HbA1c (Bld) [Mass fraction] 4.9 % Normal 4.8-5.9 [place] Comment on above: Performed By: #### L IPR, CP, GLYHGB, CDP #### [facility] [address] [place] [address] [place] [address] Aviation Safety Technician: Lalit Ro MD #### PSAS #### [address] [address] Aviation Safety Technician: Max Villanueva MD Lipid Panelon 11-13-2019 Cholesterol [Mass/Vol] 96 mg/dL <200 [place] Comment on above: Cholesterol Guidelines: <200 Desirable 200-240 Borderline >240 Undesirable Cholesterol in HDL [Mass/Vol] 70 mg/dL >40 [place] Comment on above: HDL Guidelines: <40 Undesirable 40-59 Borderline >59 Desirable Cholesterol in LDL [Mass/Vol] 19 mg/dL 0 - 130 mg/dL [place] Comment on above: LDL Guidelines: <100 Desirable 100-129 Near to/above Desirable 130-159 Borderline >159 Undesirable Direct (measured) LDL and calculated LDL are not interchangeable tests. Cholesterol in VLDL [Mass/Vol] NOT REPORTED 1 - 30 mg/dL [place] Cholesterol.total/Choles terol in HDL [Mass ratio] 1.4 {ratio} <5 [place] Triglyceride [Mass/Vol] 34 mg/dL <150 [place] Comment on above: Triglyceride Guidelines: <150 Desirable 150-199 Borderline 200-499 High >499 Very high Based on AHA Guidelines for fasting triglyceride, February 2012. Lipid Profileon 11-13-2019 Cholesterol [Mass/Vol] 96 mg/dL Normal <200 [facility] Comment on above: Result Comment: Cholesterol Guidelines: <200 Desirable 200-240 Borderline >240 Undesirable Performed By: #### L IPR, CP, GLYHGB, CDP #### [facility] [address] [place] [address] Aviation Safety Technician: Lalit Ro MD #### PSAS #### [facility] [place], [place] [id number] Aviation Safety Technician: Max Villanueva MD Cholesterol in HDL [Mass/Vol] 70 mg/dL Normal >40 [facility] Comment on above: Result Comment: HDL Guidelines: <40 Undesirable 40-59 Borderline >59 Desirable Performed By: #### L IPR, CP, GLYHGB, CDP #### [facility] [address] [place] [address] Aviation Safety Technician: Lalit Ro MD #### PSAS #### [facility] [address] [place], [place] [id number] Aviation Safety Technician: Max Villanueva MD Cholesterol in LDL [Mass/Vol] 19 mg/dL Normal 0-130 [facility] Comment on above: Result Comment: LDL Guidelines: <100 Desirable 100-129 Near to/above Desirable 130-159 Borderline >159 Undesirable Direct (measured) LDL and calculated LDL are not interchangeable tests. Performed By: #### L IPR, CP, GLYHGB, CDP #### [facility] [address] [place], [place] [id number] Aviation Safety Technician: Lalit Ro MD #### PSAS #### [address] [id number] Aviation Safety Technician: Max Villanueva MD Cholesterol.total/Choles terol in HDL [Mass ratio] 1.4 {ratio} Normal <5 [facility] Comment on above: Performed By: #### L IPR, CP, GLYHGB, CDP #### [facility] [address] [place] [address] Dr. [place], [place] [id number] Aviation Safety Technician: Lalit Ro MD #### PSAS #### [address] [address] Aviation Safety Technician: Max Villanueva MD Triglyceride [Mass/Vol] 34 mg/dL Normal <150 [facility] Comment on above: Result Comment: Triglyceride Guidelines: <150 Desirable 150-199 Borderline 200-499 High >499 Very high Based on AHA Guidelines for fasting triglyceride, February 2012. Performed By: #### L IPR, CP, GLYHGB, CDP #### [facility] [address] [place] [address] Dr. [place], [place] [id number] Aviation Safety Technician: Lalit Ro MD #### PSAS #### [address] [address] Aviation Safety Technician: Max Villanueva MD Cholesterol,VLDL NOT REPORTED Normal 30 [facility] Comment on above: Performed By: #### L IPR, CP, GLYHGB, CDP #### [facility] [address] [place], [place] [id number] Aviation Safety Technician: Lalit Ro MD #### PSAS #### [address] [place] [address] Aviation Safety Technician: Max Villanueva MD Metabolic Panelon 11-13-2019 GFR/1.73 sq M predicted among non-blacks MDRD (S/P/Bld) [Vol rate/Area] [place], [place] Comment on above: Average GFR for 50-5 9 years old: 93 mL/min/1.73sq m Chronic Kidney Disease: <60 mL/min/1.73sq m Kidney failure: <15 mL/min/1.73sq m eGFR calculated using average adult body mass. Additional eGFR calculator available at: http://www.Localytics/multiple_crcl_2012.htm Stage 1: Some kidney damage normal GFR Stage 2: Mild kidney damage GFR 60-89 Stage 3: Moderate kidney damage GFR 30-59 Stage 4: Severe kidney damage GFR 15-29 Stage 5: Severe kidney damage GFR <15 ESRD - chronic treatment by dialysis or transplant PSA, Screeningon 11-13-2019 Prostatic Spec. Ag 0.48 ug/L Normal <4.1 [facility] Comment on above: Result Comment: The [employer] ECLIA assay is used. Results obtained with different assay methods cannot be used interchangeably. Performed By: #### G LYHGB, INSU, LIPR, PSAS #### [facility] [address] [place] [address] Aviation Safety Technician: Max Villanueva MD #### CP, CDP #### [facility] [address] [place] [address] Aviation Safety Technician: Preet Ayala MD Provider Letteron 12-01-2018 Provider Letter Keshia Holt, [address] [place] [address] Re: Leeroy Abiel Date of Visit: 12/01/2018 Dear Keshia Holt, Thank you for referring Leeroy to my office. Attached you will find my plan and impression from their visit. Result Name Current Result Urology Office/Clinic Note 12/01/2018 Please review and contact my office with any questions or concerns. Sincerely, Aramis Molina, [employer] [address] [place] [phone] C C Providers: The following document(s) were included in the letter: December 01, 2018 09:41:42 EDT - (12/01/2018) Urology Office Visit Note Normal [facility] Urology Office/Clinic Noteon 12-01-2018 Urology Office/Clinic Note Chief Complaint Nocturia, Urinary Frequincy, Urgency, BPH History of Present Illness New patient referral Referral from Keshia Holt Concerns for lower urinary tract symptoms Patient has a history of BPH, urinary urgency, urinary frequency, nocturia Patient previously seen urologist Dr. Cleaning in the [place] area, patient underwent laser surgery of the [...] reviewed from Gemma Rios CNP from [facility] PSA August 2010 was 0.67 PSA December 2011 was 0.39 PSA November 2012 0.53 PSA February 2018 was 0.31 PSA October 2018 was 0.38 Correction patient did not have laser prostate surgery patient had cystoscopy with transurethral incision of the prostate by Dr. Neri Cleaning 10/02/2010 Electronically signed by Aramis Molina CNP 03/07/19 08:02 EDT Normal [facility] Vital Signs Date Time Vital Sign Value Performing Clinician Sherie baumann 12-05-2024 15:14-0400 Body height 170.2 cm Shruthi Estes MD Work Phone: [facility] 12-05-2024 15:14-0400 Body mass index (BMI) [Ratio] 27.41 kg/m2 Shruthi Estes MD Work Phone: [facility] 12-05-2024 15:14-0400 Body weight 79.38 kg Shruthi Estes MD Work Phone: [facility] 12-05-2024 15:14-0400 Diastolic blood pressure 82 mm[Hg] Shruthi Estes MD Work Phone: [facility] 12-05-2024 15:14-0400 Heart rate 75 /min Shruthi Estes MD Work Phone: [facility] 12-05-2024 15:14-0400 SaO2% (BldA) [Mass fraction] 96 % Shruthi Estes MD Work Phone: [facility] 12-05-2024 15:14-0400 Systolic blood pressure 150 mm[Hg] hSruthi Estes MD Work Phone: [facility] 11-29-2023 11:21-0400 Blood Pressure Location Neri CLEANING [facility] 11-29-2023 11:21-0400 Body temperature 98.6 [degF] Neri CLEANING [facility] 11-29-2023 11:21-0400 Diastolic blood pressure 84 mm[Hg] Neri CLEANING [facility] 11-29-2023 11:21-0400 Heart rate 79 /min Nerikhari CLEANING [facility] 11-29-2023 11:21-0400 Respiratory rate 16 /min Neri CLEANING [facility] 11-29-2023 11:21-0400 Systolic blood pressure 131 mm[Hg] Neri CLEANING [facility] Encounters Encounter Date Encounter Type Care Provider Facility Start: 01-29-2025 ambulatory Neri CLEANING Facili ty:[facility] Start: 12-05-2024 End: 12-05-2024 Office outpatient new 30 minutes Shruthi Estes MD [facility] Comment on above: Pre-op exam (Primary Dx); Essential hypertension Start: 12-05-2024 End: 12-05-2024 Preprocedural examination done Shruthi Estes MD Work Phone: [facility] Start: 12-05-2024 End: 12-05-[address] [facility] Start: 12-05-2024 Encounter for other preprocedural examination [facility] Start: 12-04-2024 End: 12-04-2024 Telephone encounter Christi Noe CMA [facility] Start: 11-29-2023 End: 11-29-2023 ambulatory Neri CLEANING Facility:[facility] Start: 11-29-2023 End: 11-29-2023 Patient encounter procedure Neri CLEANING [facility] Start: 07-20-2022 End: 07-20-2022 Lab Drop off Neri CLEANING [facility] Start: 12-31-2021 Encounter for genera l adult medical examination without abnormal findings DR KESHIA HOLT [facility] Start: 12-30-2021 End: 12-31-[address] KESHIA HOLT Facility:[facility] Start: 12-30-2021 End: 12-31-2021 Encounter for general adult medical examination without abnormal findings DR KESHIA HOLT Facility:[facility] Start: 06-30-2021 End: 07-01-[address] NERI CLEANING Facility:[facility] Start: 01-01-2021 End: 01-01-[address] RYLIE ALCAZAR Facility:[facility] Start: 11-02-2020 End: 11-03-2020 [facility] Start: 11-02-2020 End: 11-02-2020 Subsequent hospital visit by physician Keshia Holt MD Work Phone: [facility] Start: 10-24-2020 End: 10-25-2020 ambulatory [facility] Start: 10-24-2020 End: 10-24-2020 Subsequent hospital visit by physician Keshia Holt MD Work Phone: [facility] Start: 11-13-2019 End: 11-14-2019 ambulatory [facility] Start: 11-13-2019 End: 11-13-2019 Subsequent hospital visit by physician Keshia Holt [facility] Laboratory Procedures Date Procedure Procedure Detail Performing Clinician Start: 12-05-2024 Ecg routine ecg w/le ast 12 lds w/i&r Shruthi Estes MD Work Phone: Start: 12-30-[address] EAMON ALCAZAR Comment on above: Performed By: #### P SASC #### [facility] [address] [place] [address] Dr. Teodoro Owens Start: 06-30-[address] EAMON ALCAZAR Comment on above: Performed By: #### P SAD #### [facility] [address] [place] [address] Dr. Teodoro Owens Start: 11-02-2020 PSA screening [...] Treatment Date Care Activity Detail Author Start: 12-05-2025 Adult BMI Screening Adult BMI Screen ing [facility] Start: 12-05-2025 Tobacco Screening Tobacco Screening [facility] Start: 01-22-2025 Influenza vaccination Influenza Vacc ine [facility] Start: 12-11-2024 DTaP,Tdap and Td Vac cines (2 - Td or Tdap) DTaP,Tdap and Td Vaccines (2 - Td or Tdap) [facility] Start: 12-05-2024 End: 12-05-2024 Patient encounter procedure 12/05/2024 3:30 PM EDT Office Visit [facility] [address] [place], [place] [address] [phone] Shruthi Estes MD [address] [place] [address] [facility] Start: 01-23-2024 COVID-19 Vaccine ( season) COVID-19 Vaccine ( season) [facility] Start: 01-23-2024 COVID-19 Vaccine ( season) COVID-19 Vaccine ( season) [facility] Start: 01-22-2021 Influenza vaccination Flu vacc ine (Season Ended) [employer] Work Phone: Start: 2016 Administration of varicella zoster vaccine Zoster (Shingles) Vaccine (1 of 2) [facility] Start: 1985 DTaP,Tdap and Td Vac cines (1 - Tdap) DTaP,Tdap and Td Vaccines (1 - Tdap) [facility] Start: 1984 Adult BMI Follow Up Plan Adult BMI Follow Up Plan [facility] Start: 1984 Adult BMI Screening Adult BMI Screen ing [facility] Start: 1978 COVID-19 Vaccine (1) COVID-19 Vaccin e (1) [employer] Work Phone: Start: 1978 Depression Screening Depression Scre ening [facility] Start: 1978 Tobacco Screening Tobacco Screening [facility] End: 11-02-2020 Hemoglobin A1c/Hemoglobin.total in Blood Hemoglobin A1C Lab Routine Once for 1 Occurrences starting 11/02/2020 until 11/02/2020 [employer] Work Phone: Comment on above: Once for 1 Occurrenc es starting 11/02/2020 until 11/02/2020 Hemoglobin A1c/Hemoglobin.total in Blood Hemoglobin A1C Lab Routine 11/02/2020 7:15 AM EDT [employer] Work Phone: Immunizations Immunization Date Immunization Notes Care Provider Fa cility 03-11-2022 influenza virus vaccine, unspecified formulation Shruthi Estes MD Work Phone: [facility] 09-17-2020 SARS-CoV-2 (COVID-19 ) mRNA-1273 vaccine Nerikhari CLEANING [facility] 08-31-2020 SARS-CoV-2 (COVID-19 ) mRNA-1273 vaccine Neri CLEANING [facility] 08-27-2020 SARS-CoV-2 (COVID-19 ) mRNA-1273 vaccine Neri CLEANING [facility] 08-03-2020 SARS-CoV-2 (COVID-19 ) mRNA-1273 vaccine Nerikhari CLEANING [facility] 04-15-2020 influenza virus vaccine, unspecified formulation Neri CLEANING [facility] Payers Date Payer Category Payer Managed Care Other (unspecified) [id number] 2020 Unknown [id number] 2020 Unknown [id number] 2019 Unknown [employer] xxxxxxxxx 2019-Present [phone] [address] [place] [address] xxxxxxxxx [id number] 1966 Unknown [id number]. [id number] 1966 Unknown [id number] [id number]. [id number] 1966 Unknown [id number] [id number]. [id number] 1966 Unknown [id number]. [id number] 1966 Unknown [id number] [id number]. [id number] 1966 Unknown [id number] [id number]. [id number] 1966 Unknown [id number] [id number]. 2.727 1966 Unknown [id number] [id number]. 2.727 1966 Unknown [id number] [id number]. [id number] 1959 Unknown [id number] Social History Date Type Detail Facility Tobacco smoking stat [facility] Unknown if ever smoked [place], [place] Start: 1965 Sex Assigned At Not on file [place] Start: 11-27-2020 End: 12-05-2024 Tobacco smoking status Ex-smoker (finding) [facility] Start: 11-02-2018 End: 12-05-2024 Sex Assigned At Female [facility] Tobacco smoking stat [facility] Tobacco smoking consumption unknown [facility] Start: 11-02-2018 End: 12-05-2024 History of Social function [facility] Start: 12-27-2014 Sex Male (finding) [facility] History of tobacco use Current smoker [facility] History of tobacco use Cigarette Smoker [facility] Start: 12-05-2024 Tobacco use and exposure Smokeless tobacco non-user [facility] Start: 12-05-2024 Alcoholic beverage intake Current drinker of alcohol (finding) [facility] Functional Status Date Assessment Result Facility 11-29-2023 Functional Status N/A [facility] Clinical Notes 01-01-2021 to 12-05-2024 Shruthi Estes MD - 12/05/2024 3:30 PM EDTTelephone Encounter - Christi Noe, DULCE - 12/04/2024 12:53 PM EDTTelephone Encounter - Christi Noe, DULCE - 12/04/2024 12:53 PM EDT Note Date & Type Note Facility 12-05-2024 History of Present illness Narrative Leeroy Romo Date of visit: 12/05/2024 Date of : 1965 Age: 59 y.o. Patient Active Problem List Diagnosis Erectile dysfunction BPH with obstruction/lower urinary tract symptoms Benign prostatic hyperplasia Frequency of urination Heartburn Nocturia Obstructive sleep apnea syndrome Overweight with body mass index (BMI) 25.0-29.9 Prostatitis Urinary urgency No Known Allergies Current Outpatient Medications Medication Sig Dispense Refill grape seed extract (GRAPE SEED ORAL) Take by mouth in the morning. lisinopriL (PRINIVIL,ZESTRIL) 10 mg tablet Take 1 tablet (10 mg total) by mouth in the morning. oxybutynin XL (DITROPAN XL) 15 mg 24 hr tablet Take 1 tablet (15 mg total) by mouth in the morning. UNABLE TO FIND in the morning and before bedtime. Blood Flow Max . No current facility-administered medications for this visit. Chief Complaint Patient presents with New Patient Pre-op Exam Deviated Septum History of Present Illness 59-year-old male who is seeing me for the 1st time for preoperative cardiovascular risk assessment. He has past medical history of hypertension on lisinopril. He is planned for DNS surgery. . He reports no chest pain, shortness of breath or palpitation he is fairly active. EKG in the office showed normal sinus rhythm. He has no prior history of coronary artery disease. His blood pressure is slightly high in the office. He is on lisinopril 10 mg. History reviewed. No pertinent past medical history. No data recorded No data recorded No data recorded History reviewed. No pertinent surgical history. History reviewed. No pertinent family history. Social History Socioeconomic History Marital status: Spouse name: Not on file Number of children: Not on file Years of education: Not on file Highest education level: Not on file Occupational History Not on file Tobacco Use Smoking status: Former Types: Cigarettes Smokeless tobacco: Never Vaping Use Vaping status: Some Days Substance and Sexual Activity Alcohol use: Yes Drug use: Defer Sexual activity: Not on file Other Topics Concern Caffeine Use Yes Social History Narrative Not on file Social Drivers of Health Financial Resource Strain: Not on file Food Insecurity: No Food Insecurity (12/05/2024) Hunger Screening Food Insecurity - Worry: Never True Food Insecurity - Inability: Never True Transportation Needs: Not on file Physical Activity: Not on file Stress: Not on file Social Connections: Not on file Interpersonal Safety: Not on file Housing Instability: Not on file Review of Systems Review of Systems Constitutional: Negative. HENT: Negative. Eyes: Negative. Cardiovascular: Negative. Respiratory: Negative. Hematologic/Lymphatic: Negative. Skin: Negative. Musculoskeletal: Negative. Neurological: Negative. Psychiatric/Behavioral: Negative. Allergic/Immunologic: Negative. CARDIOVASCULAR: Please review HPI. Physical Examination General appearance: Alert, oriented and cooperative. In no acute distress. Skin: Warm and dry to touch. Head: Normocephalic, without obvious abnormality, atraumatic. Ears, Nose, Mouth, Throat: Throat clear without erythema or exudate. Dentition intact. Eyes: Conjunctivae unremarkable, EOM intact. Neck: No JVD, No carotid bruit. Neck supple, trachea midline. Respiratory: Clear to auscultation bilaterally, no use of accessory muscles. Cardiovascular: RRR with normal S1 and S2 with no murmurs. Gastrointestinal: Soft, non-tender. Bowel sounds normal. Musculoskeletal: No peripheral edema. Neurologic: Oriented to time, person and place, affect appropriate. No focal/major motor defects noted. Psychiatric: Appropriate mood, memory and judgement. VITAL SIGNS: BP 150/82 Pulse 75 Ht 170.2 cm (5' 7 ) Wt 79.4 kg (175 lb) SpO2 96% BMI 27.41 kg/m Orders Placed or Reconciled This Encounter Medications lisinopriL (PRINIVIL,ZESTRIL) 10 mg tablet Sig: Take 1 tablet (10 mg total) by mouth in the morning. oxybutynin XL (DITROPAN XL) 15 mg 24 hr tablet Sig: Take 1 tablet (15 mg total) by mouth in the morning. grape seed extract (GRAPE SEED ORAL) Sig: Take by mouth in the morning. UNABLE TO FIND Sig: in the morning and before bedtime. Blood Flow Max . There are no discontinued medications. IMPRESSIONS/PLAN Preoperative cardiovascular risk assessment Hypertension EKG showed normal sinus rhythm he will be low to moderate risk for perioperative cardiovascular complication. He is fairly active with no cardiac symptoms. He can increase the dose of lisinopril to 20 mg for blood pressure controlled follow up with PCP no further testing from cardiac standpoint Follow-up on a yearly basis TODAYS ORDERS Orders Placed This Encounter Procedures POCT EKG FOLLOW UP No follow-ups on file. PCP: No primary care provider on file. Referring Physician: No referring provider defined for this encounter. documented in this encounter [facility] 12-04-2024 Miscellaneous Notes Unable to leave message for patient to remind them of upcoming appointment because phone number has been disconnected. documented in this encounter [facility] 12-04-2024 Telephone encounter Note Unable to leave message for patient to remind them of upcoming appointment because phone number has been disconnected. [facility] 11-29-2023 Hospital Discharge instructions Patient Education 11/29/2023 [...] urethra. Follow these instructions at home: Take [id number] and prescription medicines only as told by [...] provider. Document Revised: 11/26/2021 Document Reviewed: 11/26/2021 [employer] Patient Education 2022 [employer]. Follow Up Care 07/20/2022 16:13:55 With:LIANET THEODORE, Neri Callejas, URL Address: [facility] [address] , [place] [phone] When: Unknown [facility] 11-29-2023 Note Patient Education Urology Benign Prostatic [...] Follow these instructions at home: ? Take nphq-ojw-lwpbqes and prescription medicines only as told by [...] develop side effec (more content not included)... [facility] 01-01-2021 Note OPERATIVE NOTE OPERATION DATE: 01-01-21 [...] in 10 years for screening. cc:Dr. Holt. [facility] Signed and Approved by: DR RYLIE ALCAZAR . 01/03/2021 15:43:00 [facility] Evaluation + Plan note Future Appointments Appointment Date:07/19/2023 03:00:00 PM Scheduled Provider:Neri CLEANING MD Location:[facility] Appointment Type:URO Office Visit Diagnostic Tests PendingPSA Total 07/20/22 [facility] Evaluation + Plan note Future Appointments Appointment Date:12/01/2024 08:00:00 AM Scheduled Provider:Neri CLEANING MD Location:[facility] Appointment Type:URO Office Visit Diagnostic Tests PendingPSA Total 11/29/23 [facility] Evaluation note Diagnosis Pre-op exam- Primary Essential hypertension Unspecified essential hypertension [facility] N[facility] No data available for this section [facility] Discharge instructions No data available for this section [facility] filed[facility]ed in this encounter [facility] filedocumented in this encounter [facility] No data available for this section [facility] Summary Purpose Family History No Family History Records FoundNo Family History Records FoundNo Family History Records Found No data available for this section No Family History Records FoundNo Family History Records Found Advance Directives No Advanced Directives Records FoundDocuments on File Type Date Recorded Patient Lead Pl Sql Developer Expl anation Advance Directives and Living Will Power of Handle Bar Assembler Documents on File Type Date Recorded Patient Lead Pl Sql Developer Expl anation ACP-Advance Directive ACP-Power of Handle Bar Assembler Additional Source Comments (unrecognized sect ion and content) No Status Records FoundNo Status Records FoundNo Status Records FoundNo Status Records FoundNo Status Records Found INFORMATION SOURCE (unrecogn ized section and content) DATE CREATED AUTHOR 03/07/2019 [facility] DATE CREATED AUTHOR AUTHOR'S ORGANIZ ATION 11/03/2020 [facility] DATE CREATED AUTHOR AUTHOR'S ORGANIZ ATION 12/31/[address] [facility] DATE CREATED AUTHOR AUTHOR'S ORGANIZ ATION 11/23/2024 [facility] DATE CREATED AUTHOR AUTHOR'S ORGANIZ ATION 12/09/2024 [facility] Patient Care team informatio n (unrecognized section and content) Personnel Name: Keshia Holt MD Address: Address: [address] [place] [address] Personnel Name: Keshia Holt MD Address: Address: [address] [place] [address] Reason for Visit (unrecogniz ed section and content) Reason Comments New Patient Pre-op Exam Deviated Septum FOR RECORDS PERTAINING TO PATIENTS WHO ARE [...] BE BASED ON THE PRIMARY CLINICAL RECORDS. [facility]. provides no warranty or guarantee of the accuracy or completeness of information in this document.
--- OUTSIDE RECORDS SUMMARY | 2025-01-18 06:34 | XMS_ITS | Patient Health Record ---
Author Organization [facility] in [place] Address [address] [place] [address] Care Team Providers Care Mop Maker Name Role Phone Castillo Holt Primary Care Provider [phone] Allergies No Known Allergies Results Component Value Reference Range Notes LIPID PROFILE Reviewed date:08/29/2024 03:43:58 PM Interpretation: Performing Lab: Notes/Report: [facility] , Triglycerides 26 <=150 mg/dL Cholesterol 97 <=200 mg/dL HDL Cholesterol 72 40-60 mg/dL > or =60 mg/dl - LOW CARDIOVASCULAR RISK <40 mg/dl - HIGH CARDIOVASCULAR RISK LDL Cholesterol Calculated 20.0 <100 mg/dl OPTIMAL 100-129 mg/dl NEAR OR ABOVE OPTIMAL 130-159 mg/dl BORDERLINE HIGH 160-189 mg/dl HIGH >190 mg/dl VERY HIGH VLDL CHOLESTEROL 5.2 Chol HDL Ratio 1.3 3.3 - 4.4 LOW RISK 4.4 - 7.1 AVERAGE RISK 7.1 - 11.0 MODERATE RISK >11.0 HIGH RISK Performing Lab: see note ML - [facility] LB GLYCOHEMOGLOBIN A1C Reviewed date:08/29/2024 03:43:58 PM Interpretation: Performing Lab: Notes/Report: [facility] , Glycohemoglobin A1C 4.9 4.5-6.2 % ADA RECOMMENDED LIMIT 4.0 - 6.0 ADA THERAPEUTIC TARGET < 7.0 ACTION SUGGESTED > 7.0 Estimated Average Glucose 94 Performing Lab: see note ML - [facility] LB CBC AUTO DIFF Reviewed date:08/29/2024 03:43:58 PM Interpretation: Performing Lab: Notes/Report: [facility] , White Blood Count 4.5 4.0-11.0 10 3/uL Red Blood Count 4.45 4.70-6.10 10 6/uL Hemoglobin 14.0 14.0-18.0 g/dL Hematocrit 40.5 42.0-54.0 % Mean Corpuscular Volume 91.0 80.0-94.0 fL Mean Corpuscular Hemoglobin 31.5 25.9-34.0 pg Mean Corpuscular HGB Conc 34.6 29.9-35.2 g/dL Red Cell Distribution Width 12.3 11.0-15.0 % Platelet Count 178 150-450 10 3/uL Mean Platelet Volume 9.3 9.5-13.5 fL Neutrophils Percent Auto 44.8 43.0-75.0 % Lymphocytes Percent Auto 44.2 20.5-60.0 % Monocytes Percent Auto 8.3 1.7-12.0 % Eosinophils Percent Auto 1.8 0.9-7.0 % Basophils Percent Auto 0.7 0.2-2.0 % Immature Granulocytes Pct Auto 0.2 0.0-0.5 % Neutrophils Absolute Auto 2.0 1.4-6.5 10 3/uL Lymphocytes Absolute Auto 2.0 1.2-3.8 10 3/uL Monocytes Absolute Auto 0.4 0.3-0.8 10 3/uL Eosinophils Absolute Auto 0.1 0.0-0.7 10 3/uL Basophils Absolute Auto 0.0 0.0-0.1 10 3/uL Immature Granulocytes Abs Auto 0.01 0.00-0.03 10 3/uL Performing Lab: see note - [facility] LB TSH Reviewed date:08/29/2024 03:43:58 PM Interpretation: Performing Lab: Notes/Report: [facility] , Thyroid Stimulating Hormone 2.275 0.358-3.740 u IU/mL Performing Lab: see note ML - [facility] LB T4 Reviewed date:08/29/2024 03:43:58 PM Interpretation: Performing Lab: Notes/Report: [facility] , T4 Thyroxine 8.70 4.50-12.10 ug/dL Performing Lab: see note [facility] LB PROF 14(COMP METB) Reviewed date:08/29/2024 03:43:58 PM Interpretation: Performing Lab: Notes/Report: [facility] , Sodium 141 136-145 mmol/L Potassium 3.7 3.5-5.1 mmol/L Chloride 106 98-107 mmol/L Carbon Dioxide 29.1 21.0-32.0 mmol/L Anion Gap 9.6 Glucose 87 74-106 mg/dL Blood Urea Nitrogen 12.0 7.0-18.0 mg/dL Creatinine 1.12 0.70-1.30 mg/dL Estimated GFR ( Kathleen >60 >=60 mL/min/1.73m 2 Estimated GFR (Non- Maria C >60 >=60 mL/min/1.73m 2 BUN Creatinine Ratio 10.7 Calcium 8.5 8.5-10.1 mg/dL Bilirubin Total 0.8 0.2-1.0 mg/dL Aspartate Amino Transferase 24 15-37 U/L Alanine Aminotransferase 18 16-63 U/L Alkaline Phosphatase 48 46-116 U/L Total Protein 7.1 6.4-8.2 g/dL Albumin Level 3.8 3.4-5.0 g/dL Globulin 3.3 Albumin Globulin Ratio 1.2 Performing Lab: see note ML - [facility] FREE T3 Reviewed date:08/29/2024 03:43:58 PM Interpretation: Performing Lab: Notes/Report: [facility] , Free T3 3.42 2.18-3.98 pg/mL Performing Lab: see note ML - [facility] LB Occult Blood* Reviewed date:08/30/2024 06:33:08 PM Interpretation: Performing Lab: Notes/Report: [facility] , Occult Blood Positive Performing Lab: see note ML - [facility] LB PSA SCREENING Reviewed date:08/29/2024 03:43:58 PM Interpretation: Performing Lab: Notes/Report: [facility] , Prostate Specific Antigen Scrn 0.29 <=4.00 ng/mL Performing Lab: see note ML - [facility] LB Reason For Referral Diagnosis 1 SANIYA (obstructive sle ep apnea) (G47.33) Referral Organization [facility] Referring Provider First Name Castillo Referring Provider Last Name Quintonomid Referring Provider Speciality [facility] lisa Referred Provider Dafne Ann Referred Provider Specialty Otolaryngolo gy Referral Priority Routine Medications Medication SIG (Take, Route, Frequency, Duration) Notes Start Date End Date Status Lisinopril 10 MG 1 tablet Orally Once a day for 30 days 09/06/2024 Active oxyBUTYnin Chloride ER 15 MG Oral for 30 Days Active Social History Tobacco Use: Social History Observation Description Date Details (start date - stop date) Former Smoker NA - 02/20/2013 Tobacco Use/Smoking Question Answer Notes Patient is a former smoker When did you stop smoking? 02/20/2013 How long has it been since you last smoked? > 10 years Alcohol Screen (Audit-C) Question Answer Notes Did you have a drink containing alcohol in the p ast year? No Points 0 Interpretation Negative Problems Problem Type SNOMED Code ICD Code Onset Dates Problem Status W/U Status Risk Notes Problem Nocturia (216692052) Nocturia (R35.1) Active confirmed Problem Obstructive sleep apnea syndrome (51769754) SANIYA (obstructive sleep apnea) (G47.33) Active confirmed Problem Benign prostatic hyperplasia (988815138) BPH (benign prostatic hyperplasia) (N40.0) Active confirmed Problem Well adult (181535956) Well adult (Z00.00) Active confirmed Problem Prostatitis (3516767) Prostatitis (N41.9) Active confirmed Vital Signs Blood pressure diastolic 78 mm Hg 09/06/2024 Height 67 in 09/06/2024 Blood pressure systolic 170 mm Hg 09/06/2024 Weight 180.0 lbs 08/31/2024 BMI 28.19 kg/m2 08/31/2024 Encounters Encounter Location Date Provider Diagnosis [facility] [address] [place] [address] 08/31/2024 Castillo Holt Well adult Z00.00 [facility] [address] [place] [address] 07/25/2024 Castillo Holt [facility] [address] [place] [address] 08/28/2024 Castillo Holt Wellness examination Z00.00 [facility] [address] [place] [address] 08/29/2024 Castillo Holt [facility] [address] [place] [address] 08/30/2024 Castillo Holt [facility] [address] [place] [address] 09/06/2024 Castillo Holt SANIYA (obstructive sle ep apnea) G47.33 [facility] [address] [place] [address] 09/06/2024 Castillo Holt Borderline hypertens ion R03.0 Assessments Encounter Date Diagnosis (ICD Code) Assessment Notes Treatment Notes Treatment Clinical Notes Section Notes 08/31/2024 Well adult (ICD-10 - Z00.00) caling back about airlift procedure in [place] 09/06/2024 Borderline hypertension (ICD-10 - R03.0) 08/28/2024 Wellness examination (ICD-10 - Z00.00) 09/06/2024 SANIYA (obstructive sleep apnea) (ICD-10 - G47.33) Plan Of Treatment Pending Test Test Name Order Date CMP (COMPLETE METABOLIC PANEL) 3 HEMOGLOBIN A1C (GLYCO) 02/19/2023 INSULIN, TOTAL 02/19/2023 LIPID PANEL (CHOL/TRIG/HDL/LDL) 02/20/20 23 CBC WITH DIFF 02/19/2023 PSA, PROSTATE-SPECIFIC ANTIGEN 3 FECAL OCCULT BLOOD 08/28/2024 Sleep Study: Retitration BIPAP/CPAP 06/25 CMP - Comprehensive Metabolic Panel 11/2024 THYROID PANEL (T4/TSH/FREE T3) 3 THYROID PANEL (T4/TSH/FREE T3) 5 PSA, SCREENING 08/28/2024 Insurance Providers Payer Name Payer Address Payer Phone Subscriber Number Group Number Insured Name Patient Relationship to Insured Coverage Start Date Coverage End Date [employer] [address] [address] [place] [address] [id number] [phone] Cody Beebe Self - patient is the insured Medical (General) History Medical History History ICD Code SANIYA (obstructive sleep apnea) G47.33 BPH (benign prostatic hyperplasia) N40.0 Nocturia R35.1 Prostatitis N41.9 Surgical History Surgery Date(Month/Year) Colonoscopy 2020 replacement Scaphoid bone rt wrist Hernia Repair
--- OUTSIDE RECORDS SUMMARY | 2025-01-18 06:34 | XMS_ITS | Clinical Summary ---
Author Organization [facility] Address [id number] [address] [place] [address] Care Team Providers Care Information Technology Architect Name Role Phone Unavailable Primary Care Provider Unavailabl e Allergies No known active allergies Medications lisinopriL (PRINIVIL,ZESTR IL) 10 mg tablet Take 1 tablet (10 mg total) by mouth in the morning. 11/30/2024 Active oxybutynin XL (DITROPAN XL) 15 mg 24 hr tablet Take 1 tablet (15 mg total) by mouth in the morning. 11/29/2024 Active grape seed extract (GRAPE SEED ORAL) Take by mouth in the morning. Active UNABLE TO FIND in the morning and before bedtime. Blood Flow Max . Active Active Problems Problem Noted Date Diagnosed Date Erectile dysfunction 12/05/2024 BPH with obstruction/lower urinary tract symptom s 12/05/2024 Benign prostatic hyperplasia 12/05/2024 Frequency of urination 12/05/2024 Heartburn 12/05/2024 Nocturia 12/05/2024 Obstructive sleep apnea syndrome 12/05/2024 Overweight with body mass index (BMI) 25.0-29.9 12/05/2024 Prostatitis 12/05/2024 Urinary urgency 12/05/2024 Encounters Date Type Department Care Team Description 12/05/2024 3:30 PM EDT Office Visit [facility] [address] [place] [phone] Shruthi Estes MD Pre-op exam (Primary Dx); Essential hypertension 12/05/2024 Travel 12/04/2024 Telephone [facility] [address] [place] [phone] KusumJoeChristiDULCE 11/13/2024 Travel from Last 3 Months Social History Tobacco Use Types Packs/Day Years Used Date Smoking Tobacco: Former Cigarettes Smokeless Tobacco: Never Tobacco Cessation:Counseling Given: Not Answered Alcohol Use Standard Drinks/Week Comments Yes 0 (1 standard drink = 0.6 oz pur e alcohol) Childcare Answer Date Recorded Childcare Unknown 11/02/2018 Employment Answer Date Recorded Employment Unknown 11/02/2018 Hunger Screening Answer Date Recorded Within the past 12 months we worried whether our food would run out before we got money to buy more. Never True 12/05/2024 Within the past 12 months th e food we bought just didn't last and we didn't have money to get more. Never True 12/05/2024 Sex and Gender Information Value Date Recorded Sex Assigned at Not on file Legal Sex Male 11:21 AM EDT Gender Identity Not on file Sexual Orientation Not on file Last Filed Vital Signs Vital Sign Reading Time Taken Comments Blood Pressure 150/82 12/05/2024 3:14 PM EDT Pulse 75 12/05/2024 3:14 PM EDT Temperature - - Respiratory Rate - - Oxygen Saturation 96% 12/05/2024 3:14 PM EDT Inhaled Oxygen Concentration - - Weight 79.4 kg (175 lb) 12/05/2024 3:14 PM EDT Height 170.2 cm (5' 7 ) 12/05/2024 3:14 PM EDT Body Mass Index 27.41 12/05/2024 3:14 PM EDT Plan of Treatment Health Maintenance Due Date Last Done Comments Depression Screening 1978 Adult BMI Follow Up Plan 1984 COVID-19 Vaccine (2023-2 5 season) 2024 04/11/2021, 09/17/2020, 08/31/2020, Additional history exists DTaP,Tdap and Td Vaccines (2 - Td or Tdap) 12/11/2024 12/11/2014 Influenza Vaccine 01/22/2025 03/11/2022, , 02/21/2020 Adult BMI Screening 12/05/2025 12/05/2024 Tobacco Screening 12/05/2025 12/05/2024 Zoster (Shingles) Vaccine Completed 2022, 07/21/2022, 08/12/2016 Medical Devices Not on file Procedures Procedure Name Priority Date/Time Associated Diagnosis Comments POCT EKG Routine 12/05/2024 Pre-op exam from Last 3 Months Results * POCT EKG (12/05/2024) us Shruthi Estes MD ECG ORDERABLES Final Result MANUALLY TRANSCRIBED RESULTS from Last 3 Months Insurance [employer]
== END 2025-01-18 06:31 | disposition home or self-care (01) ==
LOC: LAB 06:31
PROVIDERS: PCP Family Medicine; Visit Provider Urology
DX: Z12.5 Encounter for screening for malignant neoplasm of prostate (principal)
CPT/HCPCS: 36415; G0103

== ENCOUNTER 2025-05-10 14:53 | Outpatient (OUT) | payer OTHER, SELFPAY ==
--- OUTSIDE RECORDS SUMMARY | 2025-05-10 14:56 | XMS_ITS | Clinical Summary ---
Author Organization [employer] [facility] tem Address [id number] [address] [place] [address] Care Team Providers Care Medical Aide Name Role Phone Unavailable Primary Care Provider Unavailabl e Allergies No known active allergies Medications MedicationSigDispense QuantityRefillsLast FilledStart DateEnd DateStatus lisinopriL (PRINIVIL,ZESTRIL) 10 mg tablet Take 1 tablet (10 mg total) by mouth in the morning.5Active oxybutynin XL (DITROPAN XL) 15 mg 24 hr tablet Take 1 tablet (15 mg total) by mouth in the morning.5Active grape seed extract (GRAPE SEED ORAL) Take by mouth in the morning.Active UNABLE TO FIND in the morning and before bedtime. Blood Flow Max .Active Active Problems ProblemNoted DateDiagnosed DateErectile wqcqoauydbd84/15/2025PH with obstruction/lower urinary tract iynydssc94/15/2025enign prostatic hyperplasia 12/05/2024Frequency of /15/5596Ildislcvr76/15/4168Nljvwvar29/15/2025 Obstructive sleep apnea fjmlaqdr95/15/2025Overweight with body mass index (BMI) 25.0-29.9071346Xnltfywrdwz08/15/2025Urinary onkdwoc8512/05/2024 Social History Tobacco UseTypesPacks/DayYears UsedDateSmoking Tobacco: FormerCigarettes Smokeless Tobacco: Never Tobacco Cessation:Counseling Given: Not Answered Alcohol UseStandard Drinks/WeekCommentsYes0 (1 standard drink = 0.6 oz pure alcohol)ChildcareAnswerDate VwstdkejFvhvxpqheAkgwnig92/12/2019EmploymentAnswer Date WgqpgwpgWfpmoqhwdnWkrgxqk12/12/2019Hunger ScreeningAnswerDate Recorded Within the past 12 months we worried whether our food would run out before we got money to buy more.Never True12/05/2024Within the past 12 months the food we bought just didn't last and we didn't have money to get more.Never True 12/05/2024Sex and Gender InformationValueDate RecordedSex Assigned at BirthNot on fileLegal CosLmpa6612/27/2014 11:21 AM EDTGender IdentityNot on fileSexual OrientationNot on file Last Filed Vital Signs Vital SignReadingTime TakenCommentsBlood Romiifjp554/8212/05/2024 3:14 PM EDT Kkvyo466012/05/2024 3:14 PM EDTTemperature--Respiratory Rate--Oxygen Nktspvirlr72% 12/05/2024 3:14 PM EDTInhaled Oxygen Concentration--Yduakn17.4 kg (175 lb) 12/05/2024 3:14 PM TXGJqdmak590.2 cm (5' 7 )12/05/2024 3:14 PM EDTBody Mass Index27.41012/05/2024 3:14 PM EDT Plan of Treatment Health MaintenanceDue DateLast DoneCommentsDepression Powzkfseu13/18/1979Adult BMI Follow Up Plan1984DTaP,Tdap and Td Vaccines (2 - Td or Tdap)12/11/2024 12/11/2014COVID-19 Vaccine ( season), 09/17/2020, 08/31/2020, Additional history existsInfluenza Iyazuzs52/, 04/15/2020, 02/21/2020Adult BMI Mihgjjdqq41Tobacco Screening Zoster (Shingles) HkzorfjHptbelcnu50/12/2023, 07/21/2022, 08/12/2016 Medical Devices Not on file Insurance
--- OUTSIDE RECORDS SUMMARY | 2025-05-10 14:56 | XMS_ITS | Patient Health Record ---
Author Organization [facility] [place] Address [address] [place] [address] Care Team Providers Care Ep Technologist Name Role Phone Yanet Castillo Primary Care Provider Allergies No Known Allergies Results Component Value Reference Range Notes CBC AUTO DIFF Reviewed date:08/29/2024 03:43:58 PM Interpretation: Performing Lab: Notes/Report: [facility] , White Blood Count 4.5 4.0-11.0 10 3/uL Red Blood Count4.454.70-6.10 10 6/vMCteahgzkjg58.014.0-18.0 g/nIFveuntjkkb60.5 42.0-54.0 %Mean Corpuscular Onsxzm17.080.0-94.0 fLMean Corpuscular Hemoglobin 31.525.9-34.0 pgMean Corpuscular HGB Conc34.629.9-35.2 g/dLRed Cell Distribution Width12.311.0-15.0 %Platelet Rbrur092860-301 10 3/uLMean Platelet Volume9.39.5- 13.5 fLNeutrophils Percent Auto44.843.0-75.0 %Lymphocytes Percent Auto44.220.5- 60.0 %Monocytes Percent Auto8.31.7-12.0 %Eosinophils Percent Auto1.80.9-7.0 % Basophils Percent Auto0.70.2-2.0 %Immature Granulocytes Pct Auto0.20.0-0.5 % Neutrophils Absolute Auto2.01.4-6.5 10 3/uLLymphocytes Absolute Auto2.01.2-3.8 10 3/uLMonocytes Absolute Auto0.40.3-0.8 10 3/uLEosinophils Absolute Auto0.10.0- 0.7 10 3/uLBasophils Absolute Auto0.00.0-0.1 10 3/uLImmature Granulocytes Abs Auto0.010.00-0.03 10 3/uLPerforming Lab:see noteML - [facility] GLYCOHEMOGLOBIN A1C Reviewed date:08/29/2024 03:43:58 PM Interpretation: Performing Lab: Notes/Report: [facility] ,Glycohemoglobin A1C4.94.5-6.2 % ADA RECOMMENDED LIMIT 4.0 - 6.0 ADA THERAPEUTIC TARGET < 7.0 ACTION SUGGESTED > 7.0 Estimated Average Ifhjdwm99Uywastsuvq Lab:see note - [facility] LIPID PROFILE Reviewed date:08/29/2024 03:43:58 PM Interpretation: Performing Lab: Notes/Report: [facility] ,Werjikzrkqzyo99<=150 mg/qOTfrlsnqrfly72<=200 mg/dLHDL Inxkqyritrl6490-14 mg/dL > or =60 mg/dl - LOW CARDIOVASCULAR RISK <40 mg/dl - HIGH CARDIOVASCULAR RISK LDL Cholesterol Svheieqyjj19.0 <100 mg/dl OPTIMAL 100-129 mg/dl NEAR OR ABOVE OPTIMAL 130-159 mg/dl BORDERLINE HIGH 160-189 mg/dl HIGH >190 mg/dl VERY HIGH VLDL CHOLESTEROL5.2Chol HDL Ratio1.3 3.3 - 4.4 LOW RISK 4.4 - 7.1 AVERAGE RISK 7.1 - 11.0 MODERATE RISK >11.0 HIGH RISK Performing Lab:see noteML - [facility] LBFREE T3 Reviewed date:08/29/2024 03:43:58 PM Interpretation: Performing Lab: Notes/Report: [facility] ,Free T33.422.18-3.98 pg/mLPerforming Lab:see note - [facility] PROF 14(COMP METB) Reviewed date:08/29/2024 03:43:58 PM Interpretation: Performing Lab: Notes/Report: [facility] ,Ppigib604998-236 mmol/LPotassium3.73.5-5.1 mmol/DZiomvrpn33367-993 mmol/LCarbon Dmoxvan11.121.0-32.0 mmol/LAnion Gap9.1Liedqgt6755-595 mg/dLBlood Urea Nitrogen 12.07.0-18.0 mg/dLCreatinine1.120.70-1.30 mg/dLEstimated GFR ( Kathleen>60 >=60 mL/min/1.73m 2Estimated GFR (Non- Maria C>60>=60 mL/min/1.73m 2BUN Creatinine Ratio10.9Chahbsz1.58.5-10.1 mg/dLBilirubin Total0.80.2-1.0 mg/dL Aspartate Amino Brzhfyjszrh0741-06 U/LAlanine Ozluseoswyhesosn5687-98 U/L Alkaline Zgpdgpqhzhm4093-182 U/LTotal Protein7.16.4-8.2 g/dLAlbumin Level3.83.4- 5.0 g/dLGlobulin3.3Albumin Globulin Ratio1.2Performing Lab:see noteML - [facility] LBPSA SCREENING Reviewed date:08/29/2024 03:43:58 PM Interpretation: Performing Lab: Notes/Report: [facility] ,Prostate Specific Antigen Scrn0.29<=4.00 ng/mLPerforming Lab:see noteML - [facility] LBT4 Reviewed date:08/29/2024 03:43:58 PM Interpretation: Performing Lab: Notes/Report: [facility] ,T4 Thyroxine8.704.50-12.10 ug/dLPerforming Lab:see noteML - [facility] LBTSH Reviewed date:08/29/2024 03:43:58 PM Interpretation: Performing Lab: Notes/Report: [facility] ,Thyroid Stimulating Hormone2.2750.358-3.740 uIU/mLPerforming Lab:see noteML - [facility] LBOccult Blood* Reviewed date:08/30/2024 06:33:08 PM Interpretation: Performing Lab: Notes/Report: [facility] ,Occult BloodPositivePerforming Lab:see noteML - [facility] LBPSA SCREENING Reviewed date:01/18/2025 12:48:40 PM Interpretation: Performing Lab: Notes/Report: [facility] ,Prostate Specific Antigen Scrn1.23<=4.00 ng/mLPerforming Lab:see noteML - [facility] LB Reason For Referral Diagnosis 1 SANIYA (obstructive sle ep apnea) (G47.33) Referral Organization [facility] Medicine Referring Provider First Name Castillo Referring Provider Last Name Quintonomid Referring Provider Speciality [facility] lisa Referred Provider Dafne Ann Referred Provider Specialty Otolaryngolo gy Referral Priority Routine Medications Medication SIG (Take, Route, Frequency, Duration) Notes Start Date End Date Status Lisinopril 10 MG 1 tablet Orally Once a day; Dur ation: 30 days 5ActiveoxyBUTYnin Chloride ER 15 MGOral; Duration: 30 DaysActive Social History Tobacco Use: Social History Observation Description Date Details (start date - stop date) Former Smoker NA - 02/20/2013 Tobacco Use/Smoking Question Answer Notes Patient is a former smoker When did you stop smoking?02/20/2013How long has it been since you last smoked?> 10 yearsAlcohol Screen (Audit-C) Question Answer Notes Did you have a drink containing alcohol in the p ast year? No Vdijgm6JstqaydytkrohdBmxbymzb Problems Problem Type SNOMED Code ICD Code Onset Dates Problem Status W/U Status Risk Notes Problem Nocturia (755612956) Nocturia (R35.1) ActiveconfirmedProblemObstructive sleep apnea syndrome (10674980)SANIYA (obstructive sleep apnea) (G47.33)ActiveconfirmedProblemBenign prostatic hyperplasia (578187298)BPH (benign prostatic hyperplasia) (N40.0)Activeconfirmed ProblemWell adult (777512423)Well adult (Z00.00)ActiveconfirmedProblem Prostatitis (6409173)Prostatitis (N41.9)Activeconfirmed Vital Signs Blood pressure diastolic 78 mm Hg 09/06/2024 Gtzoyn99 in09/06/2024lood pressure kkftuxcu733 mm Hg09/06/20241566Klqgfg899.0 lbs 5BMI28.19 kg/m208/31/2024 Encounters Encounter Location Date Provider Diagnosis [facility] [address] [place] [address] 08/31/2024 Castillo Holt Well adult Z00.0 0 [facility] [address] [place] [address] 07/25/2024 Castillo Hoy [facility] [place] [address] 08/28/2024Doug HoyWellness examination Z00.00[facility] [place] [address]/12/2024Doug [facility] [place] [address]/01/2025Doug [facility] [place] [address]/ Castillo AlcantarayOSA (obstructive sleep apnea) G47.33[facility] [place] [address]/Do HoyBorderline hypertension R03.0 Assessments Encounter Date Diagnosis (ICD Code) Assessment Notes Treatment Notes Treatment Clinical Notes Section Notes 08/31/2024 Well adult (ICD-10 - Z00.00) caling back about airlift procedure in [place]/06/2024orderline hypertension (ICD-10 - R03.0)08/28/2024Wellness examination (ICD-10 - Z00.00)09/06/2024OSA (obstructive sleep apnea) (ICD-10 - G47.33) Plan Of Treatment Pending Test Test Name Order Date CMP (COMPLETE METABOLIC PANEL) 3 HEMOGLOBIN A1C (GLYCO) 02/19/2023 INSULIN, TOTAL 02/19/2023 LIPID PANEL (CHOL/TRIG/HDL/LDL) 02/20/20 23 CBC WITH DIFF (EXP 03/2025) 02/19/2023 PSA, PROSTATE-SPECIFIC ANTIGEN 3 FECAL OCCULT BLOOD 08/28/2024 Sleep Study: Retitration BIPAP/CPAP 06/25 CMP - Comprehensive Metabolic Panel 11/2024 THYROID PANEL (T4/TSH/FREE T3) 3 THYROID PANEL (T4/TSH/FREE T3) 5 PSA, SCREENING 08/28/2024 Insurance Providers Payer Name Payer Address Payer Phone Subscriber Number Group Number Insured Name Patient Relationship to Insured Coverage Start Date Coverage End Date [employer] [address] [address] [place] [phone] [id number] [id number] Cody Beebe Self - patient is the insured Medical (General) History Medical History History ICD Code SANIYA (obstructive sleep apnea) G47.33 BPH (benign prostatic hyperplasia) N40.0 Nocturia R35.1 Prostatitis N41.9 Surgical History Surgery Date(Month/Year) Hernia Repair Njfpurnzpng5982lgrbgychnuf Scaphoid bone rt wrist
--- OUTSIDE RECORDS SUMMARY | 2025-05-10 14:56 | XMS_ITS | Clinical Summary ---
Author Organization [facility] Address [address], [address] [place] [address] Care Team Providers Care Plug Wirer Name Role Phone Trevon Holt MD Primary Care Provider [phone] Social History Tobacco UseTypesPacks/DayYears UsedDateSmoking Tobacco: Never AssessedSex and Gender InformationValueDate RecordedSex Assigned at BirthNot on fileLegal Sex Male11/13/2019 7:28 AM EDTGender IdentityNot on fileSexual OrientationNot on file Plan of Treatment Not on file Insurance Care Teams Team MemberRelationshipSpecialtyStart DateEnd Trevon Holt MD [address] [place] [address] PCP - GeneralFamily Medicine11/13/19
== END 2025-05-10 14:54 | disposition home or self-care (01) ==
LOC: FHNEUROLOG 14:54
PROVIDERS: PCP Family Medicine; Visit Provider Psychiatry & Neurology Neurology
DX: G47.33 Obstructive sleep apnea (adult) (pediatric) (principal)
CPT/HCPCS: G0463